=== PATIENT | female | born 1960 | race Caucasian/White ===

== ENCOUNTER 2017-03-15 10:07 | Day surgery (SDC) | payer OTHER, MEDICAID ==
[~2017-03-15] VITALS: Ht 152.4 cm; Wt 91.3 kg
[~2017-03-15 10:07] MED LIST: AMLO-147 PO; ATOR20TA38 PO; CEPH-443 PO; DOCU-144 PO; FURO-110 PO; GABA300C16 PO; HYDR-762 PO; LEVO137T24 PO; METH500T8 PO; OMEP20CA16 PO; POLY10DR BOTH EYES; TRAM50TA2 PO
[2017-03-15 10:29] VITALS: Ht 152.4 cm; Wt 91.3 kg
[2017-03-15] MEDS ORDERED: AMIT75TA2 PO (10:45)
[2017-03-15] MEDS ORDERED: HYDR-902 PO (10:45)
[2017-03-15] MEDS ORDERED: FER325 PO (10:45)
[2017-03-15] MEDS ORDERED: PROPOFOL 20 ML ONE ×2 (10:49→11:26)
[2017-03-15 10:51] VITALS: BP 128/65; PULSE 85; RESP 18
[2017-03-15 11:53] VITALS: BP 124/63; PULSE 79; RESP 14
--- NOTE | 2017-03-15 13:12 | GILP ---
DATE OF PROCEDURE: NAME OF PROCEDURES: 1. Esophagogastroduodenoscopy and biopsy. 2. Colonoscopy, biopsy and polypectomy. SURGEON: Maia Motta MD PREOPERATIVE DIAGNOSES: 1. Iron deficiency anemia. 2. Gastroesophageal reflux disease. POSTOPERATIVE DIAGNOSES: 1. Gastroesophageal reflux disease. 2. Gastritis. 3. Gastric mucosal biopsies were taken for Helicobacter pylori test. 4. Colonoscopy all the way to the cecum. 5. Sigmoid colon polyp was removed using the snare and electrocautery. 6. Right colon polyp was removed using the biopsy forceps. 7. Diverticulosis of the colon. 8. Internal hemorrhoids. INDICATION FOR THE PROCEDURE: Ms. Sandra Reed is a 56-year-old female patient who was noted to urena ve iron deficiency anemia. The patient never had screening colonoscopy. She also had chronic heart burn, not responding to therapy. The patient was scheduled for endoscopy and colonoscopy for [facility]. The procedures and possible complications are well explained to the patient, she understood and cons ented to the procedures. DESCRIPTION OF PROCEDURE: Under the influence of anesthesia, the gastroscope was carefully introduc ed into the esophagus and under direct vision, it was advanced to the stomach and through the pyloru s into the duodenal bulb and descending duodenum. FINDINGS: ESOPHAGUS: The patient had gastroesophageal reflux disease. STOMACH: She had gastritis and gastric mucosal biopsies were taken for H. pylori test. DUODENUM: Normal. The colonoscope was carefully introduced in the rectum and under direct vision, it was advanced all the way to the cecum. FINDINGS: The patient had a sigmoid colon polyp and it was removed using the snare and electrocaute ry. She had a small right colon polyp and it was removed using the biopsy forceps. She was noted t o have diverticulosis of the colon and internal hemorrhoids. She tolerated the procedures very well and there was no complication from the procedures. At the en d of the procedures, she was awake with stable vital signs and she was discharged home to the care o f her family. IMPRESSION: 1. Gastroesophageal reflux disease. 2. Gastritis. 3. Gastric mucosal biopsies were taken for Helicobacter pylori test. 4. Colonoscopy all the way to the cecum. 5. Sigmoid colon polyp was removed using the snare and electrocautery. 6. Right colon polyp was removed using the biopsy forceps. 7. Internal hemorrhoids. PLAN: 1. Continue omeprazole. 2. Await histopathology reports. 3. Next screening colonoscopy in 5 years. Dictated By: MAIA KATHLEEN/SAMANTHA Conf#: [id number] DID#: [id number]
== END 2017-03-15 14:25 | disposition home or self-care (01) ==
LOC: GIL 10:07
PROVIDERS: ATTEND Internal Medicine Gastroenterology
DX: K21.9 Gastro-esophageal reflux disease without esophagitis (principal); D12.5 Benign neoplasm of sigmoid colon; K63.5 Polyp of colon; K29.70 Gastritis, unspecified, without bleeding; K57.90 Diverticulosis of intestine, part unspecified, without perforation or abscess without bleeding; I10 Essential (primary) hypertension; E03.9 Hypothyroidism, unspecified; E66.01 Morbid (severe) obesity due to excess calories; Z68.39 Body mass index [BMI] 39.0-39.9, adult; E78.5 Hyperlipidemia, unspecified
CPT/HCPCS: 87081; 88305

== ENCOUNTER 2018-08-17 09:29 | Inpatient (IN) | END 2018-08-22 18:50 | disposition home health service (06) | DRG 460 ==

== ENCOUNTER 2018-09-04 01:12 | Inpatient (IN) | END 2018-09-18 18:00 | DRG 460 ==

== ENCOUNTER 2018-09-18 18:06 | Inpatient (IN) | END 2018-09-20 13:40 | disposition home health service (06) | DRG 560 ==

== ENCOUNTER 2018-10-03 22:12 | Inpatient (IN) | END 2018-10-19 21:00 | DRG 862 ==

== ENCOUNTER 2018-10-19 19:08 | Inpatient (IN) | payer OTHER ==
[~2018-10-19] VITALS: Ht 152.4 cm; Wt 90.0 kg
[~2018-10-19 19:08] MED LIST changes: -AMLO-147 PO; -ATOR20TA38 PO; -CEPH-443 PO; -DOCU-144 PO; -FURO-110 PO; +HYDR-3980 PO; -HYDR-762 PO; +LEVO100T8 PO; -LEVO137T24 PO; -OMEP20CA16 PO; +PANT40TA3 PO; -POLY10DR BOTH EYES; -TRAM50TA2 PO
[2018-10-19 21:00] VITALS: BP 108/69; PULSE 89; RESP 18
[2018-10-19] MEDS: oxyCODONE (CR) 10 MG TAB [oxyCONTIN] PO SCH (22:30)
[2018-10-19] MEDS ORDERED: CYCLOBENZAPRINE 10 MG TAB PO SCH (22:30)
[2018-10-19] MEDS: SENNA TAB PO SCH (22:30)
[2018-10-19] MEDS: APIXABAN 5 MG TABLET PO SCH (22:30)
[2018-10-19] MEDS: GABAPENTIN 400 MG CAP PO SCH (22:30)
[2018-10-19] MEDS: HYDROmorphONE 2 MG TAB PO PRN (22:54)
[2018-10-19] MEDS ORDERED: BISACODYL (EC) 5 MG TAB PO PRN (23:00)
[2018-10-19] MEDS ORDERED: HYDROCODONE/APAP (5/325) TAB PO PRN (23:00)
--- NOTE | 2018-10-19 23:00 | NUR ---
ADMITTED A 58 YEAR OLD FEMALE FROM WITH DX OF LUMBOSACRAL RADICULOPATHY. MEDICATION REGIMEN REVIEWED WITH DR STOVER, NO ISSUES FOUND DURING REVIEW. ORIENTED PT TO SURROUNDING AREA. NURSING ASSESSMENT DONE. PICTURE ON BACK INCISION TAKEN. DRESSING CHANGED PER ORDER, USE STERIL GLOVES. C/O PAIN 8-9/10 ON HER BACK INCISION. DILAUDID GIVEN, PT STILL C/O PAIN. INFORMED TO DR STOVER, NEW ORDER NOTED AND CARRIED OUT. ENCOURAGE PT TO TURN AND REPOSITION. ALL NEEDS ATTENDED. HOURLY ROUNDING MADE. CALL LIGHT AND TABLE ARE WITHIN REACH.
[2018-10-19 23:45] VITALS: Ht 152.4 cm; Wt 90.0 kg
[2018-10-20] MEDS ORDERED: BISACODYL 10 MG SUPP PR PRN
[2018-10-20] MEDS ORDERED: MAGNESIUM HYDROXIDE 30ML CUP PO PRN
[2018-10-20] MEDS ORDERED: LACTULOSE 30ML CUP PO PRN
[2018-10-20 02:00] VITALS: BP 112/65; PULSE 84; RESP 18
[2018-10-20] MEDS: METHOCARBAMOL 750 MG TAB PO SCH ×4 (04:05→20:12)
[2018-10-20] MEDS: HYDROmorphONE 2 MG TAB PO PRN ×3 (04:05→22:13)
[2018-10-20] MEDS: PANTOPRAZOLE (EC) 40 MG TAB PO SCH (06:54)
[2018-10-20] MEDS: LEVOTHYROXINE 100 MCG TAB PO SCH (06:54)
[2018-10-20 07:30] VITALS: BP 163/79; PULSE 79; RESP 18
[2018-10-20] MEDS: APIXABAN 5 MG TABLET PO SCH ×2 (08:50→20:12)
[2018-10-20] MEDS: GABAPENTIN 400 MG CAP PO SCH ×4 (08:50→20:12)
[2018-10-20] MEDS: POLYETHYLENE GLYCOL 17 GM PACKET PO SCH (08:50)
[2018-10-20] MEDS: SENNA TAB PO SCH ×2 (08:50→20:12)
[2018-10-20] MEDS: oxyCODONE (CR) 10 MG TAB [oxyCONTIN] PO SCH ×2 (08:51→20:13)
[2018-10-20] MEDS: DOCUSATE SODIUM 100 MG CAP PO SCH ×2 (08:51→20:12)
[2018-10-20] MEDS: COLLAGENASE 5 GM (UD JAR) TOP SCH (08:51)
--- NOTE | 2018-10-20 12:13 | CONS ---
Date/Time of Note Date/Time of Note DATE: 10/20/18 TIME: 12:11 Assessment/Plan Assessment/Plan Additional Assessment/Plan 1) back pain - therapy - pain medications - s/p surgery Consultation Date/Type/Reason Admit Date/Time Oct 19, 2018 at 21:00 Date of Consultation: Oct 20, 2018 Type of Consult Internal Medicine Reason for Consultation medical management Hx of Present Illness Patient comes in with chronic back pain, she is s/p surgery and is not in acute rehab for therapy Past Surgical History Past Surgical Hx: other Social History Smoking Status: Former smoker Exam/Review of Systems Vital Signs Vitals Vital Signs Date Temp Pulse Resp B/P (MAP) Pulse Ox O2 O2 Flow FiO2 Time Delivery Rate 10/20/18 98.3 79 18 163/79 94 Nasal 07:30 (107) Cannula 10/19/18 2.0 21:47 Intake and Output 10/19/18 10/19/18 10/20/18 1515:00 23:00 07:00 IntakeIntake Total 1200 ml BalanceBalance 1200 ml Exam Constitutional: well developed Head: normocephalic, atraumatic Neck: supple Respiratory: clear to auscultation Cardiovascular: regular rate and rhythm Gastrointestinal: soft, non-tender Extremities: normal pulses Medications Medications Current Medications Acetaminophen (Tylenol Tab) 650 mg Q6H PRN PO MILD PAIN(1-3)OR ELEVATED TEMP; Start 10/19/18 at 23:00 Apixaban (Eliquis) 5 mg BID PO Last administered on 10/20/18at 08:50; Admin Dose 5 MG; Start 10/19/18 at 22:30 Bisacodyl (Dulcolax) 5 mg DAILY PRN [place] CONSTIPATION; Start 10/19/18 at 23:00 Collagenase (Santyl) 1 applic DAILY TOP Last administered on 10/20/18at 08:51; Admin Dose 1 APPLIC; Start 10/20/18 at 09:00 Gabapentin (Neurontin) 800 mg QID PO Last administered on 10/20/18at 08:50; Admin Dose 800 MG; Start 10/19/18 at 22:30 Acetaminophen/ Hydrocodone Bitart ([place] (5/325)) 1 tab Q6H PRN PO MODERATE PAIN LEVEL 4-6 Last administered on 10/20/18at 06:54; Admin Dose 1 TAB; Start 10/19/18 at 23:00 Hydromorphone HCl (Dilaudid) 2 mg Q4H PRN PO SEVERE PAIN LEVEL 7-10 Last administered on 10/20/18at 11:31; Admin Dose 2 MG; Start 10/19/18 at 23:00 Levothyroxine Sodium (Synthroid) 200 mcg DAILY@06 PO Last administered on 10/20/18 06:54; Admin Dose 200 MCG; Start 10/20/18 at 06:00 Oxycodone HCl (Oxycontin) 10 mg BID PO Last administered on 10/20/18 08:51; Admin Dose 10 MG; Start 10/19/18 at 22:30 Pantoprazole (Protonix Tab) 40 mg DAILY@06 PO Last administered on 10/20/18 06:54; Admin Dose 40 MG; Start 10/20/18 at 06:00 Polyethylene Glycol (Miralax) 17 gm DAILY PO Last administered on 10/20/18 08:50; Admin Dose 17 GM; Start 10/20/18 at 09:00 Senna (Senokot) 2 tab BID PO Last administered on 10/20/18 08:50; Admin Dose 2 TAB; Start 10/19/18 at 22:30 Docusate Sodium (Colace) 100 mg BID PO Last administered on 10/20/18 08:51; Admin Dose 100 MG; Start 10/20/18 at 09:00 Bisacodyl (Dulcolax Supp) 10 mg DAILY PRN [place] CONSTIPATION; Start 10/20/18 at 00:00 Magnesium Hydroxide (Milk Of Mag) 30 ml BID PRN PO CONSTIPATION; Start 10/20/18 at 00:00 Lactulose (Enulose) 20 gm DAILY PRN PO CONSTIPATION; Start 10/20/18 at 00:00 Methocarbamol (Robaxin) 750 mg TID PO Last administered on 10/20/18 08:51; Admin Dose 750 MG; Start 10/20/18 at 00:00 Results Result Diagram: 10/20/1839 10/20/1839 Results 24 hrs Laboratory Tests Test 10/19/18 21:30 10/20/18 06:39 Urine Color STRAW Urine Clarity CLEAR Urine pH 7.0 Urine Specific [place] 1.009 Urine Ketones NEGATIVE Urine Nitrite NEGATIVE Urine Bilirubin NEGATIVE Urine Urobilinogen NEGATIVE Urine Leukocyte Esterase NEGATIVE Urine Hemoglobin NEGATIVE Urine Glucose NEGATIVE Urine Total Protein NEGATIVE White Blood Count 6.1 Red Blood Count 3.79 L Hemoglobin 10.8 L Hematocrit 34.7 L Mean Corpuscular Volume 91.6 Mean Corpuscular Hemoglobin 28.5 L Mean Corpuscular Hemoglobin Concent 31.1 L Red Cell Distribution Width 13.5 Platelet Count 424 H Mean Platelet Volume 9.5 Immature Granulocytes % 1.500 H Neutrophils % 49.7 Lymphocytes % 27.3 Monocytes % 19.6 H Eosinophils % 1.1 Basophils % 0.8 Nucleated Red Blood Cells % 0.0 Immature Granulocytes # 0.090 H Neutrophils # 3.0 Lymphocytes # 1.7 Monocytes # 1.2 H Eosinophils # 0.1 Basophils # 0.1 Nucleated Red Blood Cells # 0.0 Activated Partial Thromboplast Time 33.7 Sodium Level 140 Potassium Level 5.3 H Chloride Level 97 Carbon Dioxide Level 32 H Anion Gap 11 Blood Urea Nitrogen 17 Creatinine 0.76 Est Glomerular Filtrat Rate mL/min > 60 Glucose Level 122 Calcium Level 9.9 Total Bilirubin 0.3 Direct Bilirubin 0.00 Indirect Bilirubin 0.3 Aspartate Amino Transf (AST/SGOT) 18 Alanine Aminotransferase (ALT/SGPT) 25 Alkaline Phosphatase 115 Total Protein 7.0 Albumin 3.5 Globulin 3.50 H Albumin/Globulin Ratio 1.00 ELAINE BUITRAGO Oct 20, 2018 12:13
--- NOTE | 2018-10-20 13:24 | CONS ---
DATE OF ADMISSION: 10/19/2018 DATE OF CONSULTATION: 10/20/2018 REHABILITATION POST ADMISSION PHYSICIAN EVALUATION REHABILITATION IMPAIRMENT CATEGORY: Lumbar radiculopathy status post spinal fusion and infection wit h the patient status post hardware removal/reposition. ACTIVE COMORBIDITIES: 1. Acute pain syndrome. 2. Hypertension. 3. Status post respiratory failure. 4. Morbid obesity. 5. Urinary tract infection. 6. Pulmonary embolism. 7. Impairments in self-care and mobility. HISTORY OF PRESENT ILLNESS: The patient is a 58-year-old female with a history of complicated low ba ck history who initially had low back pain with radiculopathy. The patient did undergo lumbar fusion surgery on 08/17/2018. The patient did require hardware removal and reposition of interbody cage an d screw placement on 09/07/2018. The patient later noted to have increasing pain with wound dehiscen ce. Her hospital course also notable for acute respiratory failure, pulmonary embolism, urinary trac t infection. The patient noted to have significant impairments in self-care and mobility as compared to baseline, and has been cleared to transfer to the rehabilitation unit for comprehensive interdisc iplinary rehab care. FUNCTIONAL HISTORY: Prior to recent events, she was independent in self-care tasks and mobility. Cu rrently, she requires moderate to minimal assist for self-care and mobility tasks. I have reviewed the preadmission screen and patient's current functional status is consistent with e preadmission screen. FAMILY AND SOCIAL HISTORY: The patient reports living at home alone with [facility] She hopes to return there upon discharge. PAST MEDICAL HISTORY: 1. Low back pain as above. 2. Hypertension. 3. Morbid obesity. CURRENT MEDICATIONS: 1. Eliquis 5 mg p.o. b.i.d. 2. Santyl topically. 3. Flexeril 10 mg p.o. b.i.d. 4. Neurontin 800 mg p.o. q.i.d. 5. [place] p.r.n. 6. Dilaudid p.r.n. 7. OxyContin 10 mg b.i.d. 8. Protonix 40 mg p.o. daily. 9. Senokot 2 tabs p.o. b.i.d. ALLERGIES: THE PATIENT WITH NO KNOWN DRUG ALLERGIES. PHYSICAL EXAMINATION: VITAL SIGNS: She is currently afebrile with stable vital signs. HEENT: Extraocular motion intact. Oropharynx clear. NECK: Supple. LUNGS: Clear anteriorly. CARDIAC: S1, S2. ABDOMEN: Soft, nontender with bowel sounds. NEUROLOGIC: She is awake and alert. She is oriented x3. She will follow simple 1-step commands. S he demonstrates antigravity strength in bilateral upper extremity and lower extremity. PLAN: The patient has been admitted for comprehensive interdisciplinary acute rehab and is anticipat ed to tolerate 3 hours of daily therapy in divided doses for at least 5/7 days a week. Treatment maryann n will include: 1. Physical therapy to focus on bed mobility, transfers, and household ambulation with the goal of h aving patient reach standby assist level. 2. Occupational therapy to focus on hygiene, grooming, dressing, bathing, and toileting activities w ith goal of having patient reach standby assist level. 3. Rehabilitation nursing for carryover of therapeutic interventions, the goal of continent of bowel and bladder, and the goal of pain adequately managed on oral medications. ESTIMATED LENGTH OF STAY: 14 days. DISPOSITION GOAL: Home. REHABILITATION BARRIER: Pain. INTERVENTION FOR BARRIER: Interdisciplinary approach. I acknowledge that I performed a full physical examination on this patient within 24 hours of admissi on to the rehabilitation unit. I believe the patient is a good candidate for comprehensive interdisc iplinary rehab care and is anticipated to make reasonable goals in a reasonable period of time as out lined above. Dictated By: MILLY LEGER/SAMANTHA Conf#: [id number] DID#: [id number]
[2018-10-20] MEDS: HYDROCODONE/APAP (5/325) TAB PO PRN (13:58)
[2018-10-20 14:00] VITALS: BP 115/63; PULSE 86; RESP 20
--- NOTE | 2018-10-20 18:39 | NUR ---
No acute changes noted w/in shift. Pt on her bed most of the time. Pt did therapy today but c/o severe pain on his back s/p lumbar sx. DVT pumps & foam cushion placed as ordered. IV line access kept patent & intact w/ no s/sx of infection/infiltration noted. Wound care done as ordered. Spinal precaution & strict aspiration observed at all times. Kept well rested. Needs attended. Bed kept low & in locked pos. Call light placed w/in reach. Will endorse to PM RN for ALFRED.
[2018-10-20 19:32] VITALS: BP 109/65; RESP 20
[2018-10-21] MEDS: HYDROCODONE/APAP (5/325) TAB PO PRN ×2 (00:59→15:38)
[2018-10-21 02:14] VITALS: BP 108/60; PULSE 79; RESP 18
--- NOTE | 2018-10-21 05:46 | NUR ---
Pt asleep at this time. No s/sx of distress. Dilaudid PO and [place] PO administered per MD order. Verbalized some relief of pain after interventions. Due meds given. Needs attended to. Safety precautions in place. Frequent checks done. Encouraged to call for help when necessary. Will endorse accordingly.
[2018-10-21] MEDS: PANTOPRAZOLE (EC) 40 MG TAB PO SCH (06:44)
[2018-10-21] MEDS: LEVOTHYROXINE 100 MCG TAB PO SCH (06:44)
[2018-10-21 07:00] VITALS: BP 114/66; PULSE 79; RESP 18
[2018-10-21] MEDS: GABAPENTIN 400 MG CAP PO SCH ×4 (09:25→20:00)
[2018-10-21] MEDS: DOCUSATE SODIUM 100 MG CAP PO SCH ×2 (09:25→20:00)
[2018-10-21] MEDS: APIXABAN 5 MG TABLET PO SCH ×2 (09:25→20:00)
[2018-10-21] MEDS: METHOCARBAMOL 750 MG TAB PO SCH ×3 (09:25→20:00)
[2018-10-21] MEDS: SENNA TAB PO SCH ×2 (09:25→20:00)
[2018-10-21] MEDS: POLYETHYLENE GLYCOL 17 GM PACKET PO SCH (09:25)
[2018-10-21] MEDS: COLLAGENASE 5 GM (UD JAR) TOP SCH (09:26)
[2018-10-21] MEDS: oxyCODONE (CR) 10 MG TAB [oxyCONTIN] PO SCH ×2 (09:26→20:00)
--- NOTE | 2018-10-21 11:44 | NUR ---
Notified Dr Milagros Witt, manager information for Dr Leung about patient's potassium level = 5.3 & he ordered repeat K level tomorrow. Noted & carried out.
--- NOTE | 2018-10-21 12:08 | PN ---
Date/Time of Note Date/Time of Note DATE: 10/21/18 TIME: 12:07 Assessment/Plan VTE Prophylaxis Risk score (from Nsg)>0 risk: 14 SCD applied (from Nsg): Yes Pharmacological prophylaxis: LMWH Lines/Catheters IV Catheter Type (from Nrsg): Saline Lock Urinary Cath still in place: Yes Reason Cath still needed: skin wounds contaminated by urine Assessment/Plan Hospital Course Patient comes in with chronic back pain, she is s/p surgery and is not in acute rehab for therapy Subjective 24 Hr Interval Summary Free Text/Dictation Patient has no complaints Exam/Review of Systems Vital Signs Vitals Vital Signs Date Temp Pulse Resp B/P (MAP) Pulse Ox O2 O2 Flow FiO2 Time Delivery Rate 10/21/18 97.9 79 18 114/66 97 Room Air 07:00 (82) 10/21/18 2.0 02:04 Intake and Output 10/20/18 10/20/18 10/21/18 1515:00 23:00 07:00 IntakeIntake Total 860 ml OutputOutput Total 900 ml 900 ml BalanceBalance -40 ml -900 ml Exam Constitutional: well developed Head: normocephalic, atraumatic Neck: supple Respiratory: clear to auscultation Cardiovascular: regular rate and rhythm Gastrointestinal: soft, non-tender Extremities: normal pulses Medications Medications Current Medications Acetaminophen (Tylenol Tab) 650 mg Q6H PRN PO MILD PAIN(1-3)OR ELEVATED TEMP; Start 10/19/18 at 23:00 Apixaban (Eliquis) 5 mg BID PO Last administered on 10/21/18at 09:25; Admin Dose 5 MG; Start 10/19/18 at 22:30 Bisacodyl (Dulcolax) 5 mg DAILY PRN PO CONSTIPATION; Start 10/19/18 at 23:00 Collagenase (Santyl) 1 applic DAILY TOP Last administered on 10/21/18at 09:26; Admin Dose 1 APPLIC; Start 10/20/18 at 09:00 Gabapentin (Neurontin) 800 mg QID PO Last administered on 10/21/18at 09:25; Admin Dose 800 MG; Start 10/19/18 at 22:30 Hydromorphone HCl (Dilaudid) 2 mg Q4H PRN PO SEVERE PAIN LEVEL 7-10 Last administered on 10/20/18at 22:13; Admin Dose 2 MG; Start 10/19/18 at 23:00 Levothyroxine Sodium (Synthroid) 200 mcg DAILY@06 PO Last administered on 10/21/18 06:44; Admin Dose 200 MCG; Start 10/20/18 at 06:00 Oxycodone HCl (Oxycontin) 10 mg BID PO Last administered on 10/21/18 09:26; A dmin Dose 10 MG; Start 10/19/18 at 22:30 Pantoprazole (Protonix Tab) 40 mg DAILY@06 PO Last administered on 10/21/18 06:44; Admin Dose 40 MG; Start 10/20/18 at 06:00 Polyethylene Glycol (Miralax) 17 gm DAILY PO Last administered on 10/21/18 09:25; Admin Dose 17 GM; Start 10/20/18 at 09:00 Senna (Senokot) 2 tab BID PO Last administered on 10/21/18 09:25; Admin Dose 2 TAB; Start 10/19/18 at 22:30 Docusate Sodium (Colace) 100 mg BID PO Last administered on 10/21/18 09:25; Admin Dose 100 MG; Start 10/20/18 at 09:00 Bisacodyl (Dulcolax Supp) 10 mg DAILY PRN [place] CONSTIPATION; Start 10/20/18 at 00:00 Magnesium Hydroxide (Milk Of Mag) 30 ml BID PRN PO CONSTIPATION; Start 10/20/18 at 00:00 Lactulose (Enulose) 20 gm DAILY PRN PO CONSTIPATION; Start 10/20/18 at 00:00 Methocarbamol (Robaxin) 750 mg TID PO Last administered on 10/21/18 09:25; Admin Dose 750 MG; Start 10/20/18 at 00:00 Acetaminophen/ Hydrocodone Bitart ([place] (5/325)) 2 tab Q6H PRN PO MODERATE PAIN LEVEL 4-6 Last administered on 10/21/18at 00:59; Admin Dose 2 TAB; Start 10/20/18 at 14:00 Results Result Diagram: 10/20/1839 10/20/1839 ELAINE BUITRAGO Oct 21, 2018 12:08
[2018-10-21 14:00] VITALS: BP 113/63; PULSE 84; RESP 18
--- NOTE | 2018-10-21 16:01 | NUR ---
Gave Therapeutic Outing teaching to patient. Specifically informed patient that they can only visit premises within the hospital & not outside the building. Patient agrees.
--- NOTE | 2018-10-21 17:00 | NUR ---
Patient in bed sleeping. Easily arousable. Alert, oriented x 3 with periods of forgetfulness. No SOB. Complained of pain so given PRN pain medication. Relieved after 30 minutes. Offered educational materials & TV for recreational activities. Wound dressing change & treatment done on patient's open wound & incision site in the back. No redness & drainage noted. Wound clean & dry. Patient tolerated procedure well. Kept clean & dry. All due meds given. Call light within reach. Bed alarm on & in low position. Kept comfortable.
[2018-10-21 20:00] VITALS: BP 99/66; PULSE 90; RESP 18
--- NOTE | 2018-10-21 22:29 | CONS ---
Date/Time of Note Date/Time of Note DATE: 10/21/18 TIME: 22:27 Assessment/Plan Assessment/Plan Chief Complaint/Hosp Course - s/p fever due to PE and infection of the spinal wound, resolved - PE extending from distal R main pulmonary artery into 1st and 2nd order lobar branches on CTA on 10/06/2018, DIONNA of LEs on 10/06/2018 showed no DVT - s/p acute hypoxic resp failure as a result of PE, resolved neuro - s/p dehiscence and infection of the lower part of the spinal wound due to E. coli, coag negative Staph and corynebacteria, improved after a course of antibiotic - pain and paresthesia of b/l LEs, chronic according to Pt - h/o mechanical low back pain with radiculopathy of LEs - h/o b/l L5-S1 trans-foraminal lumbar interbody fusion surgery using instrumented spinal fusion 08/17/2018. - h/o posterior L5-S1 instrumented spinal fusion removal with reposition of interbody cage; placement of L5-S1 rods/screws on 09/07/2018 other conditions - s/p neutropenia noted on 10/09/2018, probably due to a combination of infection and side effect from vancomycin. It was discontinued. It resolved - s/p E. coli in Pt's urine culture; her urinalysis did not show pyuria and Pt had no UTI Sx prior to admission. Therefore, this was likely a contaminant - hypothyroidism - s/p neutropenia with vancomycin, resolved after vancomycin was stopped recommendations - continue to monitor Pt off systemic antibiotics. Pt completed daptomycin (10/10/2018-10/18/2018) and IV vancomycin (10/05/2081-10/09/2018) management d/w Pt and her RN Consultation Date/Type/Reason Admit Date/Time Oct 19, 2018 at 21:00 Date of Consultation: Oct 21, 2018 Type of Consult ID Reason for Consultation f/u on management of post-op fever Requesting Provider: JOAQUIN LEUNG MD Hx of Present Illness This is a 58 yo female with mechanical low back pain with radiculopathy of LEs. On 08/17/2018 Pt underwent b/l L5-S1 trans-foraminal lumbar interbody fusion surgery using instrumented spinal fusion. On 09/07/2018 Pt had posterior L5-S1 instrumented spinal fusion removal with reposition of interbody cage; placement of L5-S1 rods/screws. Pt was having pain from the wound; it became excruciating and as a result Pt came to ER on 10/05/2018. Dehiscence of the lowest part of the wound was identified. CT showed post-operative changes and prosthetics. The cultures of the wound eventually grew E. coli, coag negative staph and corynebacteria. Her urine culture grew E. coli. Her urinalysis did not show pyuria and Pt had no UTI Sx prior to admission. Dr. Leung requested ID consultation at that time. Pt initially received IV vancomycin and ceftriaxone. She developed neutropenia from IV vancomycin, and it was switched to daptomycin. At that time Pt developed PE extending from the distal R main pulmonary artery into 1st and 2nd order lobar branches. It was identified on CTA on 10/06/2018. DIONNA of LEs on 10/06/2018 showed no DVT. Infection of the lower part of the spinal wound improved after a course of antibiotics. Neutropenia resolved after IV vancomycin was stopped. I continued to monitor Pt off systemic antibiotics. Her pain has improved. Pt was transferred to rehab for further care on 10/20/2018. I saw Pt today to ensure she is receiving rehab without signs of infection. Constitutional: no complaints, improved Eyes: no complaints ENT: no complaints Respiratory: no complaints Cardiovascular: no complaints Gastrointestinal: no complaints Genitourinary: other (FC) Musculoskeletal: back pain (rated at 5), restricted range of motion Skin: no complaints Neurologic: focal-weakness, other (pain that radiates from the lower back to R foot) Endocrine: no complaints Past Medical History Medical History: hypertension Past Surgical History Past Surgical Hx: other Social History Smoking Status: Former smoker Exam/Review of Systems Vital Signs Vitals Vital Signs Date Temp Pulse Resp B/P (MAP) Pulse Ox O2 O2 Flow FiO2 Time Delivery Rate 10/21/18 99.3 90 18 99/66 (77) 94 Room Air 20:00 10/21/18 2.0 19:53 Intake and Output 10/20/18 10/20/18 10/21/18 1515:00 23:00 07:00 IntakeIntake Total 860 ml OutputOutput Total 900 ml 900 ml BalanceBalance -40 ml -900 ml Exam Constitutional: alert, obese Psych: no complaints, nl mood/affect Head: normocephalic, atraumatic Eyes: nl conjunctiva, nl lids, nl sclera ENMT: nl external ears & nose, nl nasal mucosa & septum, mucosa pink and moist Neck: other (not swollen) Respiratory: clear to auscultation, normal air movement Cardiovascular: regular rate and rhythm, nl pulses Gastrointestinal: soft, non-tender; No distended, No tender Musculoskeletal: muscle weakness, range of motion (limited), other (the wound of the back is well approximated and healing); No swelling Extremities: No edema 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, nl mental status Skin: nl turgor; No rash or lesions, No ecchymosis Medications Medications Current Medications Acetaminophen (Tylenol Tab) 650 mg Q6H PRN PO MILD PAIN(1-3)OR ELEVATED TEMP; Start 10/19/18 at 23:00 Apixaban (Eliquis) 5 mg BID PO Last administered on 10/21/18at 20:00; Admin Dose 5 MG; Start 10/19/18 at 22:30 Bisacodyl (Dulcolax) 5 mg DAILY PRN PO CONSTIPATION; Start 10/19/18 at 23:00 Collagenase (Santyl) 1 applic DAILY TOP Last administered on 10/21/18at 09:26; Admin Dose 1 APPLIC; Start 10/20/18 at 09:00 Gabapentin (Neurontin) 800 mg QID PO Last administered on 10/21/18at 20:00; Admin Dose 800 MG; Start 10/19/18 at 22:30 Hydromorphone HCl (Dilaudid) 2 mg Q4H PRN PO SEVERE PAIN LEVEL 7-10 Last administered on 10/20/18at 22:13; Admin Dose 2 MG; Start 10/19/18 at 23:00 Levothyroxine Sodium (Synthroid) 200 mcg DAILY@06 PO Last administered on 10/21/18at 06:44; Admin Dose 200 MCG; Start 10/20/18 at 06:00 Oxycodone HCl (Oxycontin) 10 mg BID PO Last administered on 10/21/18at 20:00; Admin Dose 10 MG; Start 10/19/18 at 22:30 Pantoprazole (Protonix Tab) 40 mg DAILY@06 PO Last administered on 12/16/18at 06:44; Admin Dose 40 MG; Start 10/20/18 at 06:00 Polyethylene Glycol (Miralax) 17 gm DAILY PO Last administered on 10/21/18 09:25; Admin Dose 17 GM; Start 10/20/18 at 09:00 Senna (Senokot) 2 tab BID PO Last administered on 10/21/18at 20:00; Admin Dose 2 TAB; Start 10/19/18 at 22:30 Docusate Sodium (Colace) 100 mg BID PO Last administered on 10/21/18at 20:00; Admin Dose 100 MG; Start 10/20/18 at 09:00 Bisacodyl (Dulcolax Supp) 10 mg DAILY PRN [place] CONSTIPATION; Start 10/20/18 at 00:00 Magnesium Hydroxide (Milk Of Mag) 30 ml BID PRN PO CONSTIPATION; Start 10/20/18 at 00:00 Lactulose (Enulose) 20 gm DAILY PRN PO CONSTIPATION; Start 10/20/18 at 00:00 Methocarbamol (Robaxin) 750 mg TID PO Last administered on 10/21/18at 20:00; Admin Dose 750 MG; Start 10/20/18 at 00:00 Acetaminophen/ Hydrocodone Bitart ([place] (5/325)) 2 tab Q6H PRN PO MODERATE PAIN LEVEL 4-6 Last administered on 10/21/18at 15:38; Admin Dose 2 TAB; Start 10/20/18 at 14:00 Results Result Diagram: 10/20/18 0639 10/20/18 0639 RILEY TARANGO M.D. Oct 21, 2018 22:29
[2018-10-22 02:35] VITALS: BP 126/88; PULSE 63; RESP 18
[2018-10-22] MEDS: HYDROmorphONE 2 MG TAB PO PRN ×3 (04:09→16:26)
--- NOTE | 2018-10-22 05:44 | NUR ---
Patient is A/O x4. Patient slept well during the night. No s/sx of distress. Dilaudid PO was given for back pain as per ordered, with good relief. No sign of distress. Needs attended to. Safety precautions in place. Hourly rounding done. Call light in reach. Instructed to call for assistance.
[2018-10-22] MEDS: PANTOPRAZOLE (EC) 40 MG TAB PO SCH (05:57)
[2018-10-22] MEDS: LEVOTHYROXINE 100 MCG TAB PO SCH (05:57)
[2018-10-22] MEDS: HYDROCODONE/APAP (5/325) TAB PO PRN (05:57)
[2018-10-22 07:00] VITALS: BP 115/63; PULSE 64; RESP 18
[2018-10-22] MEDS: DOCUSATE SODIUM 100 MG CAP PO SCH ×2 (09:00→21:13)
[2018-10-22] MEDS: METHOCARBAMOL 750 MG TAB PO SCH ×3 (09:00→21:13)
[2018-10-22] MEDS: APIXABAN 5 MG TABLET PO SCH ×2 (09:00→21:14)
[2018-10-22] MEDS: GABAPENTIN 400 MG CAP PO SCH ×4 (09:00→21:13)
[2018-10-22] MEDS: SENNA TAB PO SCH ×2 (09:00→21:13)
[2018-10-22] MEDS: COLLAGENASE 5 GM (UD JAR) TOP SCH (09:00)
[2018-10-22] MEDS: POLYETHYLENE GLYCOL 17 GM PACKET PO SCH (09:00)
[2018-10-22] MEDS: oxyCODONE (CR) 10 MG TAB [oxyCONTIN] PO SCH ×2 (09:02→21:14)
--- NOTE | 2018-10-22 12:05 | PN ---
Date/Time of Note Date/Time of Note DATE: 10/22/18 TIME: 12:04 Objective Vital Signs Date Temp Pulse Resp B/P (MAP) Pulse Ox O2 O2 Flow FiO2 Time Delivery Rate 10/22/18 Nasal 2.0 08:00 Cannula 10/22/18 99.0 64 18 115/63 96 07:00 (80) Intake and Output 10/21/18 10/21/18 10/22/18 1515:00 23:00 07:00 IntakeIntake Total 1400 ml 250 ml OutputOutput Total 800 ml BalanceBalance 600 ml 250 ml Exam INTERDISCIPLINARY TEAM CONFERENCE BOWEL- Cont BLADDER-DC rubio SKIN- intact OT- DRESSING-max BATHING-max TOILETING-max PT- BED MOBILITY-max TRANSFERS-max AMBULATION-UA A/P- Interdisciplinary team conference held today. Please see interdisciplinary sheet. Working toward d.c. on 11/02 with post discharge follow up of physical therapy, occupational therapy. Results/Medications Result Diagram: 10/20/18 0639 10/22/18 0604 Results 24 hrs Laboratory Tests Test 10/22/18 06:04 Potassium Level 4.8 Medications Current Medications Acetaminophen (Tylenol Tab) 650 mg Q6H PRN PO MILD PAIN(1-3)OR ELEVATED TEMP; Start 10/19/18 at 23:00 Apixaban (Eliquis) 5 mg BID PO Last administered on 10/22/18at 09:00; Admin Dose 5 MG; Start 10/19/18 at 22:30 Bisacodyl (Dulcolax) 5 mg DAILY PRN PO CONSTIPATION; Start 10/19/18 at 23:00 Collagenase (Santyl) 1 applic DAILY TOP Last administered on 10/21/18at 09:26; Admin Dose 1 APPLIC; Start 10/20/18 at 09:00 Gabapentin (Neurontin) 800 mg QID PO Last administered on 10/22/18at 09:00; Adm in Dose 800 MG; Start 10/19/18 at 22:30 Hydromorphone HCl (Dilaudid) 2 mg Q4H PRN PO SEVERE PAIN LEVEL 7-10 Last administered on 10/22/18at 04:09; Admin Dose 2 MG; Start 10/19/18 at 23:00 Levothyroxine Sodium (Synthroid) 200 mcg DAILY@06 PO Last administered on 10/22/18at 05:57; Admin Dose 200 MCG; Start 10/20/18 at 06:00 Oxycodone HCl (Oxycontin) 10 mg BID PO Last administered on 10/22/18at 09:02; Admin Dose 10 MG; Start 10/19/18 at 22:30 Pantoprazole (Protonix Tab) 40 mg DAILY@06 PO Last administered on 10/22/18 05:57; Admin Dose 40 MG; Start 10/20/18 at 06:00 Polyethylene Glycol (Miralax) 17 gm DAILY PO Last administered on 10/21/18at 09:25; Admin Dose 17 GM; Start 10/20/18 at 09:00 Senna (Senokot) 2 tab BID PO Last administered on 10/21/18at 20:00; Admin Dose 2 TAB; Start 10/19/18 at 22:30 Docusate Sodium (Colace) 100 mg BID PO Last administered on 10/22/18at 09:00; A dmin Dose 100 MG; Start 10/20/18 at 09:00 Bisacodyl (Dulcolax Supp) 10 mg DAILY PRN [place] CONSTIPATION; Start 10/20/18 at 00:00 Magnesium Hydroxide (Milk Of Mag) 30 ml BID PRN PO CONSTIPATION; Start 10/20/18 at 00:00 Lactulose (Enulose) 20 gm DAILY PRN PO CONSTIPATION; Start 10/20/18 at 00:00 Methocarbamol (Robaxin) 750 mg TID PO Last administered on 10/22/18at 09:00; Admin Dose 750 MG; Start 10/20/18 at 00:00 Acetaminophen/ Hydrocodone Bitart ([place] (5/325)) 2 tab Q6H PRN PO MODERATE [place] N LEVEL 4-6 Last administered on 10/22/18 05:57; Admin Dose 2 TAB; Start 10/20/18 at 14:00 MILLY PUENTE MD Oct 22, 2018 12:05
--- NOTE | 2018-10-22 12:37 | CONS ---
Date/Time of Note Date/Time of Note DATE: 10/22/18 TIME: 12:35 Assessment/Plan Assessment/Plan Chief Complaint/Hosp Course - s/p fever due to PE and infection of the spinal wound, resolved - PE extending from distal R main pulmonary artery into 1st and 2nd order lobar branches on CTA on 10/06/2018, DIONNA of LEs on 10/06/2018 showed no DVT - s/p acute hypoxic resp failure as a result of PE, resolved neuro - s/p dehiscence and infection of the lower part of the spinal wound due to E. coli, coag negative Staph and corynebacteria, improved after a course of antibiotic - pain and paresthesia of b/l LEs, chronic according to Pt - h/o mechanical low back pain with radiculopathy of LEs - h/o b/l L5-S1 trans-foraminal lumbar interbody fusion surgery using instrumented spinal fusion 08/17/2018. - h/o posterior L5-S1 instrumented spinal fusion removal with reposition of interbody cage; placement of L5-S1 rods/screws on 09/07/2018 other conditions - s/p neutropenia noted on 10/09/2018, probably due to a combination of infection and side effect from vancomycin. It was discontinued. It resolved - s/p E. coli in Pt's urine culture; her urinalysis did not show pyuria and Pt had no UTI Sx prior to admission. Therefore, this was likely a contaminant - hypothyroidism - s/p neutropenia with vancomycin, resolved after vancomycin was stopped Recommendations: - continue to monitor Pt off systemic antibiotics. Pt completed daptomycin (10/10/2018-10/18/2018) and IV vancomycin (10/05/2081-10/09/2018) Management d/w patient, RN Nhet, and with Dr. Moncada Consultation Date/Type/Reason Admit Date/Time Oct 19, 2018 at 21:00 Initial Consult Date 10/21/18 Type of Consult Infectious Disease Requesting Provider: JOAQUIN STOVER MD 24 HR Interval Summary Free Text/Dictation C/o severe mid low back pain radiating down RLE rating 9/10. Asking for IV Dilaudid. States "I can't move my R leg without using my hand". +Nausea but no vomiting. No abd pain, diarrhea, dysuria. Planning to remove Drake today per d/w nursing. Exam/Review of Systems Vital Signs Vitals Vital Signs Date Temp Pulse Resp B/P (MAP) Pulse Ox O2 O2 Flow FiO2 Time Delivery Rate 10/22/18 Nasal 2.0 08:00 Cannula 10/22/18 99.0 64 18 115/63 96 07:00 (80) Intake and Output 10/21/18 10/21/18 10/22/18 1515:00 23:00 07:00 IntakeIntake Total 1400 ml 250 ml OutputOutput Total 800 ml BalanceBalance 600 ml 250 ml Exam Constitutional: alert, oriented, well developed, obese, other (lying in bed in no acute distress but appears uncomfortable and unable to move RLE d/t reported back pain) Psych: no complaints Head: normocephalic, atraumatic Eyes: nl conjunctiva, nl lids, nl sclera ENMT: nl external ears & nose, nl nasal mucosa & septum, mucosa pink and moist Neck: supple Respiratory: clear to auscultation, normal air movement Cardiovascular: regular rate and rhythm, nl pulses Gastrointestinal: soft, non-tender Musculoskeletal: muscle weakness, range of motion (limited), other (wound of the back is well approximated and healing - photos in chart reviewed); No swelling Extremities: No edema Neurological: nl mental status, nl speech; No nl strength Skin: nl turgor; No rash or lesions Medications Medications Current Medications Acetaminophen (Tylenol Tab) 650 mg Q6H PRN PO MILD PAIN(1-3)OR ELEVATED TEMP; Start 10/19/18 at 23:00 Apixaban (Eliquis) 5 mg BID PO Last administered on 10/22/18at 09:00; Admin Dose 5 MG; Start 10/19/18 at 22:30 Bisacodyl (Dulcolax) 5 mg DAILY PRN PO CONSTIPATION; Start 10/19/18 at 23:00 Collagenase (Santyl) 1 applic DAILY TOP Last administered on 10/22/18at 09:00; Admin Dose 1 APPLIC; Start 10/20/18 at 09:00 Gabapentin (Neurontin) 800 mg QID PO Last administered on 10/22/18at 09:00; Admin Dose 800 MG; Start 10/19/18 at 22:30 Hydromorphone HCl (Dilaudid) 2 mg Q4H PRN PO SEVERE PAIN LEVEL 7-10 Last administered on 10/22/18at 12:32; Admin Dose 2 MG; Start 10/19/18 at 23:00 Levothyroxine Sodium (Synthroid) 200 mcg DAILY@06 PO Last administered on 10/22/18at 05:57; Admin Dose 200 MCG; Start 10/20/18 at 06:00 Oxycodone HCl (Oxycontin) 10 mg BID PO Last administered on 10/22/18at 09:02; Admin Dose 10 MG; Start 10/19/18 at 22:30 Pantoprazole (Protonix Tab) 40 mg DAILY@06 PO Last administered on 10/22/18at 05:57; Admin Dose 40 MG; Start 10/20/18 at 06:00 Polyethylene Glycol (Miralax) 17 gm DAILY PO Last administered on 10/22/18at 0 9:00; Admin Dose 17 GM; Start 10/20/18 at 09:00 Senna (Senokot) 2 tab BID PO Last administered on 10/22/18at 09:00; Admin Dose 2 TAB; Start 10/19/18 at 22:30 Docusate Sodium (Colace) 100 mg BID PO Last administered on 10/22/18at 09:00; Admin Dose 100 MG; Start 10/20/18 at 09:00 Bisacodyl (Dulcolax Supp) 10 mg DAILY PRN [place] CONSTIPATION; Start 10/20/18 at 00:00 Magnesium Hydroxide (Milk Of Mag) 30 ml BID PRN PO CONSTIPATION; Start 10/20/18 at 00:00 Lactulose (Enulose) 20 gm DAILY PRN PO CONSTIPATION; Start 10/20/18 at 00:00 Methocarbamol (Robaxin) 750 mg TID PO Last administered on 10/22/18at 09:00; Admin Dose 750 MG; Start 10/20/18 at 00:00 Acetaminophen/ Hydrocodone Bitart ([place] (5/325)) 2 tab Q6H PRN PO MODERATE PAIN LEVEL 4-6 Last administered on 10/22/18at 05:57; Admin Dose 2 TAB; Start 10/20/18 at 14:00 Results Result Diagram: 10/20/18 0639 10/22/18 0604 Results 24 hrs Laboratory Tests Test 10/22/18 06:04 Potassium Level 4.8 BROOKLYN HOOK NP Oct 22, 2018 12:37
[2018-10-22 14:00] VITALS: BP 117/68; PULSE 57
[2018-10-22] MEDS ORDERED: HYDROmorphONE 1 MG/ML SYG IV ONE (18:00)
--- NOTE | 2018-10-22 18:29 | NUR ---
Nursing Notes: patient refused removal of Drake catheter today, stated she's in severe pain when she moves. RN notified Dr. Leung as per patient request. IV pain medication given, patient wants the Drake Catheter to be remove tomorrow not today since she's in severe pain.
--- NOTE | 2018-10-22 19:00 | NUR ---
Nursing Notes: RN informed Dr. Leung that patient refused removal of Drake Catheter which was ordered by Dr. Adams, informed that patient wants the FC to be remove tomorrow once she can move.
[2018-10-22 20:00] VITALS: BP 114/63; PULSE 84; RESP 18
--- NOTE | 2018-10-22 20:34 | PN ---
Date/Time of Note Date/Time of Note DATE: 10/22/18 TIME: 20:33 Assessment/Plan VTE Prophylaxis Risk score (from Nsg)>0 risk: 13 SCD applied (from Nsg): Yes SCD contraindicated: other Pharmacological prophylaxis: other Lines/Catheters IV Catheter Type (from Nrsg): Saline Lock Urinary Cath still in place: Yes Reason Cath still needed: skin wounds contaminated by urine Assessment/Plan Assessment/Plan - chronic back pain - pain control - s/p surgery ; in acute rehab for therapy - cont therapy as tolerated Plan of care Dr Leung Subjective 24 Hr Interval Summary Constitutional: no complaints Eyes: no complaints ENT: no complaints Respiratory: no complaints Cardiovascular: no complaints Gastrointestinal: no complaints Genitourinary: no complaints Musculoskeletal: bone/joint pain, restricted range of motion Skin: no complaints Neurologic: no complaints Endocrine: no complaints Lymphatic: no complaints Psychological: nl mood/affect Exam/Review of Systems Vital Signs Vitals Vital Signs Date Temp Pulse Resp B/P (MAP) Pulse Ox O2 O2 Flow FiO2 Time Delivery Rate 10/22/18 97.9 57 117/68 93 Nasal 2.0 14:00 (84) Cannula 10/22/18 07:00 Intake and Output 10/21/18 10/21/18 10/22/18 1515:00 23:00 07:00 IntakeIntake Total 1400 ml 250 ml OutputOutput Total 800 ml BalanceBalance 600 ml 250 ml Exam Constitutional: alert, well developed Psych: nl mood/affect Head: normocephalic Eyes: nl conjunctiva, EOMI, nl lids, nl sclera ENMT: nl external ears & nose Neck: non-tender Respiratory: clear to auscultation (bilaterally) Cardiovascular: nl pulses, other (s1s2) Gastrointestinal: soft, non-tender Musculoskeletal: nl extremities to inspection Extremities: normal pulses Neurological: nl mental status, nl speech Skin: No other (lumbar inscion - DDI) Lymph: nontender Medications Medications Current Medications Acetaminophen (Tylenol Tab) 650 mg Q6H PRN PO MILD PAIN(1-3)OR ELEVATED TEMP; Start 10/19/18 at 23:00 Apixaban (Eliquis) 5 mg BID PO Last administered on 10/22/18at 09:00; Admin Dose 5 MG; Start 10/19/18 at 22:30 Bisacodyl (Dulcolax) 5 mg DAILY PRN PO CONSTIPATION; Start 10/19/18 at 23:00 Collagenase (Santyl) 1 applic DAILY TOP Last administered on 10/22/18at 09:00; Admin Dose 1 APPLIC; Start 10/20/18 at 09:00 Gabapentin (Neurontin) 800 mg QID PO Last administered on 10/22/18 16:26; Admin Dose 800 MG; Start 10/19/18 at 22:30 Hydromorphone HCl (Dilaudid) 2 mg Q4H PRN PO SEVERE PAIN LEVEL 7-10 Last administered on 10/22/18 16:26; Admin Dose 2 MG; Start 10/19/18 at 23:00 Levothyroxine Sodium (Synthroid) 200 mcg DAILY@06 PO Last administered on 10/22/18at 05:57; Admin Dose 200 MCG; Start 10/20/18 at 06:00 Oxycodone HCl (Oxycontin) 10 mg BID PO Last administered on 10/22/18at 09:02; Admin Dose 10 MG; Start 10/19/18 at 22:30 Pantoprazole (Protonix Tab) 40 mg DAILY@06 PO Last administered on 10/22/18 05:57; Admin Dose 40 MG; Start 10/20/18 at 06:00 Polyethylene Glycol (Miralax) 17 gm DAILY PO Last administered on 10/22/18at 09:00; Admin Dose 17 GM; Start 10/20/18 at 09:00 Senna (Senokot) 2 tab BID PO Last administered on 10/22/18at 09:00; Admin Dose 2 TAB; Start 10/19/18 at 22:30 Docusate Sodium (Colace) 100 mg BID PO Last administered on 10/22/18at 09:00; Admin Dose 100 MG; Start 10/20/18 at 09:00 Bisacodyl (Dulcolax Supp) 10 mg DAILY PRN [place] CONSTIPATION; Start 10/20/18 at 00:00 Magnesium Hydroxide (Milk Of Mag) 30 ml BID PRN PO CONSTIPATION; Start 10/20/18 at 00:00 Lactulose (Enulose) 20 gm DAILY PRN PO CONSTIPATION; Start 10/20/18 at 00:00 Methocarbamol (Robaxin) 750 mg TID PO Last administered on 10/22/18at 13:22; Admin Dose 750 MG; Start 10/20/18 at 00:00 Acetaminophen/ Hydrocodone Bitart ([place] (5/325)) 2 tab Q6H PRN PO MODERATE PAIN LEVEL 4-6 Last administered on 10/22/18at 05:57; Admin Dose 2 TAB; Start 10/20/18 at 14:00 Hydromorphone HCl (Dilaudid) 1 mg Q4H PRN IV SEVERE PAIN LEVEL 7-10; Start 10/22/18 at 22:00 Results Result Diagram: 10/20/18 0639 10/22/18 0604 Results 24 hrs Laboratory Tests Test 10/22/18 06:04 Potassium Level 4.8 JONATHAN LEE Oct 22, 2018 20:34
[2018-10-22] MEDS: HYDROmorphONE 1 MG/ML SYG IV PRN (23:26)
[2018-10-23] MEDS: PANTOPRAZOLE (EC) 40 MG TAB PO SCH (06:34)
[2018-10-23] MEDS: HYDROmorphONE 1 MG/ML SYG IV PRN ×2 (06:34→10:50)
[2018-10-23] MEDS: LEVOTHYROXINE 100 MCG TAB PO SCH (06:34)
--- NOTE | 2018-10-23 06:35 | NUR ---
Medicated for back pain prn with good effect. Resp unlabored. Drake cath intact, draining well to yellow urine. Needs attended. Call light within reached. No acute distress noted.
[2018-10-23 07:30] VITALS: BP 121/68; PULSE 90; RESP 18
--- NOTE | 2018-10-23 08:48 | NUR ---
Nursing Notes: 0815H - received report from Dhara PT patient BP went up to 190/89 in standing position and noted as well by GUANAKITO Jules that patient is diaphoretic as well . Oxygen Sat in RA 95 %, patient is alert and oriented x 4 0830 [place] [address], HR -80 RR -18, Saturation 98 % in RA, diaphoretic- BS -142 mg/dl, set up to eat her breakfast , will continue to monitor
--- NOTE | 2018-10-23 08:58 | NUR ---
Nursing Notes: patient Drake Catheter removed @ 0845H without any resistance and due to void between 1445H to 1745H
[2018-10-23] MEDS: POLYETHYLENE GLYCOL 17 GM PACKET PO SCH (09:00)
[2018-10-23] MEDS: oxyCODONE (CR) 10 MG TAB [oxyCONTIN] PO SCH ×2 (09:00→21:26)
[2018-10-23] MEDS: GABAPENTIN 400 MG CAP PO SCH ×4 (10:48→21:25)
[2018-10-23] MEDS: METHOCARBAMOL 750 MG TAB PO SCH ×4 (10:49→21:25)
[2018-10-23] MEDS: DOCUSATE SODIUM 100 MG CAP PO SCH ×2 (10:49→21:24)
[2018-10-23] MEDS: APIXABAN 5 MG TABLET PO SCH ×2 (10:49→21:25)
[2018-10-23] MEDS: SENNA TAB PO SCH ×2 (10:49→21:00)
--- NOTE | 2018-10-23 10:50 | NUR ---
SOCIAL WORK: As per Team conference on 10/22, team agreed pt can benefit from more time. The agreed discharge date is 11/02. This movie writer faxed request to Bre [phone]. Bre confirms receiving the request and will get back to this clinical social work aide with a decision. Addendum: 10/24/18 at 1056 by ERICK JEAN BAPTISTE CM This clinical social work aide spoke w/ Bre requested Dr. Adams to call Insurance medical Dr. Iglesias [phone] for a peer to peer regarding the request for extension. ??Angie was made aware.
[2018-10-23] MEDS: COLLAGENASE 5 GM (UD JAR) TOP SCH (10:51)
--- NOTE | 2018-10-23 11:52 | PN ---
Date/Time of Note Date/Time of Note DATE: 10/23/18 TIME: 11:52 Subjective C/o pain with activity Objective Vital Signs Date Temp Pulse Resp B/P (MAP) Pulse Ox O2 O2 Flow FiO2 Time Delivery Rate 10/23/18 98.8 90 18 121/68 93 Room Air 07:30 (85) 10/22/18 2.0 20:45 Intake and Output 10/22/18 10/22/18 10/23/18 1515:00 23:00 07:00 IntakeIntake Total 200 ml 1200 ml 280 ml OutputOutput Total 1050 ml 800 ml BalanceBalance -850 ml 400 ml 280 ml Exam pulm-cta max transfer Results/Medications Result Diagram: 10/20/18 0639 10/22/18 0604 Results 24 hrs Laboratory Tests Test 10/23/18 08:45 Bedside Glucose 142 Medications Current Medications Acetaminophen (Tylenol Tab) 650 mg Q6H PRN PO MILD PAIN(1-3)OR ELEVATED TEMP; Start 10/19/18 at 23:00 Apixaban (Eliquis) 5 mg BID PO Last administered on 10/23/18at 10:49; Admin Dose 5 MG; Start 10/19/18 at 22:30 Bisacodyl (Dulcolax) 5 mg DAILY PRN PO CONSTIPATION; Start 10/19/18 at 23:00 Collagenase (Santyl) 1 applic DAILY TOP Last administered on 10/23/18at 10:51; Admin Dose 1 APPLIC; Start 10/20/18 at 09:00 Gabapentin (Neurontin) 800 mg QID PO Last administered on 10/23/18at 10:48; Admin Dose 800 MG; Start 10/19/18 at 22:30 Levothyroxine Sodium (Synthroid) 200 mcg DAILY@06 PO Last administered on 10/23/18at 06:34; Admin Dose 200 MCG; Start 10/20/18 at 06:00 Oxycodone HCl (Oxycontin) 10 mg BID PO Last administered on 10/22/18at 21:14; Admin Dose 10 MG; Start 10/19/18 at 22:30 Pantoprazole (Protonix Tab) 40 mg DAILY@06 PO Last administered on 10/23/18at 06:34; Admin Dose 40 MG; Start 10/20/18 at 06:00 Polyethylene Glycol (Miralax) 17 gm DAILY PO Last administered on 10/22/18at 09:00; Admin Dose 17 GM; Start 10/20/18 at 09:00 Senna (Senokot) 2 tab BID PO Last administered on 10/23/18at 10:49; Admin Dose 2 TAB; Start 10/19/18 at 22:30 Docusate Sodium (Colace) 100 mg BID PO Last administered on 10/23/18at 10:49; Admin Dose 100 MG; Start 10/20/18 at 09:00 Bisacodyl (Dulcolax Supp) 10 mg DAILY PRN [place] CONSTIPATION; Start 10/20/18 at 00:00 Magnesium Hydroxide (Milk Of Mag) 30 ml BID PRN PO CONSTIPATION; Start 10/20/18 at 00:00 Lactulose (Enulose) 20 gm DAILY PRN PO CONSTIPATION; Start 10/20/18 at 00:00 Methocarbamol (Robaxin) 750 mg TID PO Last administered on 10/23/18at 10:49; Admin Dose 750 MG; Start 10/20/18 at 00:00 Acetaminophen/ Hydrocodone Bitart ([place] (5/325)) 2 tab Q6H PRN PO MODERATE PAIN LEVEL 4-6 Last administered on 10/22/18at 05:57; Admin Dose 2 TAB; Start 10/20/18 at 14:00 Hydromorphone HCl (Dilaudid) 1 mg Q4H PRN IV SEVERE PAIN LEVEL 7-10 Last administered on 10/23/18at 10:50; Admin Dose 1 MG; Start 10/22/18 at 22:00 Assessment/Plan Additional Assessment/Plan Rehab-Lumbar radiculopathy status post spinal fusion and infection with the patient status post hardware removal/reposition. Activities as tolerated Acute pain syndrome. Hypertension. Status post respiratory failure. Morbid obesity. Urinary tract infection. Pulmonary embolism. MILLY PUENTE MD Oct 23, 2018 11:52
--- NOTE | 2018-10-23 13:48 | CONS ---
Date/Time of Note Date/Time of Note DATE: 10/23/18 TIME: 13:48 Assessment/Plan Assessment/Plan Chief Complaint/Hosp Course CASE COORDINATED WITH BUNDLE BREAKER. EMR REVIEWED. CARE DIRECTED. FULL NOTE TO FOLLOW. WILL CONTINUE TO FOLLOW CLOSELY WITH YOU. Consultation Date/Type/Reason Admit Date/Time Oct 19, 2018 at 21:00 Initial Consult Date 10/21/18 Requesting Provider: JOAQUIN STOVER MD Exam/Review of Systems Vital Signs Vitals Vital Signs Date Temp Pulse Resp B/P (MAP) Pulse Ox O2 O2 Flow FiO2 Time Delivery Rate 10/23/18 98.8 90 18 121/68 93 Room Air 07:30 (85) 10/22/18 2.0 20:45 Intake and Output 10/22/18 10/22/18 10/23/18 1515:00 23:00 07:00 IntakeIntake Total 200 ml 1200 ml 280 ml OutputOutput Total 1050 ml 800 ml BalanceBalance -850 ml 400 ml 280 ml Medications Medications Current Medications Acetaminophen (Tylenol Tab) 650 mg Q6H PRN PO MILD PAIN(1-3)OR ELEVATED TEMP; Start 10/19/18 at 23:00 Apixaban (Eliquis) 5 mg BID PO Last administered on 10/23/18at 10:49; Admin Dose 5 MG; Start 10/19/18 at 22:30 Bisacodyl (Dulcolax) 5 mg DAILY PRN PO CONSTIPATION; Start 10/19/18 at 23:00 Collagenase (Santyl) 1 applic DAILY TOP Last administered on 10/23/18at 10:51; Admin Dose 1 APPLIC; Start 10/20/18 at 09:00 Gabapentin (Neurontin) 800 mg QID PO Last administered on 10/23/18at 10:48; Admin Dose 800 MG; Start 10/19/18 at 22:30 Levothyroxine Sodium (Synthroid) 200 mcg DAILY@06 PO Last administered on 10/23/18at 06:34; Admin Dose 200 MCG; Start 10/20/18 at 06:00 Oxycodone HCl (Oxycontin) 10 mg BID PO Last administered on 10/22/18at 21:14; Admin Dose 10 MG; Start 10/19/18 at 22:30 Pantoprazole (Protonix Tab) 40 mg DAILY@06 PO Last administered on 10/23/18at 06:34; Admin Dose 40 MG; Start 10/20/18 at 06:00 Polyethylene Glycol (Miralax) 17 gm DAILY PO Last administered on 10/22/18at 09:00; Admin Dose 17 GM; Start 10/20/18 at 09:00 Senna (Senokot) 2 tab BID PO Last administered on 10/23/18at 10:49; Admin Dose 2 TAB; Start 10/19/18 at 22:30 Docusate Sodium (Colace) 100 mg BID PO Last administered on 10/23/18at 10:49; Admin Dose 100 MG; Start 10/20/18 at 09:00 Bisacodyl (Dulcolax Supp) 10 mg DAILY PRN [place] CONSTIPATION; Start 10/20/18 at 00:00 Magnesium Hydroxide (Milk Of Mag) 30 ml BID PRN PO CONSTIPATION; Start 10/20/18 at 00:00 Lactulose (Enulose) 20 gm DAILY PRN PO CONSTIPATION; Start 10/20/18 at 00:00 Methocarbamol (Robaxin) 750 mg TID PO Last administered on 10/23/18at 10:49; Admin Dose 750 MG; Start 10/20/18 at 00:00 Acetaminophen/ Hydrocodone Bitart ([place] (5/325)) 2 tab Q6H PRN PO MODERATE PAIN LEVEL 4-6 Last administered on 10/22/18at 05:57; Admin Dose 2 TAB; Start 10/20/18 at 14:00 Hydromorphone HCl (Dilaudid) 1 mg Q4H PRN IV SEVERE PAIN LEVEL 7-10 Last administered on 10/23/18at 10:50; Admin Dose 1 MG; Start 10/22/18 at 22:00 Results Result Diagram: 10/20/18 0639 10/22/18 0604 Results 24 hrs Laboratory Tests Test 10/23/18 08:45 Bedside Glucose 142 ARSALAN ARCEO MD Oct 23, 2018 13:48
[2018-10-23 14:00] VITALS: BP 106/61; PULSE 74; RESP 18
[2018-10-23] MEDS: HYDROCODONE/APAP (5/325) TAB PO PRN (14:13)
--- NOTE | 2018-10-23 16:32 | NUR ---
Nursing Notes: RN called Dr. Mayo and informed about patient's condition , that patient in constant pain ( pain medication was given as needed ) Dr. Mayo stated that patient needs a Wound care Consult and to call Jesus Adkins ( Type Copy Examiner ) RN notified Jesus Adkins that patient lower part incision dehiscence presents, as per Jesus they are aware of that the lower part has been opened, to get Wound Consult as per order.
[2018-10-23] MEDS: HYDROmorphONE 1 MG/ML SYG IM PRN ×2 (17:01→21:34)
[2018-10-23] MEDS ORDERED: HYDROmorphONE 1 MG/ML SYG IM PRN (18:00)
--- NOTE | 2018-10-23 18:08 | CONS ---
Date/Time of Note Date/Time of Note DATE: 10/23/18 TIME: 18:08 Assessment/Plan Assessment/Plan Chief Complaint/Hosp Course - s/p fever due to PE and infection of the spinal wound, resolved - PE extending from distal R main pulmonary artery into 1st and 2nd order lobar branches on CTA on 10/06/2018, DIONNA of LEs on 10/06/2018 showed no DVT - s/p acute hypoxic resp failure as a result of PE, resolved neuro - s/p dehiscence and infection of the lower part of the spinal wound due to E. coli, coag negative Staph and corynebacteria, improved after a course of antibiotic - pain and paresthesia of b/l LEs, chronic according to Pt - h/o mechanical low back pain with radiculopathy of LEs - h/o b/l L5-S1 trans-foraminal lumbar interbody fusion surgery using instrumented spinal fusion 08/17/2018. - h/o posterior L5-S1 instrumented spinal fusion removal with reposition of interbody cage; placement of L5-S1 rods/screws on 09/07/2018 other conditions - s/p neutropenia noted on 10/09/2018, probably due to a combination of infection and side effect from vancomycin. It was discontinued. It resolved - s/p E. coli in Pt's urine culture; her urinalysis did not show pyuria and Pt had no UTI Sx prior to admission. Therefore, this was likely a contaminant - hypothyroidism - s/p neutropenia with vancomycin, resolved after vancomycin was stopped Recommendations: - continue to monitor Pt off systemic antibiotics. Pt completed daptomycin (10/10/2018-10/18/2018) and IV vancomycin (10/05/2081-10/09/2018) - consider psych consult Management d/w patient, RN Nhet, and with Dr. Moncada. Therapeutic time provided. Consultation Date/Type/Reason Admit Date/Time Oct 19, 2018 at 21:00 Initial Consult Date 10/21/18 Type of Consult Infectious Disease Requesting Provider: JOAQUIN STOVER MD 24 HR Interval Summary Free Text/Dictation Pt continues to have constant pain and is frequently asking for pain med; Dr. Mayo made aware that lower part of wound with dehiscence per d/w nursing. Pt feeling overwhelmed with current medical condition and overall pain management. States her mother 2 months ago. Denies SI. States "I will be okay if I can walk on my own two feet, walk out of this place and go back home to my cats". Pt reports that her legs cannot tolerate her body weight and she needs a brace d/t recent R ankle sprain. C/o muscle spasms. Rates pain 7-8/10. "It (pain/muscle spasms) feels like fireworks. I don't know when it is going to go off and it affects my whole body". Exam/Review of Systems Vital Signs Vitals Vital Signs Date Temp Pulse Resp B/P (MAP) Pulse Ox O2 O2 Flow FiO2 Time Delivery Rate 10/23/18 98.5 74 18 106/61 97 Room Air 14:00 (76) 10/23/18 2.0 08:00 Intake and Output 10/22/18 10/22/18 10/23/18 1515:00 23:00 07:00 IntakeIntake Total 200 ml 1200 ml 280 ml OutputOutput Total 1050 ml 800 ml BalanceBalance -850 ml 400 ml 280 ml Exam Constitutional: alert, oriented, well developed, obese, other (lying in bed in no acute distress, starting to get a little tearful) Psych: no complaints Head: normocephalic, atraumatic Eyes: nl conjunctiva, nl lids, nl sclera ENMT: nl external ears & nose, nl nasal mucosa & septum, mucosa pink and moist Neck: supple Respiratory: clear to auscultation, normal air movement Cardiovascular: regular rate and rhythm, nl pulses Gastrointestinal: soft, non-tender Musculoskeletal: muscle weakness, range of motion (limited), other (wound of the back with dehiscence on lower portion- photos in chart reviewed with RN); No swelling Extremities: No edema Neurological: nl mental status, nl speech; No nl strength Skin: nl turgor; No rash or lesions Additional Comments Medications Medications Current Medications Acetaminophen (Tylenol Tab) 650 mg Q6H PRN PO MILD PAIN(1-3)OR ELEVATED TEMP; Start 10/19/18 at 23:00 Apixaban (Eliquis) 5 mg BID PO Last administered on 10/23/18at 10:49; Admin Dose 5 MG; Start 10/19/18 at 22:30 Bisacodyl (Dulcolax) 5 mg DAILY PRN PO CONSTIPATION; Start 10/19/18 at 23:00 Collagenase (Santyl) 1 applic DAILY TOP Last administered on 10/23/18 10:51; Admin Dose 1 APPLIC; Start 10/20/18 at 09:00 Gabapentin (Neurontin) 800 mg QID PO Last administered on 10/23/18 10:48; Admin Dose 800 MG; Start 10/19/18 at 22:30 Levothyroxine Sodium (Synthroid) 200 mcg DAILY@06 PO Last administered on 10/23/18 06:34; Admin Dose 200 MCG; Start 10/20/18 at 06:00 Oxycodone HCl (Oxycontin) 10 mg BID PO Last administered on 10/22/18 21:14; Admin Dose 10 MG; Start 10/19/18 at 22:30 Pantoprazole (Protonix Tab) 40 mg DAILY@06 PO Last administered on 10/23/18 06:34; Admin Dose 40 MG; Start 10/20/18 at 06:00 Polyethylene Glycol (Miralax) 17 gm DAILY PO Last administered on 10/22/18at 09:00; Admin Dose 17 GM; Start 10/20/18 at 09:00 Senna (Senokot) 2 tab BID PO Last administered on 10/23/18 10:49; Admin Dose 2 TAB; Start 10/19/18 at 22:30 Docusate Sodium (Colace) 100 mg BID PO Last administered on 10/23/18 10:49; Admin Dose 100 MG; Start 10/20/18 at 09:00 Bisacodyl (Dulcolax Supp) 10 mg DAILY PRN [place] CONSTIPATION; Start 10/20/18 at 00:00 Magnesium Hydroxide (Milk Of Mag) 30 ml BID PRN PO CONSTIPATION; Start 10/20/18 at 00:00 Lactulose (Enulose) 20 gm DAILY PRN PO CONSTIPATION; Start 10/20/18 at 00:00 Methocarbamol (Robaxin) 750 mg TID PO Last administered on 10/23/18 10:49; Admin Dose 750 MG; Start 10/20/18 at 00:00 Acetaminophen/ Hydrocodone Bitart ([place] (5/325)) 2 tab Q6H PRN PO MODERATE PAIN LEVEL 4-6 Last administered on 10/22/18 05:57; Admin Dose 2 TAB; Start 10/20/18 at 14:00 Hydromorphone HCl (Dilaudid) 1 mg Q4H PRN IV SEVERE PAIN LEVEL 7-10 Last administered on 10/23/18at 10:50; Admin Dose 1 MG; Start 10/22/18 at 22:00 Results Result Diagram: 10/20/18 0639 10/22/18 0604 Results 24 hrs Laboratory Tests Test 10/23/18 08:45 Bedside Glucose 142 BROOKLYN HOOK NP Oct 23, 2018 18:08
--- NOTE | 2018-10-23 19:00 | NUR ---
Nursing Notes: patient for Wound Care Consult, endorsed to DEEPAK Camacho RN left message to the office of Wound Care Department.
[2018-10-23 20:00] VITALS: BP 114/57; PULSE 81; RESP 18
--- NOTE | 2018-10-23 22:31 | PN ---
Date/Time of Note Date/Time of Note DATE: 10/23/18 TIME: 22:28 Assessment/Plan VTE Prophylaxis Risk score (from Nsg)>0 risk: 12 SCD applied (from Ns): Yes SCD contraindicated: other Pharmacological prophylaxis: other Pharm contraindication: other Lines/Catheters IV Catheter Type (from Nrsg): Saline Lock Urinary Cath still in place: Yes Reason Cath still needed: skin wounds contaminated by urine Assessment/Plan Assessment/Plan - Lower back- surgical site - open wound - neurosx was informed - wound care nurse to assess wound - monitor foe s/s of infection - wound care - chronic back pain - s/p surgery and is not in acute rehab for therapy Dw Dr Castellon Subjective 24 Hr Interval Summary Free Text/Dictation -Lower back- surgical site - open wound; neurosx was informed; wound care nurse to assess wound Eyes: no complaints ENT: no complaints Respiratory: no complaints Cardiovascular: no complaints Gastrointestinal: no complaints Genitourinary: no complaints Musculoskeletal: back pain Skin: no complaints Neurologic: no complaints Endocrine: no complaints Exam/Review of Systems Vital Signs Vitals Vital Signs Date Temp Pulse Resp B/P (MAP) Pulse Ox O2 O2 Flow FiO2 Time Delivery Rate 10/23/18 98.0 81 18 114/57 95 Room Air 20:00 (76) 10/23/18 2.0 20:00 Intake and Output 10/22/18 10/22/18 10/23/18 1515:00 23:00 07:00 IntakeIntake Total 200 ml 1200 ml 280 ml OutputOutput Total 1050 ml 800 ml BalanceBalance -850 ml 400 ml 280 ml Exam Constitutional: alert, oriented, well developed Psych: nl mood/affect Head: atraumatic Eyes: nl conjunctiva, EOMI, nl lids, nl sclera ENMT: nl external ears & nose Neck: non-tender Respiratory: clear to auscultation Cardiovascular: nl pulses, other (s1s2) Gastrointestinal: soft Musculoskeletal: muscle weakness, range of motion, other Extremities: normal pulses Neurological: nl mental status, nl speech JONATHAN LEE Oct 23, 2018 22:31
[2018-10-24 02:03] VITALS: BP 114/69; PULSE 83; RESP 18
[2018-10-24] MEDS: PANTOPRAZOLE (EC) 40 MG TAB PO SCH (05:13)
[2018-10-24] MEDS: LEVOTHYROXINE 100 MCG TAB PO SCH (05:13)
[2018-10-24] MEDS: HYDROmorphONE 1 MG/ML SYG IM PRN ×4 (05:14→21:49)
--- NOTE | 2018-10-24 05:52 | NUR ---
Pt slept well during night hours, c/o pain on the lower back, radiating to her both legs, pain level 8/10 on pain scale. Inj.Dilaudid 1mg IM Q4hrs prn given. Pt able to turn on her sides. No other complaints noted. Vital signs stable. Continent for bladder and bowel, voided in the bedpan, no BM noted. Lower back incision dry and intact. No drainage noted. Pt kept under spinal precautions, no bending, twisting, or lifting, no crossing of legs. Hourly rounds performed and patient care needs met. Bed alarm activated for safety, call light and bedside table within reach.
[2018-10-24 07:30] VITALS: BP 115/67; PULSE 80; RESP 20
[2018-10-24] MEDS: METHOCARBAMOL 750 MG TAB PO SCH (09:00)
[2018-10-24] MEDS: SENNA TAB PO SCH ×2 (09:01→21:00)
[2018-10-24] MEDS: DOCUSATE SODIUM 100 MG CAP PO SCH ×2 (09:01→21:45)
[2018-10-24] MEDS: GABAPENTIN 400 MG CAP PO SCH ×4 (09:02→21:47)
[2018-10-24] MEDS: oxyCODONE (CR) 10 MG TAB [oxyCONTIN] PO SCH ×2 (09:02→21:46)
[2018-10-24] MEDS: POLYETHYLENE GLYCOL 17 GM PACKET PO SCH (09:03)
[2018-10-24] MEDS: APIXABAN 5 MG TABLET PO SCH ×2 (09:04→21:45)
[2018-10-24] MEDS: COLLAGENASE 5 GM (UD JAR) TOP SCH (09:04)
--- NOTE | 2018-10-24 09:34 | NUR ---
WOUND CARE CONSULT: 58 years old Female admitted history Lumbar Radiculopathy and back pain per record. Sepsis of wound incision. Wound care team consulted for wounds present on admission Mid lower back incision dehiscence. 1.6cm x 0.6cm x 0.4cm. Old scar from spina surgery approx length of 10cm. Full thickness wound with 80% adhering yellow slough and 20% red-pink granulating tissue wound. Wound edge dehiscence calloused/thick. Periwound intact. No drainage. No odor. Treatment recommendation include, cleanse with normal saline, pat dry, apply Santyl ointment and cover with foam border dressing daily and as needed. Bilateral heels skin clean and intact. Cover with Allevyn Heels and then apply socks to prevent friction. Reposition every 2 hours per department protocol Float heels off bed with pillows. Educated patient the important of heels off loading and frequent reposition to prevent pressure injuries. She verbalized understanding. Discussed assessment and plan of care with RN, Nhet. RN to obtain wound care recommendations from . Truong Allred RN MSN WOCN CM
--- NOTE | 2018-10-24 11:43 | NUR ---
Spoke to Dr. Katja Kate regarding patients inability to participate with therapy, so plan for d/c to SNF if ok with Dr. Mayo. He gave ok for d/c and have her follow up in office in 1-2 weeks. He also stated he would see her tonight if she was still here.
--- NOTE | 2018-10-24 12:18 | PN ---
Date/Time of Note Date/Time of Note DATE: 10/24/18 TIME: 12:13 Subjective Reports she is agreeable with therapies at lower level of care Objective Vital Signs Date Temp Pulse Resp B/P (MAP) Pulse Ox O2 O2 Flow FiO2 Time Delivery Rate 10/24/18 Nasal 2.0 08:00 Cannula 10/24/18 98.5 80 20 115/67 91 07:30 (83) Intake and Output 10/23/18 10/23/18 10/24/18 1515:00 23:00 07:00 IntakeIntake Total 250 ml 1110 ml 350 ml OutputOutput Total 250 ml 200 ml 800 ml BalanceBalance 0 ml 910 ml -450 ml Exam integ- sl dehiscence at inferior wound max transfer Results/Medications Result Diagram: 10/20/1839 10/22/18 0604 Medications Current Medications Acetaminophen (Tylenol Tab) 650 mg Q6H PRN PO MILD PAIN(1-3)OR ELEVATED TEMP; Start 10/19/18 at 23:00 Apixaban (Eliquis) 5 mg BID PO Last administered on 10/24/18at 09:04; Admin Dose 5 MG; Start 10/19/18 at 22:30 Bisacodyl (Dulcolax) 5 mg DAILY PRN PO CONSTIPATION; Start 10/19/18 at 23:00 Collagenase (Santyl) 1 applic DAILY TOP Last administered on 10/24/18at 09:04; Admin Dose 1 APPLIC; Start 10/20/18 at 09:00 Gabapentin (Neurontin) 800 mg QID PO Last administered on 10/24/18at 09:02; Admin Dose 800 MG; Start 10/19/18 at 22:30 Levothyroxine Sodium (Synthroid) 200 mcg DAILY@06 PO Last administered on 10/24/18at 05:13; Admin Dose 200 MCG; Start 10/20/18 at 06:00 Oxycodone HCl (Oxycontin) 10 mg BID PO Last administered on 10/24/18at 09:02; Admin Dose 10 MG; Start 10/19/18 at 22:30 Pantoprazole (Protonix Tab) 40 mg DAILY@06 PO Last administered on 10/24/18at 05:13; Admin Dose 40 MG; Start 10/20/18 at 06:00 Polyethylene Glycol (Miralax) 17 gm DAILY PO Last administered on 10/24/18at 09:03; Admin Dose 17 GM; Start 10/20/18 at 09:00 Senna (Senokot) 2 tab BID PO Last administered on 10/24/18at 09:01; Admin Dose 2 TAB; Start 10/19/18 at 22:30 Docusate Sodium (Colace) 100 mg BID PO Last administered on 10/24/18at 09:01; Admin Dose 100 MG; Start 10/20/18 at 09:00 Bisacodyl (Dulcolax Supp) 10 mg DAILY PRN [place] CONSTIPATION; Start 10/20/18 at 00:00 Magnesium Hydroxide (Milk Of Mag) 30 ml BID PRN PO CONSTIPATION; Start 10/20/18 at 00:00 Lactulose (Enulose) 20 gm DAILY PRN PO CONSTIPATION; Start 10/20/18 at 00:00 Acetaminophen/ Hydrocodone Bitart ([place] (5/325)) 2 tab Q6H PRN PO MODERATE PAIN LEVEL 4-6 Last administered on 10/23/18at 14:13; Admin Dose 2 TAB; Start 10/20/18 at 14:00 Hydromorphone HCl (Dilaudid) 1 mg Q4H PRN IM SEVERE PAIN LEVEL 7-10 Last administered on 10/24/18at 09:06; Admin Dose 1 MG; Start 10/23/18 at 16:00 Baclofen (Lioresal) 10 mg TID PO ; Start 10/24/18 at 13:00 Assessment/Plan Additional Assessment/Plan Rehab-Lumbar radiculopathy status post spinal fusion and infection with the patient status post hardware removal/reposition. Activities as tolerated Integ- wound care, specialty bed Acute pain syndrome. Hypertension. Status post respiratory failure. Morbid obesity. Urinary tract infection. Pulmonary embolism. MILLY PUENTE MD Oct 24, 2018 12:18
--- NOTE | 2018-10-24 12:21 | NUR ---
Social Work Note: As per ARU Dr. Adams pt to discharge to SNF tomorrow 10/25, this health care social worker faxed clinicals to [facility]; however the facility does not accept pt insurance. Per pt she does not want to transfer to [facility] or [facility] and rehab. This designer/writer faxed clinicals to [facility] [phone]/fax#[phone], awaiting acceptance from admissions. discussed the above with patient, she is aware and in agreement.
--- NOTE | 2018-10-24 13:53 | NUR ---
Attempt to see patient for Physical therapy, patient just completing bed mobility activity with OT and SHIP SCALER for linen change. Patient in severe pain, refused PT due to pain. RN informed.
[2018-10-24 14:00] VITALS: BP 116/70; PULSE 84; RESP 18
[2018-10-24] MEDS: BACLOFEN 10 MG TAB PO SCH ×2 (14:47→21:45)
--- NOTE | 2018-10-24 14:54 | NUR ---
Addendum to PT Note: Variance 60 minutes of PT treatments.
--- NOTE | 2018-10-24 15:51 | PN ---
Date/Time of Note Date/Time of Note DATE: 10/24/18 TIME: 15:51 Assessment/Plan VTE Prophylaxis Risk score (from Ns)>0 risk: 12 SCD applied (from Ns): Yes Lines/Catheters IV Catheter Type (from Nrs): Saline Lock Urinary Cath still in place: Yes Exam/Review of Systems Vital Signs Vitals Vital Signs Date Temp Pulse Resp B/P (MAP) Pulse Ox O2 O2 Flow FiO2 Time Delivery Rate 10/24/18 98.4 84 18 116/70 96 Room Air 14:00 (85) 10/24/18 2.0 08:00 Intake and Output 10/23/18 10/23/18 10/24/18 1515:00 23:00 07:00 IntakeIntake Total 250 ml 1110 ml 350 ml OutputOutput Total 250 ml 200 ml 800 ml BalanceBalance 0 ml 910 ml -450 ml JONATHAN LEE Oct 24, 2018 15:51
[2018-10-24] MEDS ORDERED: HYDROmorphONE 2 MG/ML SYG IV PRN (16:30)
[2018-10-24] MEDS ORDERED: HYDROmorphONE 2 MG/ML SYG IM STA (16:30)
--- NOTE | 2018-10-24 16:37 | NUR ---
NURSING NOTES: RN notified Dr. Leung of the patient discharge in SNF tomorrow. Patient spoke to her sister about her transfer in SNF and wants to talk to LAMBERT Barajas as per patient her sister/family can make a ramp on house. RN spoke to LAMBERT Barajas about patient message. RN will fax documents needed by SNF ( [facility] )
[2018-10-24 19:27] VITALS: BP 118/68; PULSE 80; RESP 18
--- NOTE | 2018-10-24 19:30 | NUR ---
Nursing Notes: RN received a call from Nivia Laundromat Manager in [facility] ( [facility] ) as per Nivia she needs the latest progress notes from Surgeon. RN stated that patient to be seen tonight by Jesus Adkins, Surgeon's Photo Producer ( Dr. Mayo ) As per DEEPAK Canchola the Surgeon Photo Producer ( Jesus Adkins ) approved the patient can go to [facility] and to get appointment in 1-2 weeks in the office. At 1930 H report given to DEEPAK Camacho that Jesus Adkins did not come to see patient and no latest progress notes top be fax to [facility]. RN called the SNF ( [facility] ) and talked to JORGE A Berg about the situation. As per Nivia Berg ( [facility] ) was already out of the facility and nobody will received the document ( such as progress notes ) advice to fax tomorrow morning. Endorsed to DEEPAK Camacho to give this report to AM Nurse.
[2018-10-25 02:00] VITALS: BP 78/72; PULSE 78; RESP 18
[2018-10-25 02:30] VITALS: BP 100/64; PULSE 72; RESP 18
[2018-10-25] MEDS: LEVOTHYROXINE 100 MCG TAB PO SCH (06:25)
[2018-10-25] MEDS: PANTOPRAZOLE (EC) 40 MG TAB PO SCH (06:25)
[2018-10-25] MEDS: HYDROmorphONE 1 MG/ML SYG IM PRN ×3 (06:28→17:56)
--- NOTE | 2018-10-25 06:34 | NUR ---
Pt slept on and off during night hours, pt c/o pain over lower back and it radiating to her bilateral legs x 2 times, Inj.Dilaudid 1mg IM Q4hrs prn x2 times given. Pt able to turn position by self, no other complaints noted. Vital signs stable. Continent for bladder and bowel, voids in the bedpan, no BM noted. Planned to discharge and transfer patient to SNF ([facility]), latest progress notes to be faxed to [facility]. DME supplies pending f/up with dialysis social worker Jenn. Pt kept under spinal precautions, no bending, lifting, twisting or cross of legs. Hourly round made and pt care needs met. Bed alarm activated for safety, call light and bedside table within reach.
[2018-10-25 07:00] VITALS: BP 119/73; PULSE 86; RESP 18
[2018-10-25] MEDS: POLYETHYLENE GLYCOL 17 GM PACKET PO SCH (08:41)
[2018-10-25] MEDS: DOCUSATE SODIUM 100 MG CAP PO SCH ×2 (08:42→20:50)
[2018-10-25] MEDS: SENNA TAB PO SCH ×2 (08:42→20:50)
[2018-10-25] MEDS: BACLOFEN 10 MG TAB PO SCH ×3 (08:43→20:51)
[2018-10-25] MEDS: APIXABAN 5 MG TABLET PO SCH ×2 (08:43→20:52)
[2018-10-25] MEDS: oxyCODONE (CR) 10 MG TAB [oxyCONTIN] PO SCH ×2 (08:44→20:51)
[2018-10-25] MEDS: GABAPENTIN 400 MG CAP PO SCH ×4 (09:42→20:50)
--- NOTE | 2018-10-25 10:15 | NUR ---
Spoke to Jesus Adkins NP and said that the patient has been cleared since discharged from the other floor. Per [employer] they don't usually follow the patient at Rehab but reiterated that the patient is cleared to be discharged to a SNF.
--- NOTE | 2018-10-25 11:48 | PN ---
Date/Time of Note Date/Time of Note DATE: 10/25/18 TIME: 11:47 Subjective Patigrace reports she is feeling better today, and would like to work towards home Objective Vital Signs Date Temp Pulse Resp B/P (MAP) Pulse Ox O2 O2 Flow FiO2 Time Delivery Rate 10/25/18 98.3 86 18 119/73 94 Room Air 07:00 (88) 10/24/18 2.0 20:00 Intake and Output 10/24/18 10/24/18 10/25/18 1515:00 23:00 07:00 IntakeIntake Total 970 ml 1100 ml OutputOutput Total 350 ml BalanceBalance 970 ml 750 ml Exam pulm-cta abd-soft max amb few feet Results/Medications Result Diagram: 10/22/18 0604 Medications Current Medications Acetaminophen (Tylenol Tab) 650 mg Q6H PRN PO MILD PAIN(1-3)OR ELEVATED TEMP; Start 10/19/18 at 23:00 Apixaban (Eliquis) 5 mg BID PO Last administered on 10/25/18at 08:43; Admin Dose 5 MG; Start 10/19/18 at 22:30 Bisacodyl (Dulcolax) 5 mg DAILY PRN PO CONSTIPATION; Start 10/19/18 at 23:00 Collagenase (Santyl) 1 applic DAILY TOP Last administered on 10/24/18at 09:04; Admin Dose 1 APPLIC; Start 10/20/18 at 09:00 Gabapentin (Neurontin) 800 mg QID PO Last administered on 10/25/18at 09:42; Admin Dose 800 MG; Start 10/19/18 at 22:30 Levothyroxine Sodium (Synthroid) 200 mcg DAILY@06 PO Last administered on 10/25/18at 06:25; Admin Dose 200 MCG; Start 10/20/18 at 06:00 Oxycodone HCl (Oxycontin) 10 mg BID PO Last administered on 10/25/18at 08:44; Admin Dose 10 MG; Start 10/19/18 at 22:30 Pantoprazole (Protonix Tab) 40 mg DAILY@06 PO Last administered on 10/25/18at 06:25; Admin Dose 40 MG; Start 10/20/18 at 06:00 Polyethylene Glycol (Miralax) 17 gm DAILY PO Last administered on 10/25/18at 08:41; Admin Dose 17 GM; Start 10/20/18 at 09:00 Senna (Senokot) 2 tab BID PO Last administered on 10/24/18at 09:01; Admin Dose 2 TAB; Start 10/19/18 at 22:30 Docusate Sodium (Colace) 100 mg BID PO Last administered on 10/24/18at 21:45; Admin Dose 100 MG; Start 10/20/18 at 09:00 Bisacodyl (Dulcolax Supp) 10 mg DAILY PRN [place] CONSTIPATION; Start 10/20/18 at 00:00 Magnesium Hydroxide (Milk Of Mag) 30 ml BID PRN PO CONSTIPATION; Start 10/20/18 at 00:00 Lactulose (Enulose) 20 gm DAILY PRN PO CONSTIPATION; Start 10/20/18 at 00:00 Acetaminophen/ Hydrocodone Bitart ([place] (5/325)) 2 tab Q6H PRN PO MODERATE PAIN LEVEL 4-6 Last administered on 10/23/18at 14:13; Admin Dose 2 TAB; Start 10/20/18 at 14:00 Hydromorphone HCl (Dilaudid) 1 mg Q4H PRN IM SEVERE PAIN LEVEL 7-10 Last administered on 10/25/18at 10:24; Admin Dose 1 MG; Start 10/23/18 at 16:00 Baclofen (Lioresal) 10 mg TID PO Last administered on 10/25/18at 08:43; Admin Dose 10 MG; Start 10/24/18 at 13:00 Assessment/Plan Additional Assessment/Plan Rehab-Lumbar radiculopathy status post spinal fusion and infection with the patient status post hardware removal/reposition. Activities as tolerated. Patient started to ambulate with therapies. Overall making improvements. Will work towards home. Integ- wound care, specialty bed Acute pain syndrome. Hypertension. Status post respiratory failure. Morbid obesity. Urinary tract infection. Pulmonary embolism. MILLY PUENTE MD Oct 25, 2018 11:48
--- NOTE | 2018-10-25 12:25 | CONS ---
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 events noted. care coordinated and plan directed. Date/Time of Note Date/Time of Note DATE: 10/25/18 TIME: 12:25 Assessment/Plan Assessment/Plan Chief Complaint/Hosp Course - s/p fever due to PE and infection of the spinal wound, resolved - PE extending from distal R main pulmonary artery into 1st and 2nd order lobar branches on CTA on 10/06/2018, DIONNA of LEs on 10/06/2018 showed no DVT - s/p acute hypoxic resp failure as a result of PE, resolved neuro - s/p dehiscence and infection of the lower part of the spinal wound due to E. coli, coag negative Staph and corynebacteria, improved after a course of antibiotic - pain and paresthesia of b/l LEs, chronic according to Pt - h/o mechanical low back pain with radiculopathy of LEs - h/o b/l L5-S1 trans-foraminal lumbar interbody fusion surgery using instrumented spinal fusion 08/17/2018. - h/o posterior L5-S1 instrumented spinal fusion removal with reposition of interbody cage; placement of L5-S1 rods/screws on 09/07/2018 other conditions - s/p neutropenia noted on 10/09/2018, probably due to a combination of infection and side effect from vancomycin. It was discontinued. It resolved - s/p E. coli in Pt's urine culture; her urinalysis did not show pyuria and Pt had no UTI Sx prior to admission. Therefore, this was likely a contaminant - hypothyroidism - s/p neutropenia with vancomycin, resolved after vancomycin was stopped Recommendations: - continue to monitor Pt off systemic antibiotics. Pt completed daptomycin (10/10/2018-10/18/2018) and IV vancomycin (10/05/2081-10/09/2018) Management d/w patient, DEEPAK Alonso, and with Dr. Moncada. Consultation Date/Type/Reason Admit Date/Time Oct 19, 2018 at 21:00 Initial Consult Date 10/21/18 Type of Consult Infectious Disease Requesting Provider: BARRERA STOVER MD 24 HR Interval Summary Free Text/Dictation Pt reports pain and muscle spams are better controlled with change of medications. Currently reports back pain is tolerable. No n/v/d, dysuria. Exam/Review of Systems Vital Signs Vitals Vital Signs Date Temp Pulse Resp B/P (MAP) Pulse Ox O2 O2 Flow FiO2 Time Delivery Rate 10/25/18 98.3 86 18 119/73 94 Room Air 07:00 (88) 10/24/18 2.0 20:00 Intake and Output 10/24/18 10/24/18 10/25/18 1515:00 23:00 07:00 IntakeIntake Total 970 ml 1100 ml OutputOutput Total 350 ml BalanceBalance 970 ml 750 ml Exam Constitutional: alert, oriented, well developed, obese, other (sleeping but easily arousable; lying in bed in no acute distress) Psych: no complaints Head: normocephalic, atraumatic Eyes: nl conjunctiva, nl lids, nl sclera ENMT: nl external ears & nose, nl nasal mucosa & septum, mucosa pink and moist Neck: supple Respiratory: clear to auscultation, normal air movement Cardiovascular: regular rate and rhythm, nl pulses Gastrointestinal: soft, non-tender Musculoskeletal: muscle weakness, range of motion (limited), other (wound of the back with small dehiscence on lower portion- photos in chart including from yesterday reviewed); No swelling Extremities: No edema Neurological: nl mental status, nl speech; No nl strength Skin: nl turgor; No rash or lesions Additional Comments Current Medications Medications Dose Sig/Joana Start Time Status Last (Trade) Ordered Route PRN Stop Time Admin Dose Reason Admin 650 mg Q6H PRN 10/19/18 Acetaminophen PO MILD 23:00 (Tylenol PAIN(1-3)OR Tab) ELEVATED TEMP Apixaban 5 mg BID PO 18 10/25/18 (Eliquis) 22:30 08:43 Bisacodyl 5 mg DAILY PRN 10/19/18 (Dulcolax) PO 23:00 CONSTIPATION Collagenase 1 applic DAILY TOP 10/20/18 10/25/18 (Santyl) 09:00 13:17 10 mg BID PO 10/19/18 DC Cyclobenzapri 22:30 ne HCl 10/19/18 (Flexeril) 23:47 Gabapentin 800 mg QID PO 10/19/18 10/25/18 (Neurontin) 22:30 13:17 1 tab Q6H PRN 10/19/18 DC 10/20/18 Acetaminophen PO MODERATE 23:00 06:54 / PAIN LEVEL 10/20/18 Hydrocodone 4-6 12:11 Bitart ([place] (5/325)) 2 mg Q4H PRN 10/19/18 DC 10/22/18 Hydromorphone PO SEVERE 23:00 16:26 HCl PAIN LEVEL 10/22/18 (Dilaudid) 7-10 21:09 200 mcg DAILY@06 10/20/18 10/25/18 Levothyroxine PO 06:00 06:25 Sodium (Synthroid) Oxycodone 10 mg BID PO 10/19/18 10/25/18 HCl 22:30 08:44 (Oxycontin) 40 mg DAILY@06 18 10/25/18 Pantoprazole PO 06:00 06:25 (Protonix Tab) 17 gm DAILY PO 10/20/18 10/25/18 Polyethylene 09:00 08:41 Glycol (Miralax) Senna 2 tab BID PO 10/19/18 10/24/18 (Senokot) 22:30 09:01 Docusate 100 mg BID PO 10/20/18 10/24/18 Sodium 09:00 21:45 (Colace) Bisacodyl 10 mg DAILY PRN 10/20/18 (Dulcolax [place] 00:00 Supp) CONSTIPATION Magnesium 30 ml BID PRN 10/20/18 Hydroxide PO 00:00 (Milk Of Mag) CONSTIPATION Lactulose 20 gm DAILY PRN 10/20/18 (Enulose) PO 00:00 CONSTIPATION 750 mg TID PO 10/20/18 DC 10/24/18 Methocarbamol 00:00 09:00 (Robaxin) 10/24/18 11:12 2 tab Q6H PRN 10/20/18 10/23/18 Acetaminophen PO MODERATE 14:00 14:13 / PAIN LEVEL Hydrocodone 4-6 Bitart ([place] (5/325)) 1 mg Q4H PRN 10/22/18 DC 10/23/18 Hydromorphone IV SEVERE 22:00 10:50 HCl PAIN LEVEL 10/23/18 (Dilaudid) 7-10 15:13 1 mg ONCE ONCE 10/22/18 DC 10/22/18 Hydromorphone IV 18:00 18:22 HCl 10/22/18 (Dilaudid) 18:01 1 mg Q4H PRN 10/23/18 DC Hydromorphone IM SEVERE 18:00 HCl PAIN LEVEL 10/23/18 (Dilaudid) 7-10 18:00 1 mg Q4H PRN 10/23/18 10/25/18 Hydromorphone IM SEVERE 16:00 10:24 HCl PAIN LEVEL (Dilaudid) 7-10 Baclofen 10 mg TID PO 10/24/18 10/25/18 (Lioresal) 13:00 13:17 1.5 mg Q4H PRN 10/24/18 DC Hydromorphone IV SEVERE 16:30 HCl PAIN LEVEL 10/24/18 (Dilaudid) 7-10 19:37 1.5 mg ONCE STAT 10/24/18 DC 10/24/18 Hydromorphone IM 16:30 17:41 HCl 10/24/18 (Dilaudid) 16:34 BROOKLYN HOOK PUTAWAY DRIVER Oct 25, 2018 12:25
[2018-10-25] MEDS: COLLAGENASE 5 GM (UD JAR) TOP SCH (13:17)
[2018-10-25 14:00] VITALS: BP 107/73; PULSE 73; RESP 18
--- NOTE | 2018-10-25 14:11 | NUR ---
Social work Note: This specification writer discussed d/c with [employer] Dr. Adams, agreed for pt to d/c home on 11/02, extension was granted for 11/02. Pt was in agreement, reports that her sister and friend are arranging for a ramp at home so that she can access her home with a wheelchair. This specification writer awaiting MD order for DME and will send to pt insurance to get authroization for equioment and home health. This social science analyst to follow up.
--- NOTE | 2018-10-25 16:00 | NUR ---
Received a phone call from [facility] [employer] asking how was the patient. 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 She was also asking for a copy of notes of the OT & PT for October 23, , and all the weekends that the patient received therapy. She said to fax it to . Told her that I'll double check with the therapist tomorrow since they're gone for the day. Endorsed to DEEPAK Abarca. Addendum: 10/25/18 at 1948 by SANTHOSH RHOADES RN Will endorse to next shift.
--- NOTE | 2018-10-25 18:51 | NUR ---
End of shift summary note Patient alert, oriented and able to make needs known with complaints of pain during the shift and gave Oxycontin 10mg PO BID and Dilaudid 1mg IM; relief noted. All due medications given and educated regarding side effects of Eliquis. Call light and bedside table placed within reach. Bed alarm activated and bed placed on lowest position for safety. Recreational activity offered like watching TV. Needs attended and continuous monitoring provided. Will endorse to next shift.
[2018-10-25 19:35] VITALS: BP 132/68; PULSE 76; RESP 20
[2018-10-26 02:32] VITALS: BP 122/70; PULSE 78; RESP 17
--- NOTE | 2018-10-26 05:29 | NUR ---
PATIENT WAS RESTLESS ON AND OFF DURING THE NIGHT. MEDICATED WITH OXYCONTIN PO SCHEDULED FOR BACK PAIN WITH RELIEF. RECREATIONAL ACTIVITIES PROVIDED TO PATIENT;TV. CALL LIGHT WITHIN REACH. NO ACUTE DISTRESS NOTED.
[2018-10-26] MEDS: PANTOPRAZOLE (EC) 40 MG TAB PO SCH (06:17)
[2018-10-26] MEDS: LEVOTHYROXINE 100 MCG TAB PO SCH (06:17)
[2018-10-26 07:30] VITALS: BP 102/76; PULSE 70; RESP 18
[2018-10-26] MEDS: SENNA TAB PO SCH ×2 (08:28→21:00)
[2018-10-26] MEDS: POLYETHYLENE GLYCOL 17 GM PACKET PO SCH (08:28)
[2018-10-26] MEDS: DOCUSATE SODIUM 100 MG CAP PO SCH ×2 (08:28→21:00)
[2018-10-26] MEDS: BACLOFEN 10 MG TAB PO SCH ×3 (08:29→21:47)
[2018-10-26] MEDS: GABAPENTIN 400 MG CAP PO SCH ×4 (08:29→21:48)
[2018-10-26] MEDS: APIXABAN 5 MG TABLET PO SCH ×2 (08:30→21:47)
[2018-10-26] MEDS: oxyCODONE (CR) 10 MG TAB [oxyCONTIN] PO SCH ×2 (08:30→21:48)
[2018-10-26] MEDS: COLLAGENASE 5 GM (UD JAR) TOP SCH (08:30)
--- NOTE | 2018-10-26 09:00 | NUR ---
Dr. Adams made aware that pt this morning was crying & seems like depressed. MD agreed to refer pt to Dr. Guillermo for pysch consult.
--- NOTE | 2018-10-26 11:06 | PN ---
Date/Time of Note Date/Time of Note DATE: 10/26/18 TIME: 11:06 Assessment/Plan VTE Prophylaxis Risk score (from Nsg)>0 risk: 11 SCD applied (from Nsg): Yes Lines/Catheters IV Catheter Type (from Nrsg): Saline Lock Urinary Cath still in place: No Assessment/Plan Assessment/Plan - Lower back- surgical site - open wound - neurosx was informed - wound care nurse to assess wound - monitor foe s/s of infection - wound care - chronic back pain - s/p surgery and is not in acute rehab for therapy Dr Castellon Exam/Review of Systems Vital Signs Vitals Vital Signs Date Temp Pulse Resp B/P (MAP) Pulse Ox O2 O2 Flow FiO2 Time Delivery Rate 10/26/18 98.6 70 18 102/76 96 Room Air 07:30 (85) 10/25/18 2.0 09:00 Intake and Output 10/25/18 10/25/18 10/26/18 1515:00 23:00 07:00 IntakeIntake Total 240 ml 2240 ml 240 ml OutputOutput Total 200 ml 451 ml 250 ml BalanceBalance 40 ml 1789 ml -10 ml JONATHAN LEE Oct 26, 2018 11:06
--- NOTE | 2018-10-26 11:11 | NUR ---
[facility] OT Weekly Summary Dates From: 10/20/18 to 10/26/18 Patient Name: NAEEM CINTRON MR#: [id number] Height: 5 ft 0 in Weight: 198 lbs 6.657 oz 90.000 kg Reason for Visit: LUMBSACRAL RADICULOPATHY Precautions: fall risk, spinal prec, LSO when OOB Date: 10/26/18 Time: 1111 User: PAYAM MADDEN Short-term Goals: [facility] OT Short term Goal 1 Pt will perform UB dressing with min A within 10 days. [facility] OT Short term Goal 2 Pt will perform LB dressing with mod A within 10 days. [facility] OT Short term Goal 3 Pt will perform toileting with mod A within 10 days. Upon initial eval pt functional levels were the following: Grooming: SUP, Bathing: Total A, UE/LE Dress: Max A/Total A, Toileting: Total A, and Transfers: Total A (2p for safety). Pt current functional levels are the following: Grooming: SUP, Bathing; Total A, UE/LE Dress: Mod A/Total A, and Transfers: Total A (2p for safety). Pt making very conservative progress towards goals through ADL retraining, transfer training, bed mobility training, and ther act/ex for carry over to ADLs/act siva. Progress to therapy can be demonstrated by increased EOB balance (occ no UE support), increased independence supine to sit, increased EOB sitting tolerance, and increased participation in funct mobility (4 steps x 1 w/ seated rest break between trials). Barriers to therapy include: poor compliance w/ spinal prec req cont verbal cues for safety during bed mob, multiple refusals d/t increased pain, emotional at times requiring redirection, and extra time for all activities. DC disposition: Home with CG w/ HH OT, PT, RN. Rec: 29/05 support, FWW, W/C, S/C, and commode use to increase safety and independence in ADLs.
--- NOTE | 2018-10-26 12:02 | PN ---
Date/Time of Note Date/Time of Note DATE: 10/26/18 TIME: 10:56 Subjective No new complaints Objective Vital Signs Date Temp Pulse Resp B/P (MAP) Pulse Ox O2 O2 Flow FiO2 Time Delivery Rate 10/26/18 98.6 70 18 102/76 96 Room Air 07:30 (85) 10/25/18 2.0 09:00 Intake and Output 10/25/18 10/25/18 10/26/18 1515:00 23:00 07:00 IntakeIntake Total 240 ml 2240 ml 240 ml OutputOutput Total 200 ml 451 ml 250 ml BalanceBalance 40 ml 1789 ml -10 ml Exam pulm-cta abd-soft integ Results/Medications Result Diagram: 10/22/18 0604 Medications Current Medications Acetaminophen (Tylenol Tab) 650 mg Q6H PRN PO MILD PAIN(1-3)OR ELEVATED TEMP; Start 10/19/18 at 23:00 Apixaban (Eliquis) 5 mg BID PO Last administered on 10/26/18at 08:30; Admin Dose 5 MG; Start 10/19/18 at 22:30 Bisacodyl (Dulcolax) 5 mg DAILY PRN PO CONSTIPATION; Start 10/19/18 at 23:00 Collagenase (Santyl) 1 applic DAILY TOP Last administered on 10/26/18at 08:30; Admin Dose 1 APPLIC; Start 10/20/18 at 09:00 Gabapentin (Neurontin) 800 mg QID PO Last administered on 10/26/18at 08:29; Ad min Dose 800 MG; Start 10/19/18 at 22:30 Levothyroxine Sodium (Synthroid) 200 mcg DAILY@06 PO Last administered on 10/26/18at 06:17; Admin Dose 200 MCG; Start 10/20/18 at 06:00 Oxycodone HCl (Oxycontin) 10 mg BID PO Last administered on 10/26/18at 08:30; Admin Dose 10 MG; Start 10/19/18 at 22:30 Pantoprazole (Protonix Tab) 40 mg DAILY@06 PO Last administered on 10/26/18at 06:17; Admin Dose 40 MG; Start 10/20/18 at 06:00 Polyethylene Glycol (Miralax) 17 gm DAILY PO Last administered on 10/25/18at 08:41; Admin Dose 17 GM; Start 10/20/18 at 09:00 Senna (Senokot) 2 tab BID PO Last administered on 10/25/18at 20:50; Admin Dose 2 TAB; Start 10/19/18 at 22:30 Docusate Sodium (Colace) 100 mg BID PO Last administered on 10/25/18at 20:50; Admin Dose 100 MG; Start 10/20/18 at 09:00 Bisacodyl (Dulcolax Supp) 10 mg DAILY PRN LA CONSTIPATION; Start 10/20/18 at 00:00 Magnesium Hydroxide (Milk Of Mag) 30 ml BID PRN PO CONSTIPATION; Start 10/20/18 at 00:00 Lactulose (Enulose) 20 gm DAILY PRN PO CONSTIPATION; Start 10/20/18 at 00:00 Acetaminophen/ Hydrocodone Bitart ([place] (5/325)) 2 tab Q6H PRN PO MODERATE PAIN LEVEL 4-6 Last administered on 10/23/18at 14:13; Admin Dose 2 TAB; Start 10/20/18 at 14:00 Hydromorphone HCl (Dilaudid) 1 mg Q4H PRN IM SEVERE PAIN LEVEL 7-10 Last adm inistered on 10/25/18at 17:56; Admin Dose 1 MG; Start 10/23/18 at 16:00 Baclofen (Lioresal) 10 mg TID PO Last administered on 10/26/18at 08:29; Admin Dose 10 MG; Start 10/24/18 at 13:00 Assessment/Plan Additional Assessment/Plan Rehab-Lumbar radiculopathy status post spinal fusion and infection with the patient status post hardware removal/reposition. Improving participation and activity tolerance with the addition of Baclofen Integ- wound care, specialty bed Acute pain syndrome. Hypertension. Status post respiratory failure. Morbid obesity. Urinary tract infection. Pulmonary embolism. MILLY PUENTE MD Oct 26, 2018 12:02
--- NOTE | 2018-10-26 12:37 | CONS ---
Date/Time of Note Date/Time of Note DATE: 10/26/18 TIME: 12:36 Assessment/Plan Assessment/Plan Chief Complaint/Hosp Course - s/p fever due to PE and infection of the spinal wound, resolved - PE extending from distal R main pulmonary artery into 1st and 2nd order lobar branches on CTA on 10/06/2018, DIONNA of LEs on 10/06/2018 showed no DVT - s/p acute hypoxic resp failure as a result of PE, resolved neuro - s/p dehiscence and infection of the lower part of the spinal wound due to E. coli, coag negative Staph and corynebacteria, improved after a course of antibiotic - pain and paresthesia of b/l LEs, chronic according to Pt - h/o mechanical low back pain with radiculopathy of LEs - h/o b/l L5-S1 trans-foraminal lumbar interbody fusion surgery using instrumented spinal fusion 08/17/2018. - h/o posterior L5-S1 instrumented spinal fusion removal with reposition of interbody cage; placement of L5-S1 rods/screws on 09/07/2018 other conditions - s/p neutropenia noted on 10/09/2018, probably due to a combination of infection and side effect from vancomycin. It was discontinued. It resolved - s/p E. coli in Pt's urine culture; her urinalysis did not show pyuria and Pt had no UTI Sx prior to admission. Therefore, this was likely a contaminant - hypothyroidism - s/p neutropenia with vancomycin, resolved after vancomycin was stopped Recommendations: - continue to monitor Pt off systemic antibiotics. Pt completed daptomycin (10/10/2018-10/18/2018) and IV vancomycin (10/05/2081-10/09/2018) Management d/w patient, DEEPAK Blackwood, and with Dr. Moncada. Consultation Date/Type/Reason Admit Date/Time Oct 19, 2018 at 21:00 Initial Consult Date 10/21/18 Type of Consult Infectious Disease Requesting Provider: JOAQUIN STOVER MD 24 HR Interval Summary Free Text/Dictation Rehab has been extended with plans to work towards going home. States "I just woke up". Reports pain is currently tolerable. Had one episode of diarrhea this AM. No n/v, dysuria. Exam/Review of Systems Vital Signs Vitals Vital Signs Date Temp Pulse Resp B/P (MAP) Pulse Ox O2 O2 Flow FiO2 Time Delivery Rate 10/26/18 98.6 70 18 102/76 96 Room Air 07:30 (85) 10/25/18 2.0 09:00 Intake and Output 10/25/18 10/25/18 10/26/18 1515:00 23:00 07:00 IntakeIntake Total 240 ml 2240 ml 240 ml OutputOutput Total 200 ml 451 ml 250 ml BalanceBalance 40 ml 1789 ml -10 ml Exam Constitutional: alert, oriented, well developed, obese, other (lying in bed in no acute distress, able to push/wiggle herself up in bed) Psych: no complaints Head: normocephalic, atraumatic Eyes: nl conjunctiva, nl lids, nl sclera ENMT: nl external ears & nose, nl nasal mucosa & septum, mucosa pink and moist Neck: supple Respiratory: clear to auscultation, normal air movement Cardiovascular: regular rate and rhythm, nl pulses Gastrointestinal: soft, non-tender Musculoskeletal: muscle weakness, other (wound of the back with small dehiscence on lower portion with no drainage or erythema; dressing is coming off and I notified pt's RN to change it); No swelling Extremities: No edema Neurological: nl mental status, nl speech; No nl strength Skin: nl turgor; No rash or lesions Additional Comments Current Medications Medications Dose Sig/Joana Start Time Status Last (Trade) Ordered Route PRN Stop Time Admin Dose Reason Admin 650 mg Q6H PRN 10/19/18 Acetaminophen PO MILD 23:00 (Tylenol PAIN(1-3)OR Tab) ELEVATED TEMP Apixaban 5 mg BID PO 10/19/18 10/26/18 (Eliquis) 22:30 08:30 Bisacodyl 5 mg DAILY PRN 10/19/18 (Dulcolax) PO 23:00 CONSTIPATION Collagenase 1 applic DAILY TOP 10/20/18 10/26/18 (Santyl) 09:00 08:30 10 mg BID PO 10/19/18 DC Cyclobenzapri 22:30 ne HCl 10/19/18 (Flexeril) 23:47 Gabapentin 800 mg QID PO 10/19/18 10/26/18 (Neurontin) 22:30 08:29 1 tab Q6H PRN 10/19/18 DC 10/20/18 Acetaminophen PO MODERATE 23:00 06:54 / PAIN LEVEL 10/20/18 Hydrocodone 4-6 12:11 Bitart ([place] (5/325)) 2 mg Q4H PRN 10/19/18 DC 10/22/18 Hydromorphone PO SEVERE 23:00 16:26 HCl PAIN LEVEL 10/22/18 (Dilaudid) 7-10 21:09 200 mcg DAILY@10/20/18 10/26/18 Levothyroxine PO 06:00 06:17 Sodium (Synthroid) Oxycodone 10 mg BID PO 10/19/18 10/26/18 HCl 22:30 08:30 (Oxycontin) 40 mg DAILY@10/20/18 10/26/18 Pantoprazole PO 06:00 06:17 (Protonix Tab) 17 gm DAILY PO 10/20/18 10/25/18 Polyethylene 09:00 08:41 Glycol (Miralax) Senna 2 tab BID PO 10/19/18 10/25/18 (Senokot) 22:30 20:50 Docusate 100 mg BID PO 10/20/18 10/25/18 Sodium 09:00 20:50 (Colace) Bisacodyl 10 mg DAILY PRN 10/20/18 (Dulcolax [place] 00:00 Supp) CONSTIPATION Magnesium 30 ml BID PRN 10/20/18 Hydroxide PO 00:00 (Milk Of Mag) CONSTIPATION Lactulose 20 gm DAILY PRN 10/20/18 (Enulose) PO 00:00 CONSTIPATION 750 mg TID PO 10/20/18 DC 10/24/18 Methocarbamol 00:00 09:00 (Robaxin) 10/24/18 11:12 2 tab Q6H PRN 10/20/18 10/23/18 Acetaminophen PO MODERATE 14:00 14:13 / PAIN LEVEL Hydrocodone 4-6 Bitart ([place] (5/325)) 1 mg Q4H PRN 10/22/18 DC 10/23/18 Hydromorphone IV SEVERE 22:00 10:50 HCl PAIN LEVEL 10/23/18 (Dilaudid) 7-10 15:13 1 mg ONCE ONCE 10/22/18 DC 10/22/18 Hydromorphone IV 18:00 18:22 HCl 10/22/18 (Dilaudid) 18:01 1 mg Q4H PRN 10/23/18 DC Hydromorphone IM SEVERE 18:00 HCl PAIN LEVEL 10/23/18 (Dilaudid) 7-10 18:00 1 mg Q4H PRN 10/23/18 10/25/18 Hydromorphone IM SEVERE 16:00 17:56 HCl PAIN LEVEL (Dilaudid) 7-10 Baclofen 10 mg TID PO 10/24/18 10/26/18 (Lioresal) 13:00 08:29 1.5 mg Q4H PRN 10/24/18 DC Hydromorphone IV SEVERE 16:30 HCl PAIN LEVEL 10/24/18 (Dilaudid) 7-10 19:37 1.5 mg ONCE STAT 10/24/18 DC 10/24/18 Hydromorphone IM 16:30 17:41 HCl 10/24/18 (Dilaudid) 16:34 BROOKLYN HOOK NP Oct 26, 2018 12:37
[2018-10-26 14:00] VITALS: BP 155/77; PULSE 89; RESP 18
--- NOTE | 2018-10-26 15:56 | NUR ---
DISCHARGE PLANNING: PT/OT Notes (10/22-10/25) faxed to Bre, fax# [phone], for justification of authorization extension. Shweta Vaca PT [phone]
[2018-10-26] MEDS: HYDROCODONE/APAP (5/325) TAB PO PRN (17:00)
--- NOTE | 2018-10-26 18:28 | NUR ---
No acute changes noted w/in shift. Pt on her bed most of the time. Spinal precaution & strict aspiration observed at all times. Wound care done as ordered. Kept well rested. Needs attended. Bed kept low & in locked pos. Call light placed w/in reach. Will endorse to PM RN for ALFRED. Addendum: 10/26/18 at 1957 by VIVEK PIMENTEL RN Addendum: 190H PT asked the RN to give pain shot to the pt as pt c/o pain 05/15 after her therapy. RN asked the pt if she is in pain she said yes 06/15. Informed pt that RN can give Dilaudid IM as ordered. Pt asked if it can be given via IV instead because it's painful if it's IM. RN tried inserting peripheral IV line x2 but failed so asked for her permission if it's okay to give IM, pt agreed. RN gave Dilaudid IM slowly on left deltoid (where she wanted it to be given) however, pt c/o painful at the site. Offered pt other non pharmacological measures but pt refused. Pt was endorsed to the PM RN for ALFRED.
[2018-10-26] MEDS: HYDROmorphONE 1 MG/ML SYG IM PRN (19:02)
[2018-10-26 19:37] VITALS: BP 131/79; PULSE 77; RESP 18
--- NOTE | 2018-10-26 22:50 | NUR ---
Pt appears depressed During the rounds, pt found crying. Pt was asked what is the problem. She replied "nothing". Pt was offered help. She states "Just leave me alone." Call light given beside the pt and instructed to call if she needs anything. will continue to monitor
[2018-10-27 02:00] VITALS: BP 118/65; PULSE 82; RESP 18
--- NOTE | 2018-10-27 05:16 | NUR ---
Pt appears anxious and depressed During the rounds, pt appears anxious and frustrated. Pt was asked what is bothering her, she replied "I don't know." Pt was asked if she is in pain, she replied "I don't know." Pt was asked if she needs anything that the nurse would be a help, she replied "I don't know." Call light was offered and instructed to press the red button if she needs anything. will continue to monitor
[2018-10-27] MEDS: LEVOTHYROXINE 100 MCG TAB PO SCH (06:20)
[2018-10-27] MEDS: PANTOPRAZOLE (EC) 40 MG TAB PO SCH (06:20)
[2018-10-27] MEDS: HYDROCODONE/APAP (5/325) TAB PO PRN ×3 (06:26→23:10)
--- NOTE | 2018-10-27 06:32 | NUR ---
End of Shift note During the shift, pt showed anxiety and depression. Pt is not open to talk about what she feels. To be endorsed to AM shift nurse for possible psychiatric consult. Due medications given. At 0626, pt received [place] 2 tabs for LBP of 6/10. To reassess after 45 mins. Bed alarm on, side rails up 2x, bed on lowest position, and call light within reach. will continue to monitor.
[2018-10-27 07:00] VITALS: BP 159/82; PULSE 77; RESP 17
[2018-10-27] MEDS: POLYETHYLENE GLYCOL 17 GM PACKET PO SCH (09:00)
[2018-10-27] MEDS: DOCUSATE SODIUM 100 MG CAP PO SCH ×2 (09:00→20:20)
[2018-10-27] MEDS: SENNA TAB PO SCH ×2 (09:00→20:20)
--- NOTE | 2018-10-27 09:28 | NUR ---
Patient was crying, stating she was afraid to go to SNF, they don't clean her up when she needs it. She also seemed confused about who was in her room. Asked Tiki BIOMETRICS ANALYST to see patient, and she came to see her. See MD notes. Patient refused psych medications. Urine culture, cbc, bnp ordered.
--- NOTE | 2018-10-27 09:31 | PSY ---
Date/Time of Note Date/Time of Note DATE: 10/27/18 TIME: 09:24 Psychiatric Subjective Eval Consent Pt consented to telemedicine: No Subjective Evaluation Patient location: inpatient History of present illness The patient is a 58-year-old female with a history of low back pain. [id number] evaluation, patient is tearful, she also stated around blankly accident for a man at the headboard when there is nobody day. The patient denies suicidal ideation, she denies feeling of hopelessness and helplessness, discussed risks and benefits of medication but she declined medication. Patient patient states she does not want medication because she is going to senior living and staff at the senior living have a habit of not cleaning the patient's. A ccording to patient's primary nurse as she might be delirious because her baseline has been better than her current states. She currently is very suspicious and guarded. Past psychiatric history Denies any history of mental illness Family History Denies family history of mental illness Medical history Problems Medical Problems: (1) Cellulitis of right leg Status: Acute Allergies: Coded Allergies: No Known Allergy (Unverified , 03/15/17) Substance Abuse Substance abuse history: No (Admits history of alcohol abuse in the past, denies any history of drug use) Social History Marital status: single DPA/Conservatorship: No Psychiatric Objective Eval Review of Systems: Review of Systems: Not Applicable Physical Examination: Appetite: Adequate Energy: Adequate Interest: Decreased Mental Status Examination: Appearance: Poor Hygiene Eye Contact: Fair Psychomotor Activity: Slow Behavior: Suspicious Speech: Soft AFFECT: Flat, Anxious Mood: Depressed Though Process: Linear Thought Content: Hallucinations (Visual hallucination patient's Accident of a man who is not in the room) Orientation: x4 Cognition: Alert Insight: Impared Judgement: Severe Attention Span: Distractible Assessment and Plan Assessment/Diagnosis Diagnosis Major depressive disorder single episode with psychosis, rule out delirium Recommendation/Plan Medication Management Patient declines medication. Talk to patient about Lexapro 5 mg daily and discussed risk and benefits but she declined medication Discharge Disposition: Other Legal Status: Voluntary (Patient does not meet criteria for 5150 hold) SUNDAR HERNADEZ NP Oct 27, 2018 09:31
[2018-10-27] MEDS: GABAPENTIN 400 MG CAP PO SCH ×4 (09:46→20:19)
[2018-10-27] MEDS: BACLOFEN 10 MG TAB PO SCH ×3 (09:46→20:20)
[2018-10-27] MEDS: APIXABAN 5 MG TABLET PO SCH ×2 (09:46→20:20)
[2018-10-27] MEDS: oxyCODONE (CR) 10 MG TAB [oxyCONTIN] PO SCH ×2 (09:46→20:20)
[2018-10-27] MEDS: COLLAGENASE 5 GM (UD JAR) TOP SCH (09:47)
--- NOTE | 2018-10-27 11:33 | PN ---
Date/Time of Note Date/Time of Note DATE: 10/27/18 TIME: 11:33 Subjective Patient agreeable to therapies Objective Vital Signs Date Temp Pulse Resp B/P (MAP) Pulse Ox O2 O2 Flow FiO2 Time Delivery Rate 10/27/18 98.5 77 17 159/82 95 Room Air 07:00 (107) 10/25/18 2.0 09:00 Intake and Output 10/26/18 10/26/18 10/27/18 1515:00 23:00 07:00 IntakeIntake Total 50 ml BalanceBalance 50 ml Exam pulm-cta bd-soft mod/max ambulation Results/Medications Medications Current Medications Acetaminophen (Tylenol Tab) 650 mg Q6H PRN PO MILD PAIN(1-3)OR ELEVATED TEMP; Start 10/19/18 at 23:00 Apixaban (Eliquis) 5 mg BID PO Last administered on 10/27/18 09:46; Admin Dose 5 MG; Start 10/19/18 at 22:30 Bisacodyl (Dulcolax) 5 mg DAILY PRN PO CONSTIPATION; Start 10/19/18 at 23:00 Collagenase (Santyl) 1 applic DAILY TOP Last administered on 10/27/18at 09:47; Admin Dose 1 APPLIC; Start 10/20/18 at 09:00 Gabapentin (Neurontin) 800 mg QID PO Last administered on 10/27/18 09:46; Admin Dose 800 MG; Start 10/19/18 at 22:30 Levothyroxine Sodium (Synthroid) 200 mcg DAILY@06 PO Last administered on 10/27/18 06:20; Admin Dose 200 MCG; Start 10/20/18 at 06:00 Oxycodone HCl (Oxycontin) 10 mg BID PO Last administered on 10/27/18 09:46; Admin Dose 10 MG; Start 10/19/18 at 22:30 Pantoprazole (Protonix Tab) 40 mg DAILY@06 PO Last administered on 10/27/18 06:20; Admin Dose 40 MG; Start 10/20/18 at 06:00 Polyethylene Glycol (Miralax) 17 gm DAILY PO Last administered on 10/25/18 08:41; Admin Dose 17 GM; Start 10/20/18 at 09:00 Senna (Senokot) 2 tab BID PO Last administered on 10/25/18 20:50; Admin Dose 2 TAB; Start 10/19/18 at 22:30 Docusate Sodium (Colace) 100 mg BID PO Last administered on 10/25/18 20:50; Admin Dose 100 MG; Start 10/20/18 at 09:00 Bisacodyl (Dulcolax Supp) 10 mg DAILY PRN [place] CONSTIPATION; Start 10/20/18 at 00:00 Magnesium Hydroxide (Milk Of Mag) 30 ml BID PRN PO CONSTIPATION; Start 10/20/18 at 00:00 Lactulose (Enulose) 20 gm DAILY PRN PO CONSTIPATION; Start 10/20/18 at 00:00 Acetaminophen/ Hydrocodone Bitart ([place] (5/325)) 2 tab Q6H PRN PO MODERATE PAIN LEVEL 4-6 Last administered on 10/27/18at 06:26; Admin Dose 2 TAB; Start 10/20/18 at 14:00 Hydromorphone HCl (Dilaudid) 1 mg Q4H PRN IM SEVERE PAIN LEVEL 7-10 Last administered on 10/26/18at 19:02; Admin Dose 1 MG; Start 10/23/18 at 16:00 Baclofen (Lioresal) 10 mg TID PO Last administered on 10/27/18at 09:46; Admin Dose 10 MG; Start 10/24/18 at 13:00 Assessment/Plan Additional Assessment/Plan Rehab-Lumbar radiculopathy status post spinal fusion and infection with the patient status post hardware removal/reposition. Overall improving with treatment plan Integ- wound care, specialty bed Acute pain syndrome. Hypertension. Status post respiratory failure. Morbid obesity. Urinary tract infection. Pulmonary embolism. MILLY PUENTE MD Oct 27, 2018 11:33
[2018-10-27] MEDS: ACETAMINOPHEN 325 MG TAB PO PRN (11:34)
--- NOTE | 2018-10-27 12:21 | PN ---
Date/Time of Note Date/Time of Note DATE: 10/27/18 TIME: 12:20 Assessment/Plan VTE Prophylaxis Risk score (from Nsg)>0 risk: 10 SCD applied (from Nsg): Yes Pharmacological prophylaxis: LMWH Lines/Catheters IV Catheter Type (from Nrsg): Saline Lock Urinary Cath still in place: No Assessment/Plan Hospital Course - Lower back- surgical site - open wound - neurosx was informed - wound care nurse to assess wound - monitor foe s/s of infection - wound care - chronic back pain - s/p surgery and is not in acute rehab for therapy Subjective 24 Hr Interval Summary Free Text/Dictation Patient sitting in wheelchair having lunch Exam/Review of Systems Vital Signs Vitals Vital Signs Date Temp Pulse Resp B/P (MAP) Pulse Ox O2 O2 Flow FiO2 Time Delivery Rate 10/27/18 98.5 77 17 159/82 95 Room Air 07:00 (107) 10/25/18 2.0 09:00 Intake and Output 10/26/18 10/26/18 10/27/18 1515:00 23:00 07:00 IntakeIntake Total 50 ml BalanceBalance 50 ml Exam Constitutional: well developed Head: normocephalic, atraumatic Neck: supple Respiratory: diminished breath sounds Cardiovascular: regular rate and rhythm Gastrointestinal: soft, non-tender Extremities: normal pulses ELAINE BUITRAGO Oct 27, 2018 12:21
[2018-10-27 14:00] VITALS: BP 107/71; PULSE 86; RESP 16
--- NOTE | 2018-10-27 14:40 | CONS ---
Date/Time of Note Date/Time of Note DATE: 10/27/18 TIME: 14:39 Assessment/Plan Assessment/Plan Chief Complaint/Hosp Course - s/p fever due to PE and infection of the spinal wound, resolved - PE extending from distal R main pulmonary artery into 1st and 2nd order lobar branches on CTA on 10/06/2018, DIONNA of LEs on 10/06/2018 showed no DVT - s/p acute hypoxic resp failure as a result of PE, resolved neuro - s/p dehiscence and infection of the lower part of the spinal wound due to E. coli, coag negative Staph and corynebacteria, improved after a course of antibiotic - pain and paresthesia of b/l LEs, chronic according to Pt - h/o mechanical low back pain with radiculopathy of LEs - h/o b/l L5-S1 trans-foraminal lumbar interbody fusion surgery using instrumented spinal fusion 08/17/2018. - h/o posterior L5-S1 instrumented spinal fusion removal with reposition of interbody cage; placement of L5-S1 rods/screws on 09/07/2018 other conditions - s/p neutropenia noted on 10/09/2018, probably due to a combination of infection and side effect from vancomycin. It was discontinued. It resolved - s/p E. coli in Pt's urine culture; her urinalysis did not show pyuria and Pt had no UTI Sx prior to admission. Therefore, this was likely a contaminant - hypothyroidism - s/p neutropenia with vancomycin, resolved after vancomycin was stopped Recommendations: - continue to monitor Pt off systemic antibiotics. Pt completed daptomycin (10/10/2018-10/18/2018) and IV vancomycin (10/05/2081-10/09/2018) - f/u ua Consultation Date/Type/Reason Admit Date/Time Oct 19, 2018 at 21:00 Initial Consult Date 10/21/18 Type of Consult id Requesting Provider: JOAQUIN STOVER MD 24 HR Interval Summary Free Text/Dictation per nursing patient has been more altered Exam/Review of Systems Vital Signs Vitals Vital Signs Date Temp Pulse Resp B/P (MAP) Pulse Ox O2 O2 Flow FiO2 Time Delivery Rate 10/27/18 98.5 77 17 159/82 95 Room Air 07:00 (107) 10/25/18 2.0 09:00 Intake and Output 10/26/18 10/26/18 10/27/18 1515:00 23:00 07:00 IntakeIntake Total 50 ml BalanceBalance 50 ml Exam Constitutional: alert, oriented, well developed, other Head: normocephalic, atraumatic Eyes: EOMI Respiratory: clear to auscultation Cardiovascular: regular rate and rhythm Gastrointestinal: soft Neurological: SALES ENABLEMENT SPECIALIST II-XII intact ARSALAN ARCEO MD Oct 27, 2018 14:40
--- NOTE | 2018-10-27 18:55 | NUR ---
EOSS Patient alert and oriented, able to make needs known but had moments of confusion and hallucination during shift, continues to be labile with emotions, tearful occasionally and support provided by active listening. CBC, BMP and urine culture done. VSS. COMMISSIONER OF OFFICIALS Tiki visited patient, patient refusing psych medications. Up with physical therapy, walked using walker, up to bedside commode all using two person assist. Had BM. Wound dressing care performed, wound without sign or symptom of infection noted. Hourly rounding performed, bed kept in low, locked position, call light within reach.
[2018-10-27 19:41] VITALS: BP 135/94; PULSE 87; RESP 18
--- NOTE | 2018-10-27 20:26 | NUR ---
[facility] RN Weekly Summary Dates From: 10/19/18 to 10/27/18 Patient Name: NAEEM CINTRON MR#: [id number] Height: 5 ft 0 in Weight: 198 lbs 6.657 oz 90.000 kg Reason for Visit: LUMBSACRAL RADICULOPATHY Precautions: FALL Date: 10/27/18 Time: 2025 User: ANA ELIAS Short-term Goals: 1. No falls, no injuries 2. Skin integrity will be maintained 3. Pain will be well controlled 4. Remains continent of bowel and bladder Patient's progress: Good Short-term goals not met and reason/barriers: Ongoing Bladder - level of function and accidents: 4 Bowel - level of function and accidents: 1, incontinent Skin: non-intact Status: Back incision Treatment: dressing as per MD order Changes: None Pain: Yes Level: 2-9/10 Location: back surgical site Management: dilaudid and oxycontin Changes: No Functional levels: Self Care: 2 Transfers: 2 Locomotion: 2 Assistance requirements: Communication: 6 Social Cognition: 6 Safety awareness: Yes, calls for assistance. Has bed alarm on for safety precaution. Interdisciplinary interactions: . PT. OT. RN. SW. Patient education: Yes, q.shift and PRN on safety, medication, use of call light, pain management Discharge needs: ongoing Comorbid conditions: 1. Acute pain syndrome. 2. Hypertension. 3. Status post respiratory failure. 4. Morbid obesity. 5. Urinary tract infection. 6. Pulmonary embolism. 7. Impairments in self-care and mobility. Plan of Care continuation: continue current POC
[2018-10-28 02:00] VITALS: BP 128/85; PULSE 82; RESP 18
[2018-10-28] MEDS: PANTOPRAZOLE (EC) 40 MG TAB PO SCH (06:14)
[2018-10-28] MEDS: HYDROCODONE/APAP (5/325) TAB PO PRN (06:14)
[2018-10-28] MEDS: LEVOTHYROXINE 100 MCG TAB PO SCH (06:14)
--- NOTE | 2018-10-28 06:20 | NUR ---
Pt resting in bed with eyes close. No acute distress noted. Pt remains stable and vitals noted WNL. During the shift, pt woked up crying and noted with episode of confusion. Reoriented patient. She also complained of back pain and was given PRN [place] 2 tabs; relief noted. All due medications given and all needs attended. Hourly roundings done. Bed alarm activated. Both side rails up. Call light within pt's reach.
[2018-10-28 07:00] VITALS: BP 120/77; PULSE 87; RESP 18
[2018-10-28] MEDS: COLLAGENASE 5 GM (UD JAR) TOP SCH (07:51)
[2018-10-28] MEDS: APIXABAN 5 MG TABLET PO SCH ×2 (08:27→20:37)
[2018-10-28] MEDS: GABAPENTIN 400 MG CAP PO SCH ×4 (08:27→20:37)
[2018-10-28] MEDS: oxyCODONE (CR) 10 MG TAB [oxyCONTIN] PO SCH ×2 (08:27→20:38)
[2018-10-28] MEDS: BACLOFEN 10 MG TAB PO SCH ×3 (08:27→20:37)
[2018-10-28] MEDS: DOCUSATE SODIUM 100 MG CAP PO SCH ×2 (08:29→20:41)
[2018-10-28] MEDS: POLYETHYLENE GLYCOL 17 GM PACKET PO SCH (08:29)
[2018-10-28] MEDS: SENNA TAB PO SCH ×2 (08:29→20:40)
--- NOTE | 2018-10-28 11:59 | PN ---
Date/Time of Note Date/Time of Note DATE: 10/28/18 TIME: 11:59 Assessment/Plan VTE Prophylaxis Risk score (from Ns)>0 risk: 10 SCD applied (from Ns): Yes Pharmacological prophylaxis: LMWH Lines/Catheters IV Catheter Type (from Nrsg): Saline Lock Urinary Cath still in place: No Assessment/Plan Hospital Course - Lower back- surgical site - open wound - neurosx was informed - wound care nurse to assess wound - monitor foe s/s of infection - wound care - chronic back pain - s/p surgery and is not in acute rehab for therapy Subjective 24 Hr Interval Summary Free Text/Dictation Patient complain of abdominal pain and diarrhea Exam/Review of Systems Vital Signs Vitals Vital Signs Date Temp Pulse Resp B/P (MAP) Pulse Ox O2 O2 Flow FiO2 Time Delivery Rate 10/28/18 98.2 87 18 120/77 95 Room Air 07:00 (91) 10/25/18 2.0 09:00 Intake and Output 10/27/18 10/27/18 10/28/18 1515:00 23:00 07:00 IntakeIntake Total 750 ml BalanceBalance 750 ml Exam Constitutional: well developed Head: normocephalic, atraumatic Neck: supple Respiratory: clear to auscultation Cardiovascular: regular rate and rhythm Gastrointestinal: soft, non-tender Extremities: normal pulses ELAINE BUITRAGO Oct 28, 2018 11:59
--- NOTE | 2018-10-28 12:11 | NUR ---
Pt c/o mid upper chest burning/pulling pain. BP stable. No rapid HR. Had emesis x1 after OT this morning. Had been c/o feeling "queazzy" immediately prior". Possibly having reflux? Dr. Witt was made aware of this by pt on his rounds and mylanta was ordered. Will administer once approved from pharmacy and continue to monitor patient condition. Has also had loose BM x2 so far today, no stool softeners/laxative were given in the a.m.
[2018-10-28] MEDS ORDERED: AL HYDROX/MG HYDROX/SIMETH 30 ML CUP PO PRN (12:30)
--- NOTE | 2018-10-28 12:58 | NUR ---
Pt keeps calling this RN to bedside. Pt continues to c/o various issues/ailments, such as blurry vision and black spots and the upper GI discomfort and displease with meals from kitchen. C/o Dr. Witt not doing a "complete" assessment of her this morning and seems more anxious as the day progresses. RIZWANA noted bilaterally. Able to reach for objects on bedside table without difficulty or spilling. Spoke with pt at length, encouraged verbalization of feelings and provided reassurance. Encouraged her to rest her eyes if possible and see if it helps and gave mylanta for GI discomfort.
[2018-10-28 14:00] VITALS: BP 155/88; PULSE 86; RESP 18
--- NOTE | 2018-10-28 14:00 | NUR ---
Pt reports losing cell phone at some point last night. Last remembers seeing it in her previous room. SIDE BOSS found public transit specialist in previous room but no cell phone found. Looked through today's linens and not found. Called # but goes directly to . CN Imtiaz informed and form faxed to lost and found and dietary called to make sure it did not get taken with trays (left ).
--- NOTE | 2018-10-28 14:07 | NUR ---
PT NOTE [id number] Approached pt for therapy. Pt reported she's praying, her phone is lost. Pt very distraught about lost phone. RN aware. Educated on spine precautions with fair understanding. Log rolling towards the Lt and Rt. Encouraged for OOB but pt refused, pt continued to be distraught/crying d/t lost phone.
--- NOTE | 2018-10-28 17:13 | CONS ---
Date/Time of Note Date/Time of Note DATE: 10/28/18 TIME: 17:12 Assessment/Plan Assessment/Plan Chief Complaint/Hosp Course - s/p fever due to PE and infection of the spinal wound, resolved - PE extending from distal R main pulmonary artery into 1st and 2nd order lobar branches on CTA on 10/06/2018, DIONNA of LEs on 10/06/2018 showed no DVT - s/p acute hypoxic resp failure as a result of PE, resolved neuro - s/p dehiscence and infection of the lower part of the spinal wound due to E. coli, coag negative Staph and corynebacteria, improved after a course of antibiotic - pain and paresthesia of b/l LEs, chronic according to Pt - h/o mechanical low back pain with radiculopathy of LEs - h/o b/l L5-S1 trans-foraminal lumbar interbody fusion surgery using instrumented spinal fusion 08/17/2018. - h/o posterior L5-S1 instrumented spinal fusion removal with reposition of interbody cage; placement of L5-S1 rods/screws on 09/07/2018 other conditions - s/p neutropenia noted on 10/09/2018, probably due to a combination of infection and side effect from vancomycin. It was discontinued. It resolved - s/p E. coli in Pt's urine culture; her urinalysis did not show pyuria and Pt had no UTI Sx prior to admission. Therefore, this was likely a contaminant - hypothyroidism - s/p neutropenia with vancomycin, resolved after vancomycin was stopped Recommendations: - continue to monitor Pt off systemic antibiotics. Pt completed daptomycin (10/10/2018-10/18/2018) and IV vancomycin (10/05/2081-10/09/2018) - Pt with 50-60K GNR in urine culture and is asymptomatic. We do not recommend antibiotic therapy for this - agree with DC planning Management d/w patient, DEEPAK Wagner, and with Dr. Moncada. Consultation Date/Type/Reason Admit Date/Time Oct 19, 2018 at 21:00 Initial Consult Date 10/21/18 Type of Consult Infectious Disease Requesting Provider: JOAQUIN STOVER MD 24 HR Interval Summary Free Text/Dictation Urine cx growing GNR per d/w nursing. UA and urine cx was ordered by Dr. Tam for unclear reason. Pt remains afebrile with stable VS. Denies dysuria, urinary frequency, hematuria. Denies fever, chills, SOB, n/v/d. States has neuropathy on both feet requiring ice pack because "my feet felt hot but this happens ALL the time". Pt gleefully states "I'm going home tomorrow". "I'm doing so much better. I even went extra laps today". Exam/Review of Systems Vital Signs Vitals Vital Signs Date Temp Pulse Resp B/P (MAP) Pulse Ox O2 O2 Flow FiO2 Time Delivery Rate 10/28/18 98.7 86 18 155/88 97 Room Air 14:00 (110) 10/25/18 2.0 09:00 Intake and Output 10/27/18 10/27/18 10/28/18 1515:00 23:00 07:00 IntakeIntake Total 750 ml BalanceBalance 750 ml Exam Constitutional: alert, oriented, well developed, obese, other (sitting up in bed eating pie in NAD) Psych: no complaints Head: normocephalic, atraumatic Eyes: nl conjunctiva, nl lids, nl sclera ENMT: nl external ears & nose, nl nasal mucosa & septum, mucosa pink and moist Neck: supple Respiratory: clear to auscultation, normal air movement Cardiovascular: regular rate and rhythm, nl pulses Gastrointestinal: soft, non-tender Musculoskeletal: muscle weakness, other (wound of the low back healing well with no erythema or drainage); No swelling Extremities: No edema Neurological: nl mental status, nl speech, other (TOVAR without focal deficits; smiling; A&OX4) Skin: nl turgor; No rash or lesions Additional Comments MICROBIOLOGY Urine cx from 10/27/2018: URINE CULTURE Preliminary Organism 1 COLIFORM COLONY COUNT 60,000 - 70,000 CFU/ml Organism 2 GRAM NEGATIVE BRADEN COLONY COUNT 50,000 - 60,000 CFU/ml Current Medications Medications Dose Sig/Joana Start Time Status Last (Trade) Ordered Route PRN Stop Time Admin Dose Reason Admin 650 mg Q6H PRN 10/19/18 10/27/18 Acetaminophen PO MILD 23:00 11:34 (Tylenol PAIN(1-3)OR Tab) ELEVATED TEMP Apixaban 5 mg BID PO 10/19/18 10/28/18 (Eliquis) 22:30 08:27 Bisacodyl 5 mg DAILY PRN 10/19/18 (Dulcolax) PO 23:00 CONSTIPATION Collagenase 1 applic DAILY TOP 10/20/18 10/28/18 (Santyl) 09:00 07:51 10 mg BID PO 10/19/18 DC Cyclobenzapri 22:30 ne HCl 10/19/18 (Flexeril) 23:47 Gabapentin 800 mg QID PO 10/19/18 10/28/18 (Neurontin) 22:30 12:33 1 tab Q6H PRN 10/19/18 DC 10/20/18 Acetaminophen PO MODERATE 23:00 06:54 / PAIN LEVEL 10/20/18 Hydrocodone 4-6 12:11 Bitart ([place] (5/325)) 2 mg Q4H PRN 10/19/18 DC 10/22/18 Hydromorphone PO SEVERE 23:00 16:26 HCl PAIN LEVEL 10/22/18 (Dilaudid) 7-10 21:09 200 mcg DAILY@06 10/20/18 10/28/18 Levothyroxine PO 06:00 06:14 Sodium (Synthroid) Oxycodone 10 mg BID PO 10/19/18 10/28/18 HCl 22:30 08:27 (Oxycontin) 40 mg DAILY@06 10/20/18 10/28/18 Pantoprazole PO 06:00 06:14 (Protonix Tab) 17 gm DAILY PO 10/20/18 10/25/18 Polyethylene 09:00 08:41 Glycol (Miralax) Senna 2 tab BID PO 10/19/18 10/25/18 (Senokot) 22:30 20:50 Docusate 100 mg BID PO 10/20/18 10/25/18 Sodium 09:00 20:50 (Colace) Bisacodyl 10 mg DAILY PRN 10/20/18 (Dulcolax [place] 00:00 Supp) CONSTIPATION Magnesium 30 ml BID PRN 10/20/18 Hydroxide PO 00:00 (Milk Of Mag) CONSTIPATION Lactulose 20 gm DAILY PRN 10/20/18 (Enulose) PO 00:00 CONSTIPATION 750 mg TID PO 10/20/18 DC 10/24/18 Methocarbamol 00:00 09:00 (Robaxin) 10/24/18 11:12 2 tab Q6H PRN 10/20/18 10/28/18 Acetaminophen PO MODERATE 14:00 06:14 / PAIN LEVEL Hydrocodone 4-6 Bitart ([place] (5/325)) 1 mg Q4H PRN 10/22/18 DC 10/23/18 Hydromorphone IV SEVERE 22:00 10:50 HCl PAIN LEVEL 10/23/18 (Dilaudid) 7-10 15:13 1 mg ONCE ONCE 10/22/18 DC 10/22/18 Hydromorphone IV 18:00 18:22 HCl 10/22/18 (Dilaudid) 18:01 1 mg Q4H PRN 10/23/18 DC Hydromorphone IM SEVERE 18:00 HCl PAIN LEVEL 10/23/18 (Dilaudid) 7-10 18:00 1 mg Q4H PRN 10/23/18 10/26/18 Hydromorphone IM SEVERE 16:00 19:02 HCl PAIN LEVEL (Dilaudid) 7-10 Baclofen 10 mg TID PO 10/24/18 10/28/18 (Lioresal) 13:00 12:33 1.5 mg Q4H PRN 10/24/18 DC Hydromorphone IV SEVERE 16:30 HCl PAIN LEVEL 10/24/18 (Dilaudid) 7-10 19:37 1.5 mg ONCE STAT 10/24/18 DC 10/24/18 Hydromorphone IM 16:30 17:41 HCl 10/24/18 (Dilaudid) 16:34 Al 30 ml Q4H PRN 10/28/18 10/28/18 Hydrox/Mg PO 12:30 12:31 Hydrox/Simeth GASTROINTESTI icone NAL UPSET (Mag-Al Plus) [facility] [facility] [employer] Oct 28, 2018 17:13
--- NOTE | 2018-10-28 17:24 | NUR ---
WILFRED Mathews made aware of urine culture results and c/o seeing "spots".
--- NOTE | 2018-10-28 18:10 | NUR ---
EOSS-Doing fair. Slightly confused and/or forgetful on/off. Many concerns/requests throughout the shift. Dressing to low back changed as ordered. CMS intact x tingling to right foot. SCD's on. No further emesis since a.m episode. No further c/o epigastric pain. No further c/o seeing spots in her vision. Only requested [place] once in the a.m. even after being offered it q4hrs. Limited activity with PT-see their notes. Log rolls well in bed though. Incontinent of bladder on/off. BM x2 today, loose per C.N.A Repositioned frequently, hourly rounding completed, bed alarm on. Continue to monitor.
[2018-10-28 20:00] VITALS: BP 141/94; PULSE 87; RESP 18
[2018-10-29] MEDS: HYDROCODONE/APAP (5/325) TAB PO PRN ×2 (01:06→14:26)
[2018-10-29 02:26] VITALS: BP 141/66; PULSE 86; RESP 18
--- NOTE | 2018-10-29 02:28 | NUR ---
Periods of confusion noted. Multiple random questions/concerns/statements made during the night. Pt likewise seemed to be having flights of ideas during one or two interaction during the shift. [place] 2 tabs PRN given per MD order, per pt's request. Will continue to monitor. Will endorse.
--- NOTE | 2018-10-29 05:44 | NUR ---
EOSS Pt sleep at this time. No s/s of distress. Verbalized some relief of pain after interventions. Due meds given. Needs attended to. Kept comfortable. Safety precautions in place. Frequent checks done. Encouraged to call for help whenever necessary. Will endorse accordingly.
[2018-10-29] MEDS: PANTOPRAZOLE (EC) 40 MG TAB PO SCH (06:04)
[2018-10-29] MEDS: LEVOTHYROXINE 100 MCG TAB PO SCH (06:04)
[2018-10-29 07:00] VITALS: BP 156/81; PULSE 86; RESP 18
[2018-10-29] MEDS: BACLOFEN 10 MG TAB PO SCH ×3 (08:18→20:39)
[2018-10-29] MEDS: COLLAGENASE 5 GM (UD JAR) TOP SCH (08:18)
[2018-10-29] MEDS: APIXABAN 5 MG TABLET PO SCH ×2 (08:18→20:39)
[2018-10-29] MEDS: oxyCODONE (CR) 10 MG TAB [oxyCONTIN] PO SCH ×2 (08:19→20:40)
[2018-10-29] MEDS: GABAPENTIN 400 MG CAP PO SCH ×4 (08:20→20:39)
[2018-10-29] MEDS: POLYETHYLENE GLYCOL 17 GM PACKET PO SCH (08:27)
[2018-10-29] MEDS: DOCUSATE SODIUM 100 MG CAP PO SCH ×2 (08:27→20:54)
[2018-10-29] MEDS: SENNA TAB PO SCH ×2 (08:27→20:54)
--- NOTE | 2018-10-29 10:35 | NUR ---
Lab results called in, patient has ESBL urine. Dr. Moncada notified, no new orders given, he stated he will be in to see patient today. Isolation cart placed and staff and patient notified.
--- NOTE | 2018-10-29 11:49 | PN ---
Date/Time of Note Date/Time of Note DATE: 10/29/18 TIME: 11:49 Assessment/Plan VTE Prophylaxis Risk score (from Ns)>0 risk: 8 SCD applied (from Ns): Yes Pharmacological prophylaxis: LMWH Lines/Catheters IV Catheter Type (from Nrs): Saline Lock Urinary Cath still in place: No Assessment/Plan Hospital Course - Lower back- surgical site - open wound - neurosx was informed - wound care nurse to assess wound - monitor foe s/s of infection - wound care - chronic back pain - s/p surgery and is not in acute rehab for therapy Subjective 24 Hr Interval Summary Free Text/Dictation Patient is doing ok Exam/Review of Systems Vital Signs Vitals Vital Signs Date Temp Pulse Resp B/P (MAP) Pulse Ox O2 O2 Flow FiO2 Time Delivery Rate 10/29/18 98.3 86 18 156/81 95 Room Air 07:00 (106) 10/25/18 2.0 09:00 Intake and Output 10/28/18 10/28/18 10/29/18 1515:00 23:00 07:00 IntakeIntake Total 1200 ml OutputOutput Total 600 ml 350 ml BalanceBalance 600 ml -350 ml Exam Constitutional: well developed Head: normocephalic, atraumatic Neck: supple Respiratory: clear to auscultation Cardiovascular: regular rate and rhythm Gastrointestinal: soft, non-tender Extremities: normal pulses ELAINE BUITRAGO Oct 29, 2018 11:49
--- NOTE | 2018-10-29 11:58 | PN ---
Date/Time of Note Date/Time of Note DATE: 10/29/18 TIME: 11:57 Objective Vital Signs Date Temp Pulse Resp B/P (MAP) Pulse Ox O2 O2 Flow FiO2 Time Delivery Rate 10/29/18 98.3 86 18 156/81 95 Room Air 07:00 (106) 10/25/18 2.0 09:00 Intake and Output 10/28/18 10/28/18 10/29/18 1515:00 23:00 07:00 IntakeIntake Total 1200 ml OutputOutput Total 600 ml 350 ml BalanceBalance 600 ml -350 ml Exam INTERDISCIPLINARY TEAM CONFERENCE EXAM PULM- cta ABD-soft, bs BOWEL- Cont BLADDER-Cont SKIN- intact OT- DRESSING-mod/max BATHING-max TOILETING-mod/max PT- BED MOBILITY-mod TRANSFERS-mod AMBULATION-mod 15 feet A/P- Interdisciplinary team conference held today. Please see interdisciplinary sheet. Working toward d.c. on 11/02 with post discharge follow up of physical therapy, occupational therapy. Results/Medications Result Diagram: 10/27/18 1136 10/27/18 1136 Medications Current Medications Acetaminophen (Tylenol Tab) 650 mg Q6H PRN PO MILD PAIN(1-3)OR ELEVATED TEMP Last administered on 10/27/18at 11:34; Admin Dose 650 MG; Start 10/19/18 at 23:00 Apixaban (Eliquis) 5 mg BID PO Last administered on 10/29/18at 08:18; Admin Dose 5 MG; Start 10/19/18 at 22:30 Bisacodyl (Dulcolax) 5 mg DAILY PRN PO CONSTIPATION; Start 10/19/18 at 23:00 Collagenase (Santyl) 1 applic DAILY TOP Last administered on 10/29/18at 08:18; Admin Dose 1 APPLIC; Start 10/20/18 at 09:00 Gabapentin (Neurontin) 800 mg QID PO Last administered on 10/29/18at 08:20; Admin Dose 800 MG; Start 10/19/18 at 22:30 Levothyroxine Sodium (Synthroid) 200 mcg DAILY@06 PO Last administered on 10/29/18at 06:04; Admin Dose 200 MCG; Start 10/20/18 at 06:00 Oxycodone HCl (Oxycontin) 10 mg BID PO Last administered on 10/29/18 08:19; Admin Dose 10 MG; Start 10/19/18 at 22:30 Pantoprazole (Protonix Tab) 40 mg DAILY@06 PO Last administered on 10/29/18 06:04; Admin Dose 40 MG; Start 10/20/18 at 06:00 Polyethylene Glycol (Miralax) 17 gm DAILY PO Last administered on 10/25/18 08:41; Admin Dose 17 GM; Start 10/20/18 at 09:00 Senna (Senokot) 2 tab BID PO Last administered on 10/25/18at 20:50; Admin Dose 2 TAB; Start 10/19/18 at 22:30 Docusate Sodium (Colace) 100 mg BID PO Last administered on 10/25/18 20:50; Admin Dose 100 MG; Start 10/20/18 at 09:00 Bisacodyl (Dulcolax Supp) 10 mg DAILY PRN [place] CONSTIPATION; Start 10/20/18 at 00:00 Magnesium Hydroxide (Milk Of Mag) 30 ml BID PRN PO CONSTIPATION; Start 10/20/18 at 00:00 Lactulose (Enulose) 20 gm DAILY PRN PO CONSTIPATION; Start 10/20/18 at 00:00 Acetaminophen/ Hydrocodone Bitart ([place] (5/325)) 2 tab Q6H PRN PO MODERATE PAIN LEVEL 4-6 Last administered on 10/29/18 01:06; Admin Dose 2 TAB; Start 10/20/18 at 14:00 Hydromorphone HCl (Dilaudid) 1 mg Q4H PRN IM SEVERE PAIN LEVEL 7-10 Last administered on 10/26/18at 19:02; Admin Dose 1 MG; Start 10/23/18 at 16:00 Baclofen (Lioresal) 10 mg TID PO Last administered on 10/29/18 08:18; Admin Dose 10 MG; Start 10/24/18 at 13:00 Al Hydrox/Mg Hydrox/Simethicone (Mag-Al Plus) 30 ml Q4H PRN PO GASTROINTESTINAL UPSET Last administered on 10/28/18 12:31; Admin Dose 30 ML; Start 10/28/18 at 12:30 Miscellaneous Information Patients own medicat... BID@10,16 XX Last administered on 10/29/18 09:17; Admin Dose 1 EA; Start 10/29/18 at 10:00 MILLY PUENTE MD Oct 29, 2018 11:58
--- NOTE | 2018-10-29 12:34 | CONS ---
Date/Time of Note Date/Time of Note DATE: 10/29/18 TIME: 12:18 Assessment/Plan Assessment/Plan Chief Complaint/Hosp Course - s/p fever due to PE and infection of the spinal wound, resolved - PE extending from distal R main pulmonary artery into 1st and 2nd order lobar branches on CTA on 10/06/2018, DIONNA of LEs on 10/06/2018 showed no DVT - s/p acute hypoxic resp failure as a result of PE, resolved neuro - s/p dehiscence and infection of the lower part of the spinal wound due to E. coli, coag negative Staph and corynebacteria, improved after a course of antibiotic - pain and paresthesia of b/l LEs, chronic according to Pt - h/o mechanical low back pain with radiculopathy of LEs - h/o b/l L5-S1 trans-foraminal lumbar interbody fusion surgery using instrumented spinal fusion 08/17/2018. - h/o posterior L5-S1 instrumented spinal fusion removal with reposition of interbody cage; placement of L5-S1 rods/screws on 09/07/2018 other conditions - s/p neutropenia noted on 10/09/2018, probably due to a combination of infection and side effect from vancomycin. It was discontinued. It resolved - s/p E. coli in Pt's urine culture; her urinalysis did not show pyuria and Pt had no UTI Sx prior to admission. Therefore, this was likely a contaminant - hypothyroidism - s/p neutropenia with vancomycin, resolved after vancomycin was stopped Recommendations: - Continue to monitor Pt off systemic antibiotics. Pt completed daptomycin (10/10/2018-10/18/2018) and IV vancomycin (10/05/2081-10/09/2018) - Pt with 50-60K Ecoli and ESBL ecoli noted in urine culture and is asymptomatic, afebrile, without dysuria, hematuria, urine of foul odor. We do not recommend antibiotic therapy for this asymptomatic bacteruria. - agree with DC planning - has possible d/c plan for Monday. Management d/w patient, DEEPAK [place]ola and with Dr. Moncada. Thank you. Consultation Date/Type/Reason Admit Date/Time Oct 19, 2018 at 21:00 Initial Consult Date 10/21/18 Reason for Consultation ID Consult Requesting Provider: JOAQUIN STOVER MD 24 HR Interval Summary Free Text/Dictation Per d/w RN Jesika, patient has remained afebrile with no acute issues, she has remained asymptomatic but RN notes that urine came back ESBL +. She states that the day the UA and culture were done, she had noted the patient seemed more "not herself" that day, although the UA had been neg they sent the urine cx. Patient has been urinating without pain, no hematuria. Patient will likely be d/c on back to home. Per d/w patient, she states she feels "hot" and she has been sitting by the window with the sun shining in. She is asking me to find the sr. social media & mobile manager because she remembers her email address and she has it written down. She states she is very worried about her cats who have been home alone since last without anyone to help feed them or refill their water. I found the Clinical nurse database development project manager who is calling the sr. social media & mobile manager about this. The patient states she hopes she can go home sooner than Monday because she is worrying about her cats (she becomes tearful telling me this.) Patient denies sob/cp, cough. She states she had nausea yesterday and vomited once yesterday. She also states she was having diarrhea before but today she had her first solid stool. She denies dysuria, hematuria, urine of foul odor. She states that at times she gets nervous if she has to use the bedpan but once she starts the stream it "comes out okay." Exam/Review of Systems Vital Signs Vitals Vital Signs Date Temp Pulse Resp B/P (MAP) Pulse Ox O2 O2 Flow FiO2 Time Delivery Rate 10/29/18 98.3 86 18 156/81 95 Room Air 07:00 (106) 10/25/18 2.0 09:00 Intake and Output 10/28/18 10/28/18 10/29/18 1515:00 23:00 07:00 IntakeIntake Total 1200 ml OutputOutput Total 600 ml 350 ml BalanceBalance 600 ml -350 ml Exam Constitutional: alert, oriented, well developed, obese, other (sitting up in a chair writing down her email address on a pad of paper) Psych: anxiety Head: normocephalic, atraumatic Eyes: nl conjunctiva, nl lids, nl sclera ENMT: nl external ears & nose, nl nasal mucosa & septum (no thrush noted), mucosa pink and moist Neck: supple Respiratory: clear to auscultation (anteriorly and posteriorly, no wheezing), normal air movement Cardiovascular: regular rate and rhythm, nl pulses Gastrointestinal: soft, non-tender, bowel sounds (normoactive ) Musculoskeletal: other (wearing a brace around her waist) Extremities: normal pulses Neurological: nl mental status, nl speech, other (TOVAR, a/o x4) Skin: nl turgor, other (Back wound - no erythema or drainage.) Medications Medications Current Medications Acetaminophen (Tylenol Tab) 650 mg Q6H PRN PO MILD PAIN(1-3)OR ELEVATED TEMP Last administered on 10/27/18at 11:34; Admin Dose 650 MG; Start 10/19/18 at 23:00 Apixaban (Eliquis) 5 mg BID PO Last administered on 10/29/18 08:18; Admin Dose 5 MG; Start 10/19/18 at 22:30 Bisacodyl (Dulcolax) 5 mg DAILY PRN PO CONSTIPATION; Start 10/19/18 at 23:00 Collagenase (Santyl) 1 applic DAILY TOP Last administered on 10/29/18 08:18; Admin Dose 1 APPLIC; Start 10/20/18 at 09:00 Gabapentin (Neurontin) 800 mg QID PO Last administered on 10/29/18 08:20; Admin Dose 800 MG; Start 10/19/18 at 22:30 Levothyroxine Sodium (Synthroid) 200 mcg DAILY@06 PO Last administered on 10/29/18at 06:04; Admin Dose 200 MCG; Start 10/20/18 at 06:00 Oxycodone HCl (Oxycontin) 10 mg BID PO Last administered on 10/29/18 08:19; Admin Dose 10 MG; Start 10/19/18 at 22:30 Pantoprazole (Protonix Tab) 40 mg DAILY@06 PO Last administered on 10/29/18 06:04; Admin Dose 40 MG; Start 10/20/18 at 06:00 Polyethylene Glycol (Miralax) 17 gm DAILY PO Last administered on 10/25/18at 08:41; Admin Dose 17 GM; Start 10/20/18 at 09:00 Senna (Senokot) 2 tab BID PO Last administered on 10/25/18at 20:50; Admin Dose 2 TAB; Start 10/19/18 at 22:30 Docusate Sodium (Colace) 100 mg BID PO Last administered on 10/25/18at 20:50; Admin Dose 100 MG; Start 10/20/18 at 09:00 Bisacodyl (Dulcolax Supp) 10 mg DAILY PRN [place] CONSTIPATION; Start 10/20/18 at 00:00 Magnesium Hydroxide (Milk Of Mag) 30 ml BID PRN PO CONSTIPATION; Start 10/20/18 at 00:00 Lactulose (Enulose) 20 gm DAILY PRN PO CONSTIPATION; Start 10/20/18 at 00:00 Acetaminophen/ Hydrocodone Bitart ([place] (5/325)) 2 tab Q6H PRN PO MODERATE PAIN LEVEL 4-6 Last administered on 10/29/18 01:06; Admin Dose 2 TAB; Start 10/20/18 at 14:00 Baclofen (Lioresal) 10 mg TID PO Last administered on 10/29/18at 08:18; Admin Dose 10 MG; Start 10/24/18 at 13:00 Al Hydrox/Mg Hydrox/Simethicone (Mag-Al Plus) 30 ml Q4H PRN PO GASTROINTESTINAL UPSET Last administered on 10/28/18 12:31; Admin Dose 30 ML; Start 10/28/18 at 12:30 Miscellaneous Information Patients own medicat... BID@10,16 XX Last administered on 10/29/18 09:17; Admin Dose 1 EA; Start 10/29/18 at 10:00 IQRA CONTEH NP Oct 29, 2018 12:34
--- NOTE | 2018-10-29 14:23 | NUR ---
[facility] PT Weekly Summary Dates From: 10/20/18 to 10/27/18 Patient Name: NAEEM CINTRON MR#: [id number] Height: 5 ft 0 in Weight: 198 lbs 6.657 oz 90.000 kg Reason for Visit: LUMBSACRAL RADICULOPATHY Precautions: fall risk, confused, spine precautions, LSO when OOB Date: 10/27/18 Time: 1423 User: JEANNIE TENA Short-term Goals: Bed Mob with Min A Transfers with Min A Gait with LSO with FWW 10ft with min/mod A sit up in WC for 15min for meals with min A up/down 5 steps with B rails with SBA/CGA Pt making conservative gains during her stay at [facility]. Pt demonstrates Mod/Max A for bed mobility, Min/Mod A for transfers, Mod A for gait 10ft using FWW 2PA, Dep for WC mobility. Barriers: confused, non cooperative at times, pain, multiple refusals, non-compliant with spine prec. self-limiting behavior, resistive to education. Recommend manual WC with swing sway leg rests, BSC, home with HHPT and 24hr assistance. Cont POC and progress as siva.
--- NOTE | 2018-10-29 14:26 | CONS ---
Date/Time of Note Date/Time of Note DATE: 10/29/18 TIME: 14:25 Assessment/Plan Assessment/Plan Chief Complaint/Hosp Course patient seen and examined. Plan coordinated and directed with SENIOR WEB APPLICATIONS DEVELOPER. Consultation Date/Type/Reason Admit Date/Time Oct 19, 2018 at 21:00 Initial Consult Date 10/21/18 Type of Consult id Requesting Provider: JOAQUIN STOVER MD Exam/Review of Systems Vital Signs Vitals Vital Signs Date Temp Pulse Resp B/P (MAP) Pulse Ox O2 O2 Flow FiO2 Time Delivery Rate 10/29/18 98.3 86 18 156/81 95 Room Air 07:00 (106) 10/25/18 2.0 09:00 Intake and Output 10/28/18 10/28/18 10/29/18 1515:00 23:00 07:00 IntakeIntake Total 1200 ml OutputOutput Total 600 ml 350 ml BalanceBalance 600 ml -350 ml Medications Medications Current Medications Acetaminophen (Tylenol Tab) 650 mg Q6H PRN PO MILD PAIN(1-3)OR ELEVATED TEMP Last administered on 10/27/18at 11:34; Admin Dose 650 MG; Start 10/19/18 at 23:00 Apixaban (Eliquis) 5 mg BID PO Last administered on 10/29/18at 08:18; Admin Dose 5 MG; Start 10/19/18 at 22:30 Bisacodyl (Dulcolax) 5 mg DAILY PRN PO CONSTIPATION; Start 10/19/18 at 23:00 Collagenase (Santyl) 1 applic DAILY TOP Last administered on 10/29/18at 08:18; Admin Dose 1 APPLIC; Start 10/20/18 at 09:00 Gabapentin (Neurontin) 800 mg QID PO Last administered on 10/29/18at 08:20; Admin Dose 800 MG; Start 10/19/18 at 22:30 Levothyroxine Sodium (Synthroid) 200 mcg DAILY@06 PO Last administered on 10/29/18at 06:04; Admin Dose 200 MCG; Start 10/20/18 at 06:00 Oxycodone HCl (Oxycontin) 10 mg BID PO Last administered on 10/29/18at 08:19; Admin Dose 10 MG; Start 10/19/18 at 22:30 Pantoprazole (Protonix Tab) 40 mg DAILY@06 PO Last administered on 10/29/18 06:04; Admin Dose 40 MG; Start 10/20/18 at 06:00 Polyethylene Glycol (Miralax) 17 gm DAILY PO Last administered on 10/25/18at 08:41; Admin Dose 17 GM; Start 10/20/18 at 09:00 Senna (Senokot) 2 tab BID PO Last administered on 10/25/18at 20:50; Admin Dose 2 TAB; Start 10/19/18 at 22:30 Docusate Sodium (Colace) 100 mg BID PO Last administered on 10/25/18at 20:50; Admin Dose 100 MG; Start 10/20/18 at 09:00 Bisacodyl (Dulcolax Supp) 10 mg DAILY PRN [place] CONSTIPATION; Start 10/20/18 at 00:00 Magnesium Hydroxide (Milk Of Mag) 30 ml BID PRN PO CONSTIPATION; Start 10/20/18 at 00:00 Lactulose (Enulose) 20 gm DAILY PRN PO CONSTIPATION; Start 10/20/18 at 00:00 Acetaminophen/ Hydrocodone Bitart ([place] (5/325)) 2 tab Q6H PRN PO MODERATE PAIN LEVEL 4-6 Last administered on 10/29/18 01:06; Admin Dose 2 TAB; Start 10/20/18 at 14:00 Baclofen (Lioresal) 10 mg TID PO Last administered on 10/29/18 08:18; Admin Dose 10 MG; Start 10/24/18 at 13:00 Al Hydrox/Mg Hydrox/Simethicone (Mag-Al Plus) 30 ml Q4H PRN PO GASTROINTESTINAL UPSET Last administered on 10/28/18at 12:31; Admin Dose 30 ML; Start 10/28/18 at 12:30 Miscellaneous Information Patients own medicat... BID@10,16 XX Last administered on 10/29/18 09:17; Admin Dose 1 EA; Start 10/29/18 at 10:00 ARSALAN ARCEO MD Oct 29, 2018 14:26
[2018-10-29 14:39] VITALS: BP 120/77; PULSE 89; RESP 18
--- NOTE | 2018-10-29 15:48 | NUR ---
Discussed reason for isolation, printed info given to patient.
--- NOTE | 2018-10-29 18:25 | NUR ---
Patient assisted back to bed after sitting in for dinner. Cognition seems better today, she is alert and oriented. She participated well with therapy, medicated for pain with PO norco with good results. All due medications given., call light in reach, bed alarm on.
[2018-10-29 20:10] VITALS: BP 133/73; PULSE 96; RESP 18
[2018-10-30 02:10] VITALS: BP 140/96; PULSE 92; RESP 18
[2018-10-30] MEDS: HYDROCODONE/APAP (5/325) TAB PO PRN ×3 (06:28→19:26)
[2018-10-30] MEDS: LEVOTHYROXINE 100 MCG TAB PO SCH (06:28)
[2018-10-30] MEDS: PANTOPRAZOLE (EC) 40 MG TAB PO SCH (06:29)
--- NOTE | 2018-10-30 06:55 | NUR ---
PATIENT SLEPT WELL. MEDICATED WITH 2 NORCO PO FOR BACK PAIN WITH RELIEF. RECREATIONAL ACTIVITIES PROVIDED TO PATIENT; WATCHING TV. CALL LIGHT WITHIN REACH. NO ACUTE DISTRESS NOTED
[2018-10-30 07:23] VITALS: BP 98/71; PULSE 85; RESP 18
[2018-10-30] MEDS: POLYETHYLENE GLYCOL 17 GM PACKET PO SCH (09:00)
[2018-10-30] MEDS: SENNA TAB PO SCH ×2 (09:00→21:00)
[2018-10-30] MEDS: DOCUSATE SODIUM 100 MG CAP PO SCH ×2 (09:00→21:00)
[2018-10-30] MEDS: GABAPENTIN 400 MG CAP PO SCH ×4 (09:29→20:22)
[2018-10-30] MEDS: BACLOFEN 10 MG TAB PO SCH ×3 (09:29→20:22)
[2018-10-30] MEDS: APIXABAN 5 MG TABLET PO SCH ×2 (09:29→20:22)
[2018-10-30] MEDS: oxyCODONE (CR) 10 MG TAB [oxyCONTIN] PO SCH ×2 (09:29→20:22)
--- NOTE | 2018-10-30 09:42 | PN ---
Date/Time of Note Date/Time of Note DATE: 10/30/18 TIME: 09:41 Subjective Calmer today Objective Vital Signs Date Temp Pulse Resp B/P (MAP) Pulse Ox O2 O2 Flow FiO2 Time Delivery Rate 10/30/18 97.9 85 18 98/71 (80) 97 Room Air 07:23 Intake and Output 10/29/18 10/29/18 10/30/18 1515:00 23:00 07:00 IntakeIntake Total 1000 ml 280 ml BalanceBalance 1000 ml 280 ml Exam pulm-cta abd-soft mod assist transfer mod ambulation Results/Medications Result Diagram: 10/27/18 1136 10/27/18 1136 Medications Current Medications Acetaminophen (Tylenol Tab) 650 mg Q6H PRN PO MILD PAIN(1-3)OR ELEVATED TEMP Last administered on 10/27/18at 11:34; Admin Dose 650 MG; Start 10/19/18 at 23:00 Apixaban (Eliquis) 5 mg BID PO Last administered on 10/30/18 09:29; Admin Dose 5 MG; Start 10/19/18 at 22:30 Bisacodyl (Dulcolax) 5 mg DAILY PRN PO CONSTIPATION; Start 10/19/18 at 23:00 Collagenase (Santyl) 1 applic DAILY TOP Last administered on 10/29/18at 08:18; Admin Dose 1 APPLIC; Start 10/20/18 at 09:00 Gabapentin (Neurontin) 800 mg QID PO Last administered on 10/30/18 09:29; Admin Dose 800 MG; Start 10/19/18 at 22:30 Levothyroxine Sodium (Synthroid) 200 mcg DAILY@06 PO Last administered on 10/30/18at 06:28; Admin Dose 200 MCG; Start 10/20/18 at 06:00 Oxycodone HCl (Oxycontin) 10 mg BID PO Last administered on 10/30/18 09:29; Admin Dose 10 MG; Start 10/19/18 at 22:30 Pantoprazole (Protonix Tab) 40 mg DAILY@06 PO Last administered on 10/30/18 06:29; Admin Dose 40 MG; Start 10/20/18 at 06:00 Polyethylene Glycol (Miralax) 17 gm DAILY PO Last administered on 10/25/18at 08:41; Admin Dose 17 GM; Start 10/20/18 at 09:00 Senna (Senokot) 2 tab BID PO Last administered on 10/25/18at 20:50; Admin Dose 2 TAB; Start 10/19/18 at 22:30 Docusate Sodium (Colace) 100 mg BID PO Last administered on 10/25/18at 20:50; Admin Dose 100 MG; Start 10/20/18 at 09:00 Bisacodyl (Dulcolax Supp) 10 mg DAILY PRN [place] CONSTIPATION; Start 10/20/18 at 00:00 Magnesium Hydroxide (Milk Of Mag) 30 ml BID PRN PO CONSTIPATION; Start 10/20/18 at 00:00 Lactulose (Enulose) 20 gm DAILY PRN PO CONSTIPATION; Start 10/20/18 at 00:00 Acetaminophen/ Hydrocodone Bitart ([place] (5/325)) 2 tab Q6H PRN PO MODERATE PAIN LEVEL 4-6 Last administered on 10/30/18at 06:28; Admin Dose 2 TAB; Start 10/20/18 at 14:00 Baclofen (Lioresal) 10 mg TID PO Last administered on 10/30/18at 09:29; Admin Dose 10 MG; Start 10/24/18 at 13:00 Al Hydrox/Mg Hydrox/Simethicone (Mag-Al Plus) 30 ml Q4H PRN PO GASTROINTESTINAL UPSET Last administered on 10/28/18at 12:31; Admin Dose 30 ML; Start 10/28/18 at 12:30 Miscellaneous Information Patients own medicat... BID@10,16 XX Last administered on 10/29/18at 15:35; Admin Dose 1 EA; Start 10/29/18 at 10:00 Assessment/Plan Additional Assessment/Plan Rehab-Lumbar radiculopathy status post spinal fusion and infection with the patient status post hardware removal/reposition. Pt would like to work towards [place] home. Continue rehab treatment plan Integ- wound care, specialty bed- improving Acute pain syndrome. Hypertension. Status post respiratory failure. Morbid obesity. Urinary tract infection. Pulmonary embolism. MILLY PUENTE MD Oct 30, 2018 09:42
--- NOTE | 2018-10-30 11:52 | CONS ---
Date/Time of Note Date/Time of Note DATE: 10/30/18 TIME: 11:37 Assessment/Plan Assessment/Plan Chief Complaint/Hosp Course - s/p fever due to PE and infection of the spinal wound, resolved - PE extending from distal R main pulmonary artery into 1st and 2nd order lobar branches on CTA on 10/06/2018, DIONNA of LEs on 10/06/2018 showed no DVT - s/p acute hypoxic resp failure as a result of PE, resolved neuro - s/p dehiscence and infection of the lower part of the spinal wound due to E. coli, coag negative Staph and corynebacteria, improved after a course of antibiotic - pain and paresthesia of b/l LEs, chronic according to Pt - h/o mechanical low back pain with radiculopathy of LEs - h/o b/l L5-S1 trans-foraminal lumbar interbody fusion surgery using instrumented spinal fusion 08/17/2018. - h/o posterior L5-S1 instrumented spinal fusion removal with reposition of interbody cage; placement of L5-S1 rods/screws on 09/07/2018 other conditions - s/p neutropenia noted on 10/09/2018, probably due to a combination of infection and side effect from vancomycin. It was discontinued. It resolved - s/p E. coli in Pt's urine culture; her urinalysis did not show pyuria and Pt had no UTI Sx prior to admission. Therefore, this was likely a contaminant - hypothyroidism - s/p neutropenia with vancomycin, resolved after vancomycin was stopped Recommendations: - Continue to monitor Pt off systemic antibiotics. Pt completed daptomycin (10/10/2018-10/18/2018) and IV vancomycin (10/05/2081-10/09/2018) - Pt with 50-60K Ecoli and ESBL ecoli noted in urine culture and is asymptomatic, afebrile, without dysuria, hematuria, urine of foul odor. We do not recommend antibiotic therapy for this asymptomatic bacteruria. - agree with DC planning - has possible d/c plan for Monday. Management d/w patient, DEEPAK Canchola and with Dr. Moncada. Thank you. Consultation Date/Type/Reason Admit Date/Time Oct 19, 2018 at 21:00 Initial Consult Date 10/21/18 Reason for Consultation ID Consult Requesting Provider: JOAQUIN STOVER MD 24 HR Interval Summary Free Text/Dictation D/w DEEPAK Canchola, patient remains afebrile with no acute issues noted since yesterday. There is possible plan for a d/c to [facility] rather than home tomorrow. Per d/w patient she is still worrying about her three cats, she states that usually the door to her house is unlocked and that her caregiver was able to go in and out to take care of the cats, but that last her sister accidentally locked the door. She states she's unable to get ahold of her sister. D/w DEEPAK Canchola, the bilingual social worker is aware and has been working on this. Otherwise, patient currently denied all ROS. Exam/Review of Systems Vital Signs Vitals Vital Signs Date Temp Pulse Resp B/P (MAP) Pulse Ox O2 O2 Flow FiO2 Time Delivery Rate 10/30/18 97.9 85 18 98/71 (80) 97 Room Air 07:23 Intake and Output 10/29/18 10/29/18 10/30/18 1515:00 23:00 07:00 IntakeIntake Total 1000 ml 280 ml BalanceBalance 1000 ml 280 ml Allergies Coded Allergies No Known Allergy (Unverified03/15/17) Exam Constitutional: alert, oriented, well developed, obese, other (laying in bed, tearful) Psych: anxiety Head: normocephalic, atraumatic Eyes: nl conjunctiva, nl lids, nl sclera ENMT: nl external ears & nose, nl nasal mucosa & septum (no thrush noted), mucosa pink and moist Neck: supple Respiratory: clear to auscultation (anteriorly and posteriorly, no wheezing), normal air movement Cardiovascular: regular rate and rhythm, nl pulses Gastrointestinal: soft, non-tender, bowel sounds (normoactive ) Extremities: normal pulses Neurological: nl mental status, nl speech, other (TOVAR, a/o x4) Skin: nl turgor, other (Back wound - no erythema or drainage.) Medications Medications Current Medications Acetaminophen (Tylenol Tab) 650 mg Q6H PRN PO MILD PAIN(1-3)OR ELEVATED TEMP Last administered on 10/27/18at 11:34; Admin Dose 650 MG; Start 10/19/18 at 23:00 Apixaban (Eliquis) 5 mg BID PO Last administered on 10/30/18 09:29; Admin Dose 5 MG; Start 10/19/18 at 22:30 Bisacodyl (Dulcolax) 5 mg DAILY PRN PO CONSTIPATION; Start 10/19/18 at 23:00 Collagenase (Santyl) 1 applic DAILY TOP Last administered on 10/29/18 08:18; Admin Dose 1 APPLIC; Start 10/20/18 at 09:00 Gabapentin (Neurontin) 800 mg QID PO Last administered on 10/30/18 09:29; Admin Dose 800 MG; Start 10/19/18 at 22:30 Levothyroxine Sodium (Synthroid) 200 mcg DAILY@06 PO Last administered on 10/30/18 06:28; Admin Dose 200 MCG; Start 10/20/18 at 06:00 Oxycodone HCl (Oxycontin) 10 mg BID PO Last administered on 10/30/18 09:29; Admin Dose 10 MG; Start 10/19/18 at 22:30 Pantoprazole (Protonix Tab) 40 mg DAILY@06 PO Last administered on 10/30/18 06:29; Admin Dose 40 MG; Start 10/20/18 at 06:00 Polyethylene Glycol (Miralax) 17 gm DAILY PO Last administered on 10/25/18 08:41; Admin Dose 17 GM; Start 10/20/18 at 09:00 Senna (Senokot) 2 tab BID PO Last administered on 10/25/18 20:50; Admin Dose 2 TAB; Start 10/19/18 at 22:30 Docusate Sodium (Colace) 100 mg BID PO Last administered on 10/25/18 20:50; Admin Dose 100 MG; Start 10/20/18 at 09:00 Bisacodyl (Dulcolax Supp) 10 mg DAILY PRN [place] CONSTIPATION; Start 10/20/18 at 00:00 Magnesium Hydroxide (Milk Of Mag) 30 ml BID PRN PO CONSTIPATION; Start 10/20/18 at 00:00 Lactulose (Enulose) 20 gm DAILY PRN PO CONSTIPATION; Start 10/20/18 at 00:00 Acetaminophen/ Hydrocodone Bitart ([place] (5/325)) 2 tab Q6H PRN PO MODERATE PAIN LEVEL 4-6 Last administered on 10/30/18 06:28; Admin Dose 2 TAB; Start 10/20/18 at 14:00 Baclofen (Lioresal) 10 mg TID PO Last administered on 10/30/18at 09:29; Admin Dose 10 MG; Start 10/24/18 at 13:00 Al Hydrox/Mg Hydrox/Simethicone (Mag-Al Plus) 30 ml Q4H PRN PO GASTROINTESTINAL UPSET Last administered on 10/28/18at 12:31; Admin Dose 30 ML; Start 10/28/18 at 12:30 Miscellaneous Information Patients own medicat... BID@10,16 XX Last administered on 10/30/18at 10:55; Admin Dose 1 EA; Start 10/29/18 at 10:00 IQRA CONTEH NP Oct 30, 2018 11:50
--- NOTE | 2018-10-30 11:59 | PN ---
Date/Time of Note Date/Time of Note DATE: 10/30/18 TIME: 11:58 Assessment/Plan VTE Prophylaxis Risk score (from Nsg)>0 risk: 6 SCD applied (from Ns): Yes Pharmacological prophylaxis: LMWH Lines/Catheters IV Catheter Type (from Nrsg): Saline Lock Urinary Cath still in place: No Assessment/Plan Hospital Course - Lower back- surgical site - open wound - neurosx was informed - wound care nurse to assess wound - monitor foe s/s of infection - wound care - chronic back pain - s/p surgery and is not in acute rehab for therapy Result Diagram: 10/27/18 1136 10/27/18 1136 Subjective 24 Hr Interval Summary Free Text/Dictation Patient complains of abdominal bloating whenever she eats. Exam/Review of Systems Vital Signs Vitals Vital Signs Date Temp Pulse Resp B/P (MAP) Pulse Ox O2 O2 Flow FiO2 Time Delivery Rate 10/30/18 97.9 85 18 98/71 (80) 97 Room Air 07:23 Intake and Output 10/29/18 10/29/18 10/30/18 1515:00 23:00 07:00 IntakeIntake Total 1000 ml 280 ml BalanceBalance 1000 ml 280 ml Exam Constitutional: well developed Head: normocephalic, atraumatic Neck: supple Respiratory: diminished breath sounds Cardiovascular: regular rate and rhythm Gastrointestinal: soft, non-tender Extremities: normal pulses Medications Medications Current Medications Acetaminophen (Tylenol Tab) 650 mg Q6H PRN PO MILD PAIN(1-3)OR ELEVATED TEMP Last administered on 10/27/18at 11:34; Admin Dose 650 MG; Start 10/19/18 at 23:00 Apixaban (Eliquis) 5 mg BID PO Last administered on 10/30/18at 09:29; Admin Dose 5 MG; Start 10/19/18 at 22:30 Bisacodyl (Dulcolax) 5 mg DAILY PRN PO CONSTIPATION; Start 10/19/18 at 23:00 Collagenase (Santyl) 1 applic DAILY TOP Last administered on 10/29/18at 08:18; Admin Dose 1 APPLIC; Start 10/20/18 at 09:00 Gabapentin (Neurontin) 800 mg QID PO Last administered on 10/30/18at 09:29; Admin Dose 800 MG; Start 10/19/18 at 22:30 Levothyroxine Sodium (Synthroid) 200 mcg DAILY@06 PO Last administered on 10/30/18 06:28; Admin Dose 200 MCG; Start 10/20/18 at 06:00 Oxycodone HCl (Oxycontin) 10 mg BID PO Last administered on 10/30/18 09:29; Admin Dose 10 MG; Start 10/19/18 at 22:30 Pantoprazole (Protonix Tab) 40 mg DAILY@06 PO Last administered on 10/30/18 06:29; Admin Dose 40 MG; Start 10/20/18 at 06:00 Polyethylene Glycol (Miralax) 17 gm DAILY PO Last administered on 10/25/18 08:41; Admin Dose 17 GM; Start 10/20/18 at 09:00 Senna (Senokot) 2 tab BID PO Last administered on 10/25/18at 20:50; Admin Dose 2 TAB; Start 10/19/18 at 22:30 Docusate Sodium (Colace) 100 mg BID PO Last administered on 10/25/18 20:50; Admin Dose 100 MG; Start 10/20/18 at 09:00 Bisacodyl (Dulcolax Supp) 10 mg DAILY PRN [place] CONSTIPATION; Start 10/20/18 at 00:00 Magnesium Hydroxide (Milk Of Mag) 30 ml BID PRN PO CONSTIPATION; Start 10/20/18 at 00:00 Lactulose (Enulose) 20 gm DAILY PRN PO CONSTIPATION; Start 10/20/18 at 00:00 Acetaminophen/ Hydrocodone Bitart ([place] (5/325)) 2 tab Q6H PRN PO MODERATE PAIN LEVEL 4-6 Last administered on 10/30/18at 06:28; Admin Dose 2 TAB; Start 10/20/18 at 14:00 Baclofen (Lioresal) 10 mg TID PO Last administered on 10/30/18 09:29; Admin Dose 10 MG; Start 10/24/18 at 13:00 Al Hydrox/Mg Hydrox/Simethicone (Mag-Al Plus) 30 ml Q4H PRN PO GASTROINTESTINAL UPSET Last administered on 10/28/18at 12:31; Admin Dose 30 ML; Start 10/28/18 at 12:30 Miscellaneous Information Patients own medicat... BID@10,16 XX Last administ ered on 10/30/18at 10:55; Admin Dose 1 EA; Start 10/29/18 at 10:00 ELAINE BUITRAGO Oct 30, 2018 11:59
[2018-10-30] MEDS: COLLAGENASE 5 GM (UD JAR) TOP SCH (13:28)
[2018-10-30 14:15] VITALS: BP 128/83; PULSE 90; RESP 18
--- NOTE | 2018-10-30 18:28 | NUR ---
Patient resting in bed, medicated with norco po through the day for pain with good results. All due meds given, all hygiene needs met. Placed call to patients former caregiver, left message to request she go to patients house and see to her cats, per patient request. Asked her to call us back to confirm that they are ok, as patient is very worried about her cats. Call light in reach, bed alarm on.
[2018-10-30 20:10] VITALS: BP 117/72; PULSE 99; RESP 19
[2018-10-31 02:10] VITALS: BP 124/74; PULSE 79; RESP 18
--- NOTE | 2018-10-31 06:01 | NUR ---
PATIENT IS VERY ALERT AND ORIENTED, MEDICATED WITH 2 NORCO PO FOR BACK PAIN WITH RELIEF. RECREATIONAL ACTIVITIES PROVIDED TO PATIENT;WATCHING TV. CALL LIGHT WITHIN REACH. NO DISTRESS NOTED
[2018-10-31] MEDS: PANTOPRAZOLE (EC) 40 MG TAB PO SCH (06:32)
[2018-10-31] MEDS: LEVOTHYROXINE 100 MCG TAB PO SCH (06:32)
[2018-10-31] MEDS: HYDROCODONE/APAP (5/325) TAB PO PRN ×2 (06:37→23:26)
[2018-10-31 08:00] VITALS: BP 137/86; PULSE 88; RESP 18
[2018-10-31] MEDS: SENNA TAB PO SCH ×2 (09:00→20:27)
[2018-10-31] MEDS: DOCUSATE SODIUM 100 MG CAP PO SCH ×2 (09:00→20:27)
[2018-10-31] MEDS: COLLAGENASE 5 GM (UD JAR) TOP SCH ×2 (09:00→14:00)
[2018-10-31] MEDS: POLYETHYLENE GLYCOL 17 GM PACKET PO SCH (09:00)
[2018-10-31] MEDS: GABAPENTIN 400 MG CAP PO SCH (09:04)
[2018-10-31] MEDS: BACLOFEN 10 MG TAB PO SCH ×3 (09:04→20:20)
[2018-10-31] MEDS: APIXABAN 5 MG TABLET PO SCH ×2 (09:04→20:20)
--- NOTE | 2018-10-31 10:06 | PN ---
Date/Time of Note Date/Time of Note DATE: 10/31/18 TIME: 10:04 Subjective Cognition significantly improved. Patient reports she would like to work towards home. Motivated for activities Objective Vital Signs Date Temp Pulse Resp B/P (MAP) Pulse Ox O2 O2 Flow FiO2 Time Delivery Rate 10/31/18 98.7 79 18 124/74 98 Room Air 02:10 (91) Intake and Output 10/30/18 10/30/18 10/31/18 1515:00 23:00 07:00 IntakeIntake Total 350 ml 100 ml 600 ml BalanceBalance 350 ml 100 ml 600 ml Exam pulm-cta abd-soft min/mod transfer min/mod ambulation Results/Medications Result Diagram: 10/27/18 1136 10/27/18 1136 Medications Current Medications Acetaminophen (Tylenol Tab) 650 mg Q6H PRN PO MILD PAIN(1-3)OR ELEVATED TEMP Last administered on 10/27/18at 11:34; Admin Dose 650 MG; Start 10/19/18 at 23:00 Apixaban (Eliquis) 5 mg BID PO Last administered on 10/31/18at 09:04; Admin Dose 5 MG; Start 10/19/18 at 22:30 Bisacodyl (Dulcolax) 5 mg DAILY PRN PO CONSTIPATION; Start 10/19/18 at 23:00 Collagenase (Santyl) 1 applic DAILY TOP Last administered on 10/30/18at 13:28; Admin Dose 1 APPLIC; Start 10/20/18 at 09:00 Levothyroxine Sodium (Synthroid) 200 mcg DAILY@06 PO Last administered on 10/31/18at 06:32; Admin Dose 200 MCG; Start 10/20/18 at 06:00 Oxycodone HCl (Oxycontin) 10 mg BID PO Last administered on 10/30/18at 20:22; Admin Dose 10 MG; Start 10/19/18 at 22:30 Pantoprazole (Protonix Tab) 40 mg DAILY@06 PO Last administered on 10/31/18at 06:32; Admin Dose 40 MG; Start 10/20/18 at 06:00 Polyethylene Glycol (Miralax) 17 gm DAILY PO Last administered on 10/25/18at 08:41; Admin Dose 17 GM; Start 10/20/18 at 09:00 Senna (Senokot) 2 tab BID PO Last administered on 10/25/18at 20:50; Admin Dose 2 TAB; Start 10/19/18 at 22:30 Docusate Sodium (Colace) 100 mg BID PO Last administered on 10/25/18at 20:50; Admin Dose 100 MG; Start 10/20/18 at 09:00 Bisacodyl (Dulcolax Supp) 10 mg DAILY PRN [place] CONSTIPATION; Start 10/20/18 at 00:00 Magnesium Hydroxide (Milk Of Mag) 30 ml BID PRN PO CONSTIPATION; Start 10/20/18 at 00:00 Lactulose (Enulose) 20 gm DAILY PRN PO CONSTIPATION; Start 10/20/18 at 00:00 Acetaminophen/ Hydrocodone Bitart ([place] (5/325)) 2 tab Q6H PRN PO MODERATE PAIN LEVEL 4-6 Last administered on 10/31/18at 06:37; Admin Dose 2 TAB; Start 10/20/18 at 14:00 Baclofen (Lioresal) 10 mg TID PO Last administered on 10/31/18at 09:04; Admin Dose 10 MG; Start 10/24/18 at 13:00 Al Hydrox/Mg Hydrox/Simethicone (Mag-Al Plus) 30 ml Q4H PRN PO GASTROINTESTINAL UPSET Last administered on 10/28/18at 12:31; Admin Dose 30 ML; Start 10/28/18 at 12:30 Miscellaneous Information Patients own medicat... BID@10,16 XX Last administered on 10/30/18at 16:13; Admin Dose 1 EA; Start 10/29/18 at 10:00 Gabapentin (Neurontin) 600 mg TID PO ; Start 10/31/18 at 13:00; Status UNV Assessment/Plan Additional Assessment/Plan Rehab-Lumbar radiculopathy status post spinal fusion and infection with the patient status post hardware removal/reposition. Significantly improved from last week, with improved participation, self care and mobility levels. Will pursue extension of stay with goal of DC home with caregiver 1/3 Integ- wound care, specialty bed- improving Acute pain syndrome. Hypertension. Status post respiratory failure. Morbid obesity. Urinary tract infection. Pulmonary embolism. MILLY PUENTE MD Oct 31, 2018 10:06
[2018-10-31] MEDS: oxyCODONE (CR) 10 MG TAB [oxyCONTIN] PO SCH ×2 (11:23→20:21)
--- NOTE | 2018-10-31 12:08 | NUR ---
SOCIAL WORK NOTE: This bond underwriter requested an extension as per [facility] general medical practitioner request. This bond underwriter faxed clinicals to [phone]#[phone], confirms receipt. Bre states that she and her general medical practitioner will review and get back to this social services manager tomorrow.
--- NOTE | 2018-10-31 12:37 | PN ---
Date/Time of Note Date/Time of Note DATE: 10/31/18 TIME: 12:37 Assessment/Plan VTE Prophylaxis Risk score (from Nsg)>0 risk: 9 SCD applied (from Ns): Yes Pharmacological prophylaxis: LMWH Lines/Catheters IV Catheter Type (from Nrsg): Saline Lock Urinary Cath still in place: No Assessment/Plan Hospital Course - Lower back- surgical site - open wound - neurosx was informed - wound care nurse to assess wound - monitor foe s/s of infection - wound care - chronic back pain - s/p surgery and is not in acute rehab for therapy Result Diagram: 10/27/18 1136 10/27/18 1136 Subjective 24 Hr Interval Summary Free Text/Dictation Still working with physical therapy, getting stronger Exam/Review of Systems Vital Signs Vitals Vital Signs Date Temp Pulse Resp B/P (MAP) Pulse Ox O2 O2 Flow FiO2 Time Delivery Rate 10/31/18 98.6 88 18 137/86 96 Room Air 08:00 (103) Intake and Output 10/30/18 10/30/18 10/31/18 1515:00 23:00 07:00 IntakeIntake Total 350 ml 100 ml 600 ml BalanceBalance 350 ml 100 ml 600 ml Exam Constitutional: well developed Head: normocephalic, atraumatic Neck: supple Respiratory: diminished breath sounds Cardiovascular: regular rate and rhythm Gastrointestinal: soft, non-tender Medications Medications Current Medications Acetaminophen (Tylenol Tab) 650 mg Q6H PRN PO MILD PAIN(1-3)OR ELEVATED TEMP Last administered on 10/27/18at 11:34; Admin Dose 650 MG; Start 10/19/18 at 23:00 Apixaban (Eliquis) 5 mg BID PO Last administered on 10/31/18at 09:04; Admin Dose 5 MG; Start 10/19/18 at 22:30 Bisacodyl (Dulcolax) 5 mg DAILY PRN PO CONSTIPATION; Start 10/19/18 at 23:00 Collagenase (Santyl) 1 applic DAILY TOP Last administered on 10/30/18at 13:28; Admin Dose 1 APPLIC; Start 10/20/18 at 09:00 Levothyroxine Sodium (Synthroid) 200 mcg DAILY@06 PO Last administered on 10/31/18at 06:32; Admin Dose 200 MCG; Start 10/20/18 at 06:00 Oxycodone HCl (Oxycontin) 10 mg BID PO Last administered on 10/31/18at 11:23; Admin Dose 10 MG; Start 10/19/18 at 22:30 Pantoprazole (Protonix Tab) 40 mg DAILY@06 PO Last administered on 10/31/18 06:32; Admin Dose 40 MG; Start 10/20/18 at 06:00 Polyethylene Glycol (Miralax) 17 gm DAILY PO Last administered on 10/25/18at 08:41; Admin Dose 17 GM; Start 10/20/18 at 09:00 Senna (Senokot) 2 tab BID PO Last administered on 10/25/18 20:50; Admin Dose 2 TAB; Start 10/19/18 at 22:30 Docusate Sodium (Colace) 100 mg BID PO Last administered on 10/25/18at 20:50; Admin Dose 100 MG; Start 10/20/18 at 09:00 Bisacodyl (Dulcolax Supp) 10 mg DAILY PRN [place] CONSTIPATION; Start 10/20/18 at 00:00 Magnesium Hydroxide (Milk Of Mag) 30 ml BID PRN PO CONSTIPATION; Start 10/20/18 at 00:00 Lactulose (Enulose) 20 gm DAILY PRN PO CONSTIPATION; Start 10/20/18 at 00:00 Acetaminophen/ Hydrocodone Bitart ([place] (5/325)) 2 tab Q6H PRN PO MODERATE PAIN LEVEL 4-6 Last administered on 10/31/18at 06:37; Admin Dose 2 TAB; Start 10/20/18 at 14:00 Baclofen (Lioresal) 10 mg TID PO Last administered on 10/31/18at 09:04; Admin Dose 10 MG; Start 10/24/18 at 13:00 Al Hydrox/Mg Hydrox/Simethicone (Mag-Al Plus) 30 ml Q4H PRN PO GASTROINTESTINAL UPSET Last administered on 10/28/18at 12:31; Admin Dose 30 ML; Start 10/28/18 at 12:30 Miscellaneous Information Patients own medicat... BID@10,16 XX Last administered on 10/30/18at 16:13; Admin Dose 1 EA; Start 10/29/18 at 10:00 Gabapentin (Neurontin) 600 mg TID PO ; Start 12/26/18 at 13:00 ELAINE BUITRAGO Oct 31, 2018 12:37
[2018-10-31 13:00] VITALS: BP 122/76; PULSE 86; RESP 18
[2018-10-31] MEDS ORDERED: GABAPENTIN 400 MG CAP PO SCH (13:00)
[2018-10-31] MEDS: GABAPENTIN 300 MG CAP PO SCH ×2 (14:35→20:20)
--- NOTE | 2018-10-31 15:57 | CONS ---
Date/Time of Note Date/Time of Note DATE: 10/31/18 TIME: 15:56 Assessment/Plan Assessment/Plan Hospital Course - s/p fever due to PE and infection of the spinal wound, resolved - PE extending from distal R main pulmonary artery into 1st and 2nd order lobar branches on CTA on 10/06/2018, DIONNA of LEs on 10/06/2018 showed no DVT - s/p acute hypoxic resp failure as a result of PE, resolved neuro - s/p dehiscence and infection of the lower part of the spinal wound due to E. coli, coag negative Staph and corynebacteria, improved after a course of antibiotic - pain and paresthesia of b/l LEs, chronic according to Pt - h/o mechanical low back pain with radiculopathy of LEs - h/o b/l L5-S1 trans-foraminal lumbar interbody fusion surgery using instrumented spinal fusion 08/17/2018. - h/o posterior L5-S1 instrumented spinal fusion removal with reposition of interbody cage; placement of L5-S1 rods/screws on 09/07/2018 other conditions - s/p neutropenia noted on 10/09/2018, probably due to a combination of infection and side effect from vancomycin. It was discontinued. It resolved - s/p E. coli in Pt's urine culture; her urinalysis did not show pyuria and Pt had no UTI Sx prior to admission. Therefore, this was likely a contaminant - hypothyroidism - s/p neutropenia with vancomycin, resolved after vancomycin was stopped Recommendations: - Continue to monitor Pt off systemic antibiotics. Pt completed daptomycin (10/10/2018-10/18/2018) and IV vancomycin (10/05/2081-10/09/2018) - agree with DC planning Result Diagram: 10/27/18 1136 10/27/18 1136 Consultation Date/Type/Reason Admit Date/Time Oct 19, 2018 at 21:00 Initial Consult Date 10/21/18 Type of Consult id Requesting Provider: JOAQUIN STOVER MD Exam/Review of Systems Vital Signs Vitals Vital Signs Date Temp Pulse Resp B/P (MAP) Pulse Ox O2 O2 Flow FiO2 Time Delivery Rate 10/31/18 98.7 86 18 122/76 98 Room Air 13:00 (91) Intake and Output 10/30/18 10/30/18 10/31/18 1515:00 23:00 07:00 IntakeIntake Total 350 ml 100 ml 600 ml BalanceBalance 350 ml 100 ml 600 ml Exam Constitutional: alert, oriented, well developed Head: normocephalic, atraumatic Neck: supple, non-tender Respiratory: clear to auscultation, normal air movement Cardiovascular: regular rate and rhythm, nl pulses Gastrointestinal: soft, nl liver, spleen, non-tender Medications Medications Current Medications Acetaminophen (Tylenol Tab) 650 mg Q6H PRN PO MILD PAIN(1-3)OR ELEVATED TEMP Last administered on 10/27/18 11:34; Admin Dose 650 MG; Start 10/19/18 at 23:00 Apixaban (Eliquis) 5 mg BID PO Last administered on 10/31/18 09:04; Admin Dose 5 MG; Start 10/19/18 at 22:30 Bisacodyl (Dulcolax) 5 mg DAILY PRN PO CONSTIPATION; Start 10/19/18 at 23:00 Collagenase (Santyl) 1 applic DAILY TOP Last administered on 10/31/18 14:00; Admin Dose 1 APPLIC; Start 10/20/18 at 09:00 Levothyroxine Sodium (Synthroid) 200 mcg DAILY@06 PO Last administered on 10/31/18 06:32; Admin Dose 200 MCG; Start 10/20/18 at 06:00 Oxycodone HCl (Oxycontin) 10 mg BID PO Last administered on 10/31/18 11:23; Admin Dose 10 MG; Start 10/19/18 at 22:30 Pantoprazole (Protonix Tab) 40 mg DAILY@06 PO Last administered on 10/31/18 06:32; Admin Dose 40 MG; Start 10/20/18 at 06:00 Polyethylene Glycol (Miralax) 17 gm DAILY PO Last administered on 10/25/18 08:41; Admin Dose 17 GM; Start 10/20/18 at 09:00 Senna (Senokot) 2 tab BID PO Last administered on 10/25/18 20:50; Admin Dose 2 TAB; Start 10/19/18 at 22:30 Docusate Sodium (Colace) 100 mg BID PO Last administered on 10/25/18 20:50; Admin Dose 100 MG; Start 10/20/18 at 09:00 Bisacodyl (Dulcolax Supp) 10 mg DAILY PRN [place] CONSTIPATION; Start 10/20/18 at 00:00 Magnesium Hydroxide (Milk Of Mag) 30 ml BID PRN PO CONSTIPATION; Start 10/20/18 at 00:00 Lactulose (Enulose) 20 gm DAILY PRN PO CONSTIPATION; Start 10/20/18 at 00:00 Acetaminophen/ Hydrocodone Bitart ([place] (5/325)) 2 tab Q6H PRN PO MODERATE PAIN LEVEL 4-6 Last administered on 10/31/18at 06:37; Admin Dose 2 TAB; Start 10/20/18 at 14:00 Baclofen (Lioresal) 10 mg TID PO Last administered on 10/31/18at 14:36; Admin Dose 10 MG; Start 10/24/18 at 13:00 Al Hydrox/Mg Hydrox/Simethicone (Mag-Al Plus) 30 ml Q4H PRN PO GASTROINTESTINAL UPSET Last administered on 10/28/18at 12:31; Admin Dose 30 ML; Start 10/28/18 at 12:30 Miscellaneous Information Patients own medicat... BID@10,16 XX Last administered on 10/30/18at 16:13; Admin Dose 1 EA; Start 10/29/18 at 10:00 Gabapentin (Neurontin) 600 mg TID PO Last administered on 10/31/18at 14:35; Admin Dose 600 MG; Start 10/31/18 at 13:00 ARSALAN ARCEO MD Oct 31, 2018 15:57
--- NOTE | 2018-10-31 18:25 | NUR ---
Pt participated in therapies. Showered with OT/ incision noted to be clean, dry, improving upon dressing change. VSS.
[2018-10-31 20:00] VITALS: BP 130/79; PULSE 98; RESP 18
[2018-11-01] MEDS: PANTOPRAZOLE (EC) 40 MG TAB PO SCH (05:54)
[2018-11-01] MEDS: HYDROCODONE/APAP (5/325) TAB PO PRN (05:54)
[2018-11-01] MEDS: LEVOTHYROXINE 100 MCG TAB PO SCH (05:54)
--- NOTE | 2018-11-01 06:19 | NUR ---
Pt resting in bed with eyes close. No acute distress noted. Complained of back pain and was given PRN [place] twice during my shift. Pt remains stable and vitals noted WNL. All due medications given and all needs attended. Hourly roundings done. Bed alarm activated. Both side rails up. Call light within pt's reach.
[2018-11-01 08:16] VITALS: BP 141/81; PULSE 76; RESP 18
[2018-11-01] MEDS: COLLAGENASE 5 GM (UD JAR) TOP SCH (08:25)
[2018-11-01] MEDS: GABAPENTIN 300 MG CAP PO SCH ×3 (08:26→20:06)
[2018-11-01] MEDS: BACLOFEN 10 MG TAB PO SCH ×3 (08:27→20:06)
[2018-11-01] MEDS: APIXABAN 5 MG TABLET PO SCH ×2 (08:27→20:06)
[2018-11-01] MEDS: oxyCODONE (CR) 10 MG TAB [oxyCONTIN] PO SCH ×2 (08:27→20:06)
[2018-11-01] MEDS: POLYETHYLENE GLYCOL 17 GM PACKET PO SCH (08:30)
[2018-11-01] MEDS: DOCUSATE SODIUM 100 MG CAP PO SCH ×2 (08:30→20:09)
[2018-11-01] MEDS: SENNA TAB PO SCH ×2 (08:30→20:09)
--- NOTE | 2018-11-01 12:38 | PN ---
Date/Time of Note Date/Time of Note DATE: 11/01/18 TIME: 12:38 Assessment/Plan VTE Prophylaxis Risk score (from Nsg)>0 risk: 8 SCD applied (from Ns): Yes Pharmacological prophylaxis: LMWH Lines/Catheters IV Catheter Type (from Nrsg): Saline Lock Urinary Cath still in place: No Assessment/Plan Hospital Course - Lower back- surgical site - open wound - neurosx was informed - wound care nurse to assess wound - monitor foe s/s of infection - wound care - chronic back pain - s/p surgery and is not in acute rehab for therapy Subjective 24 Hr Interval Summary Free Text/Dictation Patient has no complaints Exam/Review of Systems Vital Signs Vitals Vital Signs Date Temp Pulse Resp B/P (MAP) Pulse Ox O2 O2 Flow FiO2 Time Delivery Rate 11/01/18 97.8 76 18 141/81 97 Room Air 08:16 (101) Intake and Output 10/31/18 10/31/18 11/01/18 1414:59 22:59 06:59 IntakeIntake Total 700 ml BalanceBalance 700 ml Exam Constitutional: well developed Head: normocephalic, atraumatic Neck: supple Respiratory: clear to auscultation Cardiovascular: regular rate and rhythm Gastrointestinal: soft, non-tender Extremities: normal pulses Medications Medications Current Medications Acetaminophen (Tylenol Tab) 650 mg Q6H PRN PO MILD PAIN(1-3)OR ELEVATED TEMP Last administered on 10/27/18at 11:34; Admin Dose 650 MG; Start 10/19/18 at 23: 00 Apixaban (Eliquis) 5 mg BID PO Last administered on 11/01/18at 08:27; Admin Dose 5 MG; Start 10/19/18 at 22:30 Bisacodyl (Dulcolax) 5 mg DAILY PRN PO CONSTIPATION; Start 10/19/18 at 23:00 Collagenase (Santyl) 1 applic DAILY TOP Last administered on 11/01/18at 08:25; Admin Dose 1 APPLIC; Start 10/20/18 at 09:00 Levothyroxine Sodium (Synthroid) 200 mcg DAILY@06 PO Last administered on 11/01/18at 05:54; Admin Dose 200 MCG; Start 10/20/18 at 06:00 Oxycodone HCl (Oxycontin) 10 mg BID PO Last administered on 11/01/18 08:27; Admin Dose 10 MG; Start 10/19/18 at 22:30 Pantoprazole (Protonix Tab) 40 mg DAILY@06 PO Last administered on 11/01/18 05:54; Admin Dose 40 MG; Start 10/20/18 at 06:00 Polyethylene Glycol (Miralax) 17 gm DAILY PO Last administered on 10/25/18 08:41; Admin Dose 17 GM; Start 10/20/18 at 09:00 Senna (Senokot) 2 tab BID PO Last administered on 10/25/18 20:50; Admin Dose 2 TAB; Start 10/19/18 at 22:30 Docusate Sodium (Colace) 100 mg BID PO Last administered on 10/25/18 20:50; Admin Dose 100 MG; Start 10/20/18 at 09:00 Bisacodyl (Dulcolax Supp) 10 mg DAILY PRN [place] CONSTIPATION; Start 10/20/18 at 00:00 Magnesium Hydroxide (Milk Of Mag) 30 ml BID PRN PO CONSTIPATION; Start 10/20/18 at 00:00 Lactulose (Enulose) 20 gm DAILY PRN PO CONSTIPATION; Start 10/20/18 at 00:00 Acetaminophen/ Hydrocodone Bitart ([place] (5/325)) 2 tab Q6H PRN PO MODERATE [place] N LEVEL 4-6 Last administered on 11/01/18 05:54; Admin Dose 2 TAB; Start 10/20/18 at 14:00 Baclofen (Lioresal) 10 mg TID PO Last administered on 11/01/18 08:27; Admin Dose 10 MG; Start 10/24/18 at 13:00 Al Hydrox/Mg Hydrox/Simethicone (Mag-Al Plus) 30 ml Q4H PRN PO GASTROINTESTINAL UPSET Last administered on 10/28/18 12:31; Admin Dose 30 ML; Start 10/28/18 at 12:30 Miscellaneous Information Patients own medicat... BID@10,16 XX Last administered on 10/30/18at 16:13; Admin Dose 1 EA; Start 10/29/18 at 10:00 Gabapentin (Neurontin) 600 mg TID PO Last administered on 11/01/18 08:26; Admin Dose 600 MG; Start 10/31/18 at 13:00 ELAINE BUITRAGO 27, 2018 12:38
[2018-11-01 14:00] VITALS: BP 129/76; PULSE 84; RESP 18
--- NOTE | 2018-11-01 18:00 | NUR ---
Patient is alert breathing even. no SOB. patient c/o pain. Oxycontin medication given and was efffective. Patient s/p back surgery. treatment done as ordered. no drainage. no bleeding. dressing intact. meds and diet given as ordered. call light within reach.
--- NOTE | 2018-11-01 18:04 | CONS ---
Date/Time of Note Date/Time of Note DATE: 11/01/18 TIME: 18:04 Assessment/Plan Assessment/Plan Hospital Course - s/p fever due to PE and infection of the spinal wound, resolved - PE extending from distal R main pulmonary artery into 1st and 2nd order lobar branches on CTA on 10/06/2018, DIONNA of LEs on 10/06/2018 showed no DVT - s/p acute hypoxic resp failure as a result of PE, resolved neuro - s/p dehiscence and infection of the lower part of the spinal wound due to E. coli, coag negative Staph and corynebacteria, improved after a course of antibiotic - pain and paresthesia of b/l LEs, chronic according to Pt - h/o mechanical low back pain with radiculopathy of LEs - h/o b/l L5-S1 trans-foraminal lumbar interbody fusion surgery using instrumented spinal fusion 08/17/2018. - h/o posterior L5-S1 instrumented spinal fusion removal with reposition of interbody cage; placement of L5-S1 rods/screws on 09/07/2018 other conditions - s/p neutropenia noted on 10/09/2018, probably due to a combination of infection and side effect from vancomycin. It was discontinued. It resolved - s/p E. coli in Pt's urine culture; her urinalysis did not show pyuria and Pt had no UTI Sx prior to admission. Therefore, this was likely a contaminant - hypothyroidism - s/p neutropenia with vancomycin, resolved after vancomycin was stopped Recommendations: - Continue to monitor Pt off systemic antibiotics. Pt completed daptomycin (10/10/2018-10/18/2018) and IV vancomycin (10/05/2081-10/09/2018) - agree with DC planning Consultation Date/Type/Reason Admit Date/Time Oct 19, 2018 at 21:00 Initial Consult Date 10/21/18 Type of Consult id Requesting Provider: JOAQUIN STOVER MD Exam/Review of Systems Vital Signs Vitals Vital Signs Date Temp Pulse Resp B/P (MAP) Pulse Ox O2 O2 Flow FiO2 Time Delivery Rate 11/01/18 97.8 84 18 129/76 97 Room Air 14:00 (93) Intake and Output 10/31/18 10/31/18 11/01/18 1515:00 23:00 07:00 IntakeIntake Total 700 ml BalanceBalance 700 ml Medications Medications Current Medications Acetaminophen (Tylenol Tab) 650 mg Q6H PRN PO MILD PAIN(1-3)OR ELEVATED TEMP Last administered on 10/27/18at 11:34; Admin Dose 650 MG; Start 10/19/18 at 23:00 Apixaban (Eliquis) 5 mg BID PO Last administered on 11/01/18 08:27; Admin Dose 5 MG; Start 10/19/18 at 22:30 Bisacodyl (Dulcolax) 5 mg DAILY PRN PO CONSTIPATION; Start 10/19/18 at 23:00 Collagenase (Santyl) 1 applic DAILY TOP Last administered on 11/01/18 08:25; Admin Dose 1 APPLIC; Start 10/20/18 at 09:00 Levothyroxine Sodium (Synthroid) 200 mcg DAILY@06 PO Last administered on 11/01/18 05:54; Admin Dose 200 MCG; Start 10/20/18 at 06:00 Oxycodone HCl (Oxycontin) 10 mg BID PO Last administered on 11/01/18 08:27; Admin Dose 10 MG; Start 10/19/18 at 22:30 Pantoprazole (Protonix Tab) 40 mg DAILY@06 PO Last administered on 11/01/18 05:54; Admin Dose 40 MG; Start 10/20/18 at 06:00 Polyethylene Glycol (Miralax) 17 gm DAILY PO Last administered on 10/25/18 08:41; Admin Dose 17 GM; Start 10/20/18 at 09:00 Senna (Senokot) 2 tab BID PO Last administered on 10/25/18at 20:50; Admin Dose 2 TAB; Start 10/19/18 at 22:30 Docusate Sodium (Colace) 100 mg BID PO Last administered on 10/25/18 20:50; Admin Dose 100 MG; Start 10/20/18 at 09:00 Bisacodyl (Dulcolax Supp) 10 mg DAILY PRN [place] CONSTIPATION; Start 10/20/18 at 00:00 Magnesium Hydroxide (Milk Of Mag) 30 ml BID PRN PO CONSTIPATION; Start 10/20/18 at 00:00 Lactulose (Enulose) 20 gm DAILY PRN PO CONSTIPATION; Start 10/20/18 at 00:00 Acetaminophen/ Hydrocodone Bitart ([place] (5/325)) 2 tab Q6H PRN PO MODERATE PAIN LEVEL 4-6 Last administered on 11/01/18 05:54; Admin Dose 2 TAB; Start 10/20/18 at 14:00 Baclofen (Lioresal) 10 mg TID PO Last administered on 11/01/18 12:42; Admin Dose 10 MG; Start 10/24/18 at 13:00 Al Hydrox/Mg Hydrox/Simethicone (Mag-Al Plus) 30 ml Q4H PRN PO GASTROINTESTINAL UPSET Last administered on 10/28/18at 12:31; Admin Dose 30 ML; Start 10/28/18 at 12:30 Miscellaneous Information Patients own medicat... BID@10,16 XX Last administered on 10/30/18at 16:13; Admin Dose 1 EA; Start 10/29/18 at 10:00 Gabapentin (Neurontin) 600 mg TID PO Last administered on 11/01/18at 12:42; Admin Dose 600 MG; Start 10/31/18 at 13:00 ARSALAN ARCEO MD Nov 01, 2018 18:04
[2018-11-01 20:00] VITALS: BP 118/69; PULSE 95; RESP 18
[2018-11-02 02:00] VITALS: BP 135/78; PULSE 92
[2018-11-02] MEDS: HYDROCODONE/APAP (5/325) TAB PO PRN ×2 (04:40→16:47)
[2018-11-02] MEDS: PANTOPRAZOLE (EC) 40 MG TAB PO SCH (06:14)
[2018-11-02] MEDS: LEVOTHYROXINE 100 MCG TAB PO SCH (06:14)
--- NOTE | 2018-11-02 06:47 | NUR ---
Pt slept well throughout the night. No acute distress noted. PRN [place] given once for back pain with relief noted. Pt remains stable and vitals noted WNL. Pt continent both bowel and bladder. On contact isolation for ESBL in urine, precautions observed. All due medications given and all needs attended. Hourly roundings done. Bed alarm activated. Both side rails up. Call light within pt's reach.
[2018-11-02 08:00] VITALS: BP 134/68; PULSE 77
[2018-11-02] MEDS: SENNA TAB PO SCH ×2 (08:19→20:10)
[2018-11-02] MEDS: POLYETHYLENE GLYCOL 17 GM PACKET PO SCH (08:19)
[2018-11-02] MEDS: GABAPENTIN 300 MG CAP PO SCH ×3 (08:20→20:06)
[2018-11-02] MEDS: APIXABAN 5 MG TABLET PO SCH ×2 (08:20→20:06)
[2018-11-02] MEDS: BACLOFEN 10 MG TAB PO SCH ×3 (08:20→20:06)
[2018-11-02] MEDS: DOCUSATE SODIUM 100 MG CAP PO SCH ×2 (08:20→20:06)
[2018-11-02] MEDS: oxyCODONE (CR) 10 MG TAB [oxyCONTIN] PO SCH ×2 (08:21→20:06)
[2018-11-02] MEDS: COLLAGENASE 5 GM (UD JAR) TOP SCH (08:21)
--- NOTE | 2018-11-02 13:53 | PN ---
Date/Time of Note Date/Time of Note DATE: 11/02/18 TIME: 13:52 Subjective Feeling better overall with decreased pain Objective Vital Signs Date Temp Pulse Resp B/P (MAP) Pulse Ox O2 O2 Flow FiO2 Time Delivery Rate 11/02/18 99.0 77 134/68 96 Room Air 08:00 (90) 11/01/18 20:00 Intake and Output 11/01/18 11/01/18 11/02/18 1515:00 23:00 07:00 IntakeIntake Total 720 ml BalanceBalance 720 ml Exam pulm-cta abd-soft min assist transfer min ambulation Results/Medications Medications Current Medications Acetaminophen (Tylenol Tab) 650 mg Q6H PRN PO MILD PAIN(1-3)OR ELEVATED TEMP Last administered on 10/27/18at 11:34; Admin Dose 650 MG; Start 10/19/18 at 23:00 Apixaban (Eliquis) 5 mg BID PO Last administered on 11/02/18 08:20; Admin Dose 5 MG; Start 10/19/18 at 22:30 Bisacodyl (Dulcolax) 5 mg DAILY PRN PO CONSTIPATION; Start 10/19/18 at 23:00 Collagenase (Santyl) 1 applic DAILY TOP Last administered on 11/02/18 08:21; Admin Dose 1 APPLIC; Start 10/20/18 at 09:00 Levothyroxine Sodium (Synthroid) 200 mcg DAILY@06 PO Last administered on 11/02/18 06:14; Admin Dose 200 MCG; Start 10/20/18 at 06:00 Oxycodone HCl (Oxycontin) 10 mg BID PO Last administered on 11/02/18 08:21; Admin Dose 10 MG; Start 10/19/18 at 22:30 Pantoprazole (Protonix Tab) 40 mg DAILY@06 PO Last administered on 11/02/18 06:14; Admin Dose 40 MG; Start 10/20/18 at 06:00 Polyethylene Glycol (Miralax) 17 gm DAILY PO Last administered on 10/25/18 08:41; Admin Dose 17 GM; Start 10/20/18 at 09:00 Senna (Senokot) 2 tab BID PO Last administered on 10/25/18at 20:50; Admin Dose 2 TAB; Start 10/19/18 at 22:30 Docusate Sodium (Colace) 100 mg BID PO Last administered on 11/02/18at 08:20; Admin Dose 100 MG; Start 10/20/18 at 09:00 Bisacodyl (Dulcolax Supp) 10 mg DAILY PRN [place] CONSTIPATION; Start 10/20/18 at 00:00 Magnesium Hydroxide (Milk Of Mag) 30 ml BID PRN PO CONSTIPATION; Start 10/20/18 at 00:00 Lactulose (Enulose) 20 gm DAILY PRN PO CONSTIPATION; Start 10/20/18 at 00:00 Acetaminophen/ Hydrocodone Bitart ([place] (5/325)) 2 tab Q6H PRN PO MODERATE PAIN LEVEL 4-6 Last administered on 11/02/18at 04:40; Admin Dose 2 TAB; Start 10/20/18 at 14:00 Baclofen (Lioresal) 10 mg TID PO Last administered on 11/02/18at 13:18; Admin Dose 10 MG; Start 10/24/18 at 13:00 Al Hydrox/Mg Hydrox/Simethicone (Mag-Al Plus) 30 ml Q4H PRN PO GASTROINTESTINAL UPSET Last administered on 10/28/18at 12:31; Admin Dose 30 ML; Start 10/28/18 at 12:30 Miscellaneous Information Patients own medicat... BID@10,16 XX Last administered on 10/30/18at 16:13; Admin Dose 1 EA; Start 10/29/18 at 10:00 Gabapentin (Neurontin) 600 mg TID PO Last administered on 11/02/18at 13:18; Admin Dose 600 MG; Start 10/31/18 at 13:00 Assessment/Plan Additional Assessment/Plan Rehab-Lumbar radiculopathy status post spinal fusion and infection with the patient status post hardware removal/reposition. Continues to make progress in all areas. Continue treatment plan Integ- wound care, specialty bed- improving with incision nearly healed Acute pain syndrome. Hypertension. Status post respiratory failure. Morbid obesity. Urinary tract infection. Pulmonary embolism. MILLY PUENTE MD Nov 02, 2018 13:53
--- NOTE | 2018-11-02 14:59 | PN ---
Date/Time of Note Date/Time of Note DATE: 11/02/18 TIME: 14:59 Assessment/Plan VTE Prophylaxis Risk score (from Ns)>0 risk: 7 SCD applied (from Ns): Yes Pharmacological prophylaxis: LMWH Lines/Catheters IV Catheter Type (from Nrsg): Saline Lock Urinary Cath still in place: No Assessment/Plan Hospital Course - Lower back- surgical site - open wound - neurosx was informed - wound care nurse to assess wound - monitor foe s/s of infection - wound care - chronic back pain - s/p surgery and is not in acute rehab for therapy Subjective 24 Hr Interval Summary Free Text/Dictation Patient working hard with therapy Exam/Review of Systems Vital Signs Vitals Vital Signs Date Temp Pulse Resp B/P (MAP) Pulse Ox O2 O2 Flow FiO2 Time Delivery Rate 11/02/18 99.0 77 134/68 96 Room Air 08:00 (90) 11/01/18 18 20:00 Intake and Output 11/01/18 11/01/18 11/02/18 1515:00 23:00 07:00 IntakeIntake Total 720 ml BalanceBalance 720 ml Exam Constitutional: well developed Head: normocephalic, atraumatic Neck: supple Respiratory: diminished breath sounds Cardiovascular: regular rate and rhythm Gastrointestinal: soft, non-tender Extremities: normal pulses Medications Medications Current Medications Acetaminophen (Tylenol Tab) 650 mg Q6H PRN PO MILD PAIN(1-3)OR ELEVATED TEMP Last administered on 10/27/18at 11:34; Admin Dose 650 MG; Start 10/19/18 at 23:00 Apixaban (Eliquis) 5 mg BID PO Last administered on 11/02/18at 08:20; Admin Dose 5 MG; Start 10/19/18 at 22:30 Bisacodyl (Dulcolax) 5 mg DAILY PRN PO CONSTIPATION; Start 10/19/18 at 23:00 Collagenase (Santyl) 1 applic DAILY TOP Last administered on 11/02/18at 08:21; Admin Dose 1 APPLIC; Start 10/20/18 at 09:00 Levothyroxine Sodium (Synthroid) 200 mcg DAILY@06 PO Last administered on 11/02/18at 06:14; Admin Dose 200 MCG; Start 10/20/18 at 06:00 Oxycodone HCl (Oxycontin) 10 mg BID PO Last administered on 11/02/18 08:21; Admin Dose 10 MG; Start 10/19/18 at 22:30 Pantoprazole (Protonix Tab) 40 mg DAILY@06 PO Last administered on 11/02/18 06:14; Admin Dose 40 MG; Start 10/20/18 at 06:00 Polyethylene Glycol (Miralax) 17 gm DAILY PO Last administered on 10/25/18 08:41; Admin Dose 17 GM; Start 10/20/18 at 09:00 Senna (Senokot) 2 tab BID PO Last administered on 10/25/18 20:50; Admin Dose 2 TAB; Start 10/19/18 at 22:30 Docusate Sodium (Colace) 100 mg BID PO Last administered on 11/02/18 08:20; Admin Dose 100 MG; Start 10/20/18 at 09:00 Bisacodyl (Dulcolax Supp) 10 mg DAILY PRN [place] CONSTIPATION; Start 10/20/18 at 00:00 Magnesium Hydroxide (Milk Of Mag) 30 ml BID PRN PO CONSTIPATION; Start 10/20/18 at 00:00 Lactulose (Enulose) 20 gm DAILY PRN PO CONSTIPATION; Start 10/20/18 at 00:00 Acetaminophen/ Hydrocodone Bitart ([place] (5/325)) 2 tab Q6H PRN PO MODERATE PAIN LEVEL 4-6 Last administered on 11/02/18at 04:40; Admin Dose 2 TAB; Start 10/20/18 at 14:00 Baclofen (Lioresal) 10 mg TID PO Last administered on 11/02/18 13:18; Admin Dose 10 MG; Start 10/24/18 at 13:00 Al Hydrox/Mg Hydrox/Simethicone (Mag-Al Plus) 30 ml Q4H PRN PO GASTROINTESTINAL UPSET Last administered on 10/28/18at 12:31; Admin Dose 30 ML; Start 10/28/18 at 12:30 Miscellaneous Information Patients own medicat... BID@10,16 XX Last administered on 10/30/18at 16:13; Admin Dose 1 EA; Start 10/29/18 at 10:00 Gabapentin (Neurontin) 600 mg TID PO Last administered on 11/02/18 13:18; Admin Dose 600 MG; Start 10/31/18 at 13:00 ELAINE BUITRAGO Nov 02, 2018 14:59
--- NOTE | 2018-11-02 15:56 | CONS ---
Date/Time of Note Date/Time of Note DATE: 11/02/18 TIME: 15:55 Assessment/Plan Assessment/Plan Assessment/Plan Hospital Course - s/p fever due to PE and infection of the spinal wound, resolved - PE extending from distal R main pulmonary artery into 1st and 2nd order lobar branches on CTA on 10/06/2018, DIONNA of LEs on 10/06/2018 showed no DVT - s/p acute hypoxic resp failure as a result of PE, resolved neuro - s/p dehiscence and infection of the lower part of the spinal wound due to E. coli, coag negative Staph and corynebacteria, improved after a course of antibiotic - pain and paresthesia of b/l LEs, chronic according to Pt - h/o mechanical low back pain with radiculopathy of LEs - h/o b/l L5-S1 trans-foraminal lumbar interbody fusion surgery using instrumented spinal fusion 08/17/2018. - h/o posterior L5-S1 instrumented spinal fusion removal with reposition of interbody cage; placement of L5-S1 rods/screws on 09/07/2018 other conditions - s/p neutropenia noted on 10/09/2018, probably due to a combination of infection and side effect from vancomycin. It was discontinued. It resolved - s/p E. coli in Pt's urine culture; her urinalysis did not show pyuria and Pt had no UTI Sx prior to admission. Therefore, this was likely a contaminant - hypothyroidism - s/p neutropenia with vancomycin, resolved after vancomycin was stopped Recommendations: - Continue to monitor Pt off systemic antibiotics. Pt completed daptomycin (10/10/2018-10/18/2018) and IV vancomycin (10/05/2081-10/09/2018) - agree with DC planning Consultation Date/Type/Reason Admit Date/Time Oct 19, 2018 at 21:00 Initial Consult Date 10/21/18 Type of Consult ID Requesting Provider: JOAQUIN STOVER MD 24 HR Interval Summary Free Text/Dictation Feels better; pain well controlled - slightly febrile - wbc wnl - back wound- no drainage reported - no new events reported overnight Constitutional: improved Detailed Summary Eyes: no complaints ENT: no complaints Respiratory: no complaints Cardiovascular: no complaints Gastrointestinal: no complaints Genitourinary: no complaints Musculoskeletal: bone/joint pain, restricted range of motion Skin: no complaints Neurologic: no complaints Endocrine: no complaints Lymphatic: no complaints Exam/Review of Systems Vital Signs Vitals Vital Signs Date Temp Pulse Resp B/P (MAP) Pulse Ox O2 O2 Flow FiO2 Time Delivery Rate 11/02/18 99.0 77 134/68 96 Room Air 08:00 (90) 11/01/18 18 20:00 Intake and Output 11/01/18 11/01/18 11/02/18 1515:00 23:00 07:00 IntakeIntake Total 720 ml BalanceBalance 720 ml Exam Constitutional: alert, oriented, well developed Psych: nl mood/affect Head: normocephalic Eyes: nl conjunctiva, EOMI, nl lids ENMT: nl external ears & nose Neck: non-tender Respiratory: clear to auscultation (bilaterally) Cardiovascular: nl pulses, other (s1s2) Gastrointestinal: soft, non-tender Musculoskeletal: nl extremities to inspection Extremities: normal pulses Neurological: nl mental status, nl speech, other (sp lumbar sx- DDI) Skin: nl turgor Lymph: nontender Medications Medications Current Medications Acetaminophen (Tylenol Tab) 650 mg Q6H PRN PO MILD PAIN(1-3)OR ELEVATED TEMP Last administered on 10/27/18at 11:34; Admin Dose 650 MG; Start 10/19/18 at 23:00 Apixaban (Eliquis) 5 mg BID PO Last administered on 11/02/18at 08:20; Admin Dose 5 MG; Start 10/19/18 at 22:30 Bisacodyl (Dulcolax) 5 mg DAILY PRN PO CONSTIPATION; Start 10/19/18 at 23:00 Collagenase (Santyl) 1 applic DAILY TOP Last administered on 11/02/18at 08:21; Admin Dose 1 APPLIC; Start 10/20/18 at 09:00 Levothyroxine Sodium (Synthroid) 200 mcg DAILY@06 PO Last administered on 11/02/18at 06:14; Admin Dose 200 MCG; Start 10/20/18 at 06:00 Oxycodone HCl (Oxycontin) 10 mg BID PO Last administered on 11/02/18at 08:21; Admin Dose 10 MG; Start 10/19/18 at 22:30 Pantoprazole (Protonix Tab) 40 mg DAILY@06 PO Last administered on 11/02/18 06:14; Admin Dose 40 MG; Start 10/20/18 at 06:00 Polyethylene Glycol (Miralax) 17 gm DAILY PO Last administered on 10/25/18at 08:41; Admin Dose 17 GM; Start 10/20/18 at 09:00 Senna (Senokot) 2 tab BID PO Last administered on 10/25/18at 20:50; Admin Dose 2 TAB; Start 10/19/18 at 22:30 Docusate Sodium (Colace) 100 mg BID PO Last administered on 11/02/18 08:20; Admin Dose 100 MG; Start 10/20/18 at 09:00 Bisacodyl (Dulcolax Supp) 10 mg DAILY PRN [place] CONSTIPATION; Start 10/20/18 at 00:00 Magnesium Hydroxide (Milk Of Mag) 30 ml BID PRN PO CONSTIPATION; Start 10/20/18 at 00:00 Lactulose (Enulose) 20 gm DAILY PRN PO CONSTIPATION; Start 10/20/18 at 00:00 Acetaminophen/ Hydrocodone Bitart ([place] (5/325)) 2 tab Q6H PRN PO MODERATE PAIN LEVEL 4-6 Last administered on 11/02/18at 04:40; Admin Dose 2 TAB; Start 10/20/18 at 14:00 Baclofen (Lioresal) 10 mg TID PO Last administered on 11/02/18 13:18; Admin Dose 10 MG; Start 10/24/18 at 13:00 Al Hydrox/Mg Hydrox/Simethicone (Mag-Al Plus) 30 ml Q4H PRN PO GASTROINTESTINAL UPSET Last administered on 10/28/18at 12:31; Admin Dose 30 ML; Start 10/28/18 at 12:30 Miscellaneous Information Patients own medicat... BID@10,16 XX Last administered on 10/30/18at 16:13; Admin Dose 1 EA; Start 10/29/18 at 10:00 Gabapentin (Neurontin) 600 mg TID PO Last administered on 11/02/18 13:18; Admin Dose 600 MG; Start 10/31/18 at 13:00 JONATHAN LEE Nov 02, 2018 15:56
--- NOTE | 2018-11-02 18:45 | NUR ---
Pt resting on her bed comfortably while eating her dinner. Pt tolerated her therapy today. Assisted to be OOB, using BSC. Pain med given as needed. Wound care done as ordered. Kept well rested. Needs attended. Bed kept low & in locked pos. Call light placed w/in reach. Will endorse to PM RN for ALFRED.
[2018-11-02 20:00] VITALS: BP 126/59; PULSE 92
[2018-11-03 02:00] VITALS: BP 118/56; PULSE 89; RESP 18
[2018-11-03] MEDS: HYDROCODONE/APAP (5/325) TAB PO PRN ×2 (02:10→14:47)
--- NOTE | 2018-11-03 05:55 | NUR ---
Pt resting in bed with eyes close. No acute distress noted. Pain medications given for back and ankle pain with relief noted. Pt continent both bowel and bladder. On contact isolation for ESBL in urine, precautions observed. Pt noted with frequent urination, no complaints of burning sensation when voiding. Pt remains asymptomatic, vitals noted WNL. All due medications given and all needs attended. Hourly roundings done. Bed alarm activated. Both side rails up. Call light within pt's reach.
[2018-11-03] MEDS: LEVOTHYROXINE 100 MCG TAB PO SCH (06:09)
[2018-11-03] MEDS: PANTOPRAZOLE (EC) 40 MG TAB PO SCH (06:09)
[2018-11-03 08:00] VITALS: BP 133/73; PULSE 75; RESP 20
[2018-11-03] MEDS: oxyCODONE (CR) 10 MG TAB [oxyCONTIN] PO SCH ×2 (08:44→20:28)
[2018-11-03] MEDS: BACLOFEN 10 MG TAB PO SCH ×3 (08:47→20:28)
[2018-11-03] MEDS: DOCUSATE SODIUM 100 MG CAP PO SCH ×2 (08:47→20:45)
[2018-11-03] MEDS: APIXABAN 5 MG TABLET PO SCH ×2 (08:47→20:28)
[2018-11-03] MEDS: GABAPENTIN 300 MG CAP PO SCH ×3 (08:47→20:27)
[2018-11-03] MEDS: SENNA TAB PO SCH ×2 (08:48→20:45)
[2018-11-03] MEDS: COLLAGENASE 5 GM (UD JAR) TOP SCH (08:48)
[2018-11-03] MEDS: POLYETHYLENE GLYCOL 17 GM PACKET PO SCH (08:48)
--- NOTE | 2018-11-03 10:51 | PN ---
Date/Time of Note Date/Time of Note DATE: 11/03/18 TIME: 10:50 Subjective Feeling betterwith rehab program Objective Vital Signs Date Temp Pulse Resp B/P (MAP) Pulse Ox O2 O2 Flow FiO2 Time Delivery Rate 11/03/18 98.5 89 18 118/56 96 Room Air 02:00 (76) Intake and Output 11/02/18 11/02/18 11/03/18 1414:59 22:59 06:59 IntakeIntake Total 500 ml 300 ml BalanceBalance 500 ml 300 ml Exam pulm-cta abd-soft min ambulation Results/Medications Result Diagram: 11/03/18 0611/03/18 06 Results 24 hrs Laboratory Tests Test 11/03/18 06:29 White Blood Count 4.6 #L Red Blood Count 3.84 L Hemoglobin 10.9 L Hematocrit 34.8 L Mean Corpuscular Volume 90.6 Mean Corpuscular Hemoglobin 28.4 L Mean Corpuscular Hemoglobin Concent 31.3 L Red Cell Distribution Width 13.6 Platelet Count 282 # Mean Platelet Volume 9.8 Immature Granulocytes % 0.400 Neutrophils % 51.2 Lymphocytes % 34.8 Monocytes % 10.2 Eosinophils % 2.8 Basophils % 0.6 Nucleated Red Blood Cells % 0.0 Immature Granulocytes # 0.020 Neutrophils # 2.4 Lymphocytes # 1.6 Monocytes # 0.5 Eosinophils # 0.1 Basophils # 0.0 Nucleated Red Blood Cells # 0.0 Sodium Level 144 Potassium Level 4.3 Chloride Level 103 Carbon Dioxide Level 32 H Anion Gap 9 Blood Urea Nitrogen 16 Creatinine 0.80 Est Glomerular Filtrat Rate mL/min > 60 Glucose Level 123 Calcium Level 9.6 Medications Current Medications Acetaminophen (Tylenol Tab) 650 mg Q6H PRN PO MILD PAIN(1-3)OR ELEVATED TEMP Last administered on 10/27/18at 11:34; Admin Dose 650 MG; Start 10/19/18 at 23:00 Apixaban (Eliquis) 5 mg BID PO Last administered on 11/03/18at 08:47; Admin Dose 5 MG; Start 10/19/18 at 22:30 Bisacodyl (Dulcolax) 5 mg DAILY PRN PO CONSTIPATION; Start 10/19/18 at 23:00 Collagenase (Santyl) 1 applic DAILY TOP Last administered on 11/03/18at 08:48; Admin Dose 1 APPLIC; Start 10/20/18 at 09:00 Levothyroxine Sodium (Synthroid) 200 mcg DAILY@06 PO Last administered on 11/03/18at 06:09; Admin Dose 200 MCG; Start 10/20/18 at 06:00 Oxycodone HCl (Oxycontin) 10 mg BID PO Last administered on 11/03/18at 08:44; Admin Dose 10 MG; Start 10/19/18 at 22:30 Pantoprazole (Protonix Tab) 40 mg DAILY@06 PO Last administered on 11/03/18at 06:09; Admin Dose 40 MG; Start 10/20/18 at 06:00 Polyethylene Glycol (Miralax) 17 gm DAILY PO Last administered on 10/25/18at 08:41; Admin Dose 17 GM; Start 10/20/18 at 09:00 Senna (Senokot) 2 tab BID PO Last administered on 10/25/18at 20:50; Admin Dose 2 TAB; Start 10/19/18 at 22:30 Docusate Sodium (Colace) 100 mg BID PO Last administered on 11/03/18at 08:47; Admin Dose 100 MG; Start 10/20/18 at 09:00 Bisacodyl (Dulcolax Supp) 10 mg DAILY PRN [place] CONSTIPATION; Start 10/20/18 at 00:00 Magnesium Hydroxide (Milk Of Mag) 30 ml BID PRN PO CONSTIPATION; Start 10/20/18 at 00:00 Lactulose (Enulose) 20 gm DAILY PRN PO CONSTIPATION; Start 10/20/18 at 00:00 Acetaminophen/ Hydrocodone Bitart ([place] (5/325)) 2 tab Q6H PRN PO MODERATE PAIN LEVEL 4-6 Last administered on 11/03/18at 02:10; Admin Dose 2 TAB; Start 10/20/18 at 14:00 Baclofen (Lioresal) 10 mg TID PO Last administered on 11/03/18at 08:47; Admin Dose 10 MG; Start 10/24/18 at 13:00 Al Hydrox/Mg Hydrox/Simethicone (Mag-Al Plus) 30 ml Q4H PRN PO GASTROINTESTINAL UPSET Last administered on 10/28/18at 12:31; Admin Dose 30 ML; Start 10/28/18 at 12:30 Miscellaneous Information Patients own medicat... BID@10,16 XX Last administered on 10/30/18at 16:13; Admin Dose 1 EA; Start 10/29/18 at 10:00 Gabapentin (Neurontin) 600 mg TID PO Last administered on 11/03/18at 08:47; Admin Dose 600 MG; Start 10/31/18 at 13:00 Assessment/Plan Additional Assessment/Plan Rehab-Lumbar radiculopathy status post spinal fusion and infection with the patient status post hardware removal/reposition. Continue rehab treatment program Integ- wound care, specialty bed- continues to improve Acute pain syndrome. Hypertension. Status post respiratory failure. Morbid obesity. Urinary tract infection. Pulmonary embolism. MILLY PUENTE MD Nov 03, 2018 10:51
[2018-11-03 14:00] VITALS: BP 115/64; PULSE 90; RESP 19
--- NOTE | 2018-11-03 18:35 | NUR ---
End of shift summary note Patient alert, oriented and able to make needs known with complaints of pain during the shift and was given Oxycontin 10mg PO BID at 0844 and [place] 5/325 (2 tabs) PO Q6H PRN at 1447; relief noted. No noted respiratory distress. Remains on contact isolation due to ESBL urine; precautionary measures observed. Patient was provided with recreational activity like watching TV. Built-in bed alarm activated for safety and bed placed on lowest position. Call light and bedside table placed within reach. Needs attended, kept clean and comfortable. Will endorse to next shift.
[2018-11-03 20:00] VITALS: BP 128/65; PULSE 87; RESP 18
--- NOTE | 2018-11-03 23:07 | CONS ---
[facility] HCIS Consult Follow-up Patient Name: Sandra Reed Unit Number: [id number] Date of : 1960 Patient Status: Admitted Inpatient Attending Doctor: Barrera Stover MD Edit: RILEY TARANGO M.D. on 11/04/18 @ 23:37 I discussed the management with BUSINESS ADVISOR Ariella Date/Time of Note Date/Time of Note DATE: 11/03/18 TIME: 23:07 Assessment/Plan Assessment/Plan Assessment/Plan Hospital Course - s/p fever due to PE and infection of the spinal wound, resolved - PE extending from distal R main pulmonary artery into 1st and 2nd order lobar branches on CTA on 10/06/2018, DIONNA of LEs on 10/06/2018 showed no DVT - s/p acute hypoxic resp failure as a result of PE, resolved neuro - s/p dehiscence and infection of the lower part of the spinal wound due to E. coli, coag negative Staph and corynebacteria, improved after a course of antibiotic - pain and paresthesia of b/l LEs, chronic according to Pt - h/o mechanical low back pain with radiculopathy of LEs - h/o b/l L5-S1 trans-foraminal lumbar interbody fusion surgery using instrumented spinal fusion 08/17/2018. - h/o posterior L5-S1 instrumented spinal fusion removal with reposition of interbody cage; placement of L5-S1 rods/screws on 09/07/2018 other conditions - s/p neutropenia noted on 10/09/2018, probably due to a combination of infection and side effect from vancomycin. It was discontinued. It resolved - s/p E. coli in Pt's urine culture; her urinalysis did not show pyuria and Pt had no UTI Sx prior to admission. Therefore, this was likely a contaminant - hypothyroidism - s/p neutropenia with vancomycin, resolved after vancomycin was stopped Recommendations: - Continue to monitor Pt off systemic antibiotics. Pt completed daptomycin (10/10/2018-10/18/2018) and IV vancomycin (10/05/2081-10/09/2018) - agree with DC planning Result Diagram: 11/03/18 0629 11/03/18 0629 Results 24hrs Laboratory Tests Test 11/03/18 06:29 White Blood Count 4.6 #L Red Blood Count 3.84 L Hemoglobin 10.9 L Hematocrit 34.8 L Mean Corpuscular Volume 90.6 Mean Corpuscular Hemoglobin 28.4 L Mean Corpuscular Hemoglobin Concent 31.3 L Red Cell Distribution Width 13.6 Platelet Count 282 # Mean Platelet Volume 9.8 Immature Granulocytes % 0.400 Neutrophils % 51.2 Lymphocytes % 34.8 Monocytes % 10.2 Eosinophils % 2.8 Basophils % 0.6 Nucleated Red Blood Cells % 0.0 Immature Granulocytes # 0.020 Neutrophils # 2.4 Lymphocytes # 1.6 Monocytes # 0.5 Eosinophils # 0.1 Basophils # 0.0 Nucleated Red Blood Cells # 0.0 Sodium Level 144 Potassium Level 4.3 Chloride Level 103 Carbon Dioxide Level 32 H Anion Gap 9 Blood Urea Nitrogen 16 Creatinine 0.80 Est Glomerular Filtrat Rate mL/min > 60 Glucose Level 123 Calcium Level 9.6 Consultation Date/Type/Reason Admit Date/Time Oct 19, 2018 at 21:00 Initial Consult Date 10/21/18 Type of Consult ID Reason for Consultation WOUND INFECTION/LEUCOCYTOSIS Requesting Provider: BARRERA STOVER MD 24 HR Interval Summary Constitutional: improved Detailed Summary Eyes: no complaints ENT: no complaints Respiratory: no complaints Cardiovascular: no complaints Gastrointestinal: no complaints Genitourinary: no complaints Musculoskeletal: back pain, bone/joint pain Skin: no complaints Neurologic: no complaints Exam/Review of Systems Vital Signs Vitals Vital Signs Date Temp Pulse Resp B/P (MAP) Pulse Ox O2 O2 Flow FiO2 Time Delivery Rate 11/03/18 97.6 90 19 115/64 95 Room Air 14:00 (81) Intake and Output 11/02/18 11/02/18 11/03/18 1515:00 23:00 07:00 IntakeIntake Total 500 ml 300 ml BalanceBalance 500 ml 300 ml Exam Constitutional: alert, oriented, well developed Psych: nl mood/affect Head: atraumatic Eyes: nl conjunctiva, EOMI, nl lids, nl sclera ENMT: nl external ears & nose Neck: supple Respiratory: clear to auscultation (bilaterally) Cardiovascular: nl pulses, other (s1s2) Gastrointestinal: soft, non-tender Musculoskeletal: nl extremities to inspection, range of motion Extremities: normal pulses Neurological: nl speech, other (alert/responsive) Skin: other (surgical incsion - DDI; NO DRAINAGE) Lymph: nontender Medications Medications Current Medications Acetaminophen (Tylenol Tab) 650 mg Q6H PRN PO MILD PAIN(1-3)OR ELEVATED TEMP Last administered on 10/27/18 11:34; Admin Dose 650 MG; Start 10/19/18 at 23:00 Apixaban (Eliquis) 5 mg BID PO Last administered on 11/03/18 20:28; Admin Dose 5 MG; Start 10/19/18 at 22:30 Bisacodyl (Dulcolax) 5 mg DAILY PRN PO CONSTIPATION; Start 10/19/18 at 23:00 Collagenase (Santyl) 1 applic DAILY TOP Last administered on 11/03/18 08:48; Admin Dose 1 APPLIC; Start 10/20/18 at 09:00 Levothyroxine Sodium (Synthroid) 200 mcg DAILY@06 PO Last administered on 11/03/18 06:09; Admin Dose 200 MCG; Start 10/20/18 at 06:00 Oxycodone HCl (Oxycontin) 10 mg BID PO Last administered on 11/03/18 20:28; Admin Dose 10 MG; Start 10/19/18 at 22:30 Pantoprazole (Protonix Tab) 40 mg DAILY@06 PO Last administered on 11/03/18 06:09; Admin Dose 40 MG; Start 10/20/18 at 06:00 Polyethylene Glycol (Miralax) 17 gm DAILY PO Last administered on 10/25/18 08:41; Admin Dose 17 GM; Start 10/20/18 at 09:00 Senna (Senokot) 2 tab BID PO Last administered on 10/25/18 20:50; Admin Dose 2 TAB; Start 10/19/18 at 22:30 Docusate Sodium (Colace) 100 mg BID PO Last administered on 11/03/18 08:47; Admin Dose 100 MG; Start 10/20/18 at 09:00 Bisacodyl (Dulcolax Supp) 10 mg DAILY PRN [place] CONSTIPATION; Start 10/20/18 at 00:00 Magnesium Hydroxide (Milk Of Mag) 30 ml BID PRN PO CONSTIPATION; Start 10/20/18 at 00:00 Lactulose (Enulose) 20 gm DAILY PRN PO CONSTIPATION; Start 10/20/18 at 00:00 Acetaminophen/ Hydrocodone Bitart ([place] (5/325)) 2 tab Q6H PRN PO MODERATE PAIN LEVEL 4-6 Last administered on 11/03/18at 14:47; Admin Dose 2 TAB; Start 1 12/21/17 at 14:00 Baclofen (Lioresal) 10 mg TID PO Last administered on 11/03/18at 20:28; Admin Dose 10 MG; Start 10/24/18 at 13:00 Al Hydrox/Mg Hydrox/Simethicone (Mag-Al Plus) 30 ml Q4H PRN PO GASTROINTESTINAL UPSET Last administered on 10/28/18at 12:31; Admin Dose 30 ML; Start 10/28/18 at 12:30 Miscellaneous Information Patients own medicat... BID@10,16 XX Last administered on 10/30/18at 16:13; Admin Dose 1 EA; Start 10/29/18 at 10:00 Gabapentin (Neurontin) 600 mg TID PO Last administered on 11/03/18at 20:27; Admin Dose 600 MG; Start 10/31/18 at 13:00 JONATHAN LEE Nov 03, 2018 23:07
--- NOTE | 2018-11-04 00:14 | NUR ---
[facility] RN Weekly Summary Dates From: 10/27/18 to 11/04/18 Patient Name: NAEEM CINTRON MR#: [id number] Height: 5 ft 0 in Weight: 198 lbs 6.657 oz 90.000 kg Reason for Visit: LUMBSACRAL RADICULOPATHY Precautions: FALLS; SKINBREAKDOWN Date: 11/04/18 Time: 0014 User: ZAYDA QUIROZ RN Short-term Goal: 1. Pt will have good pain control. 2. She will not develop pressure sore. 3. Pt will remain continent of bowel and bladder. 4. She will be free of falls and injury. 5. Patient's progress: Fair Short-term goals not met and reason/barriers: all short term goals met at this time. Bladder - level of function and accidents: 5 / 0 Bowel - level of function and accidents: 6 / 0 Skin: Status: back incision Treatment: daily drsg change as ordered Changes: healing in progress Pain: Level: 6-9/10 Location: back Management: Oxycontin and Success as ordered Changes: effective Functional levels: Self Care: 4 Transfers: 3 Locomotion: 3 Assistance requirements: Communication: 7 Social Cognition: 6 Safety awareness: good Interdisciplinary interactions: PT; OT; NRSG; MD; SW Patient education: EVERY SHIFT AND NEEDED Discharge needs: Pending Comorbid conditions: Acute respiratory failure; Spinal wound infection; Severe Morbid Obesity; S/P Pulmonary Embolism; S/P UTI; Hyponatremia Plan of Care continuation: continue POC
[2018-11-04 02:00] VITALS: BP 122/63; PULSE 84; RESP 18
--- NOTE | 2018-11-04 06:25 | NUR ---
Slept well. Resp unlabored. Voiding well using bedpan. Remains on contact isolation for ESBL urine. Medicated for back pain. Needs attended. Call light within reached, bed alarm activated. No acute distress noted.
[2018-11-04] MEDS: LEVOTHYROXINE 100 MCG TAB PO SCH (06:50)
[2018-11-04] MEDS: PANTOPRAZOLE (EC) 40 MG TAB PO SCH (06:50)
[2018-11-04] MEDS: HYDROCODONE/APAP (5/325) TAB PO PRN (06:59)
[2018-11-04] MEDS: SENNA TAB PO SCH ×2 (08:22→21:00)
[2018-11-04] MEDS: DOCUSATE SODIUM 100 MG CAP PO SCH ×2 (08:22→21:00)
[2018-11-04] MEDS: GABAPENTIN 300 MG CAP PO SCH ×3 (08:22→20:33)
[2018-11-04] MEDS: APIXABAN 5 MG TABLET PO SCH ×2 (08:22→20:34)
[2018-11-04] MEDS: BACLOFEN 10 MG TAB PO SCH ×3 (08:23→20:34)
[2018-11-04] MEDS: oxyCODONE (CR) 10 MG TAB [oxyCONTIN] PO SCH ×2 (08:23→20:34)
[2018-11-04] MEDS: POLYETHYLENE GLYCOL 17 GM PACKET PO SCH (08:24)
[2018-11-04] MEDS: COLLAGENASE 5 GM (UD JAR) TOP SCH (08:24)
--- NOTE | 2018-11-04 13:36 | PN ---
Date/Time of Note Date/Time of Note DATE: 11/04/18 TIME: 13:36 Assessment/Plan VTE Prophylaxis Risk score (from Ns)>0 risk: 7 SCD applied (from Ns): Yes Pharmacological prophylaxis: LMWH Lines/Catheters IV Catheter Type (from Nrsg): Saline Lock Urinary Cath still in place: No Assessment/Plan Hospital Course - Lower back- surgical site - open wound - neurosx was informed - wound care nurse to assess wound - monitor foe s/s of infection - wound care - chronic back pain - s/p surgery and is not in acute rehab for therapy Result Diagram: 11/03/18 0611/03/18 06 Subjective 24 Hr Interval Summary Free Text/Dictation Patient has no complaints Exam/Review of Systems Vital Signs Vitals Vital Signs Date Temp Pulse Resp B/P (MAP) Pulse Ox O2 O2 Flow FiO2 Time Delivery Rate 11/04/18 98.3 84 18 122/63 97 Room Air 02:00 (82) Intake and Output 11/03/18 11/03/18 11/04/18 1414:59 22:59 06:59 IntakeIntake Total 900 ml 450 ml BalanceBalance 900 ml 450 ml Exam Constitutional: well developed Head: normocephalic, atraumatic Neck: supple Respiratory: diminished breath sounds Cardiovascular: regular rate and rhythm Gastrointestinal: soft, non-tender Extremities: normal pulses Medications Medications Current Medications Acetaminophen (Tylenol Tab) 650 mg Q6H PRN PO MILD PAIN(1-3)OR ELEVATED TEMP Last administered on 10/27/18at 11:34; Admin Dose 650 MG; Start 10/19/18 at 23:00 Apixaban (Eliquis) 5 mg BID PO Last administered on 11/04/18at 08:22; Admin Dose 5 MG; Start 10/19/18 at 22:30 Bisacodyl (Dulcolax) 5 mg DAILY PRN PO CONSTIPATION; Start 10/19/18 at 23:00 Collagenase (Santyl) 1 applic DAILY TOP Last administered on 11/04/18at 08:24; Admin Dose 1 APPLIC; Start 10/20/18 at 09:00 Levothyroxine Sodium (Synthroid) 200 mcg DAILY@06 PO Last administered on 11/04/18at 06:50; Admin Dose 200 MCG; Start 10/20/18 at 06:00 Oxycodone HCl (Oxycontin) 10 mg BID PO Last administered on 11/04/18 08:23; Admin Dose 10 MG; Start 10/19/18 at 22:30 Pantoprazole (Protonix Tab) 40 mg DAILY@06 PO Last administered on 11/04/18 06:50; Admin Dose 40 MG; Start 10/20/18 at 06:00 Polyethylene Glycol (Miralax) 17 gm DAILY PO Last administered on 10/25/18 08:41; Admin Dose 17 GM; Start 10/20/18 at 09:00 Senna (Senokot) 2 tab BID PO Last administered on 11/04/18 08:22; Admin Dose 2 TAB; Start 10/19/18 at 22:30 Docusate Sodium (Colace) 100 mg BID PO Last administered on 11/04/18 08:22; Admin Dose 100 MG; Start 10/20/18 at 09:00 Bisacodyl (Dulcolax Supp) 10 mg DAILY PRN [place] CONSTIPATION; Start 10/20/18 at 00:00 Magnesium Hydroxide (Milk Of Mag) 30 ml BID PRN PO CONSTIPATION; Start 10/20/18 at 00:00 Lactulose (Enulose) 20 gm DAILY PRN PO CONSTIPATION; Start 10/20/18 at 00:00 Acetaminophen/ Hydrocodone Bitart ([place] (5/325)) 2 tab Q6H PRN PO MODERATE PAIN LEVEL 4-6 Last administered on 11/04/18 06:59; Admin Dose 2 TAB; Start 10/20/18 at 14:00 Baclofen (Lioresal) 10 mg TID PO Last administered on 11/04/18 13:29; Admin Dose 10 MG; Start 10/24/18 at 13:00 Al Hydrox/Mg Hydrox/Simethicone (Mag-Al Plus) 30 ml Q4H PRN PO GASTROINTESTINAL UPSET Last administered on 10/28/18 12:31; Admin Dose 30 ML; Start 10/28/18 at 12:30 Miscellaneous Information Patients own medicat... BID@10,16 XX Last administered on 10/30/18 16:13; Admin Dose 1 EA; Start 10/29/18 at 10:00 Gabapentin (Neurontin) 600 mg TID PO Last administered on 11/04/18 13:29; Admin Dose 600 MG; Start 10/31/18 at 13:00 ELAINE BUITRAGO Nov 04, 2018 13:36
[2018-11-04 14:15] VITALS: BP 119/73; PULSE 87; RESP 19
[2018-11-04] MEDS: ACETAMINOPHEN 325 MG TAB PO PRN ×2 (14:58→23:46)
--- NOTE | 2018-11-04 15:23 | NUR ---
During afternoon V/S check noted patient with slightly elevated temperature of 99.2F. Noted room to be warm and encouraged patient to drink more fluids and offered cool compress and Tylenol for relief. Will continue to monitor patient.
--- NOTE | 2018-11-04 15:53 | NUR ---
Patient's temperature went down to 98.8F and still encourage patient to hydrate. Continuous monitoring provided.
--- NOTE | 2018-11-04 18:27 | NUR ---
End of shift summary note: Patient seen not in distress or discomfort; able to verbalize needs with complaints of pain during the shift and was medicated with Oxycontin 10mg PO BID; relief noted. No shortness of breath or difficulty of breathing noted. All due medications given. Health teaching provided regarding side effects of Eliquis. Participated with therapy as tolerated. Recreational activity offered like watching TV. Remains on contact isolation due to ESBL urine. Precautionary measures observed. Call light and bedside table placed within reach. Bed alarm activated for safety. Continuous monitoring provided and needs attended. Will endorse to next shift.
[2018-11-04 20:00] VITALS: BP 128/70; RESP 18
[2018-11-05 02:00] VITALS: BP 123/67; RESP 18
[2018-11-05] MEDS: HYDROCODONE/APAP (5/325) TAB PO PRN ×2 (02:28→09:15)
--- NOTE | 2018-11-05 06:16 | NUR ---
Slept well. Resp unlabored. Medicated for back pain as needed with good effect. Voiding well using bedpan, kept clean and dry. Needs attended. Call light within reached, bed alarm activated. No acute distress noted.
[2018-11-05] MEDS: PANTOPRAZOLE (EC) 40 MG TAB PO SCH (06:41)
[2018-11-05] MEDS: LEVOTHYROXINE 100 MCG TAB PO SCH (06:41)
[2018-11-05] MEDS: ACETAMINOPHEN 325 MG TAB PO PRN (06:52)
[2018-11-05] MEDS: POLYETHYLENE GLYCOL 17 GM PACKET PO SCH (08:12)
[2018-11-05] MEDS: BACLOFEN 10 MG TAB PO SCH ×3 (08:12→20:20)
[2018-11-05] MEDS: SENNA TAB PO SCH ×2 (08:12→20:20)
[2018-11-05] MEDS: DOCUSATE SODIUM 100 MG CAP PO SCH ×2 (08:12→20:20)
[2018-11-05] MEDS: GABAPENTIN 300 MG CAP PO SCH ×3 (08:12→20:19)
[2018-11-05] MEDS: COLLAGENASE 5 GM (UD JAR) TOP SCH (08:12)
[2018-11-05 08:13] VITALS: BP 131/68; RESP 19
[2018-11-05] MEDS: APIXABAN 5 MG TABLET PO SCH ×2 (08:13→20:20)
[2018-11-05] MEDS: oxyCODONE (CR) 10 MG TAB [oxyCONTIN] PO SCH ×2 (08:13→20:19)
--- NOTE | 2018-11-05 09:00 | NUR ---
PT NOTE Pt agreeable to Rx, VS WNL, safe to proceed per RN. Pt stated she had pain med. No pain at rest per pt but reported LS pain up to 9/10 w/ activity. RN notified and offered prn pain med. See PT technical record for functional mob. status. Pt noted to have self-limiting behavior despite encouragement. She stated she can fall and would like to limit her walking. Educ. her on risks of prolonged bedrest w/ good understanding but added her pain and spasms are too much for her to handle. Pt noted to have conservative progress and stated no help at home when DC. She added her [facility] would not even answer her calls. Pt will benefit from SNF placement. SW notified.
--- NOTE | 2018-11-05 09:46 | PN ---
Date/Time of Note Date/Time of Note DATE: 11/05/18 TIME: 09:46 Objective Vital Signs Date Temp Pulse Resp B/P (MAP) Pulse Ox O2 O2 Flow FiO2 Time Delivery Rate 11/05/18 98.3 18 123/67 95 Room Air 02:00 (85) 11/04/18 87 14:15 Intake and Output 11/04/18 11/04/18 11/05/18 1515:00 23:00 07:00 IntakeIntake Total 900 ml 490 ml BalanceBalance 900 ml 490 ml Exam INTERDISCIPLINARY TEAM CONFERENCE EXAM PULM- cta ABD-soft BOWEL- Cont BLADDER-Cont SKIN- healed OT- DRESSING-mod BATHING-mod TOILETING-mod PT- BED MOBILITY-min/mod TRANSFERS-min/mod AMBULATION-mod 40 feet A/P- Interdisciplinary team conference held today. Please see interdisciplinary sheet. Patient has made steady functional gains, and is back to baseline with regards to her cognition. Family reports that they will not be able to assist at home. She is now abl to tolerate the transtion to a long term, and the wound is well healed. Results/Medications Result Diagram: 11/03/1862811/03/18628 Medications Current Medications Acetaminophen (Tylenol Tab) 650 mg Q6H PRN PO MILD PAIN(1-3)OR ELEVATED TEMP Last administered on 11/05/18at 06:52; Admin Dose 650 MG; Start 10/19/18 at 23:00 Apixaban (Eliquis) 5 mg BID PO Last administered on 11/05/18at 08:13; Admin Dose 5 MG; Start 10/19/18 at 22:30 Bisacodyl (Dulcolax) 5 mg DAILY PRN PO CONSTIPATION; Start 10/19/18 at 23:00 Collagenase (Santyl) 1 applic DAILY TOP Last administered on 11/05/18at 08:12; Admin Dose 1 APPLIC; Start 10/20/18 at 09:00 Levothyroxine Sodium (Synthroid) 200 mcg DAILY@06 PO Last administered on 11/05/18at 06:41; Admin Dose 200 MCG; Start 10/20/18 at 06:00 Oxycodone HCl (Oxycontin) 10 mg BID PO Last administered on 11/05/18at 08:13; Admin Dose 10 MG; Start 10/19/18 at 22:30 Pantoprazole (Protonix Tab) 40 mg DAILY@06 PO Last administered on 11/05/18 06:41; Admin Dose 40 MG; Start 10/20/18 at 06:00 Polyethylene Glycol (Miralax) 17 gm DAILY PO Last administered on 11/05/18 08:12; Admin Dose 17 GM; Start 10/20/18 at 09:00 Senna (Senokot) 2 tab BID PO Last administered on 11/05/18 08:12; Admin Dose 2 TAB; Start 10/19/18 at 22:30 Docusate Sodium (Colace) 100 mg BID PO Last administered on 11/05/18 08:12; Admin Dose 100 MG; Start 10/20/18 at 09:00 Bisacodyl (Dulcolax Supp) 10 mg DAILY PRN [place] CONSTIPATION; Start 10/20/18 at 00:00 Magnesium Hydroxide (Milk Of Mag) 30 ml BID PRN PO CONSTIPATION; Start 10/20/18 at 00:00 Lactulose (Enulose) 20 gm DAILY PRN PO CONSTIPATION; Start 10/20/18 at 00:00 Acetaminophen/ Hydrocodone Bitart ([place] (5/325)) 2 tab Q6H PRN PO MODERATE PAIN LEVEL 4-6 Last administered on 11/05/18 09:15; Admin Dose 2 TAB; Start 10/20/18 at 14:00 Baclofen (Lioresal) 10 mg TID PO Last administered on 11/05/18 08:12; Admin Dose 10 MG; Start 10/24/18 at 13:00 Al Hydrox/Mg Hydrox/Simethicone (Mag-Al Plus) 30 ml Q4H PRN PO GASTROINTESTINAL UPSET Last administered on 10/28/18 12:31; Admin Dose 30 ML; Start 10/28/18 at 12:30 Miscellaneous Information Patients own medicat... BID@10,16 XX Last administered on 10/30/18 16:13; Admin Dose 1 EA; Start 10/29/18 at 10:00 Gabapentin (Neurontin) 600 mg TID PO Last administered on 11/05/18 08:12; Admin Dose 600 MG; Start 10/31/18 at 13:00 MILLY PUENTE MD Nov 05, 2018 09:46
--- NOTE | 2018-11-05 10:53 | NUR ---
[facility] PT Weekly Summary Dates From: 10/27/18 to 11/05/18 Patient Name: NAEEM CINTRON MR#: [id number] Height: 5 ft 0 in Weight: 198 lbs 6.657 oz 90.000 kg Reason for Visit: LUMBSACRAL RADICULOPATHY Precautions: fall risk, confused, spine precautions, LSO when OOB Date: 11/05/18 Time: 1053 User: JEANNIE TENA Short-term Goals: Bed Mob with Min A Transfers with Min A Gait with LSO with FWW 10ft with min/mod A sit up in WC for 15min for meals with min A up/down 5 steps with B rails with SBA/CGA Pt making conservative progress during her stay at [facility]. Pt demonstrates min A/mod A for bed mobility, min/mod A for transfers, mod A for gait 2ft using FWW but needs 2PA for safety/WC follow. Barriers: pain, confusion, resistant to education, poor carryover of learning, non-complaint with spine precautions. Recommend: manual WC with swing away leg rests, BSC, home with HHPT and 24hr assistance. Cont POC and progress as siva.
--- NOTE | 2018-11-05 11:00 | NUR ---
Medication regimen reviewed with Dr Adams with a new order of Robaxin 750mg tab QHS. Noted & carried out. Patient aware & agrees.
--- NOTE | 2018-11-05 13:58 | PN ---
Date/Time of Note Date/Time of Note DATE: 11/05/18 TIME: 13:57 Assessment/Plan VTE Prophylaxis Risk score (from Ns)>0 risk: 8 SCD applied (from Ns): Yes Pharmacological prophylaxis: LMWH Lines/Catheters IV Catheter Type (from Nrsg): Saline Lock Urinary Cath still in place: No Assessment/Plan Hospital Course - Lower back- surgical site - open wound - neurosx was informed - wound care nurse to assess wound - monitor foe s/s of infection - wound care - chronic back pain - s/p surgery and is not in acute rehab for therapy Result Diagram: 11/03/18 0611/03/18 06 Subjective 24 Hr Interval Summary Free Text/Dictation Patient complain of muscle spasms Exam/Review of Systems Vital Signs Vitals Vital Signs Date Temp Pulse Resp B/P (MAP) Pulse Ox O2 O2 Flow FiO2 Time Delivery Rate 11/05/18 98.5 19 131/68 98 Room Air 08:13 (89) 11/04/18 87 14:15 Intake and Output 11/04/18 11/04/18 11/05/18 1515:00 23:00 07:00 IntakeIntake Total 900 ml 490 ml BalanceBalance 900 ml 490 ml Exam Constitutional: well developed Head: normocephalic, atraumatic Neck: supple Respiratory: diminished breath sounds Cardiovascular: regular rate and rhythm Gastrointestinal: soft, non-tender Extremities: normal pulses Medications Medications Current Medications Acetaminophen (Tylenol Tab) 650 mg Q6H PRN PO MILD PAIN(1-3)OR ELEVATED TEMP Last administered on 11/05/18at 06:52; Admin Dose 650 MG; Start 10/19/18 at 23:00 Apixaban (Eliquis) 5 mg BID PO Last administered on 11/05/18at 08:13; Admin Dose 5 MG; Start 10/19/18 at 22:30 Bisacodyl (Dulcolax) 5 mg DAILY PRN PO CONSTIPATION; Start 10/19/18 at 23:00 Collagenase (Santyl) 1 applic DAILY TOP Last administered on 11/05/18at 08:12; Admin Dose 1 APPLIC; Start 10/20/18 at 09:00 Levothyroxine Sodium (Synthroid) 200 mcg DAILY@06 PO Last administered on 11/05/18at 06:41; Admin Dose 200 MCG; Start 10/20/18 at 06:00 Oxycodone HCl (Oxycontin) 10 mg BID PO Last administered on 11/05/18at 08:13; Admin Dose 10 MG; Start 10/19/18 at 22:30 Pantoprazole (Protonix Tab) 40 mg DAILY@06 PO Last administered on 11/05/18at 06:41; Admin Dose 40 MG; Start 10/20/18 at 06:00 Polyethylene Glycol (Miralax) 17 gm DAILY PO Last administered on 11/05/18at 08:12; Admin Dose 17 GM; Start 10/20/18 at 09:00 Senna (Senokot) 2 tab BID PO Last administered on 11/05/18at 08:12; Admin Dose 2 TAB; Start 10/19/18 at 22:30 Docusate Sodium (Colace) 100 mg BID PO Last administered on 11/05/18at 08:12; Admin Dose 100 MG; Start 10/20/18 at 09:00 Bisacodyl (Dulcolax Supp) 10 mg DAILY PRN [place] CONSTIPATION; Start 10/20/18 at 00:00 Magnesium Hydroxide (Milk Of Mag) 30 ml BID PRN PO CONSTIPATION; Start 10/20/18 at 00:00 Lactulose (Enulose) 20 gm DAILY PRN PO CONSTIPATION; Start 10/20/18 at 00:00 Acetaminophen/ Hydrocodone Bitart ([place] (5/325)) 2 tab Q6H PRN PO MODERATE PAIN LEVEL 4-6 Last administered on 11/05/18at 09:15; Admin Dose 2 TAB; Start 10/20/18 at 14:00 Baclofen (Lioresal) 10 mg TID PO Last administered on 11/05/18at 13:42; Admin Dose 10 MG; Start 10/24/18 at 13:00 Al Hydrox/Mg Hydrox/Simethicone (Mag-Al Plus) 30 ml Q4H PRN PO GASTROINTESTINAL UPSET Last administered on 10/28/18at 12:31; Admin Dose 30 ML; Start 10/28/18 at 12:30 Miscellaneous Information Patients own medicat... BID@10,16 XX Last administered on 10/30/18at 16:13; Admin Dose 1 EA; Start 10/29/18 at 10:00 Gabapentin (Neurontin) 600 mg TID PO Last administered on 11/05/18at 13:41; Admin Dose 600 MG; Start 10/31/18 at 13:00 Methocarbamol (Robaxin) 750 mg QHS PO ; Start 11/05/18 at 21:00; Status UNV ELAINE BUITRAGO Nov 05, 2018 13:57
[2018-11-05 14:00] VITALS: BP 127/87; RESP 20
--- NOTE | 2018-11-05 14:00 | NUR ---
Called Security Office & informed them that patient's phone is missing. Interviewed by Jacobo. Per Security, he will check all the black [employer] phones downstairs in the lost & found section & let it ring. Patient aware & agrees.
--- NOTE | 2018-11-05 17:00 | NUR ---
Patient in bed talking to her sister. Alert, oriented x 3 with periods of forgetfulness. No SOB. Complained of pain so given PRN pain medication. Relieved after 30 minutes. Offered educational materials & TV for recreational activities. Wound dressing change & treatment done on patient's open wound & incision site in the back. No redness & drainage noted. Wound clean & dry. Patient tolerated procedure well. Kept clean & dry. All due meds given. Call light within reach. Bed alarm on & in low position. Kept comfortable.
--- NOTE | 2018-11-05 17:28 | NUR ---
Sister Ora brought 2 cellphones. 1) Black [employer] + hot metal charger 2) old LG phone with cracked screen. Informed patient to be careful with belongings because the hospital is not responsible for lost items. Patient aware & agrees.
[2018-11-05 20:00] VITALS: BP 134/66; RESP 18
[2018-11-05] MEDS: METHOCARBAMOL 750 MG TAB PO SCH (20:19)
--- NOTE | 2018-11-05 20:58 | CONS ---
Date/Time of Note Date/Time of Note DATE: 11/05/18 TIME: 20:52 Assessment/Plan Assessment/Plan Hospital Course - h/o fever due to PE and infection of the spinal wound, resolved - h/oPE extending from distal R main pulmonary artery into 1st and 2nd order lobar branches on CTA on 10/06/2018, DIONNA of LEs on 10/06/2018 showed no DVT - h/o acute hypoxic resp failure as a result of PE, resolved neuro - h/o dehiscence and infection of the lower part of the spinal wound due to E. coli, coag negative Staph and corynebacteria, improved after a course of antibiotic - pain and paresthesia of b/l LEs, chronic according to Pt - h/o mechanical low back pain with radiculopathy of LEs - h/o b/l L5-S1 trans-foraminal lumbar interbody fusion surgery using instrumented spinal fusion 08/17/2018. - h/o posterior L5-S1 instrumented spinal fusion removal with reposition of interbody cage; placement of L5-S1 rods/screws on 09/07/2018 other conditions - h/o neutropenia noted on 10/09/2018, probably due to a combination of infection and the side effect from vancomycin. It resolved after IV vancomycin was discontinued - h/o E. coli in Pt's urine culture; her urinalysis did not show pyuria and Pt had no UTI Sx prior to admission. Therefore, this was likely a contaminant - hypothyroidism Note: Pt completed daptomycin (10/10/2018-10/18/2018) and IV vancomycin (10/05/2081-10/09/2018) recommendations: - continue to monitor Pt off systemic antibiotics. - management d/w Pt Result Diagram: 11/03/18 0629 11/03/18 0629 Consultation Date/Type/Reason Admit Date/Time Oct 19, 2018 at 21:00 Initial Consult Date 10/21/18 Type of Consult ID Requesting Provider: JOAQUIN STOVER MD 24 HR Interval Summary Constitutional: improved, other (walked around the bed 2-3 times today) Detailed Summary Eyes: no complaints ENT: no complaints Respiratory: no complaints Cardiovascular: no complaints Gastrointestinal: no complaints Genitourinary: no complaints Musculoskeletal: restricted range of motion, other (the injection site of dilauded on R scapula was still hurtful) Skin: no complaints Neurologic: other (paresthesia of b/l LEs, chronic and unchanged) Exam/Review of Systems Vital Signs Vitals Vital Signs Date Temp Pulse Resp B/P (MAP) Pulse Ox O2 O2 Flow FiO2 Time Delivery Rate 11/05/18 98.5 19 131/68 98 Room Air 08:13 (89) 11/04/18 87 14:15 Intake and Output 11/04/18 11/04/18 11/05/18 1515:00 23:00 07:00 IntakeIntake Total 900 ml 490 ml BalanceBalance 900 ml 490 ml Exam Constitutional: alert, oriented, obese Psych: no complaints, nl mood/affect Head: normocephalic, atraumatic Eyes: nl conjunctiva, nl lids ENMT: nl external ears & nose, nl nasal mucosa & septum, mucosa pink and moist Neck: supple, non-tender Respiratory: clear to auscultation Cardiovascular: regular rate and rhythm, nl pulses Gastrointestinal: soft, non-tender; No distended, No tender Musculoskeletal: range of motion (limited); No swelling Extremities: No edema Neurological: [employer] CLERK II-XII intact, nl mental status; No numbness Skin: other (surgical scar of the lower back is well approximated, well healing without purulence or erythema) Medications Medications Current Medications Acetaminophen (Tylenol Tab) 650 mg Q6H PRN PO MILD PAIN(1-3)OR ELEVATED TEMP Last administered on 11/05/18at 06:52; Admin Dose 650 MG; Start 10/19/18 at 23:00 Apixaban (Eliquis) 5 mg BID PO Last administered on 11/05/18at 20:20; Admin Dose 5 MG; Start 10/19/18 at 22:30 Bisacodyl (Dulcolax) 5 mg DAILY PRN PO CONSTIPATION; Start 10/19/18 at 23:00 Collagenase (Santyl) 1 applic DAILY TOP Last administered on 11/05/18at 08:12; Admin Dose 1 APPLIC; Start 10/20/18 at 09:00 Levothyroxine Sodium (Synthroid) 200 mcg DAILY@06 PO Last administered on 11/05/18at 06:41; Admin Dose 200 MCG; Start 10/20/18 at 06:00 Oxycodone HCl (Oxycontin) 10 mg BID PO Last administered on 11/05/18 20:19; Admin Dose 10 MG; Start 10/19/18 at 22:30 Pantoprazole (Protonix Tab) 40 mg DAILY@06 PO Last administered on 11/05/18 06:41; Admin Dose 40 MG; Start 10/20/18 at 06:00 Polyethylene Glycol (Miralax) 17 gm DAILY PO Last administered on 11/05/18 08:12; Admin Dose 17 GM; Start 10/20/18 at 09:00 Senna (Senokot) 2 tab BID PO Last administered on 11/05/18 08:12; Admin Dose 2 TAB; Start 10/19/18 at 22:30 Docusate Sodium (Colace) 100 mg BID PO Last administered on 11/05/18 08:12; Admin Dose 100 MG; Start 10/20/18 at 09:00 Bisacodyl (Dulcolax Supp) 10 mg DAILY PRN [place] CONSTIPATION; Start 10/20/18 at 00:00 Magnesium Hydroxide (Milk Of Mag) 30 ml BID PRN PO CONSTIPATION; Start at 00:00 Lactulose (Enulose) 20 gm DAILY PRN PO CONSTIPATION; Start 10/20/18 at 00:00 Acetaminophen/ Hydrocodone Bitart ([place] (5/325)) 2 tab Q6H PRN PO MODERATE PAIN LEVEL 4-6 Last administered on 11/05/18 09:15; Admin Dose 2 TAB; Start 10/20/18 at 14:00 Baclofen (Lioresal) 10 mg TID PO Last administered on 11/05/18 20:20; Admin Dose 10 MG; Start 10/24/18 at 13:00 Al Hydrox/Mg Hydrox/Simethicone (Mag-Al Plus) 30 ml Q4H PRN PO GASTROINTESTINAL UPSET Last administered on 10/28/18 12:31; Admin Dose 30 ML; Start 10/28/18 at 12:30 Miscellaneous Information Patients own medicat... BID@10,16 XX Last administered on 10/30/18at 16:13; Admin Dose 1 EA; Start 10/29/18 at 10:00 Gabapentin (Neurontin) 600 mg TID PO Last administered on 11/05/18 20:19; Admin Dose 600 MG; Start 10/31/18 at 13:00 Methocarbamol (Robaxin) 750 mg QHS PO Last administered on 11/05/18at 20:19; Ad min Dose 750 MG; Start 11/05/18 at 21:00 RILEY TARANGO M.D. Nov 05, 2018 20:58
[2018-11-06 02:00] VITALS: BP 125/68; RESP 18
--- NOTE | 2018-11-06 06:29 | NUR ---
Slept well. Resp unlabored. Medicated for back pain as needed with good effect. Voiding well, using bedpan. Needs attended. Call light within reached, bed alarm activated. No acute distress noted.
[2018-11-06] MEDS: LEVOTHYROXINE 100 MCG TAB PO SCH (06:33)
[2018-11-06] MEDS: PANTOPRAZOLE (EC) 40 MG TAB PO SCH (06:33)
[2018-11-06] MEDS: HYDROCODONE/APAP (5/325) TAB PO PRN ×2 (06:51→17:23)
[2018-11-06 08:29] VITALS: BP 139/76; PULSE 76; RESP 20
[2018-11-06] MEDS: DOCUSATE SODIUM 100 MG CAP PO SCH ×2 (08:29→20:07)
[2018-11-06] MEDS: POLYETHYLENE GLYCOL 17 GM PACKET PO SCH (08:29)
[2018-11-06] MEDS: GABAPENTIN 300 MG CAP PO SCH ×3 (08:29→20:07)
[2018-11-06] MEDS: oxyCODONE (CR) 10 MG TAB [oxyCONTIN] PO SCH ×2 (08:29→20:08)
[2018-11-06] MEDS: APIXABAN 5 MG TABLET PO SCH ×2 (08:30→20:08)
[2018-11-06] MEDS: BACLOFEN 10 MG TAB PO SCH ×3 (08:30→20:07)
[2018-11-06] MEDS: COLLAGENASE 5 GM (UD JAR) TOP SCH (08:30)
[2018-11-06] MEDS: SENNA TAB PO SCH ×2 (08:31→20:08)
[2018-11-06] MEDS ORDERED: METHOCARBAMOL 750 MG TAB PO SCH (09:00)
--- NOTE | 2018-11-06 10:49 | PN ---
Date/Time of Note Date/Time of Note DATE: 11/06/18 TIME: 10:49 Subjective Overall improved, but does report back spasms Objective Vital Signs Date Temp Pulse Resp B/P (MAP) Pulse Ox O2 O2 Flow FiO2 Time Delivery Rate 11/06/18 98.5 76 20 139/76 94 Room Air 08:29 (97) Intake and Output 11/05/18 11/05/18 11/06/18 1515:00 23:00 07:00 IntakeIntake Total 900 ml 400 ml OutputOutput Total 150 ml BalanceBalance -150 ml 900 ml 400 ml Exam pulm-cta abd-soft min transfer min ambulation Results/Medications Result Diagram: 11/03/1862811/03/18628 Medications Current Medications Acetaminophen (Tylenol Tab) 650 mg Q6H PRN PO MILD PAIN(1-3)OR ELEVATED TEMP Last administered on 11/05/18 06:52; Admin Dose 650 MG; Start 10/19/18 at 23:00 Apixaban (Eliquis) 5 mg BID PO Last administered on 11/06/18 08:30; Admin Dose 5 MG; Start 10/19/18 at 22:30 Bisacodyl (Dulcolax) 5 mg DAILY PRN PO CONSTIPATION; Start 10/19/18 at 23:00 Collagenase (Santyl) 1 applic DAILY TOP Last administered on 11/06/18 08:30; Admin Dose 1 APPLIC; Start 10/20/18 at 09:00 Levothyroxine Sodium (Synthroid) 200 mcg DAILY@06 PO Last administered on 11/06/18 06:33; Admin Dose 200 MCG; Start 10/20/18 at 06:00 Oxycodone HCl (Oxycontin) 10 mg BID PO Last administered on 11/06/18 08:29; Admin Dose 10 MG; Start 10/19/18 at 22:30 Pantoprazole (Protonix Tab) 40 mg DAILY@06 PO Last administered on 11/06/18 06 :33; Admin Dose 40 MG; Start 10/20/18 at 06:00 Polyethylene Glycol (Miralax) 17 gm DAILY PO Last administered on 11/06/18 08:29; Admin Dose 17 GM; Start 10/20/18 at 09:00 Senna (Senokot) 2 tab BID PO Last administered on 11/05/18 08:12; Admin Dose 2 TAB; Start 10/19/18 at 22:30 Docusate Sodium (Colace) 100 mg BID PO Last administered on 11/06/18 08:29; Admin Dose 100 MG; Start 10/20/18 at 09:00 Bisacodyl (Dulcolax Supp) 10 mg DAILY PRN [place] CONSTIPATION; Start 10/20/18 at 00:00 Magnesium Hydroxide (Milk Of Mag) 30 ml BID PRN PO CONSTIPATION; Start 10/20/18 at 00:00 Lactulose (Enulose) 20 gm DAILY PRN PO CONSTIPATION; Start 10/20/18 at 00:00 Acetaminophen/ Hydrocodone Bitart ([place] (5/325)) 2 tab Q6H PRN PO MODERATE PAIN LEVEL 4-6 Last administered on 11/06/18 06:51; Admin Dose 2 TAB; Start 10/20/18 at 14:00 Baclofen (Lioresal) 10 mg TID PO Last administered on 11/06/18 08:30; Admin Dose 10 MG; Start 10/24/18 at 13:00 Al Hydrox/Mg Hydrox/Simethicone (Mag-Al Plus) 30 ml Q4H PRN PO GASTROINTESTINAL UPSET Last administered on 10/28/18 12:31; Admin Dose 30 ML; Start 10/28/18 at 12:30 Miscellaneous Information Patients own medicat... BID@10,16 XX Last administered on 10/30/18at 16:13; Admin Dose 1 EA; Start 10/29/18 at 10:00 Gabapentin (Neurontin) 600 mg TID PO Last administered on 11/06/18 08:29; Admin Dose 600 MG; Start 10/31/18 at 13:00 Methocarbamol (Robaxin) 750 mg QHS PO Last administered on 11/05/18 20:19; Admin Dose 750 MG; Start 11/05/18 at 21:00 Assessment/Plan Additional Assessment/Plan Rehab-Lumbar radiculopathy status post spinal fusion and infection with the patient status post hardware removal/reposition. Telephone family conference held with sister. She is pleased with the patient's progress, but reports shew will be unable to assist upon discharge. She is helping with ome modifications. Integ- wound care, specialty bed- healded Dispo- to supervised environment. SW working on DC planning Acute pain syndrome. Hypertension. Status post respiratory failure. Morbid obesity. Urinary tract infection. Pulmonary embolism. MILLY PUENTE MD Nov 06, 2018 10:49
--- NOTE | 2018-11-06 13:28 | PN ---
Date/Time of Note Date/Time of Note DATE: 11/06/18 TIME: 13:28 Assessment/Plan VTE Prophylaxis Risk score (from Ns)>0 risk: 8 SCD applied (from Ns): Yes Pharmacological prophylaxis: LMWH Lines/Catheters IV Catheter Type (from Nrsg): Saline Lock Urinary Cath still in place: No Assessment/Plan Hospital Course - Lower back- surgical site - open wound - neurosx was informed - wound care nurse to assess wound - monitor foe s/s of infection - wound care - chronic back pain - s/p surgery and is not in acute rehab for therapy Result Diagram: 11/03/18 0611/03/18628 Subjective 24 Hr Interval Summary Free Text/Dictation Patient having more back pain Exam/Review of Systems Vital Signs Vitals Vital Signs Date Temp Pulse Resp B/P (MAP) Pulse Ox O2 O2 Flow FiO2 Time Delivery Rate 11/06/18 98.5 76 20 139/76 94 Room Air 08:29 (97) Intake and Output 11/05/18 11/05/18 11/06/18 1515:00 23:00 07:00 IntakeIntake Total 900 ml 400 ml OutputOutput Total 150 ml BalanceBalance -150 ml 900 ml 400 ml Exam Constitutional: well developed Head: normocephalic, atraumatic Neck: supple Respiratory: diminished breath sounds Cardiovascular: regular rate and rhythm Gastrointestinal: soft, non-tender Extremities: normal pulses Medications Medications Current Medications Acetaminophen (Tylenol Tab) 650 mg Q6H PRN PO MILD PAIN(1-3)OR ELEVATED TEMP Last administered on 11/05/18at 06:52; Admin Dose 650 MG; Start 10/19/18 at 23:00 Apixaban (Eliquis) 5 mg BID PO Last administered on 11/06/18 08:30; Admin Dose 5 MG; Start 10/19/18 at 22:30 Bisacodyl (Dulcolax) 5 mg DAILY PRN PO CONSTIPATION; Start 10/19/18 at 23:00 Collagenase (Santyl) 1 applic DAILY TOP Last administered on 11/06/18 08:30; Admin Dose 1 APPLIC; Start 10/20/18 at 09:00 Levothyroxine Sodium (Synthroid) 200 mcg DAILY@06 PO Last administered on 11/06/18 06:33; Admin Dose 200 MCG; Start 10/20/18 at 06:00 Oxycodone HCl (Oxycontin) 10 mg BID PO Last administered on 11/06/18 08:29; Admin Dose 10 MG; Start 10/19/18 at 22:30 Pantoprazole (Protonix Tab) 40 mg DAILY@06 PO Last administered on 11/06/18 06:33; Admin Dose 40 MG; Start 10/20/18 at 06:00 Polyethylene Glycol (Miralax) 17 gm DAILY PO Last administered on 11/06/18 08:29; Admin Dose 17 GM; Start 10/20/18 at 09:00 Senna (Senokot) 2 tab BID PO Last administered on 11/05/18 08:12; Admin Dose 2 TAB; Start 10/19/18 at 22:30 Docusate Sodium (Colace) 100 mg BID PO Last administered on 11/06/18 08:29; Admin Dose 100 MG; Start 10/20/18 at 09:00 Bisacodyl (Dulcolax Supp) 10 mg DAILY PRN [place] CONSTIPATION; Start 10/20/18 at 00:00 Magnesium Hydroxide (Milk Of Mag) 30 ml BID PRN PO CONSTIPATION; Start 10/20/18 at 00:00 Lactulose (Enulose) 20 gm DAILY PRN PO CONSTIPATION; Start 10/20/18 at 00:00 Acetaminophen/ Hydrocodone Bitart ([place] (5/325)) 2 tab Q6H PRN PO MODERATE PAIN LEVEL 4-6 Last administered on 11/06/18 06:51; Admin Dose 2 TAB; Start 10/20/18 at 14:00 Al Hydrox/Mg Hydrox/Simethicone (Mag-Al Plus) 30 ml Q4H PRN PO GASTROINTESTINAL UPSET Last administered on 10/28/18 12:31; Admin Dose 30 ML; Start 10/28/18 at 12:30 Miscellaneous Information Patients own medicat... BID@10,16 XX Last administered on 10/30/18 16:13; Admin Dose 1 EA; Start 10/29/18 at 10:00 Gabapentin (Neurontin) 600 mg TID PO Last administered on 11/06/18 12:49; Admin Dose 600 MG; Start 10/31/18 at 13:00 Methocarbamol (Robaxin) 750 mg QHS PO Last administered on 12/31/18at 20:19; Admin Dose 750 MG; Start 11/05/18 at 21:00 Baclofen (Lioresal) 20 mg TID PO Last administered on 11/06/18at 12:49; Admin Dose 20 MG; Start 11/06/18 at 13:00 ELAINE BUITRAGO Nov 06, 2018 13:28
[2018-11-06 14:00] VITALS: BP_SYST 125; BP_SYST 129; BP_DIAS 79; BP_DIAS 88; PULSE 75; PULSE 88; RESP 19; RESP 20
--- NOTE | 2018-11-06 17:51 | NUR ---
Patient in bed eating dinner. Alert, oriented x 3 with periods of forgetfulness. No SOB. Complained of pain so given PRN pain medication. Relieved after 30 minutes. Offered educational materials & TV for recreational activities. Wound dressing change & treatment done on patient's healing open wound & incision site in the back. No redness & drainage noted. Wound clean & dry. Patient tolerated procedure well. Kept clean & dry. All due meds given. Call light within reach. Bed alarm on & in low position. Kept comfortable.
[2018-11-06 20:00] VITALS: BP 113/75; PULSE 77; RESP 18
[2018-11-06] MEDS: METHOCARBAMOL 750 MG TAB PO SCH (20:07)
--- NOTE | 2018-11-07 05:03 | NUR ---
Patient's condition stable. Slept well during the night. Voids without difficulty. Medicated for back pain with schedule oxycontin. Needs attended. Hourly rounding done. Encouraged frequent repositioning to prevent skin breakdown. Call light and bedside table within reach. Bed alarm on for safety precaution. Instructed to call for assistance.
[2018-11-07] MEDS: BACLOFEN 10 MG TAB PO SCH ×2 (05:29→12:19)
[2018-11-07] MEDS: LEVOTHYROXINE 100 MCG TAB PO SCH (05:29)
[2018-11-07] MEDS: PANTOPRAZOLE (EC) 40 MG TAB PO SCH (05:29)
[2018-11-07 05:36] VITALS: BP 135/76; PULSE 71; RESP 18
[2018-11-07 07:50] VITALS: BP 131/64; PULSE 83; RESP 19
[2018-11-07] MEDS: DOCUSATE SODIUM 100 MG CAP PO SCH (08:50)
[2018-11-07] MEDS: GABAPENTIN 300 MG CAP PO SCH ×2 (08:50→12:19)
[2018-11-07] MEDS: SENNA TAB PO SCH (08:50)
[2018-11-07] MEDS: oxyCODONE (CR) 10 MG TAB [oxyCONTIN] PO SCH (08:50)
[2018-11-07] MEDS: APIXABAN 5 MG TABLET PO SCH (08:51)
[2018-11-07] MEDS: POLYETHYLENE GLYCOL 17 GM PACKET PO SCH (08:52)
[2018-11-07] MEDS: COLLAGENASE 5 GM (UD JAR) TOP SCH (08:53)
--- NOTE | 2018-11-07 11:21 | DS ---
Date/Time of Note Date/Time of Note DATE: 11/07/18 TIME: 11:16 Discharge Summary Admission/Discharge Info Admit Date/Time Oct 19, 2018 at 21:00 Discharge Date/Time Discharge Diagnosis 1. Lumbar radiculopathy status post spinal fusion and infection with the patient status post hardware removal/reposition. 2. Acute pain syndrome, managed on current medication regime 3. Status post respiratory failure. 4. Morbid obesity. 5. Hypertension 6. S/P Pulmonary embolism. 7. Impairments in self-care and mobility. Patient Condition: Good Hospital Course Patient was admitted for comprehensive interdisciplinary rehabilitation. She initially was quite low level with variable participation. She made steady gradual gains from a max/dep to a min assist level for self care and mobility. She also had issues with cognition on admission, but has improved to her [facility] cognition. She also had wound healing issues on admission, but has improved with wound well healed. She is now able to tolerate lower level of care. Anticipate discharge to SNF. Home Meds Active Scripts Levothyroxine Sodium* (Levothyroxine Sodium*) 100 Mcg Tablet, 200 MCG PO DAILY@06 for 30 Days, TAB Prov:STEVE MCCARTY 08/22/18 Hydrocodone/Acetaminophen ([place] 10-325 Tablet) 1 Each Tablet, 1 EACH PO DAILY PRN for SEVERE PAIN LEVEL 7-10, #20 TAB Prov:STEVE MCCARTY 08/22/18 Reported Medications Pantoprazole* (Protonix*) 40 Mg Tablet.dr, 40 MG PO DAILY, TAB 08/17/18 Gabapentin* (Gabapentin*) 300 Mg Capsule, 300 MG PO TID, CAP 09/15/15 Methocarbamol* (Methocarbamol*) 500 Mg Tablet, 500 MG PO Q6, TAB 09/15/15 Primary Care Provider Not On Staff Doctor MILLY PUENTE MD Nov 07, 2018 11:21
--- NOTE | 2018-11-07 11:28 | NUR ---
Patient seen not in any distress or discomfort this time. Scheduled Oxycontin given for pain; relief noted. Wound dressing done and photos taken. Dr. Adams saw the patient with order of XR lumbar 1V stat. Awaiting for result. Will continue to monitor patient.
--- NOTE | 2018-11-07 13:06 | NUR ---
Social Work Note: This proposal manager writer discussed d/c with Medical direcvtor, pt set for d/d to [facility] [address] [phone] . This social welfare clerk spoke darshan Díaz Addendum: 11/07/18 at 1421 by ERICK JEAN BAPTISTE Spoke darshan Díaz at [facility] [phone] provided authorization for pt to transfer to [facility]. Nivia in admissions at [facility] confirms pt can be transferred This social welfare clerk called [facility] [phone] and spoke darshan Jensen provided reservation#[id number].
--- NOTE | 2018-11-07 14:40 | NUR ---
Patient alert, oriented and able to make needs known with complaints of pain during the shift and was medicated with scheduled Oxycontin 10mg PO BID; relief noted. All due medications given. Dressing change was done on back incision and photo taken. Recreational activity offered like watching TV. Call light and bedside table placed within reach. Bed alarm activated for safety and bed placed on lowest position. Patient was due for discharge to [facility] ([facility]) and assisted with packing her stuff. Left message to Dr. Leung's office regarding patient's discharge. Patient refused to have her vital signs checked and was very busy with packing her things. Left the unit via gurney in stable condition at 1435. Report given to Estee at [facility].
--- NOTE | 2018-11-08 08:14 | NUR ---
[facility] PT Discharge Summary Date of Discharge: 11/07/18 Patient Name: NAEEM CINTRON MR#: [id number] Height: 5 ft 0 in Weight: 198 lbs 6.657 oz 90.000 kg Reason for Visit: LUMBSACRAL RADICULOPATHY Precautions: confused, spine prec, LSO when OOB Date: 11/07/18 Time: 0814 User: JEANNIE TENA Patient's progress, Adm-->DC: Short-term Goals: Bed Mob with Min A Transfers with Min A Gait with LSO with FWW 10ft with min/mod A sit up in WC for 15min for meals with min A up/down 5 steps with B rails with SBA/CGA Pt made fair gains during her stay at [facility]. At eval, pt was mod assist for bed mobility, max assist for transfers. Pt required 2PA for transfers. At the time of dc, pt was min A for bed mobility, min/mod assist for transfers, mod A for gait 5ft using FWW but with 2PA for safety/WC follow, SBA for WC mobility 25ft. Pt met STG for bed mobility. Barriers: self-limiting behavior, pain, confused, highly resistive to education, non-cooperative at times, non-compliant with spine prec. Recommended manual WC with swing away leg rests, BSC, home with HHPT and 24hr assistance. Pt dc'd to SNF.
--- NOTE | 2018-11-08 08:51 | NUR ---
[facility] OT Discharge Summary Date of Discharge: 11/07/18 Patient Name: NAEEM CINTRON MR#: [id number] Height:5 ft 0 in Weight:198 lbs 6.657 oz 90.000 kg Reason for Visit: LUMBSACRAL RADICULOPATHY Precautions: fall risk, LSO when OOB, spainal prec, confused at times Date: 11/08/18 Time: 0851 User: PAYAM MADEDN Patient's progress, Adm-->DC: Short-term Goals: VR OT Short term Goal 1 Pt will perform UB dressing with min A within 10 days. [facility] OT Short term Goal 2 Pt will perform LB dressing with mod A within 10 days. [facility] OT Short term Goal 3 Pt will perform toileting with mod A within 10 days. - Not all goals met, see below. Upon initial eval pt functional levels were the following: Grooming: SUP, Bathing: Total A, UE/LE Dress: Max A/Total A, Toileting: Total A, and Transfers: Total A (2p for safety). Upon D/C pt functional levels were the following: Grooming: SUP, Bathing; Mod A, UE/LE Dress: Mod A/Mod A, and Transfers: Total A (2p for safety). Pt made very conservative progress towards goals through ADL retraining, transfer training, bed mobility training, and ther act/ex for carry over to ADLs/act siva. Barriers to therapy include: poor compliance w/ spinal prec req cont verbal cues for safety, highly resistive to education, multiple refusals d/t increased pain, emotional at times requiring mod-max redirection, and extra time for all activities. Pt DC to SNF d/t requiring cont care at a lower level + no support at home. Rec: ongoing OT to continue to maximize safety and independence in ADLs.
[2018-11-08] MEDS ORDERED: ACET-2047 PO (11:49)
[2018-11-08] MEDS ORDERED: APIX5TAB PO (11:50)
[2018-11-08] MEDS ORDERED: BISA5TAB6 PO (11:51)
[2018-11-08] MEDS ORDERED: BACL20TA PO (11:51)
[2018-11-08] MEDS ORDERED: BISA10SU75 PR (11:51)
[2018-11-08] MEDS ORDERED: SAN30GM TOP (11:52)
[2018-11-08] MEDS ORDERED: GABA-526 PO (11:53)
[2018-11-08] MEDS ORDERED: DOCU-144 PO (11:53)
[2018-11-08] MEDS ORDERED: LACT20SO2 PO (11:54)
[2018-11-08] MEDS ORDERED: LEVO200T6 PO (11:55)
[2018-11-08] MEDS ORDERED: MAG355OR14 PO (11:55)
[2018-11-08] MEDS ORDERED: POLY17PO6 PO (11:55)
[2018-11-08] MEDS ORDERED: HYDR-4011 PO (11:56)
[2018-11-08] MEDS ORDERED: OXYC10TA45 PO (11:57)
[2018-11-08] MEDS ORDERED: SENN-120 PO (11:57)
== END 2018-11-07 14:35 | DRG 945 ==
LOC: VRC 21:00
PROVIDERS: ADMIT Physical Medicine & Rehabilitation; ATTEND Internal Medicine
PROC: F08Z1ZZ Dressing Techniques Treatment (ICD-10-PCS; principal; 2018-10-22)
PROC: F08Z0ZZ Bathing/Showering Techniques Treatment (ICD-10-PCS; 2018-10-22)
PROC: F07Z5ZZ Bed Mobility Treatment (ICD-10-PCS; 2018-10-22)
PROC: F07Z9ZZ Gait Training/Functional Ambulation Treatment (ICD-10-PCS; 2018-10-22)
DX: G89.18 Other acute postprocedural pain (principal); N39.0 Urinary tract infection, site not specified; I10 Essential (primary) hypertension; E03.9 Hypothyroidism, unspecified; Z74.09 Other reduced mobility; Z98.890 Other specified postprocedural states; E66.01 Morbid (severe) obesity due to excess calories; Z68.38 Body mass index [BMI] 38.0-38.9, adult; Z86.711 Personal history of pulmonary embolism; Z87.09 Personal history of other diseases of the respiratory system
CPT/HCPCS: 72020; 72100; 80048; 80053; 81001; 81003; 82962; 84132; 85025; 85730; 87081; 87086; 97110; 97112; 97116; 97163; 97167; 97530; 97535; 97542; J1170; L1906

== ENCOUNTER 2018-11-08 10:33 | Emergency (ER) | payer OTHER ==
[~2018-11-08] VITALS: Ht 160 cm; Wt 80.0 kg
[2018-11-08 11:03] VITALS: BP 151/94; PULSE 90; RESP 18; Ht 160 cm; Wt 80.0 kg
[2018-11-08] MEDS ORDERED: ACET-2047 PO (11:49)
[2018-11-08] MEDS ORDERED: APIX5TAB PO (11:50)
[2018-11-08] MEDS ORDERED: BISA10SU75 PR (11:51)
[2018-11-08] MEDS ORDERED: BISA5TAB6 PO (11:51)
[2018-11-08] MEDS ORDERED: BACL20TA PO (11:51)
[2018-11-08] MEDS ORDERED: SAN30GM TOP (11:52)
[2018-11-08] MEDS ORDERED: GABA-526 PO (11:53)
[2018-11-08] MEDS ORDERED: DOCU-144 PO (11:53)
[2018-11-08] MEDS ORDERED: LACT20SO2 PO (11:54)
[2018-11-08] MEDS ORDERED: POLY17PO6 PO (11:55)
[2018-11-08] MEDS ORDERED: LEVO200T6 PO (11:55)
[2018-11-08] MEDS ORDERED: MAG355OR14 PO (11:55)
[2018-11-08] MEDS ORDERED: HYDR-4011 PO (11:56)
[2018-11-08] MEDS ORDERED: SENN-120 PO (11:57)
[2018-11-08] MEDS ORDERED: OXYC10TA45 PO (11:57)
--- NOTE | 2018-11-08 14:31 | ERD ---
ER Documentation Chief Complaint Chief Complaint C/O AGITATION HPI This is a 58-year-old female presents for evaluation of lumbar radiculopathy. Patient had spinal fusion performed, and she reports having persistent pain. She states that the staff over there, was not giving her pain medication, she became agitated, and this presents of the facility. Here she denies fever, no chest pain or shortness of breath. She is able to stand but with limited movement secondary to pain. ROS All systems reviewed and are negative except as per history of present illness. Medications Home Meds Reported Medications Sennosides* (Senna Lax*) 8.6 Mg Tablet, 1 TAB PO DAILY PRN for CONSTIPATION, TAB 11/08/18 Oxycodone Hcl* (Oxycontin*) 10 Mg Tab.sr.12h, 10 MG PO Q12 PRN for SEVERE PAIN LEVEL 7-10, TAB 11/08/18 Hydrocodone/Acetaminophen ([place]iles 5-325 Tablet) 1 Each Tablet, 1 EACH PO Q6 PRN for SEVERE PAIN LEVEL 7-10, TAB 11/08/18 Polyethylene Glycol* (Miralax*) 17 Gm Powd.pack, 17 GM PO DAILY PRN for CONSTIPATION, #30 PACKET 11/08/18 Mag Hydrox/Al Hydrox/Simeth (Maalox Advanced Suspension) 355 Ml Oral.susp, 30 ML PO BID PRN for CONSTIPATION 11/08/18 Levothyroxine Sodium* (Levothyroxine Sodium*) 200 Mcg Tablet, 200 MCG PO BEFORE BREAKFAST, #30 TAB 11/08/18 Lactulose* (Lactulose*) 20 Gm/30 Ml Solution, 20 GM PO DAILY PRN for CONSTIPATION, ML 11/08/18 Gabapentin* (Gabapentin*) 600 Mg Tablet, 600 MG PO Q8, #60 TAB 11/08/18 Docusate Sodium* (Colace*) 100 Mg Capsule, 100 MG PO BID, #60 CAP 11/08/18 Collagenase* (Santyl*) 30 Gm Oint..gm., 1 APPLIC TOP DAILY, #1 TUB 11/08/18 Bisacodyl* (Bisacodyl*) 10 Mg Supp, 10 MG DC Q24H PRN for CONSTIPATION, SUPP 11/08/18 Bisacodyl* (Bisacodyl*) 5 Mg Tablet.dr, 5 MG PO DAILY PRN for CONSTIPATION, TAB 11/08/18 Baclofen* (Baclofen*) 20 Mg Tablet, 20 MG PO Q8, TAB 11/08/18 Apixaban* (Eliquis*) 5 Mg Tablet, 5 MG PO BID, TAB 11/08/18 Acetaminophen* (Acetaminophen*) 650 Mg Tablet, 650 MG PO Q6H PRN for PAIN AND OR ELEVATED TEMP, #30 TAB 11/08/18 Pantoprazole* (Protonix*) 40 Mg Tablet.dr, 40 MG PO DAILY, TAB 08/17/18 Discontinued Reported Medications Gabapentin* (Gabapentin*) 300 Mg Capsule, 300 MG PO TID, CAP 09/15/15 Methocarbamol* (Methocarbamol*) 500 Mg Tablet, 500 MG PO Q6, TAB 09/15/15 Discontinued Scripts Levothyroxine Sodium* (Levothyroxine Sodium*) 100 Mcg Tablet, 200 MCG PO DAILY@06 for 30 Days, TAB Prov:STEVE MCCARTY 08/22/18 Hydrocodone/Acetaminophen ([place]iles 10-325 Tablet) 1 Each Tablet, 1 EACH PO DAILY PRN for SEVERE PAIN LEVEL 7-10, #20 TAB Prov:STEEV MCCARTY 08/22/18 Allergies Allergies: Coded Allergies: No Known Allergy (Unverified , 03/15/17) PMhx/Soc History of Surgery: Yes (Multiple on back and hips) Anesthesia Reaction: No Hx Neurological Disorder: Yes (neuropathy) Hx Respiratory Disorders: No Hx Cardiac Disorders: Yes (htn) Hx Psychiatric Problems: No Hx Miscellaneous Medical Probl: No Hx Alcohol Use: No Hx Substance Use: No Hx Tobacco Use: No Smoking Status: Never smoker Physical Exam Vitals Vital Signs Date Temp Pulse Resp B/P (MAP) Pulse Ox O2 O2 Flow FiO2 Time Delivery Rate 11/08/18 99.0 90 18 151/94 99 11:03 (113) 11/08/18 97.9 85 22 155/85 95 10:59 (108) Physical Exam Const: Thank you for for coming to [facility] for your care today. Please ask your nurse or provider if you have questions about your care today and do not leave until all your questions have been answered. Please use any medications given as directed and follow-up with your doctor (or the doctor you were referred to) in the next 2-3 days. If you do not have a primary care doctor you may follow up at the community hospital (listed below). You may also use motrin and tylenol as needed for fever and/or pain unless instructed otherwise by your provider or nurse. Indications for more urgent follow-up have been discussed, but you may return to the Emergency Department at ANY time for any worrisome or worsening symptoms. If you have abdominal pain, please know that no test or exam you received is perfect and you should follow up within 8 hours for continued pain. If you had any imaging studies today, such as an X-Ray or CT Scan, these studies will be reviewed later by a radiologist. You will be called if there are important findings that were not identified today, so make sure the contact information you provided at registration is correct. If you received any narcotic pain control medicine today, such as Vicodin, Morphine or Dilaudid, your coordination and judgment may be affected for a number of hours. Please do not drive or operate heavy machinery, and you may want someone to assist you at home. If you were given a prescription for narcotic medication, be aware that it is very addictive- use sparingly and only if necessary. Head: Atraumatic Eyes: Normal Conjunctiva ENT: Normal External Ears, Nose and Mouth. Neck: Full range of motion. No meningismus. Resp: Clear to auscultation bilaterally Cardio: Regular rate and rhythm, no murmurs Abd: Soft, non tender, non distended. Normal bowel sounds Skin: No petechiae or rashes Back: No midline or flank tenderness Ext: No cyanosis, or edema Neur: Awake and alert Psych: Normal Mood and Affect Result Diagram: 11/08/18 1105 11/08/18 1105 Results 24 hrs Laboratory Tests Test 11/08/18 11:05 11/08/18 12:00 White Blood Count 6.6 10^3/ul Red Blood Count 3.96 10^6/ul Hemoglobin 11.3 g/dl Hematocrit 34.6 % Mean Corpuscular Volume 87.4 fl Mean Corpuscular Hemoglobin 28.5 pg Mean Corpuscular Hemoglobin Concent 32.7 g/dl Red Cell Distribution Width 13.5 % Platelet Count 299 10^3/UL Mean Platelet Volume 9.2 fl Immature Granulocytes % 0.300 % Neutrophils % 65.4 % Lymphocytes % 24.8 % Monocytes % 7.7 % Eosinophils % 1.5 % Basophils % 0.3 % Nucleated Red Blood Cells % 0.0 /100WBC Immature Granulocytes # 0.020 10^3/ul Neutrophils # 4.3 10^3/ul Lymphocytes # 1.6 10^3/ul Monocytes # 0.5 10^3/ul Eosinophils # 0.1 10^3/ul Basophils # 0.0 10^3/ul Nucleated Red Blood Cells # 0.0 10^3/ul Sodium Level 142 mmol/L Potassium Level 3.8 mmol/L Chloride Level 106 mmol/L Carbon Dioxide Level 27 mmol/L Anion Gap 9 Blood Urea Nitrogen 14 mg/dl Creatinine 0.62 mg/dl Est Glomerular Filtrat Rate mL/min > 60 mL/min Glucose Level 131 mg/dl Calcium Level 10.0 mg/dl Total Bilirubin 0.2 mg/dl Direct Bilirubin 0.00 mg/dl Indirect Bilirubin 0.2 mg/dl Aspartate Amino Transf (AST/SGOT) 20 IU/L Alanine Aminotransferase (ALT/SGPT) 22 IU/L Alkaline Phosphatase 101 IU/L Troponin I < 0.012 ng/ml Total Protein 7.3 g/dl Albumin 4.0 g/dl Globulin 3.30 g/dl Albumin/Globulin Ratio 1.21 Lipase 70 U/L Urine Color YELLOW Urine Clarity SLIGHTLY CLOUDY Urine pH 7.0 Urine Specific [place] 1.017 Urine Ketones NEGATIVE mg/dL Urine Nitrite NEGATIVE mg/dL Urine Bilirubin NEGATIVE mg/dL Urine Urobilinogen NEGATIVE mg/dL Urine Leukocyte Esterase NEGATIVE Adry/ul Urine Microscopic RBC 3 /HPF Urine Microscopic WBC 1 /HPF Urine Squamous Epithelial Cells FEW /HPF Urine Mucus FEW /HPF Urine Hemoglobin NEGATIVE mg/dL Urine Glucose NEGATIVE mg/dL Urine Total Protein NEGATIVE mg/dl Procedures/MDM This 58-year-old female presents for evaluation of acute on chronic back pain. Patient had no neurologic deficits, no fever, at this point I do not suspect emergent cause of back pain such as epidural abscess, her CT abdomen pelvis was negative, and her labs were overall unremarkable. I discussed the findings with the patient, she was to actually be discharged home as opposed to be returned to her facility. I spoke with Dr. Bard freeman about this, and he is comfortable with this plan of care. Given that the patient was still in the process of receiving physical therapy at her outside facility and is still limited in her ambulation, case management was consulted for evaluation, as she will does continue to require home health and physical therapy. She will also require follow-up with her PMD within 1 week. Departure Diagnosis: Primary Impression: Back pain Back pain location: low back pain Chronicity: chronic Back pain laterality: bilateral Sciatica presence: without sciatica Qualified Codes: M54.5 - Low back pain; G89.29 - Other chronic pain Condition: Stable MARCE MADRID MD Nov 08, 2018 14:30
--- NOTE | 2018-11-08 17:02 | NUR ---
RECEIVED ORDER TO ARRANGE FOR HH AND FWW FOR THIS PT. SHE CAME FROM SNF BUT REFUSES TO GO BACK AND FAMILY IS TAKING HER HOME. INFORMATION WAS FAX'S TO [facility] AND SHE HAS BEEN APPROVE FOR HH WITH [facility] . PT WAS ON SERVICE WITH THEM PRIOR TO HOSPITALIZATION AND PER JEREMIAH AT [facility] PT HAD AN ORDER FOR A WC THAT WAS SENT TO [facility] IN SEPTEMBER.
== END 2018-11-08 16:31 | disposition home or self-care (01) ==
LOC: E/R 10:33
DX: M54.5 Low back pain (principal); I10 Essential (primary) hypertension; R40.2252 Coma scale, best verbal response, oriented, at arrival to emergency department; R40.2362 Coma scale, best motor response, obeys commands, at arrival to emergency department; R40.2142 Coma scale, eyes open, spontaneous, at arrival to emergency department
CPT/HCPCS: 36415; 71045; 74176; 80053; 81001; 81003; 83690; 84484; 85025; 93005

== ENCOUNTER 2019-04-10 17:18 | Inpatient (IN) | payer OTHER ==
[~2019-04-10] VITALS: Ht 152.4 cm; Wt 103.0 kg
[~2019-04-10 17:18] MED LIST changes: +ACET-2047 PO; +APIX5TAB PO; +BACL20TA PO; +BISA10SU75 PR; +BISA5TAB6 PO; +DOCU-144 PO; +GABA-526 PO; -GABA300C16 PO; -HYDR-3980 PO; +HYDR-4011 PO; +LACT20SO2 PO; -LEVO100T8 PO; +LEVO200T6 PO; +MAG355OR14 PO; -METH500T8 PO; +OXYC10TA45 PO; +POLY17PO6 PO; +SAN30GM TOP; +SENN-120 PO
[2019-04-10 17:24] VITALS: Ht 152.4 cm; Wt 103.0 kg
--- NOTE | 2019-04-10 18:19 | ERD ---
ER Documentation Chief Complaint Chief Complaint sent by dr mayo -swelling on both legs possible blood clots HPI 58-year-old female, with history of chronic back pain with multiple surgeries, presents to the emergency department, referred by Dr. Mayo for bilateral lower extremity ultrasound, due to worsening of bilateral lower extremity edema. Otherwise, no shortness of breath, no palpitations. ROS All systems reviewed and are negative except as per history of present illness. Medications Home Meds Reported Medications Sennosides* (Senna Lax*) 8.6 Mg Tablet, 1 TAB PO DAILY PRN for CONSTIPATION, TAB 11/08/18 Oxycodone Hcl* (Oxycontin*) 10 Mg Tab.sr.12h, 10 MG PO Q12 PRN for SEVERE PAIN LEVEL 7-10, TAB 11/08/18 Hydrocodone/Acetaminophen ([place] 5-325 Tablet) 1 Each Tablet, 1 EACH PO Q6 PRN for SEVERE PAIN LEVEL 7-10, TAB 11/08/18 Polyethylene Glycol* (Miralax*) 17 Gm Powd.pack, 17 GM PO DAILY PRN for CONSTIPATION, #30 PACKET 11/08/18 Mag Hydrox/Al Hydrox/Simeth (Maalox Advanced Suspension) 355 Ml Oral.susp, 30 ML PO BID PRN for CONSTIPATION 11/08/18 Levothyroxine Sodium* (Levothyroxine Sodium*) 200 Mcg Tablet, 200 MCG PO BEFORE BREAKFAST, #30 TAB 11/08/18 Lactulose* (Lactulose*) 20 Gm/30 Ml Solution, 20 GM PO DAILY PRN for CONSTIPATION, ML 11/08/18 Gabapentin* (Gabapentin*) 600 Mg Tablet, 600 MG PO Q8, #60 TAB 11/08/18 Docusate Sodium* (Colace*) 100 Mg Capsule, 100 MG PO BID, #60 CAP 11/08/18 Collagenase* (Santyl*) 30 Gm Oint..gm., 1 APPLIC TOP DAILY, #1 TUB 11/08/18 Bisacodyl* (Bisacodyl*) 10 Mg Supp, 10 MG [place] Q24H PRN for CONSTIPATION, SUPP 11/08/18 Bisacodyl* (Bisacodyl*) 5 Mg Tablet.dr, 5 MG PO DAILY PRN for CONSTIPATION, TAB 11/08/18 Baclofen* (Baclofen*) 20 Mg Tablet, 20 MG PO Q8, TAB 11/08/18 Apixaban* (Eliquis*) 5 Mg Tablet, 5 MG PO BID, TAB 11/08/18 Acetaminophen* (Acetaminophen*) 650 Mg Tablet, 650 MG PO Q6H PRN for PAIN AND OR ELEVATED TEMP, #30 TAB 11/08/18 Pantoprazole* (Protonix*) 40 Mg Tablet.dr, 40 MG PO DAILY, TAB 08/17/18 Allergies Allergies: Coded Allergies: No Known Allergy (Unverified , 03/15/17) PMhx/Soc History of Surgery: Yes (Multiple on back and hips) Anesthesia Reaction: No Hx Neurological Disorder: Yes (neuropathy) Hx Respiratory Disorders: No Hx Cardiac Disorders: Yes (htn) Hx Psychiatric Problems: No Hx Miscellaneous Medical Probl: No Hx Alcohol Use: No Hx Substance Use: No Hx Tobacco Use: No FmHx Family History: diabetes Physical Exam Vitals Vital Signs Date Temp Pulse Resp B/P (MAP) Pulse Ox O2 O2 Flow FiO2 Time Delivery Rate 04/10/19 97.7 79 23 118/61 100 17:24 (80) Physical Exam Const: No acute distress Head: Atraumatic Eyes: Normal Conjunctiva ENT: Normal External Ears, Nose and Mouth. Neck: Full range of motion. No meningismus. Resp: Clear to auscultation bilaterally Cardio: Regular rate and rhythm, no murmurs Abd: Soft, non tender, non distended. Normal bowel sounds Skin: No petechiae or rashes Back: No midline or flank tenderness Ext: No cyanosis, 2+edema Neur: Awake and alert Psych: Normal Mood and Affect Results 24 hrs DIAGNOSTIC IMAGING REPORT Patient: NAEEM CINTRON : 1960 Age: 58 Sex: F MR #: [id number] DOS: 04/10/191817 Ordering MD: ALEXI VAUGHN MD Location: FT Room/Bed: PROCEDURE: US Lower extremity Venous. CLINICAL INDICATION: Lower extremity swelling TECHNIQUE: Multiple sonographic images of the bilateral lower extremity deep venous system were obtained utilizing grayscale, color-flow, compressive sonography and doppler imaging with augmentation. The images were reviewed on a PACS workstation. COMPARISON: None. FINDINGS: There is normal compressibility and flow within the bilateral common femoral, deep femoral, superficial femoral and popliteal veins. The deep veins of the calf were incompletely visualized. IMPRESSION: No sonographic evidence for deep venous thrombosis. Procedures/MDM Chronic leg edema: no red flags. Differential diagnosis include but not limited to: Musculoskeletal injury, CHF, Arthritis, fracture, DVT; low suspicion for acute limb ischemia, septic arthritis, necrotizing fasciitis, compartment syndrome. Neurovascular exam grossly intact. no clinical findings suggestive of acute infectious process, no acute deformity, no edema, no rashes. Pertinent Data: bilateral venous Doppler: Negative for DVT. Physical examination and clinical presentation consistent most likely with bilateral lower edema, likely venous stasis. Results and clinical impression discussed with the patient who agrees with management. The patient is stable to be treated outpatient and will be discharged home. The patient was instructed to follow up with the primary care provider in the next 48h. If symptoms persist, worsen or new symptoms develop, then patient should return to the ED immediately. Instructions explained and given to patient with acknowledgment and demonstrated understanding. Disclaimer: Inadvertent spelling and grammatical errors are likely due to EHR/dictation software use and do not reflect on the overall quality of patient care. Also, please note that the electronic time recorded on this note does not necessarily reflect the actual time of the patient encounter. Departure Diagnosis: Primary Impression: Leg edema Additional Impression: No history of deep vein thrombosis (DVT) Condition: Stable Additional Instructions: thank you very much for allowing us to participate in your care. Your health and safety is our top priority at [facility]. The evaluation in the emergency department has been done to rule out an acute emergency. Chronic, [id number] conditions may have not been evaluated; therefore, you need to follow up with a primary care provider in the next 48h. If symptoms persist, worsen or new symptoms develop, then patient should return to the ED immediately. Call your primary care doctor TOMORROW for an appointment during the next 2-4 days and bring all the information provided. Have prescriptions filled and follow precisely the directions on the label. If the symptoms get worse and your provider is unavailable, return to the Emergency Department immediately. ALEXI VAUGHN MD Apr 10, 2019 18:19
[2019-04-10] MEDS ORDERED: ONDANSETRON 4 MG INJ IV STA (21:24)
[2019-04-10] MEDS ORDERED: SOD CHLORIDE 0.9% 500 ML IV STA (21:24)
[2019-04-10] MEDS ORDERED: morphine 2 MG INJ IV STA (21:24)
[2019-04-10] MEDS ORDERED: NACL 0.9% 3 ML SYG IV SCH (21:30)
[2019-04-10] MEDS ORDERED: ONDANSETRON 4 MG INJ IV PRN ×2 (21:30)
[2019-04-10] MEDS ORDERED: ACETAMINOPHEN 325 MG TAB PO PRN ×2 (21:30)
[2019-04-11] MEDS: morphine 2 MG INJ IV PRN ×4 (01:20→21:29)
[2019-04-11 02:52] VITALS: BP 105/51; PULSE 77; RESP 16
[2019-04-11] MEDS ORDERED: AMIT100T2 PO (06:12)
[2019-04-11] MEDS ORDERED: ROSU5TAB11 PO (06:12)
[2019-04-11] MEDS ORDERED: METH750T2 PO (06:12)
[2019-04-11 07:40] VITALS: BP 149/66; PULSE 76; RESP 18
[2019-04-11 08:00] VITALS: BP 119/59; PULSE 78; RESP 18
[2019-04-11] MEDS: FAMOTIDINE 20 MG INJ IV SCH ×2 (09:31→21:31)
[2019-04-11] MEDS: ENOXAPARIN 30 MG/0.3 ML SYG SC SCH (09:32)
--- NOTE | 2019-04-11 13:28 | HP ---
Date/Time of Note Date/Time of Note DATE: 04/11/19 TIME: 13:20 Assessment/Plan VTE Prophylaxis Risk score (from Nsg)>0 risk: 6 SCD applied (from Nsg): Yes Pharmacological prophylaxis: LMWH Lines/Catheters IV Catheter Type (from Nrsg): Peripheral IV Central line still needed: Yes Urinary Cath still in place: Yes Reason Cath still needed: urinary retention Assessment/Plan Assessment/Plan -Acute on chronic lower back pain with left lower extremities radiculopathy/weakness. Continue morphine as needed for pain and Zofran as needed for nausea. Dr. Welch is asked to see patient in pain management consultation -Hxof Left L5-S1 Reposition of interbody cage with removal of ISF device and placement of L5-S1 Rods/Screws on 09/07/[address] Mayo. -HX of bilateral L5-S1 TLIF using ISF by Dr Mayo on 08/17/18 -Hypothyroidism, continue Synthroid. -Morbid obesity Further recommendations based on clinical course. Plan of care discussed with Dr. Leung. Result Diagram: 04/11/19 0701 04/11/19 0701 Results 24hrs Laboratory Tests Test 04/10/19 21:38 04/11/19 00:16 04/11/19 07:01 White Blood Count 4.8 # 5.4 Red Blood Count 3.95 L 3.75 L Hemoglobin 11.1 L 10.6 L Hematocrit 35.0 L 33.4 L Mean Corpuscular Volume 88.6 89.1 Mean Corpuscular Hemoglobin 28.1 L 28.3 L Mean Corpuscular Hemoglobin Concent 31.7 L 31.7 L Red Cell Distribution Width 14.6 H 14.5 Platelet Count 236 # 245 Mean Platelet Volume 9.0 9.4 Immature Granulocytes % 0.400 0.600 H Neutrophils % 45.8 52.7 Lymphocytes % 37.1 30.8 Monocytes % 9.2 8.5 Eosinophils % 6.7 6.8 Basophils % 0.8 0.6 Nucleated Red Blood Cells % 0.0 0.0 Immature Granulocytes # 0.020 0.030 Neutrophils # 2.2 2.9 Lymphocytes # 1.8 1.7 Monocytes # 0.4 0.5 Eosinophils # 0.3 0.4 Basophils # 0.0 0.0 Nucleated Red Blood Cells # 0.0 0.0 Sodium Level 140 141 Potassium Level 4.1 4.0 Chloride Level 108 109 Carbon Dioxide Level 26 27 Anion Gap 6 5 Blood Urea Nitrogen 19 18 Creatinine 0.70 0.73 Est Glomerular Filtrat Rate mL/min > 60 > 60 Glucose Level 112 115 Calcium Level 9.0 8.6 Total Bilirubin 0.3 0.4 Direct Bilirubin 0.00 0.00 Indirect Bilirubin 0.3 0.4 Aspartate Amino Transf (AST/SGOT) 23 22 Alanine Aminotransferase (ALT/SGPT) 35 33 Alkaline Phosphatase 96 85 Total Protein 7.1 6.2 Albumin 4.0 3.3 Globulin 3.10 2.90 Albumin/Globulin Ratio 1.29 1.13 Urine Color YELLOW Urine Clarity CLEAR Urine pH 5.0 Urine Specific [place] 1.026 Urine Ketones NEGATIVE Urine Nitrite NEGATIVE Urine Bilirubin NEGATIVE Urine Urobilinogen NEGATIVE Urine Leukocyte Esterase NEGATIVE Urine Hemoglobin NEGATIVE Urine Glucose NEGATIVE Urine Total Protein NEGATIVE Hemoglobin A1c 6.4 H HPI/ROS Admit Date/Time Admit Date/Time Apr 10, 2019 at 21:22 Hx of Present Illness The patient is 58-year-old female with history of chronic back pain and multiple surgeries on the lumbar spine done by Dr. Mayo, S1 was done in August 2018. Patient's hospital course was complicated by patient developing PE and wound infection. Patient underwent physical therapy and treatment in acute rehabilitation center and was discharged home in stable condition. Patient was evaluated by Dr. Mayo in his office and was referred to the emergency room for complaints of significant low back pain not relieved by PO medicationand bilateral lower extremity edema. Patient also complains of difficulty getting out of bed and walking. Patient denies any fever chills denies any nausea vomiting and diarrhea. Patient underwent venous Doppler of bilateral extremity which was negative for deep venous thrombosis. Patient is admitted to medical surgical floor for further evaluation and pain management. ROS 12 point review of system is negative except for what mentioned in HPI PMH/Family/Social Past Medical History Medical History: hypothyroid, other (Chronic low back pain, morbid obesity) Medications Current Medications IV Flush (NS 3 ml) 3 ml PER PROTOCOL IV ; Start 04/10/19 at 21:30 Ondansetron HCl (Zofran Inj) 4 mg Q6H PRN IV NAUSEA/VOMITING Last administered on 04/11/19at 01:20; Admin Dose 4 MG; Start 04/10/19 at 21:30 Acetaminophen (Tylenol Tab) 650 mg Q6H PRN PO .PAIN 1-3 OR TEMP; Start 04/10/19 at 21:30 Morphine Sulfate (morphine) 2 mg Q4H PRN IV .SEVERE PAIN 7-10 Last administered on 04/11/19at 09:31; Admin Dose 2 MG; Start 04/10/19 at 21:30 Famotidine (Pepcid Iv) 20 mg Q12 IV Last administered on 04/11/19at 09:31; Admin Dose 20 MG; Start 04/11/19 at 09:00 Enoxaparin Sodium (Lovenox) 30 mg DAILY SC Last administered on 04/11/19at 09:32; Admin Dose 30 MG; Start 04/11/19 at 09:00 Ondansetron HCl (Zofran Inj) 4 mg BRIDGE ORDER PRN IV NAUSEA/VOMITING; Start 04/10/19 at 21:30; Stop 04/11/19 at 21:29 Acetaminophen (Tylenol Tab) 650 mg ER BRIDGE PRN PO .MILD PAIN 1-3 OR TEMP; Start 04/10/19 at 21:30; Stop 04/11/19 at 21:29 Coded Allergies: No Known Allergy (Unverified , 03/15/17) Past Surgical History Past Surgical Hx: other (Hxof Left L5-S1 Reposition of interbody cage with removal of ISF device and placement of L5-S1 Rods/Screws on 09/07/[address] Mayo. ) Family History Significant Family History: no pertinent family hx Social History Alcohol Use: none Smoking Status: Former smoker Drug Use: none Exam/Review of Systems Vital Signs Vitals Vital Signs Date Temp Pulse Resp B/P (MAP) Pulse Ox O2 O2 Flow FiO2 Time Delivery Rate 04/11/19 98.0 78 18 119/59 92 Room Air 08:00 (79) Intake and Output 04/10/19 04/10/19 04/11/19 1515:00 23:00 07:00 IntakeIntake Total 500 ml OutputOutput Total 300 ml BalanceBalance 500 ml -300 ml Exam Constitutional: alert, oriented Head: normocephalic Neck: supple Respiratory: clear to auscultation Cardiovascular: nl pulses Gastrointestinal: soft, non-tender Musculoskeletal: nl extremities to inspection, other (lower back healed surgical incision) Extremities: normal pulses Neurological: nl mental status Skin: nl turgor RADCHENKO,STEVE Apr 11, 2019 13:28
[2019-04-11 14:00] VITALS: BP 131/66; PULSE 69; RESP 17
[2019-04-11 20:57] VITALS: BP 110/58; PULSE 77; RESP 16
[2019-04-12] MEDS: morphine 2 MG INJ IV PRN ×6 (01:32→23:30)
[2019-04-12 02:13] VITALS: BP 138/65; PULSE 69; RESP 16
[2019-04-12] MEDS ORDERED: CEFTRIAXONE 1 GM/50 ML (PMX) 50 ML IVPB ONE (03:02)
[2019-04-12] MEDS: LEVOTHYROXINE 100 MCG TAB PO SCH (06:04)
[2019-04-12] MEDS ORDERED: PANTOPRAZOLE (EC) 40 MG TAB PO SCH (09:00)
[2019-04-12] MEDS: FAMOTIDINE 20 MG INJ IV SCH ×2 (09:08→21:21)
[2019-04-12] MEDS: ENOXAPARIN 30 MG/0.3 ML SYG SC SCH (09:08)
--- NOTE | 2019-04-12 10:15 | CONS ---
Assessment/Plan Assessment/Plan Hospital Course (Demo Recall) Neurosurgery Consult Note History of multiple cervical/lumbar fusions Seen at my office and noted to have increasing pain with associated LE edema Admitted for pain management and r/o LE DVT LE US negative Plan Consultation Date/Type/Reason Admit Date/Time Apr 10, 2019 at 21:22 Date/Time of Note DATE: 04/12/19 TIME: 10:12 Hx of Present Illness 58 y/o female well known to me and previously underwent multiple spinal cervical/lumbar fusions. Pt was doing well but during her post op follow up noted to have worsening lower ext edema with increasing back pain . Pt advised to go to ED for further workup and r/o DVT. Past Medical History Home Meds Reported Medications Methocarbamol* (Methocarbamol*) 750 Mg Tablet, 750 MG PO TID, TAB 04/11/19 Rosuvastatin Calcium (Rosuvastatin Calcium) 5 Mg Tablet, 5 MG PO QHS, TAB 04/11/19 Amitriptyline Hcl* (Amitriptyline Hcl*) 100 Mg Tablet, 100 MG PO QHS, #30 TAB 04/11/19 Sennosides* (Senna Lax*) 8.6 Mg Tablet, 1 TAB PO DAILY PRN for CONSTIPATION, TAB 11/08/18 Oxycodone Hcl* (Oxycontin*) 10 Mg Tab.sr.12h, 10 MG PO Q12 PRN for SEVERE PAIN LEVEL 7-10, TAB 11/08/18 Hydrocodone/Acetaminophen ([place] 5-325 Tablet) 1 Each Tablet, 1 EACH PO Q6 PRN for SEVERE PAIN LEVEL 7-10, TAB 11/08/18 Polyethylene Glycol* (Miralax*) 17 Gm Powd.pack, 17 GM PO DAILY PRN for CONSTIPATION, #30 PACKET 11/08/18 Mag Hydrox/Al Hydrox/Simeth (Maalox Advanced Suspension) 355 Ml Oral.susp, 30 ML PO BID PRN for CONSTIPATION 11/08/18 Levothyroxine Sodium* (Levothyroxine Sodium*) 200 Mcg Tablet, 200 MCG PO BEFORE BREAKFAST, #30 TAB 11/08/18 Lactulose* (Lactulose*) 20 Gm/30 Ml Solution, 20 GM PO DAILY PRN for CONSTIPATION, ML 11/08/18 Gabapentin* (Gabapentin*) 600 Mg Tablet, 600 MG PO Q8, #60 TAB 11/08/18 Docusate Sodium* (Colace*) 100 Mg Capsule, 100 MG PO BID, #60 CAP 11/08/18 Collagenase* (Santyl*) 30 Gm Oint..gm., 1 APPLIC TOP DAILY, #1 TUB 11/08/18 Bisacodyl* (Bisacodyl*) 10 Mg Supp, 10 MG FL Q24H PRN for CONSTIPATION, SUPP 11/08/18 Bisacodyl* (Bisacodyl*) 5 Mg Tablet.dr, 5 MG PO DAILY PRN for CONSTIPATION, TAB 11/08/18 Baclofen* (Baclofen*) 20 Mg Tablet, 20 MG PO Q8, TAB 11/08/18 Apixaban* (Eliquis*) 5 Mg Tablet, 5 MG PO BID, TAB 11/08/18 Acetaminophen* (Acetaminophen*) 650 Mg Tablet, 650 MG PO Q6H PRN for PAIN AND OR ELEVATED TEMP, #30 TAB 11/08/18 Pantoprazole* (Protonix*) 40 Mg Tablet.dr, 40 MG PO DAILY, TAB 08/17/18 Medications Current Medications IV Flush (NS 3 ml) 3 ml PER PROTOCOL IV ; Start 04/10/19 at 21:30 Ondansetron HCl (Zofran Inj) 4 mg Q6H PRN IV NAUSEA/VOMITING Last administered on 04/11/19at 01:20; Admin Dose 4 MG; Start 04/10/19 at 21:30 Acetaminophen (Tylenol Tab) 650 mg Q6H PRN PO .PAIN 1-3 OR TEMP; Start 04/10/19 at 21:30 Morphine Sulfate (morphine) 2 mg Q4H PRN IV .SEVERE PAIN 7-10 Last administered on 04/12/19at 06:04; Admin Dose 2 MG; Start 04/10/19 at 21:30 Famotidine (Pepcid Iv) 20 mg Q12 IV Last administered on 04/12/19 09:08; Admin Dose 20 MG; Start 04/11/19 at 09:00 Enoxaparin Sodium (Lovenox) 30 mg DAILY SC Last administered on 04/12/19 09:08; Admin Dose 30 MG; Start 04/11/19 at 09:00 Levothyroxine Sodium (Synthroid) 200 mcg BEFORE BREAKFAST PO Last administered on 04/12/19 06:04; Admin Dose 200 MCG; Start 04/12/19 at 07:00 Amitriptyline HCl (Elavil) 100 mg QHS PO ; Start 04/12/19 at 21:00 Atorvastatin Calcium (Lipitor) 20 mg QHS PO ; Start 04/12/19 at 21:00 Allergies: Coded Allergies: No Known Allergy (Unverified , 03/15/17) Past Surgical History Past Surgical Hx: other Social History Smoking Status: Former smoker Exam/Review of Systems Exam Vitals Vital Signs Date Temp Pulse Resp B/P (MAP) Pulse Ox O2 O2 Flow FiO2 Time Delivery Rate 04/12/19 98.2 69 16 138/65 93 02:13 (89) 04/11/19 Room Air 14:00 Intake and Output 04/11/19 04/11/19 04/12/19 1515:00 23:00 07:00 IntakeIntake Total 400 ml OutputOutput Total 900 ml 1500 ml BalanceBalance -500 ml -1500 ml Results Result Diagram: 04/11/19 0701 04/11/19 0701 Medications Medication Current Medications IV Flush (NS 3 ml) 3 ml PER PROTOCOL IV ; Start 04/10/19 at 21:30 Ondansetron HCl (Zofran Inj) 4 mg Q6H PRN IV NAUSEA/VOMITING Last administered on 04/11/19at 01:20; Admin Dose 4 MG; Start 04/10/19 at 21:30 Acetaminophen (Tylenol Tab) 650 mg Q6H PRN PO .PAIN 1-3 OR TEMP; Start 04/10/19 at 21:30 Morphine Sulfate (morphine) 2 mg Q4H PRN IV .SEVERE PAIN 7-10 Last administered on 04/12/19at 06:04; Admin Dose 2 MG; Start 04/10/19 at 21:30 Famotidine (Pepcid Iv) 20 mg Q12 IV Last administered on 04/12/19 09:08; Admin Dose 20 MG; Start 04/11/19 at 09:00 Enoxaparin Sodium (Lovenox) 30 mg DAILY SC Last administered on 04/12/19 09:08; Admin Dose 30 MG; Start 04/11/19 at 09:00 Levothyroxine Sodium (Synthroid) 200 mcg BEFORE BREAKFAST PO Last administered on 04/12/19at 06:04; Admin Dose 200 MCG; Start 04/12/19 at 07:00 Amitriptyline HCl (Elavil) 100 mg QHS PO ; Start 04/12/19 at 21:00 Atorvastatin Calcium (Lipitor) 20 mg QHS PO ; Start 04/12/19 at 21:00 NORMAN DESAI MD Apr 12, 2019 10:15
[2019-04-12 11:00] VITALS: BP 138/76; PULSE 78
[2019-04-12 15:20] VITALS: BP 145/65; PULSE 66; RESP 18
[2019-04-12] MEDS: POLYETHYLENE GLYCOL 17 GM PACKET PO SCH (17:50)
[2019-04-12] MEDS: METHYLPREDNISOLONE 40 MG INJ IV SCH ×2 (17:50→21:23)
[2019-04-12 20:23] VITALS: BP 158/72; PULSE 72; RESP 20
[2019-04-12] MEDS: ATORVASTATIN 20 MG TAB PO SCH (21:20)
[2019-04-12] MEDS: SENNA/DOCUSATE NA (8.6MG/50MG) TAB PO SCH (21:20)
[2019-04-12] MEDS: oxyCODONE (CR) 10 MG TAB [oxyCONTIN] PO SCH (21:21)
[2019-04-12] MEDS: AMITRIPTYLINE 50 MG TAB PO SCH (21:21)
[2019-04-13 02:30] VITALS: BP 127/56; PULSE 18; PULSE 65; RESP 18; RESP 65
[2019-04-13] MEDS: METHYLPREDNISOLONE 40 MG INJ IV SCH ×3 (06:05→21:37)
[2019-04-13] MEDS: LEVOTHYROXINE 100 MCG TAB PO SCH (06:05)
[2019-04-13 08:24] VITALS: BP 143/69; PULSE 67; RESP 16
[2019-04-13] MEDS: POLYETHYLENE GLYCOL 17 GM PACKET PO SCH ×2 (09:00→09:40)
--- NOTE | 2019-04-13 09:35 | CONS ---
Assessment/Plan Assessment/Plan Assessment/Plan (Daily) Sudden onset low back pain pain management will continue with morphine and peering dose of Lynx will also ug designer with low dose steroids suggest early ambulation and physical therapy, occupational therapy hold dose of opioids down to the minimum as much as possible, discontinue IV opioid one or two days Further workup or recommendations of neurosurgery Consultation Date/Type/Reason Admit Date/Time Apr 10, 2019 at 21:22 Date/Time of Note DATE: 04/13/19 TIME: 09:29 Hx of Present Illness Patient is a obese [id number] female with history of low back pain who had a lumbosacral surgical procedure done in August 2018 state for a period of time she was doing very well. For unknown reason she was seen by her neurosurgeon within the last one week complaining of increasing severe low back pain with bilateral lower extremity edema and was referred to the hospital for control of her symptoms and work up. Patient denies any warning signs, denies nausea vomiting constipation itching is mental cloudiness recent weight loss weight gain, he admits that she said bilateral lower extremity sudden onset of swelling in both lower extremities. States the pain is 10 over 10 with radiations into bilateral lower extremities sometimes it's a knowing type discomfort and occasionally shall have a radicular sharp lancinating pain going from her ankles to her lumbosacral spine. The pain as she describes intense it interferes with her mood including parents she rates her pain wanting is 10 over 10 with pain control medications is fiber return denies past medical history of purposeful roasted oversedation with pain control medications. Denies a history of alcohol or drug use. Does not appear to be intoxicated or impaired or unkempt. He is not ask for increasing doses or frequent renewals of the current pain control medications. She's not insisting on IV pain control medication there is no history of chronic abuse of opioids prior to this hospitalization. Patient has no systemic symptoms associated with her current pain Constitutional: No no complaints, No improved, No chills, No diaphoresis, No disoriented, No febrile, No poor po, No requiring IVF, No requiring O2, No other Eyes: No no complaints, No pain, No discharge, No redness, No visual change, No other ENT: No no complaints, No bleeding, No pain, No congestion, No discharge, No dysphagia, No sore throat, No other Respiratory: No no complaints, No pain, No cough, No pleuritic pain, No shortness of breath, No sputum, No wheezing, No other Cardiovascular: No no complaints, No chest pain, No edema, No lightheadedness, No orthopenea, No palpitations, No paroxysmal nocturnal dyspnea, No other Gastrointestinal: No no complaints, No pain, No blood, No constipation, No decreased appetite, No diarrhea, No flatus, No nausea, No passing stool, No vomiting, No other Genitourinary: No no complaints, No bleeding, No dysuria, No discharge, No flank pain, No hematuria, No other Neurologic: No no complaints, No confusion, No dizziness, No focal-weakness, No headache, No syncope, No seizure, No other Psychological: No no complaints, No nl mood/affect, No anxiety, No confusion, No depression, No suicidal, No other Past Medical History Home Meds Reported Medications Methocarbamol* (Methocarbamol*) 750 Mg Tablet, 750 MG PO TID, TAB 04/11/19 Rosuvastatin Calcium (Rosuvastatin Calcium) 5 Mg Tablet, 5 MG PO QHS, TAB 04/11/19 Amitriptyline Hcl* (Amitriptyline Hcl*) 100 Mg Tablet, 100 MG PO QHS, #30 TAB 04/11/19 Sennosides* (Senna Lax*) 8.6 Mg Tablet, 1 TAB PO DAILY PRN for CONSTIPATION, TAB 11/08/18 Oxycodone Hcl* (Oxycontin*) 10 Mg Tab.sr.12h, 10 MG PO Q12 PRN for SEVERE PAIN LEVEL 7-10, TAB 11/08/18 Hydrocodone/Acetaminophen ([place] 5-325 Tablet) 1 Each Tablet, 1 EACH PO Q6 PRN for SEVERE PAIN LEVEL 7-10, TAB 11/08/18 Polyethylene Glycol* (Miralax*) 17 Gm Powd.pack, 17 GM PO DAILY PRN for CONSTIPATION, #30 PACKET 11/08/18 Mag Hydrox/Al Hydrox/Simeth (Maalox Advanced Suspension) 355 Ml Oral.susp, 30 ML PO BID PRN for CONSTIPATION 11/08/18 Levothyroxine Sodium* (Levothyroxine Sodium*) 200 Mcg Tablet, 200 MCG PO BEFORE BREAKFAST, #30 TAB 11/08/18 Lactulose* (Lactulose*) 20 Gm/30 Ml Solution, 20 GM PO DAILY PRN for CONSTIPATION, ML 11/08/18 Gabapentin* (Gabapentin*) 600 Mg Tablet, 600 MG PO Q8, #60 TAB 11/08/18 Docusate Sodium* (Colace*) 100 Mg Capsule, 100 MG PO BID, #60 CAP 11/08/18 Collagenase* (Santyl*) 30 Gm Oint..gm., 1 APPLIC TOP DAILY, #1 TUB 11/08/18 Bisacodyl* (Bisacodyl*) 10 Mg Supp, 10 MG HI Q24H PRN for CONSTIPATION, SUPP 11/08/18 Bisacodyl* (Bisacodyl*) 5 Mg Tablet.dr, 5 MG PO DAILY PRN for CONSTIPATION, TAB 11/08/18 Baclofen* (Baclofen*) 20 Mg Tablet, 20 MG PO Q8, TAB 11/08/18 Apixaban* (Eliquis*) 5 Mg Tablet, 5 MG PO BID, TAB 11/08/18 Acetaminophen* (Acetaminophen*) 650 Mg Tablet, 650 MG PO Q6H PRN for PAIN AND OR ELEVATED TEMP, #30 TAB 11/08/18 Pantoprazole* (Protonix*) 40 Mg Tablet.dr, 40 MG PO DAILY, TAB 08/17/18 Medications Current Medications IV Flush (NS 3 ml) 3 ml PER PROTOCOL IV ; Start 04/10/19 at 21:30 Ondansetron HCl (Zofran Inj) 4 mg Q6H PRN IV NAUSEA/VOMITING Last administered on 04/11/19at 01:20; Admin Dose 4 MG; Start 04/10/19 at 21:30 Acetaminophen (Tylenol Tab) 650 mg Q6H PRN PO .PAIN 1-3 OR TEMP; Start 04/10/19 at 21:30 Morphine Sulfate (morphine) 2 mg Q4H PRN IV .SEVERE PAIN 7-10 Last administered on 04/12/19at 23:30; Admin Dose 2 MG; Start 04/10/19 at 21:30 Famotidine (Pepcid Iv) 20 mg Q12 IV Last administered on 04/12/19at 21:21; Admin Dose 20 MG; Start 04/11/19 at 09:00 Enoxaparin Sodium (Lovenox) 30 mg DAILY SC Last administered on 04/12/19at 09:08; Admin Dose 30 MG; Start 04/11/19 at 09:00 Levothyroxine Sodium (Synthroid) 200 mcg BEFORE BREAKFAST PO Last administered on 04/13/19 06:05; Admin Dose 200 MCG; Start 04/12/19 at 07:00 Amitriptyline HCl (Elavil) 100 mg QHS PO Last administered on 04/12/19 21:21; Admin Dose 100 MG; Start 04/12/19 at 21:00 Atorvastatin Calcium (Lipitor) 20 mg QHS PO Last administered on 04/12/19 21:20; Admin Dose 20 MG; Start 04/12/19 at 21:00 Oxycodone HCl (Oxycontin) 10 mg BID PO Last administered on 04/12/19 21:21; Admin Dose 10 MG; Start 04/12/19 at 21:00 Senna/Docusate Sodium (Senokot-S) 2 tab BID PO Last administered on 04/12/19 21:20; Admin Dose 2 TAB; Start 04/12/19 at 21:00 Polyethylene Glycol (Miralax) 17 gm DAILY PO Last administered on 04/12/19 17:50; Admin Dose 17 GM; Start 04/12/19 at 17:00 Methylprednisolone Sodium Succinate (Solu-Medrol) 40 mg Q8 IV Last administered on 04/13/19 06:05; Admin Dose 40 MG; Start 04/12/19 at 17:00 Allergies: Coded Allergies: No Known Allergy (Unverified , 03/15/17) Past Surgical History Past Surgical Hx: other Social History Smoking Status: Former smoker Exam/Review of Systems Exam Vitals Vital Signs Date Temp Pulse Resp B/P (MAP) Pulse Ox O2 O2 Flow FiO2 Time Delivery Rate 04/13/19 97.9 67 16 143/69 92 08:24 (93) 04/13/19 Room Air 02:30 Intake and Output 04/12/19 04/12/19 04/13/19 1515:00 23:00 07:00 IntakeIntake Total 1000 ml 300 ml 350 ml OutputOutput Total 1200 ml 1200 ml BalanceBalance 1000 ml -900 ml -850 ml Exam Neurological examination bilateral lower extremities range of motion grossly decreased secondary to pain and bilateral ankles and knees and hips motor grossly intact sensory grossly intact extensor palaces tendon grossly intact flexion extension bilateral ankles internal external rotation intact cannot assess straight leg sign secondary to severe pain bilateral lower extremities 2+ pitting edema Constitutional: other (in distress) Psych: anxiety Eyes: nl conjunctiva, EOMI, nl lids, nl sclera, PERRL Respiratory: clear to auscultation, normal air movement Cardiovascular: regular rate and rhythm, nl pulses Results Result Diagram: 04/11/1970004/11/19700 Medications Medication Current Medications IV Flush (NS 3 ml) 3 ml PER PROTOCOL IV ; Start 04/10/19 at 21:30 Ondansetron HCl (Zofran Inj) 4 mg Q6H PRN IV NAUSEA/VOMITING Last administered on 04/11/19 01:20; Admin Dose 4 MG; Start 04/10/19 at 21:30 Acetaminophen (Tylenol Tab) 650 mg Q6H PRN PO .PAIN 1-3 OR TEMP; Start 04/10/19 at 21:30 Morphine Sulfate (morphine) 2 mg Q4H PRN IV .SEVERE PAIN 7-10 Last administered on 04/12/19 23:30; Admin Dose 2 MG; Start 04/10/19 at 21:30 Famotidine (Pepcid Iv) 20 mg Q12 IV Last administered on 04/12/19 21:21; Admin Dose 20 MG; Start 04/11/19 at 09:00 Enoxaparin Sodium (Lovenox) 30 mg DAILY SC Last administered on 04/12/19 09:08; Admin Dose 30 MG; Start 04/11/19 at 09:00 Levothyroxine Sodium (Synthroid) 200 mcg BEFORE BREAKFAST PO Last administered on 04/13/19 06:05; Admin Dose 200 MCG; Start 04/12/19 at 07:00 Amitriptyline HCl (Elavil) 100 mg QHS PO Last administered on 04/12/19 21:21; Admin Dose 100 MG; Start 04/12/19 at 21:00 Atorvastatin Calcium (Lipitor) 20 mg QHS PO Last administered on 04/12/19 21:20; Admin Dose 20 MG; Start 04/12/19 at 21:00 Oxycodone HCl (Oxycontin) 10 mg BID PO Last administered on 04/12/19 21:21; Admin Dose 10 MG; Start 04/12/19 at 21:00 Senna/Docusate Sodium (Senokot-S) 2 tab BID PO Last administered on 04/12/19at 21:20; Admin Dose 2 TAB; Start 04/12/19 at 21:00 Polyethylene Glycol (Miralax) 17 gm DAILY PO Last administered on 04/12/19at 17:50; Admin Dose 17 GM; Start 04/12/19 at 17:00 Methylprednisolone Sodium Succinate (Solu-Medrol) 40 mg Q8 IV Last administered on 04/13/19at 06:05; Admin Dose 40 MG; Start 04/12/19 at 17:00 JOHNSON WHITMORE Apr 13, 2019 09:35
[2019-04-13] MEDS: oxyCODONE (CR) 10 MG TAB [oxyCONTIN] PO SCH ×2 (09:41→20:35)
[2019-04-13] MEDS: FAMOTIDINE 20 MG INJ IV SCH ×2 (09:41→20:35)
[2019-04-13] MEDS: SENNA/DOCUSATE NA (8.6MG/50MG) TAB PO SCH ×2 (09:41→20:34)
[2019-04-13] MEDS: ENOXAPARIN 30 MG/0.3 ML SYG SC SCH (09:43)
[2019-04-13] MEDS: morphine 2 MG INJ IV PRN ×2 (13:18→23:34)
--- NOTE | 2019-04-13 14:41 | PN ---
Date/Time of Note Date/Time of Note DATE: 04/13/19 TIME: 14:41 Assessment/Plan VTE Prophylaxis Risk score (from Nsg)>0 risk: 1 SCD applied (from Nsg): Yes SCD contraindicated: other Pharmacological prophylaxis: other Pharm contraindication: other Lines/Catheters IV Catheter Type (from Nrsg): Saline Lock Urinary Cath still in place: Yes Reason Cath still needed: urinary retention Assessment/Plan Assessment/Plan -Acute on chronic lower back pain with left lower extremities radiculopathy/weakness. Continue morphine as needed for pain and Zofran as needed for nausea. Dr. Welch is asked to see patient in pain management consultation -Hxof Left L5-S1 Reposition of interbody cage with removal of ISF device and maryann cement of L5-S1 Rods/Screws on 09/07/[address] Mayo. -HX of bilateral L5-S1 TLIF using ISF by Dr Mayo on 08/17/18 -Hypothyroidism, continue Synthroid. -Morbid obesity Further recommendations based on clinical course. Plan of care discussed with Dr. Leung. Result Diagram: 04/11/19 0701 04/11/19 0701 Subjective 24 Hr Interval Summary Free Text/Dictation nad afebrile sleeping; seems comfortable no events overnight dw staff Eyes: no complaints ENT: no complaints Respiratory: no complaints Cardiovascular: no complaints Gastrointestinal: no complaints Genitourinary: no complaints Musculoskeletal: back pain Skin: no complaints Exam/Review of Systems Exam Vitals Vital Signs Date Temp Pulse Resp B/P (MAP) Pulse Ox O2 O2 Flow FiO2 Time Delivery Rate 04/13/19 97.9 67 16 143/69 92 08:24 (93) 04/13/19 Room Air 02:30 Intake and Output 04/12/19 04/12/19 04/13/19 1515:00 23:00 07:00 IntakeIntake Total 1000 ml 300 ml 350 ml OutputOutput Total 1200 ml 1200 ml BalanceBalance 1000 ml -900 ml -850 ml Constitutional: alert, well developed Psych: nl mood/affect Eyes: nl lids, nl sclera ENMT: nl external ears & nose Neck: non-tender Respiratory: clear to auscultation Cardiovascular: nl pulses, other (s1s2) Gastrointestinal: soft, non-tender Musculoskeletal: joint tenderness, range of motion Neurological: nl speech Medications Medication Current Medications IV Flush (NS 3 ml) 3 ml PER PROTOCOL IV ; Start 04/10/19 at 21:30 Ondansetron HCl (Zofran Inj) 4 mg Q6H PRN IV NAUSEA/VOMITING Last administered on 04/11/19 01:20; Admin Dose 4 MG; Start 04/10/19 at 21:30 Acetaminophen (Tylenol Tab) 650 mg Q6H PRN PO .PAIN 1-3 OR TEMP; Start 04/10/19 at 21:30 Morphine Sulfate (morphine) 2 mg Q4H PRN IV .SEVERE PAIN 7-10 Last administered on 04/13/19 13:18; Admin Dose 2 MG; Start 04/10/19 at 21:30 Famotidine (Pepcid Iv) 20 mg Q12 IV Last administered on 04/13/19 09:41; Admin Dose 20 MG; Start 04/11/19 at 09:00 Enoxaparin Sodium (Lovenox) 30 mg DAILY SC Last administered on 04/13/19 09:43; Admin Dose 30 MG; Start 04/11/19 at 09:00 Levothyroxine Sodium (Synthroid) 200 mcg BEFORE BREAKFAST PO Last administered on 04/13/19 06:05; Admin Dose 200 MCG; Start 04/12/19 at 07:00 Amitriptyline HCl (Elavil) 100 mg QHS PO Last administered on 04/12/19 21:21; Admin Dose 100 MG; Start 04/12/19 at 21:00 Atorvastatin Calcium (Lipitor) 20 mg QHS PO Last administered on 04/12/19 21:20; Admin Dose 20 MG; Start 04/12/19 at 21:00 Oxycodone HCl (Oxycontin) 10 mg BID PO Last administered on 04/13/19 09:41; Admin Dose 10 MG; Start 04/12/19 at 21:00 Senna/Docusate Sodium (Senokot-S) 2 tab BID PO Last administered on 04/13/19 09:41; Admin Dose 2 TAB; Start 04/12/19 at 21:00 Polyethylene Glycol (Miralax) 17 gm DAILY PO Last administered on 04/12/19 17:50; Admin Dose 17 GM; Start 04/12/19 at 17:00 Methylprednisolone Sodium Succinate (Solu-Medrol) 40 mg Q8 IV Last administered on 04/13/19at 13:43; Admin Dose 40 MG; Start 04/12/19 at 17:00 JONATHAN LEE Apr 13, 2019 14:41
--- NOTE | 2019-04-13 14:41 | PN ---
Date/Time of Note Date/Time of Note DATE: 04/13/19 TIME: 14:40 Assessment/Plan VTE Prophylaxis Risk score (from Ns)>0 risk: 1 SCD applied (from Ns): Yes SCD contraindicated: other Pharmacological prophylaxis: other Pharm contraindication: other Lines/Catheters IV Catheter Type (from Nrsg): Saline Lock Urinary Cath still in place: Yes Reason Cath still needed: urinary retention Assessment/Plan Assessment/Plan -Acute on chronic lower back pain with left lower extremities radiculopathy/weakness. Continue morphine as needed for pain and Zofran as needed for nausea. Dr. Welch is asked to see patient in pain management consultation -Hxof Left L5-S1 Reposition of interbody cage with removal of ISF device and maryann cement of L5-S1 Rods/Screws on 09/07/[address] Mayo. -HX of bilateral L5-S1 TLIF using ISF by Dr Mayo on 08/17/18 -Hypothyroidism, continue Synthroid. -Morbid obesity Further recommendations based on clinical course. Plan of care discussed with Dr. Leung. Result Diagram: 04/11/19 0701 04/11/19 0701 Subjective 24 Hr Interval Summary Free Text/Dictation Late entry- 04/12/2019 nad afebrile feels better; effective pain control no events overnight dw staff Eyes: no complaints ENT: no complaints Respiratory: no complaints Cardiovascular: no complaints Gastrointestinal: no complaints Musculoskeletal: back pain Skin: no complaints Exam/Review of Systems Exam Vitals Vital Signs Date Temp Pulse Resp B/P (MAP) Pulse Ox O2 O2 Flow FiO2 Time Delivery Rate 04/13/19 97.9 67 16 143/69 92 08:24 (93) 04/13/19 Room Air 02:30 Intake and Output 04/12/19 04/12/19 04/13/19 1515:00 23:00 07:00 IntakeIntake Total 1000 ml 300 ml 350 ml OutputOutput Total 1200 ml 1200 ml BalanceBalance 1000 ml -900 ml -850 ml Constitutional: alert, oriented, well developed Psych: nl mood/affect Eyes: nl lids, nl sclera ENMT: nl external ears & nose Neck: non-tender Respiratory: clear to auscultation Cardiovascular: nl pulses, other (s1s2) Gastrointestinal: soft, non-tender Musculoskeletal: joint tenderness, range of motion Extremities: normal pulses Neurological: nl speech Lymph: nontender Medications Medication Current Medications IV Flush (NS 3 ml) 3 ml PER PROTOCOL IV ; Start 04/10/19 at 21:30 Ondansetron HCl (Zofran Inj) 4 mg Q6H PRN IV NAUSEA/VOMITING Last administered on 04/11/19 01:20; Admin Dose 4 MG; Start 04/10/19 at 21:30 Acetaminophen (Tylenol Tab) 650 mg Q6H PRN PO .PAIN 1-3 OR TEMP; Start 04/10/19 at 21:30 Morphine Sulfate (morphine) 2 mg Q4H PRN IV .SEVERE PAIN 7-10 Last administered on 04/13/19 13:18; Admin Dose 2 MG; Start 04/10/19 at 21:30 Famotidine (Pepcid Iv) 20 mg Q12 IV Last administered on 04/13/19 09:41; Admin Dose 20 MG; Start 04/11/19 at 09:00 Enoxaparin Sodium (Lovenox) 30 mg DAILY SC Last administered on 04/13/19 09:43; Admin Dose 30 MG; Start 04/11/19 at 09:00 Levothyroxine Sodium (Synthroid) 200 mcg BEFORE BREAKFAST PO Last administered on 04/13/19 06:05; Admin Dose 200 MCG; Start 04/12/19 at 07:00 Amitriptyline HCl (Elavil) 100 mg QHS PO Last administered on 04/12/19 21:21; Admin Dose 100 MG; Start 04/12/19 at 21:00 Atorvastatin Calcium (Lipitor) 20 mg QHS PO Last administered on 04/12/19 21:20; Admin Dose 20 MG; Start 04/12/19 at 21:00 Oxycodone HCl (Oxycontin) 10 mg BID PO Last administered on 04/13/19 09:41; Admin Dose 10 MG; Start 04/12/19 at 21:00 Senna/Docusate Sodium (Senokot-S) 2 tab BID PO Last administered on 04/13/19 0 9:41; Admin Dose 2 TAB; Start 04/12/19 at 21:00 Polyethylene Glycol (Miralax) 17 gm DAILY PO Last administered on 04/12/19 17:50; Admin Dose 17 GM; Start 6/7/19 at 17:00 Methylprednisolone Sodium Succinate (Solu-Medrol) 40 mg Q8 IV Last administered on 04/13/19at 13:43; Admin Dose 40 MG; Start 04/12/19 at 17:00 JONATHAN LEE Apr 13, 2019 14:41
[2019-04-13 14:53] VITALS: BP 111/56; PULSE 71; RESP 16
[2019-04-13 20:00] VITALS: BP 108/52; PULSE 81; RESP 18
[2019-04-13] MEDS: AMITRIPTYLINE 50 MG TAB PO SCH (20:34)
[2019-04-13] MEDS: ATORVASTATIN 20 MG TAB PO SCH (20:35)
[2019-04-14 02:00] VITALS: BP 169/81; PULSE 69; RESP 18
[2019-04-14 03:00] VITALS: BP 149/72
[2019-04-14] MEDS: morphine 2 MG INJ IV PRN ×4 (03:35→23:40)
[2019-04-14] MEDS: LEVOTHYROXINE 100 MCG TAB PO SCH (06:08)
[2019-04-14] MEDS: METHYLPREDNISOLONE 40 MG INJ IV SCH ×3 (06:08→21:13)
[2019-04-14 08:07] VITALS: BP 143/74; PULSE 63; RESP 16
[2019-04-14] MEDS: POLYETHYLENE GLYCOL 17 GM PACKET PO SCH (09:00)
[2019-04-14] MEDS: SENNA/DOCUSATE NA (8.6MG/50MG) TAB PO SCH ×2 (09:00→21:13)
[2019-04-14] MEDS: oxyCODONE (CR) 10 MG TAB [oxyCONTIN] PO SCH ×2 (09:07→21:13)
[2019-04-14] MEDS: FAMOTIDINE 20 MG INJ IV SCH ×2 (09:07→21:10)
[2019-04-14] MEDS: ENOXAPARIN 30 MG/0.3 ML SYG SC SCH (09:12)
[2019-04-14 14:33] VITALS: BP 122/62; PULSE 63; RESP 16
[2019-04-14 20:21] VITALS: BP 147/74; PULSE 70; RESP 16
[2019-04-14] MEDS: AMITRIPTYLINE 50 MG TAB PO SCH (21:12)
[2019-04-14] MEDS: ATORVASTATIN 20 MG TAB PO SCH (21:13)
[2019-04-15 02:20] VITALS: BP 144/67; PULSE 55; RESP 16
[2019-04-15] MEDS: morphine 2 MG INJ IV PRN ×3 (04:19→16:38)
[2019-04-15] MEDS: LEVOTHYROXINE 100 MCG TAB PO SCH (06:18)
[2019-04-15] MEDS: METHYLPREDNISOLONE 40 MG INJ IV SCH ×3 (06:18→21:30)
[2019-04-15 08:13] VITALS: BP 119/55; PULSE 58; RESP 17
[2019-04-15] MEDS: SENNA/DOCUSATE NA (8.6MG/50MG) TAB PO SCH ×2 (08:35→21:29)
[2019-04-15] MEDS: FAMOTIDINE 20 MG INJ IV SCH ×2 (08:35→21:29)
[2019-04-15] MEDS: oxyCODONE (CR) 10 MG TAB [oxyCONTIN] PO SCH ×2 (08:35→21:28)
[2019-04-15] MEDS: POLYETHYLENE GLYCOL 17 GM PACKET PO SCH (08:36)
[2019-04-15] MEDS: ENOXAPARIN 30 MG/0.3 ML SYG SC SCH (08:37)
[2019-04-15 15:09] VITALS: BP 119/62; PULSE 59; RESP 18
--- NOTE | 2019-04-15 18:21 | PN ---
Date/Time of Note Date/Time of Note DATE: 04/15/19 TIME: 18:21 Assessment/Plan VTE Prophylaxis Risk score (from Nsg)>0 risk: 7 SCD applied (from Nsg): Yes Pharmacological prophylaxis: LMWH Lines/Catheters IV Catheter Type (from Nrsg): Saline Lock Urinary Cath still in place: Yes Reason Cath still needed: urinary retention Assessment/Plan Hospital Course Pain is better controlled, continue current treatment, continue physical therapy, DC Drake Assessment/Plan -Acute on chronic lower back pain with left lower extremities radiculopathy/weak ness. Continue morphine as needed for pain and Zofran as needed for nausea. Dr. Welch is following pain management consultation -Hxof Left L5-S1 Reposition of interbody cage with removal of ISF device and placement of L5-S1 Rods/Screws on 09/07/[address] Mayo. -HX of bilateral L5-S1 TLIF using ISF by Dr Mayo on 08/17/18 -Hypothyroidism, continue Synthroid. -Morbid obesity Further recommendations based on clinical course. Plan of care discussed with Dr. Leung. Result Diagram: 04/11/19 0701 04/11/19 0701 Exam/Review of Systems Exam Vitals Vital Signs Date Temp Pulse Resp B/P (MAP) Pulse Ox O2 O2 Flow FiO2 Time Delivery Rate 04/15/19 98.1 59 18 119/62 93 15:09 (81) 04/13/19 Room Air 02:30 Intake and Output 04/14/19 04/14/19 04/15/19 1515:00 23:00 07:00 IntakeIntake Total 1200 ml 320 ml OutputOutput Total 900 ml 500 ml 1000 ml BalanceBalance -900 ml 700 ml -680 ml Exam Constitutional: alert, oriented Respiratory: clear to auscultation Cardiovascular: nl pulses Gastrointestinal: soft, non-tender Musculoskeletal: nl extremities to inspection, other (lower back healed surgical incision) Extremities: normal pulses Neurological: nl mental status Skin: nl turgor Medications Medication Current Medications IV Flush (NS 3 ml) 3 ml PER PROTOCOL IV ; Start 04/10/19 at 21:30 Ondansetron HCl (Zofran Inj) 4 mg Q6H PRN IV NAUSEA/VOMITING Last administered on 04/11/19at 01:20; Admin Dose 4 MG; Start 04/10/19 at 21:30 Acetaminophen (Tylenol Tab) 650 mg Q6H PRN PO .PAIN 1-3 OR TEMP; Start 04/10/19 at 21:30 Morphine Sulfate (morphine) 2 mg Q4H PRN IV .SEVERE PAIN 7-10 Last administered on 04/15/19 16:38; Admin Dose 2 MG; Start 04/10/19 at 21:30 Famotidine (Pepcid Iv) 20 mg Q12 IV Last administered on 04/15/19 08:35; Admin Dose 20 MG; Start 04/11/19 at 09:00 Enoxaparin Sodium (Lovenox) 30 mg DAILY SC Last administered on 04/15/19 08:37; Admin Dose 30 MG; Start 04/11/19 at 09:00 Levothyroxine Sodium (Synthroid) 200 mcg BEFORE BREAKFAST PO Last administered on 04/15/19 06:18; Admin Dose 200 MCG; Start 04/12/19 at 07:00 Amitriptyline HCl (Elavil) 100 mg QHS PO Last administered on 04/14/19 21:12; Admin Dose 100 MG; Start 04/12/19 at 21:00 Atorvastatin Calcium (Lipitor) 20 mg QHS PO Last administered on 04/14/19 21:13; Admin Dose 20 MG; Start 04/12/19 at 21:00 Oxycodone HCl (Oxycontin) 10 mg BID PO Last administered on 04/15/19 08:35; Admin Dose 10 MG; Start 04/12/19 at 21:00 Senna/Docusate Sodium (Senokot-S) 2 tab BID PO Last administered on 04/15/19 08:35; Admin Dose 2 TAB; Start 04/12/19 at 21:00 Polyethylene Glycol (Miralax) 17 gm DAILY PO Last administered on 04/15/19 08:36; Admin Dose 17 GM; Start 04/12/19 at 17:00 Methylprednisolone Sodium Succinate (Solu-Medrol) 40 mg Q8 IV Last administered on 04/15/19 14:23; Admin Dose 40 MG; Start 04/12/19 at 17:00 STEVE MCCARTY Apr 15, 2019 18:21
[2019-04-15 20:54] VITALS: BP 142/72; PULSE 70; RESP 16
[2019-04-15] MEDS: ATORVASTATIN 20 MG TAB PO SCH (21:28)
[2019-04-15] MEDS: AMITRIPTYLINE 50 MG TAB PO SCH (21:28)
[2019-04-16] VITALS (9 sets, daily range): BP systolic 120–198; BP diastolic 56–91; PULSE 46–59; RESP 18–20
[2019-04-16] MEDS: morphine 2 MG INJ IV PRN ×4 (02:08→23:01)
[2019-04-16] MEDS: METHYLPREDNISOLONE 40 MG INJ IV SCH ×2 (06:02→20:30)
[2019-04-16] MEDS: LEVOTHYROXINE 100 MCG TAB PO SCH (06:03)
[2019-04-16] MEDS: oxyCODONE (CR) 10 MG TAB [oxyCONTIN] PO SCH ×2 (09:00→20:29)
[2019-04-16] MEDS ORDERED: hydrALAzine 20 MG INJ IV PRN (10:00)
[2019-04-16] MEDS: POLYETHYLENE GLYCOL 17 GM PACKET PO SCH (10:16)
[2019-04-16] MEDS: SENNA/DOCUSATE NA (8.6MG/50MG) TAB PO SCH ×2 (10:16→20:30)
[2019-04-16] MEDS: LOSARTAN 50 MG TAB PO SCH (10:16)
[2019-04-16] MEDS: FAMOTIDINE 20 MG INJ IV SCH (10:16)
[2019-04-16] MEDS: ENOXAPARIN 30 MG/0.3 ML SYG SC SCH (10:29)
--- NOTE | 2019-04-16 16:09 | PN ---
Date/Time of Note Date/Time of Note DATE: 04/16/19 TIME: 16:06 Assessment/Plan VTE Prophylaxis Risk score (from Nsg)>0 risk: 5 SCD applied (from Nsg): Yes Pharmacological prophylaxis: LMWH Lines/Catheters IV Catheter Type (from Nrsg): Saline Lock Urinary Cath still in place: Yes Reason Cath still needed: urinary retention Assessment/Plan Hospital Course Patient is transferred to telemetry floor for bradycardia with heart rate going to go into the 40s, patient is awake alert denies any dizziness stable blood pressure. TSH is 0.0 53 will decrease the levothyroxine dose. Assessment/Plan -Bradycardia, continue telemetry monitoring. Dr. Burkett is asked to see patient in cardiology consultation. -Acute on chronic lower back pain with left lower extremities radiculopathy/weakness. Continue morphine as needed for pain and Zofran as ne eded for nausea. Dr. Welch is following pain management consultation -Hxof Left L5-S1 Reposition of interbody cage with removal of ISF device and placement of L5-S1 Rods/Screws on 09/07/[address] Mayo. -HX of bilateral L5-S1 TLIF using ISF by Dr Mayo on 08/17/18 -Hypothyroidism, continue Synthroid. -Morbid obesity Further recommendations based on clinical course. Plan of care discussed with Dr. Leung. Result Diagram: 04/16/19 1014 04/16/19 1014 Results 24hrs Laboratory Tests Test 04/16/19 10:14 White Blood Count 8.7 # Red Blood Count 4.91 # Hemoglobin 13.7 # Hematocrit 42.6 # Mean Corpuscular Volume 86.8 Mean Corpuscular Hemoglobin 27.9 L Mean Corpuscular Hemoglobin Concent 32.2 Red Cell Distribution Width 13.9 Platelet Count 335 # Mean Platelet Volume 9.4 Immature Granulocytes % 1.000 H Neutrophils % 80.6 H Lymphocytes % 15.0 Monocytes % 3.3 Eosinophils % 0.0 Basophils % 0.1 Nucleated Red Blood Cells % 0.0 Immature Granulocytes # 0.090 H Neutrophils # 7.0 Lymphocytes # 1.3 Monocytes # 0.3 Eosinophils # 0.0 Basophils # 0.0 Nucleated Red Blood Cells # 0.0 Sodium Level 137 Potassium Level 4.1 Chloride Level 104 Carbon Dioxide Level 24 Anion Gap 9 Blood Urea Nitrogen 25 H Creatinine 0.72 Est Glomerular Filtrat Rate mL/min > 60 Glucose Level 236 H Calcium Level 9.3 Total Bilirubin 0.4 Direct Bilirubin 0.00 Indirect Bilirubin 0.4 Aspartate Amino Transf (AST/SGOT) 25 Alanine Aminotransferase (ALT/SGPT) 31 Alkaline Phosphatase 78 Troponin I < 0.012 Total Protein 6.6 Albumin 3.7 Globulin 2.90 Albumin/Globulin Ratio 1.27 Thyroid Stimulating Hormone (TSH) 0.053 L Exam/Review of Systems Exam Vitals Vital Signs Date Temp Pulse Resp B/P (MAP) Pulse Ox O2 O2 Flow FiO2 Time Delivery Rate 04/16/19 97.3 55 18 128/64 99 Nasal 2.0 14:09 (85) Cannula Intake and Output 04/15/19 04/15/19 04/16/19 1515:00 23:00 07:00 IntakeIntake Total 480 ml 240 ml OutputOutput Total 1050 ml 200 ml BalanceBalance 480 ml -810 ml -200 ml Exam Constitutional: alert, oriented Respiratory: clear to auscultation Cardiovascular: nl pulses Gastrointestinal: soft, non-tender Musculoskeletal: nl extremities to inspection, other (lower back healed surgical incision) Extremities: normal pulses Neurological: nl mental status Skin: nl turgor Results Results 24hrs Laboratory Tests Test 04/16/19 10:14 White Blood Count 8.7 # Red Blood Count 4.91 # Hemoglobin 13.7 # Hematocrit 42.6 # Mean Corpuscular Volume 86.8 Mean Corpuscular Hemoglobin 27.9 L Mean Corpuscular Hemoglobin Concent 32.2 Red Cell Distribution Width 13.9 Platelet Count 335 # Mean Platelet Volume 9.4 Immature Granulocytes % 1.000 H Neutrophils % 80.6 H Lymphocytes % 15.0 Monocytes % 3.3 Eosinophils % 0.0 Basophils % 0.1 Nucleated Red Blood Cells % 0.0 Immature Granulocytes # 0.090 H Neutrophils # 7.0 Lymphocytes # 1.3 Monocytes # 0.3 Eosinophils # 0.0 Basophils # 0.0 Nucleated Red Blood Cells # 0.0 Sodium Level 137 Potassium Level 4.1 Chloride Level 104 Carbon Dioxide Level 24 Anion Gap 9 Blood Urea Nitrogen 25 H Creatinine 0.72 Est Glomerular Filtrat Rate mL/min > 60 Glucose Level 236 H Calcium Level 9.3 Total Bilirubin 0.4 Direct Bilirubin 0.00 Indirect Bilirubin 0.4 Aspartate Amino Transf (AST/SGOT) 25 Alanine Aminotransferase (ALT/SGPT) 31 Alkaline Phosphatase 78 Troponin I < 0.012 Total Protein 6.6 Albumin 3.7 Globulin 2.90 Albumin/Globulin Ratio 1.27 Thyroid Stimulating Hormone (TSH) 0.053 L Medications Medication Current Medications IV Flush (NS 3 ml) 3 ml PER PROTOCOL IV ; Start 04/10/19 at 21:30 Ondansetron HCl (Zofran Inj) 4 mg Q6H PRN IV NAUSEA/VOMITING Last administered on 04/11/19 01:20; Admin Dose 4 MG; Start 04/10/19 at 21:30 Acetaminophen (Tylenol Tab) 650 mg Q6H PRN PO .PAIN 1-3 OR TEMP; Start 04/10/19 at 21:30 Morphine Sulfate (morphine) 2 mg Q4H PRN IV .SEVERE PAIN 7-10 Last administered on 04/16/19 12:44; Admin Dose 2 MG; Start 04/10/19 at 21:30 Enoxaparin Sodium (Lovenox) 30 mg DAILY SC Last administered on 04/16/19 10:29; Admin Dose 30 MG; Start 04/11/19 at 09:00 Levothyroxine Sodium (Synthroid) 200 mcg BEFORE BREAKFAST PO Last administered on 04/16/19 06:03; Admin Dose 200 MCG; Start 04/12/19 at 07:00 Amitriptyline HCl (Elavil) 100 mg QHS PO Last administered on 04/15/19 21:28; Admin Dose 100 MG; Start 04/12/19 at 21:00 Atorvastatin Calcium (Lipitor) 20 mg QHS PO Last administered on 04/15/19 21:28; Admin Dose 20 MG; Start 04/12/19 at 21:00 Oxycodone HCl (Oxycontin) 10 mg BID PO Last administered on 04/15/19 21:28; Admin Dose 10 MG; Start 04/12/19 at 21:00 Senna/Docusate Sodium (Senokot-S) 2 tab BID PO Last administered on 04/16/19 10:16; Admin Dose 2 TAB; Start 04/12/19 at 21:00 Polyethylene Glycol (Miralax) 17 gm DAILY PO Last administered on 04/16/19 10:16; Admin Dose 17 GM; Start 04/12/19 at 17:00 Hydralazine HCl (Apresoline) 10 mg Q4H PRN IV for SBP greater than 160; Start 04/16/19 at 10:00 Losartan Potassium (Cozaar) 50 mg DAILY PO Last administered on 04/16/19at 10:16; Admin Dose 50 MG; Start 04/16/19 at 10:00 Methylprednisolone Sodium Succinate (Solu-Medrol) 40 mg BID IV ; Start 04/16/19 at 21:00 Pantoprazole (Protonix Tab) 40 mg DAILY@06 PO ; Start 04/17/19 at 06:00 STEVE MCCARTY Apr 16, 2019 16:09
[2019-04-16] MEDS: ATORVASTATIN 20 MG TAB PO SCH (20:29)
[2019-04-16] MEDS: AMITRIPTYLINE 50 MG TAB PO SCH (20:29)
[2019-04-17] VITALS (10 sets, daily range): BP systolic 129–140; BP diastolic 65–79; PULSE 54–68; RESP 16–20
[2019-04-17] MEDS: morphine 2 MG INJ IV PRN ×2 (04:22→11:56)
[2019-04-17] MEDS: LEVOTHYROXINE 150 MCG TAB PO SCH (05:24)
[2019-04-17] MEDS: PANTOPRAZOLE (EC) 40 MG TAB PO SCH (05:24)
[2019-04-17] MEDS: SENNA/DOCUSATE NA (8.6MG/50MG) TAB PO SCH ×2 (08:04→21:12)
[2019-04-17] MEDS: LOSARTAN 50 MG TAB PO SCH (08:04)
[2019-04-17] MEDS: POLYETHYLENE GLYCOL 17 GM PACKET PO SCH (08:04)
[2019-04-17] MEDS: METHYLPREDNISOLONE 40 MG INJ IV SCH ×2 (08:05→21:00)
[2019-04-17] MEDS: oxyCODONE (CR) 10 MG TAB [oxyCONTIN] PO SCH ×2 (08:05→21:13)
[2019-04-17] MEDS: ENOXAPARIN 30 MG/0.3 ML SYG SC SCH (08:15)
--- NOTE | 2019-04-17 16:05 | PN ---
Date/Time of Note Date/Time of Note DATE: 04/17/19 TIME: 16:00 Assessment/Plan VTE Prophylaxis Risk score (from Nsg)>0 risk: 5 SCD applied (from Nsg): Yes Pharmacological prophylaxis: LMWH Lines/Catheters IV Catheter Type (from Nrsg): Saline Lock Urinary Cath still in place: Yes Reason Cath still needed: urinary retention Assessment/Plan Hospital Course Patient was transferred to telemetry floor for bradycardia with heart rate going to go into the 40s, currently heart rate is ranges from 50-65 stable blood pressure, pending cardiology evaluation. Assessment/Plan -Bradycardia, continue telemetry monitoring. Dr. Burkett is asked to see patient in cardiology consultation. -Acute on chronic lower back pain with left lower extremities radiculopathy/weakness. Continue morphine as needed for pain and Zofran as needed for nausea. Dr. Welch is following pain management consultation -Hxof Left L5-S1 Reposition of interbody cage with removal of ISF device and placement of L5-S1 Rods/Screws on 09/07/[address] Mayo. -HX of bilateral L5-S1 TLIF using ISF by Dr Mayo on 08/17/18 -Hypothyroidism, TSH is 0.0 53, continue levothyroxine at decreased dose. -Morbid obesity Further recommendations based on clinical course. Plan of care discussed with Dr. Leung. Result Diagram: 04/17/19 0447 04/17/19 0447 Results 24hrs Laboratory Tests Test 04/17/19 04:47 White Blood Count 9.2 Red Blood Count 4.80 Hemoglobin 13.2 Hematocrit 41.8 Mean Corpuscular Volume 87.1 Mean Corpuscular Hemoglobin 27.5 L Mean Corpuscular Hemoglobin Concent 31.6 L Red Cell Distribution Width 13.9 Platelet Count 362 Mean Platelet Volume 9.5 Immature Granulocytes % 1.100 H Neutrophils % 71.7 Lymphocytes % 21.7 Monocytes % 5.4 Eosinophils % 0.0 Basophils % 0.1 Nucleated Red Blood Cells % 0.0 Immature Granulocytes # 0.100 H Neutrophils # 6.6 Lymphocytes # 2.0 Monocytes # 0.5 Eosinophils # 0.0 Basophils # 0.0 Nucleated Red Blood Cells # 0.0 Sodium Level 142 Potassium Level 4.7 Chloride Level 104 Carbon Dioxide Level 30 Anion Gap 8 Blood Urea Nitrogen 30 H Creatinine 0.73 Est Glomerular Filtrat Rate mL/min > 60 Glucose Level 137 # Calcium Level 8.9 Exam/Review of Systems Exam Vitals Vital Signs Date Temp Pulse Resp B/P (MAP) Pulse Ox O2 O2 Flow FiO2 Time Delivery Rate 04/17/19 98.1 65 18 129/78 95 Room Air 15:06 (95) 04/16/19 2.0 14:09 Intake and Output 04/16/19 04/16/19 04/17/19 1515:00 23:00 07:00 IntakeIntake Total 400 ml 850 ml OutputOutput Total 550 ml BalanceBalance 400 ml 300 ml Exam Constitutional: alert, oriented Respiratory: clear to auscultation Cardiovascular: nl pulses Gastrointestinal: soft, non-tender Musculoskeletal: nl extremities to inspection, other (lower back healed surgical incision) Extremities: normal pulses Neurological: nl mental status Skin: nl turgor Results Results 24hrs Laboratory Tests Test 04/17/19 04:47 White Blood Count 9.2 Red Blood Count 4.80 Hemoglobin 13.2 Hematocrit 41.8 Mean Corpuscular Volume 87.1 Mean Corpuscular Hemoglobin 27.5 L Mean Corpuscular Hemoglobin Concent 31.6 L Red Cell Distribution Width 13.9 Platelet Count 362 Mean Platelet Volume 9.5 Immature Granulocytes % 1.100 H Neutrophils % 71.7 Lymphocytes % 21.7 Monocytes % 5.4 Eosinophils % 0.0 Basophils % 0.1 Nucleated Red Blood Cells % 0.0 Immature Granulocytes # 0.100 H Neutrophils # 6.6 Lymphocytes # 2.0 Monocytes # 0.5 Eosinophils # 0.0 Basophils # 0.0 Nucleated Red Blood Cells # 0.0 Sodium Level 142 Potassium Level 4.7 Chloride Level 104 Carbon Dioxide Level 30 Anion Gap 8 Blood Urea Nitrogen 30 H Creatinine 0.73 Est Glomerular Filtrat Rate mL/min > 60 Glucose Level 137 # Calcium Level 8.9 Medications Medication Current Medications IV Flush (NS 3 ml) 3 ml PER PROTOCOL IV ; Start 04/10/19 at 21:30 Ondansetron HCl (Zofran Inj) 4 mg Q6H PRN IV NAUSEA/VOMITING Last administered on 04/11/19at 01:20; Admin Dose 4 MG; Start 04/10/19 at 21:30 Acetaminophen (Tylenol Tab) 650 mg Q6H PRN PO .PAIN 1-3 OR TEMP; Start 04/10/19 at 21:30 Morphine Sulfate (morphine) 2 mg Q4H PRN IV .SEVERE PAIN 7-10 Last administered on 04/17/19 11:56; Admin Dose 2 MG; Start 04/10/19 at 21:30 Enoxaparin Sodium (Lovenox) 30 mg DAILY SC Last administered on 04/17/19 08:15; Admin Dose 30 MG; Start 04/11/19 at 09:00 Amitriptyline HCl (Elavil) 100 mg QHS PO Last administered on 04/16/19 20:29; Admin Dose 100 MG; Start 04/12/19 at 21:00 Atorvastatin Calcium (Lipitor) 20 mg QHS PO Last administered on 04/16/19 20:29; Admin Dose 20 MG; Start 04/12/19 at 21:00 Oxycodone HCl (Oxycontin) 10 mg BID PO Last administered on 04/17/19 08:05; Admin Dose 10 MG; Start 04/12/19 at 21:00 Senna/Docusate Sodium (Senokot-S) 2 tab BID PO Last administered on 04/17/19 08:04; Admin Dose 2 TAB; Start 04/12/19 at 21:00 Polyethylene Glycol (Miralax) 17 gm DAILY PO Last administered on 04/17/19 08:04; Admin Dose 17 GM; Start 04/12/19 at 17:00 Hydralazine HCl (Apresoline) 10 mg Q4H PRN IV for SBP greater than 160; Start 04/16/19 at 10:00 Losartan Potassium (Cozaar) 50 mg DAILY PO Last administered on 04/17/19 08:04; Admin Dose 50 MG; Start 04/16/19 at 10:00 Methylprednisolone Sodium Succinate (Solu-Medrol) 40 mg BID IV Last admi nistered on 04/17/19 08:05; Admin Dose 40 MG; Start 04/16/19 at 21:00 Pantoprazole (Protonix Tab) 40 mg DAILY@06 PO Last administered on 04/17/19 05:24; Admin Dose 40 MG; Start 04/17/19 at 06:00 Levothyroxine Sodium (Synthroid) 150 mcg DAILY@06 PO Last administered on 04/17/19 05:24; Admin Dose 150 MCG; Start 6/12/19 at 06:00 STEVE CMCARTY Apr 17, 2019 16:05
--- NOTE | 2019-04-17 19:33 | CONS ---
DATE OF ADMISSION: 04/12/2019 DATE OF CONSULTATION: 04/17/2019 REASON FOR CONSULTATION: Bradycardia. REQUESTING PHYSICIAN: Joaquin Stover MD HISTORY OF PRESENT ILLNESS: Ms. Reed is a 58-year-old female with a history of chronic low back p ain with acute exacerbation, hypothyroidism and morbid obesity who presented for complaints of acute exacerbation of her back pain. Since arrival, the patient has been monitored on telemetry with episo suly of heart rates documented as low as 46, most recently in the 50s, with telemetry monitoring consi stent with episodes of sinus bradycardia. The patient has had stable blood pressure at this time. T he patient denies any prior history of syncope or dizziness. The patient's TSH here is actually supp ressed at 0.053. PAST MEDICAL HISTORY: As above in HPI. MEDICATIONS CURRENTLY IN THE HOSPITAL: 1. Protonix 40 mg daily. 2. Synthroid 150 mcg daily. 3. Solu-Medrol 40 mg IV b.i.d. 4. Losartan 50 mg daily. 5. Amitriptyline. 6. Lipitor 20 mg at bedtime. 7. OxyContin. 8. Senna. 9. Lovenox 30 mg subQ daily. 10. Zofran p.r.n. 11. Tylenol p.r.n. 12. Morphine p.r.n. ALLERGIES: NO KNOWN DRUG ALLERGIES. SOCIAL HISTORY: No current tobacco, social ETOH, no illicit drug use. FAMILY HISTORY: No sudden cardiac or early CAD. REVIEW OF SYSTEMS: As above in HPI. CONSTITUTIONAL: No fevers or chills. PULMONARY: No current shortness of breath. CARDIOVASCULAR: No current chest pain. GASTROINTESTINAL: No vomiting. GENITOURINARY: No hematuria. MUSCULOSKELETAL: Back pain. PSYCHIATRIC: No documented psych history. NEUROLOGIC: No documented history of CVA. ENDOCRINE: Hypothyroidism. PHYSICAL EXAMINATION: VITAL SIGNS: Temperature 98.1, blood pressure 129/78, pulse 65, respiratory rate 18, sat 95%. GENERAL: The patient is alert, awake, no acute distress. NECK: JVP approximately 8 to 9 cm of water. CHEST: Fair air movement throughout. HEART: Regular rate and rhythm. Normal S1, S2, I/ systolic murmur. Nondisplaced PMI. ABDOMEN: Obese. EXTREMITIES: No significant pitting edema, 1+ pulses bilateral posterior tibial. LABORATORY DATA: As above in HPI. Most recently from today, white count 9.2, hemoglobin 13.2, plate let count 362 from 04/10/2019. Sodium 140, potassium 4.1, creatinine 0.7, BUN 19. UA negative. IMAGING STUDIES: As above in [facility] with a venous ultrasound from 04/10/2019 revealing no sonographic e vidence of DVT. ECG: From 04/16/2019 reveals sinus bradycardia at 52, normal axis with anterior T-wave inversions. IMPRESSION: 1. Bradycardia down to the 40s. This was sinus bradycardia with no recent history of dizziness or s yncope and a stable blood pressure. 2. Hypertension. 3. Abnormal echocardiogram with anterior T-wave inversion, assess for acute coronary syndrome. 4. Chronic back pain. 5. Hypothyroidism. 6. Dyslipidemia. RECOMMENDATIONS: 1. At this time, we would maintain the patient on telemetry monitoring to follow rhythm and rate con trol closely. 2. Continue the patient's current Synthroid ____ TSH. 3. Continue the patient's current losartan, following blood pressure closely and continue the patien t's statin and adjust it according to a fasting lipid panel checked. 4. Would complete a rule out for myocardial infarction to ensure the patient's EKG abnormalities are chronic in nature and not due to any recent acute coronary syndrome then we will check a 2D echo to assess ejection fraction, wall motion or any major abnormalities. 5. Ongoing evaluation of patient's back pain with treatment of pain syndromes per surgical consultat ion and pain service. Thank you for allowing me to take part in the care of this patient. I will continue to follow very c losely with you. Further recommendations to be made as the patient progresses through her inpatient hospital clinical course. Dictated By: ADARSH CURRAN/NTS Conf#: [id number] DID#: [id number] CC: JOAQUIN STOVER MD; ELAINE BUITRAGO MD;*EndCC*
[2019-04-17] MEDS: morphine LIQ (10 MG/5 ML) CUP PO PRN (20:03)
[2019-04-17] MEDS: ATORVASTATIN 20 MG TAB PO SCH (21:12)
[2019-04-17] MEDS: AMITRIPTYLINE 50 MG TAB PO SCH (21:13)
[2019-04-18] VITALS (11 sets, daily range): BP systolic 98–141; BP diastolic 57–67; PULSE 58–82; RESP 16–20
[2019-04-18] MEDS: morphine LIQ (10 MG/5 ML) CUP PO PRN ×5 (00:18→20:16)
[2019-04-18] MEDS: PANTOPRAZOLE (EC) 40 MG TAB PO SCH (06:37)
[2019-04-18] MEDS: LEVOTHYROXINE 150 MCG TAB PO SCH (06:37)
[2019-04-18] MEDS: POLYETHYLENE GLYCOL 17 GM PACKET PO SCH ×2 (08:33→08:38)
[2019-04-18] MEDS: oxyCODONE (CR) 10 MG TAB [oxyCONTIN] PO SCH ×2 (08:35→21:23)
[2019-04-18] MEDS: SENNA/DOCUSATE NA (8.6MG/50MG) TAB PO SCH ×2 (08:35→20:15)
[2019-04-18] MEDS: METHYLPREDNISOLONE 40 MG INJ IV SCH (08:35)
[2019-04-18] MEDS: LOSARTAN 50 MG TAB PO SCH (08:36)
[2019-04-18] MEDS: ENOXAPARIN 30 MG/0.3 ML SYG SC SCH (08:37)
--- NOTE | 2019-04-18 12:06 | PN ---
Date/Time of Note Date/Time of Note DATE: 04/18/19 TIME: 12:04 Assessment/Plan VTE Prophylaxis Risk score (from Nsg)>0 risk: 3 SCD applied (from Nsg): Yes Pharmacological prophylaxis: LMWH Lines/Catheters IV Catheter Type (from Nrsg): Saline Lock Urinary Cath still in place: Yes Reason Cath still needed: urinary retention Assessment/Plan Hospital Course Patient is undergoing cardiology evaluation for bradycardia, pain is adequately controlled on current pain medication, continue steroids, will resume PT when cleared by cardiology. Assessment/Plan -Bradycardia, continue telemetry monitoring. Dr. Burkett is asked to see patient in cardiology consultation. -Acute on chronic lower back pain with left lower extremities radiculopathy/wea kness. Continue morphine as needed for pain and Zofran as needed for nausea. Dr. Welch is following pain management consultation -Hxof Left L5-S1 Reposition of interbody cage with removal of ISF device and placement of L5-S1 Rods/Screws on 09/07/[address] Mayo. -HX of bilateral L5-S1 TLIF using ISF by Dr Mayo on 08/17/18 -Hypothyroidism, TSH is 0.0 53, continue levothyroxine at decreased dose. -Morbid obesity Further recommendations based on clinical course. Plan of care discussed with Dr. Leung. Result Diagram: 04/17/1944604/17/19446 Results 24hrs Laboratory Tests Test 04/17/19 21:34 04/18/19 06:25 Troponin I < 0.012 < 0.012 Triglycerides Level 291 H Cholesterol Level 197 LDL Cholesterol, Calculated 101 HDL Cholesterol 38 Cholesterol/HDL Ratio 5.1 Exam/Review of Systems Exam Vitals Vital Signs Date Temp Pulse Resp B/P (MAP) Pulse Ox O2 O2 Flow FiO2 Time Delivery Rate 04/18/19 98.1 58 16 104/63 97 11:18 (77) 04/18/19 Room Air 07:34 04/16/19 2.0 14:09 Intake and Output 04/17/19 04/17/19 04/18/19 1515:00 23:00 07:00 IntakeIntake Total 840 ml 1000 ml BalanceBalance 840 ml 1000 ml Exam Constitutional: alert, oriented Respiratory: clear to auscultation Cardiovascular: nl pulses Gastrointestinal: soft, non-tender Musculoskeletal: nl extremities to inspection, other (lower back healed surgical incision) Extremities: normal pulses Neurological: nl mental status Skin: nl turgor Results Results 24hrs Laboratory Tests Test 04/17/19 21:34 04/18/19 06:25 Troponin I < 0.012 < 0.012 Triglycerides Level 291 H Cholesterol Level 197 LDL Cholesterol, Calculated 101 HDL Cholesterol 38 Cholesterol/HDL Ratio 5.1 Medications Medication Current Medications IV Flush (NS 3 ml) 3 ml PER PROTOCOL IV ; Start 04/10/19 at 21:30 Ondansetron HCl (Zofran Inj) 4 mg Q6H PRN IV NAUSEA/VOMITING Last administered on 04/11/19 01:20; Admin Dose 4 MG; Start 04/10/19 at 21:30 Acetaminophen (Tylenol Tab) 650 mg Q6H PRN PO .PAIN 1-3 OR TEMP; Start 04/10/19 at 21:30 Morphine Sulfate (morphine) 2 mg Q4H PRN IV .SEVERE PAIN 7-10 Last administered on 04/17/19at 11:56; Admin Dose 2 MG; Start 04/10/19 at 21:30 Enoxaparin Sodium (Lovenox) 30 mg DAILY SC Last administered on 04/18/19at 08:37; Admin Dose 30 MG; Start 04/11/19 at 09:00 Amitriptyline HCl (Elavil) 100 mg QHS PO Last administered on 04/17/19 21:13; Admin Dose 100 MG; Start 04/12/19 at 21:00 Atorvastatin Calcium (Lipitor) 20 mg QHS PO Last administered on 04/17/19 21:12; Admin Dose 20 MG; Start 04/12/19 at 21:00 Oxycodone HCl (Oxycontin) 10 mg BID PO Last administered on 04/18/19 08:35; Admin Dose 10 MG; Start 04/12/19 at 21:00 Senna/Docusate Sodium (Senokot-S) 2 tab BID PO Last administered on 04/17/19 21:12; Admin Dose 2 TAB; Start 04/12/19 at 21:00 Polyethylene Glycol (Miralax) 17 gm DAILY PO Last administered on 04/17/19 08:04; Admin Dose 17 GM; Start 04/12/19 at 17:00 Hydralazine HCl (Apresoline) 10 mg Q4H PRN IV for SBP greater than 160; Start 04/16/19 at 10:00 Losartan Potassium (Cozaar) 50 mg DAILY PO Last administered on 04/18/19 08:36; Admin Dose 50 MG; Start 04/16/19 at 10:00 Methylprednisolone Sodium Succinate (Solu-Medrol) 40 mg BID IV Last administered on 04/17/19 08:05; Admin Dose 40 MG; Start 04/16/19 at 21:00 Pantoprazole (Protonix Tab) 40 mg DAILY@06 PO Last administered on 04/18/19 06:37; Admin Dose 40 MG; Start 04/17/19 at 06:00 Levothyroxine Sodium (Synthroid) 150 mcg DAILY@06 PO Last administered on 04/18/19 06:37; Admin Dose 150 MCG; Start 04/17/19 at 06:00 Morphine Sulfate (morphine) 6 mg Q4 PRN PO SEVERE PAIN LEVEL 7-10 Last administered on 04/18/19 08:56; Admin Dose 6 MG; Start 04/17/19 at 19:10 STEVE MCCARTY Apr 18, 2019 12:06
--- NOTE | 2019-04-18 13:53 | CONS ---
Assessment/Plan Assessment/Plan Hospital Course (Demo Recall) IMPRESSION: 1. Bradycardia down to the 40s. This was sinus bradycardia with no recent history of dizziness or syncope and a stable blood pressure. 2. Hypertension. 3. Abnormal echocardiogram with anterior T-wave inversion, assess for acute coronary syndrome. 4. Chronic back pain. 5. Hypothyroidism.-TSH actually suppressed 6. Dyslipidemia. Recc: -Tele -serial ecg's -continue losartan and follow BP closely off of antihypertensives -Continue statin -Contineu steroids and continue bronchodilators -no pa agents Consultation Date/Type/Reason Admit Date/Time Apr 12, 2019 at 15:41 Initial Consult Date 04/17/19 Type of Consult Cardiology Reason for Consultation bradycardia Requesting Provider: JOAQUIN STOVER MD Date/Time of Note DATE: 04/18/19 TIME: 13:49 Exam/Review of Systems Vital Signs Vitals Vital Signs Date Temp Pulse Resp B/P (MAP) Pulse Ox O2 O2 Flow FiO2 Time Delivery Rate 04/18/19 98.1 58 16 104/63 97 11:18 (77) 04/18/19 Room Air 07:34 04/16/19 2.0 14:09 Intake and Output 04/17/19 04/17/19 04/18/19 1515:00 23:00 07:00 IntakeIntake Total 840 ml 1000 ml BalanceBalance 840 ml 1000 ml Exam Exam Review of Systems: CONSTITUTIONAL: No fevers, chills. PULMONARY: No sob CARDIOVASCULAR: No chest pain/palpitations GASTROINTESTINAL: No nausea/vomiting. GENITOURINARY: No hematuria/dysuria. MUSCULOSKELETAL: No myagias/arthalgias. PSYCHIATRIC: The patient denies depression. NEUROLOGIC: No weakness Constitutional: alert, oriented Psych: no complaints Head: normocephalic ENMT: mucosa pink and moist Neck: supple, jvd (9 cm water) Respiratory: clear to auscultation Cardiovascular: regular rate and rhythm Gastrointestinal: soft, non-tender Musculoskeletal: muscle tone (normal) Extremities: edema (trace/B) Neurological: other (No focal deficits) Labs Result Diagram: 04/17/197 04/17/19446 Results 24hrs Laboratory Tests Test 04/17/19 21:34 04/18/19 06:25 Troponin I < 0.012 < 0.012 Triglycerides Level 291 H Cholesterol Level 197 LDL Cholesterol, Calculated 101 HDL Cholesterol 38 Cholesterol/HDL Ratio 5.1 Medications Medications Current Medications IV Flush (NS 3 ml) 3 ml PER PROTOCOL IV ; Start 04/10/19 at 21:30 Ondansetron HCl (Zofran Inj) 4 mg Q6H PRN IV NAUSEA/VOMITING Last administered on 04/11/19 01:20; Admin Dose 4 MG; Start 04/10/19 at 21:30 Acetaminophen (Tylenol Tab) 650 mg Q6H PRN PO .PAIN 1-3 OR TEMP; Start 04/10/19 at 21:30 Morphine Sulfate (morphine) 2 mg Q4H PRN IV .SEVERE PAIN 7-10 Last administered on 04/17/19 11:56; Admin Dose 2 MG; Start 04/10/19 at 21:30 Enoxaparin Sodium (Lovenox) 30 mg DAILY SC Last administered on 04/18/19 08:37; Admin Dose 30 MG; Start 04/11/19 at 09:00 Amitriptyline HCl (Elavil) 100 mg QHS PO Last administered on 04/17/19 21:13; Admin Dose 100 MG; Start 04/12/19 at 21:00 Atorvastatin Calcium (Lipitor) 20 mg QHS PO Last administered on 04/17/19 21:12; Admin Dose 20 MG; Start 04/12/19 at 21:00 Oxycodone HCl (Oxycontin) 10 mg BID PO Last administered on 04/18/19 08:35; Admin Dose 10 MG; Start 04/12/19 at 21:00 Senna/Docusate Sodium (Senokot-S) 2 tab BID PO Last administered on 04/17/19 21:12; Admin Dose 2 TAB; Start 04/12/19 at 21:00 Polyethylene Glycol (Miralax) 17 gm DAILY PO Last administered on 04/17/19 08:04; Admin Dose 17 GM; Start 04/12/19 at 17:00 Hydralazine HCl (Apresoline) 10 mg Q4H PRN IV for SBP greater than 160; Start 04/16/19 at 10:00 Losartan Potassium (Cozaar) 50 mg DAILY PO Last administered on 04/18/19 08:36; Admin Dose 50 MG; Start 04/16/19 at 10:00 Pantoprazole (Protonix Tab) 40 mg DAILY@06 PO Last administered on 04/18/19at 06:37; Admin Dose 40 MG; Start 04/17/19 at 06:00 Levothyroxine Sodium (Synthroid) 150 mcg DAILY@06 PO Last administered on 04/18/19at 06:37; Admin Dose 150 MCG; Start 04/17/19 at 06:00 Morphine Sulfate (morphine) 6 mg Q4 PRN PO SEVERE PAIN LEVEL 7-10 Last administered on 04/18/19at 13:00; Admin Dose 6 MG; Start 04/17/19 at 19:10 Prednisone (Prednisone) 50 mg Q12 PO ; Start 04/18/19 at 21:00 ADARSH LEE Apr 18, 2019 13:53
--- NOTE | 2019-04-18 14:58 | RADRPT ---
Vent Rate: 59 bpm RR Interval: 1016 msec DC Interval: 130 msec QRS Duration: 77 msec QT Interval: 406 msec QTC Interval: 403 msec P-R-T [place]: 49 - 8 - 1 degrees Sinus rhythm...normal P axis, V-rate 50- 99 Low voltage, precordial leads...precordial leads <1.0mV Abnormal T, consider ischemia, anterior leads...T <-0.20mV, V2-V4 Electronically Signed By: Brody Sal
[2019-04-18] MEDS: AMITRIPTYLINE 50 MG TAB PO SCH (20:15)
[2019-04-18] MEDS: predniSONE 50 MG TAB PO SCH (20:15)
[2019-04-18] MEDS: ATORVASTATIN 20 MG TAB PO SCH (20:16)
--- NOTE | 2019-04-18 22:17 | RADRPT ---
Echocardiogram Report Patient Name: NAEEM CINTRONPatient ID: [id number] : 1960 (58y 7m)Study Date: 04/18/2019 8:46:26 AM Gender: FAccession #: [id number] Tech: Nitin Ghosh [facility] Location: 2- Ref.Physician: ADARSH BURKETT Height(Cm): BSA: Weight(Kg): Quality: AdequateOrder Physician: ADARSH BURKETT Account #: Procedures: Echocardiographic Report: Transthoracic echocardiogram with complete 2D, M-Mode, and doppler examination. Indications: Abnormal EKG. Measurements: 2D/M Mode Doppler Measurement Value Normal Range Measurement Value Normal Range LVIDd 2D 4.4 [ 3.8 - 5.2 ] cm AV Peak Marcello 1.3 [ 100.0 - 170.0 ] cm/sec LVIDs 2D 2.8 [ 2.2 - 3.5 ] cm AV Peak PG 7.0 [ 2.0 - 9.0 ] mmHg LVPWd 2D 1.2 [ 0.6 - 0.9 ] cm LVOT Peak Marcello 0.7 [ 70.0 - 110.0 ] cm/sec IVSd 2D 1.2 [ 0.6 - 0.9 ] cm LVOT Peak PG 2.0 [ 2.0 - 6.0 ] mmHg AoR Diam 2D 2.9 [ 2.3 - 3.1 ] cm MV E Peak Marcello 0.5 [ 60.0 - 130.0 ] cm/sec EDV 2D 90.1 [ 46.0 - 106.0 ] ml MV A Peak Marcello 0.6 [ 100.0 - 120.0 ] cm/sec ESV 2D 30.9 [ 14.0 - 42.0 ] ml MV E/A 0.8 [ 0.8 - 1.5 ] ratio EF 2D 65.7 [ 54.0 - 74.0 ] percent MV Decel Time 310 [ 104 - 258 ] msec LA Dimen 2D 3.2 [ 2.7 - 3.8 ] cm Lat E` Marcello 0.1 [ 10.0 - 15.0 ] cm/sec Lateral E/E` 8.3 [ 1.0 - 2.0 ] ratio MV E/A 0.8 [ 0.8 - 1.5 ] ratio TR Peak Marcello 2.1 [ 100.0 - 280.0 ] cm/sec TR Peak PG 17.0 mmHg RVSP 20.0 [ 10.0 - 36.0 ] mmHg Findings: Left Ventricle: Normal left ventricular systolic function. Normal left ventricular cavity size. Mild concentric left ventricular hypertrophy. Ejection fraction is visually estimated at 55 %. Tissue Doppler/Mitral Doppler indices are consistent with impaired relaxation (Stage I diastolic dysfunction). Right Ventricle: Normal right ventricular size. Normal right ventricular systolic function. Left Atrium: The left atrium is normal in size. Right Atrium: The right atrium is normal in size. Mitral Valve: Mild mitral leaflet calcification. Mild mitral annular calcification. Trace mitral regurgitation. Aortic Valve: No significant aortic stenosis or insufficiency. Aortic cusps appear mildly calcified. Tricuspid Valve: Normal appearance of the tricuspid valve. The estimated Peak RVSP is 20 mmHg. There is trace tricuspid regurgitation. Pericardium: Normal pericardium with no significant pericardial effusion. Trivial pericardial effusion. Aorta: Normal aortic root. IVC: Normal size and normal respiratory collapse consistent with normal right atrial pressure. Conclusions: Normal left ventricular systolic function. Normal left ventricular cavity size. Mild concentric left ventricular hypertrophy. Ejection fraction is visually estimated at 55 %. Tissue Doppler/Mitral Doppler indices are consistent with impaired relaxation (Stage I diastolic dysfunction). Mild mitral leaflet calcification. Mild mitral annular calcification. Trace mitral regurgitation. Normal appearance of the tricuspid valve. The estimated Peak RVSP is 20 mmHg. There is trace tricuspid regurgitation. Normal pericardium with no significant pericardial effusion. Trivial pericardial effusion. Electronically Signed By: Adarsh Burkett 2019-04-18 22:16:47 PDT
[2019-04-19] VITALS (12 sets, daily range): BP systolic 113–142; BP diastolic 62–71; PULSE 68–89; RESP 18–20
--- NOTE | 2019-04-19 03:39 | PN ---
Date/Time of Note Date/Time of Note DATE: 04/19/19 TIME: 03:39 Assessment/Plan VTE Prophylaxis Risk score (from Nsg)>0 risk: 5 SCD applied (from Nsg): Yes Lines/Catheters IV Catheter Type (from Nrsg): Saline Lock Urinary Cath still in place: Yes Assessment/Plan Assessment/Plan -Bradycardia, continue telemetry monitoring. Dr. Burkett is asked to see patient in cardiology consultation. -Acute on chronic lower back pain with left lower extremities radiculopathy/weakness. Continue morphine as needed for pain and Zofran as needed for nausea. Dr. Welch is following pain management consultation -Hxof Left L5-S1 Reposition of interbody cage with removal of ISF device and placement of L5-S1 Rods/Screws on 09/07/[address] Mayo. -HX of bilateral L5-S1 TLIF using ISF by Dr Mayo on 08/17/18 -Hypothyroidism, TSH is 0.0 53, continue levothyroxine at decreased dose. -Morbid obesity Further recommendations based on clinical course. Plan of care discussed with Dr. Leung. Result Diagram: 04/17/197 04/17/197 Results 24hrs Laboratory Tests Test 04/18/19 06:25 Troponin I < 0.012 Triglycerides Level 291 H Cholesterol Level 197 LDL Cholesterol, Calculated 101 HDL Cholesterol 38 Cholesterol/HDL Ratio 5.1 Subjective 24 Hr Interval Summary Free Text/Dictation NAD stable wants to go home Exam/Review of Systems Exam Vitals Vital Signs Date Temp Pulse Resp B/P (MAP) Pulse Ox O2 O2 Flow FiO2 Time Delivery Rate 04/19/19 73 00:00 04/18/19 98.1 18 98/57 (71) 91 23:52 04/18/19 Room Air 15:30 04/16/19 2.0 14:09 Intake and Output 04/18/19 04/18/19 04/19/19 1515:00 23:00 07:00 IntakeIntake Total 750 ml BalanceBalance 750 ml Results Results 24hrs Laboratory Tests Test 04/18/19 06:25 Troponin I < 0.012 Triglycerides Level 291 H Cholesterol Level 197 LDL Cholesterol, Calculated 101 HDL Cholesterol 38 Cholesterol/HDL Ratio 5.1 Medications Medication Current Medications IV Flush (NS 3 ml) 3 ml PER PROTOCOL IV ; Start 04/10/19 at 21:30 Ondansetron HCl (Zofran Inj) 4 mg Q6H PRN IV NAUSEA/VOMITING Last administered on 04/11/19 01:20; Admin Dose 4 MG; Start 04/10/19 at 21:30 Acetaminophen (Tylenol Tab) 650 mg Q6H PRN PO .PAIN 1-3 OR TEMP; Start 04/10/19 at 21:30 Morphine Sulfate (morphine) 2 mg Q4H PRN IV .SEVERE PAIN 7-10 Last administered on 04/17/19 11:56; Admin Dose 2 MG; Start 04/10/19 at 21:30 Amitriptyline HCl (Elavil) 100 mg QHS PO Last administered on 04/18/19 20:15; Admin Dose 100 MG; Start 04/12/19 at 21:00 Atorvastatin Calcium (Lipitor) 20 mg QHS PO Last administered on 04/18/19 20: 16; Admin Dose 20 MG; Start 04/12/19 at 21:00 Oxycodone HCl (Oxycontin) 10 mg BID PO Last administered on 04/18/19 21:23; Admin Dose 10 MG; Start 04/12/19 at 21:00 Senna/Docusate Sodium (Senokot-S) 2 tab BID PO Last administered on 04/18/19 20:15; Admin Dose 2 TAB; Start 04/12/19 at 21:00 Polyethylene Glycol (Miralax) 17 gm DAILY PO Last administered on 04/17/19 08:04; Admin Dose 17 GM; Start 04/12/19 at 17:00 Hydralazine HCl (Apresoline) 10 mg Q4H PRN IV for SBP greater than 160; Start 04/16/19 at 10:00 Losartan Potassium (Cozaar) 50 mg DAILY PO Last administered on 04/18/19 08:36; Admin Dose 50 MG; Start 04/16/19 at 10:00 Pantoprazole (Protonix Tab) 40 mg DAILY@06 PO Last administered on 04/18/19 06:37; Admin Dose 40 MG; Start 04/17/19 at 06:00 Levothyroxine Sodium (Synthroid) 150 mcg DAILY@06 PO Last administered on 04/18/19 06:37; Admin Dose 150 MCG; Start 04/17/19 at 06:00 Morphine Sulfate (morphine) 6 mg Q4 PRN PO SEVERE PAIN LEVEL 7-10 Last administered on 04/18/19at 20:16; Admin Dose 6 MG; Start 04/17/19 at 19:10 Prednisone (Prednisone) 50 mg Q12 PO Last administered on 04/18/19at 20:15; Admin Dose 50 MG; Start 04/18/19 at 21:00 Enoxaparin Sodium (Lovenox) 40 mg DAILY SC ; Start 04/19/19 at 09:00 JONATHAN LEE Apr 19, 2019 03:39
[2019-04-19] MEDS: PANTOPRAZOLE (EC) 40 MG TAB PO SCH (05:49)
[2019-04-19] MEDS: LEVOTHYROXINE 150 MCG TAB PO SCH (05:49)
[2019-04-19] MEDS: morphine LIQ (10 MG/5 ML) CUP PO PRN ×3 (05:49→22:18)
[2019-04-19] MEDS: SENNA/DOCUSATE NA (8.6MG/50MG) TAB PO SCH ×2 (08:23→20:11)
[2019-04-19] MEDS: ENOXAPARIN 40 MG/0.4 ML SYG SC SCH (08:24)
[2019-04-19] MEDS: oxyCODONE (CR) 10 MG TAB [oxyCONTIN] PO SCH ×2 (08:25→20:11)
[2019-04-19] MEDS: POLYETHYLENE GLYCOL 17 GM PACKET PO SCH (08:29)
[2019-04-19] MEDS: predniSONE 50 MG TAB PO SCH ×2 (09:01→20:10)
[2019-04-19] MEDS: LOSARTAN 50 MG TAB PO SCH (11:48)
--- NOTE | 2019-04-19 14:25 | CONS ---
Assessment/Plan Assessment/Plan Hospital Course (Demo Recall) IMPRESSION: 1. Bradycardia down to the 40s. This was sinus bradycardia with no recent history of dizziness or syncope and a stable blood pressure. 2. Hypertension. 3. Abnormal echocardiogram with anterior T-wave inversion, assess for acute coronary syndrome. 4. Chronic back pain. 5. Hypothyroidism.-TSH actually suppressed 6. Dyslipidemia. Recc: -Tele -serial ecg's -continue losartan and follow BP closely -Continue statin -Continue steroids and continue bronchodilators -no pa agents Consultation Date/Type/Reason Admit Date/Time Apr 12, 2019 at 15:41 Initial Consult Date 04/17/19 Type of Consult Cardiology Reason for Consultation Bradycardia/HTN Requesting Provider: JOAQUIN STOVER MD Date/Time of Note DATE: 04/19/19 TIME: 14:22 Exam/Review of Systems Vital Signs Vitals Vital Signs Date Temp Pulse Resp B/P (MAP) Pulse Ox O2 O2 Flow FiO2 Time Delivery Rate 04/19/19 84 12:19 04/19/19 97.8 18 113/63 95 Room Air 11:06 (80) 04/16/19 2.0 14:09 Intake and Output 04/18/19 04/18/19 04/19/19 1515:00 23:00 07:00 IntakeIntake Total 750 ml 300 ml BalanceBalance 750 ml 300 ml Exam Exam Review of Systems: CONSTITUTIONAL: No fevers, chills. PULMONARY: No sob CARDIOVASCULAR: No chest pain/palpitations GASTROINTESTINAL: No nausea/vomiting. GENITOURINARY: No hematuria/dysuria. MUSCULOSKELETAL: No myagias/arthalgias. PSYCHIATRIC: The patient denies depression. NEUROLOGIC: No weakness Constitutional: alert, oriented Psych: no complaints Head: normocephalic ENMT: mucosa pink and moist Neck: supple, jvd (9 cm water) Respiratory: diminished breath sounds (at bases/B) Cardiovascular: regular rate and rhythm Gastrointestinal: soft, non-tender Musculoskeletal: muscle tone (normal) Extremities: edema (none) Neurological: other (No focal deficits) Labs Result Diagram: 04/19/1933 04/19/19 0533 Results 24hrs Laboratory Tests Test 04/19/19 05:33 White Blood Count 12.9 #H Red Blood Count 4.84 Hemoglobin 13.9 Hematocrit 41.9 Mean Corpuscular Volume 86.6 Mean Corpuscular Hemoglobin 28.7 L Mean Corpuscular Hemoglobin Concent 33.2 Red Cell Distribution Width 13.7 Platelet Count 369 Mean Platelet Volume 9.2 Immature Granulocytes % 1.400 H Neutrophils % 86.2 H Lymphocytes % 9.3 L Monocytes % 2.8 Eosinophils % 0.1 Basophils % 0.2 Nucleated Red Blood Cells % 0.0 Immature Granulocytes # 0.180 H Neutrophils # 11.2 H Lymphocytes # 1.2 Monocytes # 0.4 Eosinophils # 0.0 Basophils # 0.0 Nucleated Red Blood Cells # 0.0 Sodium Level 136 Potassium Level 4.9 Chloride Level 103 Carbon Dioxide Level 26 Anion Gap 7 Blood Urea Nitrogen 34 H Creatinine 0.83 Est Glomerular Filtrat Rate mL/min > 60 Glucose Level 162 Calcium Level 9.1 Medications Medications Current Medications IV Flush (NS 3 ml) 3 ml PER PROTOCOL IV ; Start 04/10/19 at 21:30 Ondansetron HCl (Zofran Inj) 4 mg Q6H PRN IV NAUSEA/VOMITING Last administered on 04/11/19 01:20; Admin Dose 4 MG; Start 04/10/19 at 21:30 Acetaminophen (Tylenol Tab) 650 mg Q6H PRN PO .PAIN 1-3 OR TEMP; Start 04/10/19 at 21:30 Morphine Sulfate (morphine) 2 mg Q4H PRN IV .SEVERE PAIN 7-10 Last administered on 04/17/19at 11:56; Admin Dose 2 MG; Start 04/10/19 at 21:30 Amitriptyline HCl (Elavil) 100 mg QHS PO Last administered on 04/18/19 20:15; Admin Dose 100 MG; Start 04/12/19 at 21:00 Atorvastatin Calcium (Lipitor) 20 mg QHS PO Last administered on 04/18/19 20:16; Admin Dose 20 MG; Start 04/12/19 at 21:00 Oxycodone HCl (Oxycontin) 10 mg BID PO Last administered on 04/19/19 08:25; Admin Dose 10 MG; Start 04/12/19 at 21:00 Senna/Docusate Sodium (Senokot-S) 2 tab BID PO Last administered on 04/19/19 08:23; Admin Dose 2 TAB; Start 04/12/19 at 21:00 Polyethylene Glycol (Miralax) 17 gm DAILY PO Last administered on 04/17/19 08:04; Admin Dose 17 GM; Start 04/12/19 at 17:00 Hydralazine HCl (Apresoline) 10 mg Q4H PRN IV for SBP greater than 160; Start 04/16/19 at 10:00 Losartan Potassium (Cozaar) 50 mg DAILY PO Last administered on 04/19/19 11:48; Admin Dose 50 MG; Start 04/16/19 at 10:00 Pantoprazole (Protonix Tab) 40 mg DAILY@06 PO Last administered on 04/19/19 05:49; Admin Dose 40 MG; Start 04/17/19 at 06:00 Levothyroxine Sodium (Synthroid) 150 mcg DAILY@06 PO Last administered on 04/19/19 05:49; Admin Dose 150 MCG; Start 04/17/19 at 06:00 Morphine Sulfate (morphine) 6 mg Q4 PRN PO SEVERE PAIN LEVEL 7-10 Last administered on 04/19/19 05:49; Admin Dose 6 MG; Start 04/17/19 at 19:10 Prednisone (Prednisone) 50 mg Q12 PO Last administered on 04/19/19 09:01; Admin Dose 50 MG; Start 04/18/19 at 21:00 Enoxaparin Sodium (Lovenox) 40 mg DAILY SC Last administered on 04/19/19 08:24; Admin Dose 40 MG; Start 04/19/19 at 09:00 ADARSH LEE Apr 19, 2019 14:25
[2019-04-19] MEDS: ATORVASTATIN 20 MG TAB PO SCH (20:10)
[2019-04-19] MEDS: AMITRIPTYLINE 50 MG TAB PO SCH (20:10)
[2019-04-20] VITALS: PULSE 83
[2019-04-20] MEDS: morphine LIQ (10 MG/5 ML) CUP PO PRN ×2 (03:25→11:28)
[2019-04-20 03:30] VITALS: BP 94/57; PULSE 80; RESP 20
[2019-04-20 04:00] VITALS: PULSE 83
[2019-04-20] MEDS: PANTOPRAZOLE (EC) 40 MG TAB PO SCH (05:52)
[2019-04-20] MEDS: LEVOTHYROXINE 150 MCG TAB PO SCH (05:52)
[2019-04-20 07:28] VITALS: BP 126/73; PULSE 71; RESP 20
[2019-04-20 08:01] VITALS: PULSE 72
[2019-04-20] MEDS: SENNA/DOCUSATE NA (8.6MG/50MG) TAB PO SCH (08:13)
[2019-04-20] MEDS: predniSONE 50 MG TAB PO SCH (08:13)
[2019-04-20] MEDS: oxyCODONE (CR) 10 MG TAB [oxyCONTIN] PO SCH (08:14)
[2019-04-20] MEDS: LOSARTAN 50 MG TAB PO SCH (08:14)
[2019-04-20] MEDS: POLYETHYLENE GLYCOL 17 GM PACKET PO SCH (08:15)
[2019-04-20] MEDS: ENOXAPARIN 40 MG/0.4 ML SYG SC SCH (08:29)
--- NOTE | 2019-04-20 10:17 | PN ---
Date/Time of Note Date/Time of Note DATE: 04/20/19 TIME: 10:16 Assessment/Plan VTE Prophylaxis Risk score (from Nsg)>0 risk: 3 SCD applied (from Nsg): Yes Pharmacological prophylaxis: LMWH Lines/Catheters IV Catheter Type (from Nrsg): Saline Lock Urinary Cath still in place: Yes Reason Cath still needed: skin wounds contaminated by urine Assessment/Plan Hospital Course -Bradycardia, continue telemetry monitoring. Dr. Burkett is asked to see patient in cardiology consultation. -Acute on chronic lower back pain with left lower extremities radiculopathy/weakness. Continue morphine as needed for pain and Zofran as needed for nausea. Dr. Welch is following pain management consultation -Hxof Left L5-S1 Reposition of interbody cage with removal of ISF device and placement of L5-S1 Rods/Screws on 09/07/[address] Mayo. -HX of bilateral L5-S1 TLIF using ISF by Dr Mayo on 08/17/18 -Hypothyroidism, TSH is 0.0 53, continue levothyroxine at decreased dose. -Morbid obesity Result Diagram: 04/20/19 0511 04/19/19 0533 Results 24hrs Laboratory Tests Test 04/20/19 05:11 White Blood Count 12.5 H Red Blood Count 4.61 Hemoglobin 13.1 Hematocrit 39.1 Mean Corpuscular Volume 84.8 Mean Corpuscular Hemoglobin 28.4 L Mean Corpuscular Hemoglobin Concent 33.5 Red Cell Distribution Width 13.9 Platelet Count 376 Mean Platelet Volume 9.5 Immature Granulocytes % 1.800 H Neutrophils % 83.8 H Lymphocytes % 10.7 L Monocytes % 3.5 Eosinophils % 0.0 Basophils % 0.2 Nucleated Red Blood Cells % 0.0 Immature Granulocytes # 0.220 H Neutrophils # 10.5 H Lymphocytes # 1.3 Monocytes # 0.4 Eosinophils # 0.0 Basophils # 0.0 Nucleated Red Blood Cells # 0.0 Subjective 24 Hr Interval Summary Free Text/Dictation Patient has back pain but is controlled on current regimen Exam/Review of Systems Exam Vitals Vital Signs Date Temp Pulse Resp B/P (MAP) Pulse Ox O2 O2 Flow FiO2 Time Delivery Rate 04/20/19 72 08:01 04/20/19 97.6 20 126/73 98 Room Air 07:28 (90) 04/16/19 2.0 14:09 Intake and Output 04/19/19 04/19/19 04/20/19 1515:00 23:00 07:00 IntakeIntake Total 900 ml 600 ml BalanceBalance 900 ml 600 ml Constitutional: well developed Head: normocephalic, atraumatic Neck: supple Respiratory: clear to auscultation Cardiovascular: regular rate and rhythm Gastrointestinal: soft, non-tender Extremities: normal pulses Results Results 24hrs Laboratory Tests Test 04/20/19 05:11 White Blood Count 12.5 H Red Blood Count 4.61 Hemoglobin 13.1 Hematocrit 39.1 Mean Corpuscular Volume 84.8 Mean Corpuscular Hemoglobin 28.4 L Mean Corpuscular Hemoglobin Concent 33.5 Red Cell Distribution Width 13.9 Platelet Count 376 Mean Platelet Volume 9.5 Immature Granulocytes % 1.800 H Neutrophils % 83.8 H Lymphocytes % 10.7 L Monocytes % 3.5 Eosinophils % 0.0 Basophils % 0.2 Nucleated Red Blood Cells % 0.0 Immature Granulocytes # 0.220 H Neutrophils # 10.5 H Lymphocytes # 1.3 Monocytes # 0.4 Eosinophils # 0.0 Basophils # 0.0 Nucleated Red Blood Cells # 0.0 Medications Medication Current Medications IV Flush (NS 3 ml) 3 ml PER PROTOCOL IV ; Start 04/10/19 at 21:30 Ondansetron HCl (Zofran Inj) 4 mg Q6H PRN IV NAUSEA/VOMITING Last administered on 04/11/19at 01:20; Admin Dose 4 MG; Start 04/10/19 at 21:30 Acetaminophen (Tylenol Tab) 650 mg Q6H PRN PO .PAIN 1-3 OR TEMP; Start 04/10/19 at 21:30 Morphine Sulfate (morphine) 2 mg Q4H PRN IV .SEVERE PAIN 7-10 Last administered on 04/17/19at 11:56; Admin Dose 2 MG; Start 04/10/19 at 21:30 Amitriptyline HCl (Elavil) 100 mg QHS PO Last administered on 04/19/19at 20:10; Admin Dose 100 MG; Start 04/12/19 at 21:00 Atorvastatin Calcium (Lipitor) 20 mg QHS PO Last administered on 04/19/19at 20:10; Admin Dose 20 MG; Start 04/12/19 at 21:00 Oxycodone HCl (Oxycontin) 10 mg BID PO Last administered on 04/20/19 08:14; Admin Dose 10 MG; Start 04/12/19 at 21:00 Senna/Docusate Sodium (Senokot-S) 2 tab BID PO Last administered on 04/20/19 08:13; Admin Dose 2 TAB; Start 04/12/19 at 21:00 Polyethylene Glycol (Miralax) 17 gm DAILY PO Last administered on 04/17/19 08:04; Admin Dose 17 GM; Start 04/12/19 at 17:00 Hydralazine HCl (Apresoline) 10 mg Q4H PRN IV for SBP greater than 160; Start 04/16/19 at 10:00 Losartan Potassium (Cozaar) 50 mg DAILY PO Last administered on 04/20/19 08:14; Admin Dose 50 MG; Start 04/16/19 at 10:00 Pantoprazole (Protonix Tab) 40 mg DAILY@06 PO Last administered on 04/20/19 05:52; Admin Dose 40 MG; Start 04/17/19 at 06:00 Levothyroxine Sodium (Synthroid) 150 mcg DAILY@06 PO Last administered on 04/20/19 05:52; Admin Dose 150 MCG; Start 04/17/19 at 06:00 Morphine Sulfate (morphine) 6 mg Q4 PRN PO SEVERE PAIN LEVEL 7-10 Last administered on 04/20/19 03:25; Admin Dose 6 MG; Start 04/17/19 at 19:10 Prednisone (Prednisone) 50 mg Q12 PO Last administered on 04/20/19 08:13; Admin Dose 50 MG; Start 04/18/19 at 21:00 Enoxaparin Sodium (Lovenox) 40 mg DAILY SC Last administered on 04/20/19 08:29; Admin Dose 40 MG; Start 04/19/19 at 09:00 ELAINE BUITRAGO Apr 20, 2019 10:17
--- NOTE | 2019-04-26 13:34 | DS ---
Date/Time of Note Date/Time of Note DATE: 04/26/19 TIME: 13:32 Discharge Summary Admission/Discharge Info Admit Date/Time Apr 12, 2019 at 15:41 Discharge Date/Time Apr 20, 2019 at 13:11 Discharge Diagnosis -Bradycardia, continue telemetry monitoring. Dr. Burkett is asked to see patient in cardiology consultation. -Acute on chronic lower back pain with left lower extremities radiculopath y/weakness. Continue morphine as needed for pain and Zofran as needed for nausea. Dr. Welch is following pain management consultation -Hxof Left L5-S1 Reposition of interbody cage with removal of ISF device and placement of L5-S1 Rods/Screws on 09/07/[address] Mayo. -HX of bilateral L5-S1 TLIF using ISF by Dr Mayo on 08/17/18 -Hypothyroidism, TSH is 0.0 53, continue levothyroxine at decreased dose. -Morbid obesity Consults Cardiology Palliative care Procedures none Hx of Present Illness Patient with back pain comes in for worsening pain. Hospital Course Patient with back pain comes in for worsening pain. Patient was found to have bradycardia and seen by cardiology. Patient was treatment with pain medicine and when felt to be stable, patient was sent home. -Bradycardia, continue telemetry monitoring. Dr. Burkett is asked to see patient in cardiology consultation. -Acute on chronic lower back pain with left lower extremities radiculopathy/weakness. Continue morphine as needed for pain and Zofran as needed for nausea. Dr. Welch is following pain management consultation -Hxof Left L5-S1 Reposition of interbody cage with removal of ISF device and placement of L5-S1 Rods/Screws on 09/07/[address] Mayo. -HX of bilateral L5-S1 TLIF using ISF by Dr Mayo on 08/17/18 -Hypothyroidism, TSH is 0.0 53, continue levothyroxine at decreased dose. -Morbid obesity Home Meds Reported Medications Methocarbamol* (Methocarbamol*) 750 Mg Tablet, 750 MG PO TID, TAB 04/11/19 Rosuvastatin Calcium (Rosuvastatin Calcium) 5 Mg Tablet, 5 MG PO QHS, TAB 04/11/19 Amitriptyline Hcl* (Amitriptyline Hcl*) 100 Mg Tablet, 100 MG PO QHS, #30 TAB 04/11/19 Sennosides* (Senna Lax*) 8.6 Mg Tablet, 1 TAB PO DAILY PRN for CONSTIPATION, TAB 11/08/18 Oxycodone Hcl* (Oxycontin*) 10 Mg Tab.sr.12h, 10 MG PO Q12 PRN for SEVERE PAIN LEVEL 7-10, TAB 11/08/18 Hydrocodone/Acetaminophen ([place] 5-325 Tablet) 1 Each Tablet, 1 EACH PO Q6 PRN for SEVERE PAIN LEVEL 7-10, TAB 11/08/18 Polyethylene Glycol* (Miralax*) 17 Gm Powd.pack, 17 GM PO DAILY PRN for CONSTIP ATION, #30 PACKET 11/08/18 Mag Hydrox/Al Hydrox/Simeth (Maalox Advanced Suspension) 355 Ml Oral.susp, 30 ML PO BID PRN for CONSTIPATION 11/08/18 Levothyroxine Sodium* (Levothyroxine Sodium*) 200 Mcg Tablet, 200 MCG PO BEFORE BREAKFAST, #30 TAB 11/08/18 Lactulose* (Lactulose*) 20 Gm/30 Ml Solution, 20 GM PO DAILY PRN for CO NSTIPATION, ML 11/08/18 Gabapentin* (Gabapentin*) 600 Mg Tablet, 600 MG PO Q8, #60 TAB 11/08/18 Docusate Sodium* (Colace*) 100 Mg Capsule, 100 MG PO BID, #60 CAP 11/08/18 Collagenase* (Santyl*) 30 Gm Oint..gm., 1 APPLIC TOP DAILY, #1 TUB 11/08/18 Bisacodyl* (Bisacodyl*) 10 Mg Supp, 10 MG ME Q24H PRN for CONSTIPATION, SUPP 11/08/18 Bisacodyl* (Bisacodyl*) 5 Mg Tablet.dr, 5 MG PO DAILY PRN for CONSTIPATION, TAB 11/08/18 Baclofen* (Baclofen*) 20 Mg Tablet, 20 MG PO Q8, TAB 11/08/18 Apixaban* (Eliquis*) 5 Mg Tablet, 5 MG PO BID, TAB 11/08/18 Acetaminophen* (Acetaminophen*) 650 Mg Tablet, 650 MG PO Q6H PRN for PAIN AND OR ELEVATED TEMP, #30 TAB 11/08/18 Pantoprazole* (Protonix*) 40 Mg Tablet.dr, 40 MG PO DAILY, TAB 08/17/18 Primary Care Provider Not On Staff Doctor ELAINE BUITRAGO Apr 26, 2019 13:34
== END 2019-04-20 13:11 | disposition home or self-care (01) | DRG 74 ==
LOC: FTE 17:18 → PP2 21:22 → OBSVTOIN 04-12 15:41 → 6WM 04-16 13:51
PROVIDERS: ADMIT Internal Medicine; ATTEND Internal Medicine
DX: M54.10 Radiculopathy, site unspecified (principal); Z68.41 Body mass index [BMI] 40.0-44.9, adult; E66.01 Morbid (severe) obesity due to excess calories; E03.9 Hypothyroidism, unspecified; R00.1 Bradycardia, unspecified; I10 Essential (primary) hypertension; G89.29 Other chronic pain; Z98.1 Arthrodesis status; R94.31 Abnormal electrocardiogram [ECG] [EKG]; Z79.01 Long term (current) use of anticoagulants
CPT/HCPCS: 36415; 80048; 80053; 80061; 81003; 83036; 84443; 84484; 85025; 93005; 93306; 93970; 97116; 97162; 97530; G0378; J0696; J1650; J2270; J2405; J2920; J7040; J7512